=== PATIENT | male | born 1960 | race African-American/Black ===

== ENCOUNTER → 2016-11-01 | Outpatient (CLI) | payer OTHER, MEDICAID ==
[2016-07-24 17:18] VITALS: BP 149/97
[2016-11-04 15:26] LABS: ALBUMIN (SPEP) 4.05 g/dL (3.75-5.01); ALPHA-1 (SPEP) 0.35 g/dL (0.19-0.46); GAMMA (SPEP) 1.09 g/dL (0.62-1.51)
== END ==
LOC: LAB 16:09
DX: M54.5 Low back pain (principal); M79.7 Fibromyalgia; R53.83 Other fatigue; R76.8 Other specified abnormal immunological findings in serum
CPT/HCPCS: 36415; 84165; 85652; 86140; 86334

== ENCOUNTER 2016-12-02 16:34 | Emergency (ER) | payer OTHER, MEDICAID ==
[2016-12-02 17:04] VITALS: BP 136/87
--- NOTE | 2016-12-02 17:24 | DR.GENAD ---
HPI - PCP Primary Care Physician: LOBITO YANEZ - Complaint/Symptoms Chief Complaint Doctors Comments: Patient admits to swollen eyes with clear drainage this AM Chief Complaint:: PT STATES " I WOKE UP THIS AM AND I HAVE SWOLLEN AREAS MY EYES ". Self Treatment fo Chief Complaint: PT RECENTLY HAD AN HEAD HOLD PUT ON CIPRO.. - Source History Provided: Patient - Mode of Arrival Mode of Arrival: Ambulatory - Timing Onset of Chief Complaint: 12/02/16 PMH - PMH Past Medical History: Yes Past Medical History: Dyslipidemia, Hypertension Past Surgical History: Yes Surgical History: Ortho Surgery - Family History History of Family Medical Conditions: Yes Family Medical History: Diabetes Mellitus, Cancer, [place], Coronary Artery Disease, Hypertension - Social History Does patient currently use any type of tobacco product: No Have you used tobacco products in the last 12 months: No Type of Tobacco Use: None Does any household member use tobacco: No Alcohol Use: None Do you use any recreational Drugs:: No Lives With: Alone Lives Where: Home - infectious screening In the last 2 months have you had wt loss of >10#?: NO Have you had fever, night sweats or hemotysis?: No Have you traveled outside the country in the last 6 months?: No Isolation: Standard ROS - Review of Systems Constitutional: No Symptoms Reported Eyes: Discharge (watery from right this morning) ENTM: No Symptoms Reported Respiratoy: No Symptoms Reported Cardiovascular: No Symptoms Reported Gastrointestinal/Abdominal: No Symptoms Reported Genitourinary: No Symptoms Reported Neurological: No Symptoms Reported Musculoskeletal: No Symptoms Reported Integumentary: No Symptoms Reported Hematologic/Lymphatic: No Symptoms Reported Endocrine: No Symptoms Reported Psychiatric: No Symptoms Reported PE - Vital Signs Vitals: Temperature 98.7 F Pulse Rate 90 Respiratory Rate 20 Blood Pressure [Right Arm] 109/69 Blood Pressure [Left Arm] 150/72 Blood Pressure 136/87 O2 Sat by Pulse Oximetry 95 - General Limitations: No Limitations General Appearance: Alert, In No Apparent Distress, Appears Intoxicated - Head Head Exam: Normal Inspection, Atraumatic - Eyes Eye exam: EOMI (proptosis bilaterally), Conjunctival Injection - ENT ENT Exam: Normal Exam External Ear Exam: Normal External Inspection TM/Canal Exam: Bilateral Normal Nose Exam: Normal Nose Exam Mouth Exam: Normal Inspection Throat Exam: Normal Inspection - Neck Neck Exam: Normal Inspection - Chest Chest Inspection: Normal Inspection - Respiratory Respiratory Exam: Bilateral Clear to Auscultation - Cardiovascular Cardiovascular Exam: Regular Rate, Normal Rhythm - Abdominal Exam Abdominal Exam: Normal Inspection Abdominal Tenderness: negative: RUQ, RLQ, LUQ, LLQ, Epigastrium, Suprapubic, Diffuse, Mild, Moderate, Severe, Other - Extremities Extremities Exam: Normal Inspection - Back Back Exam: Normal Inspection, Full ROM - Neurologic Neurological Exam: Alert, Oriented X3, CN II-XII Intact - Psychiatric Psychiatric Exam: Normal Affect - Skin Skin Exam: Warm, Dry, Intact - Diagnosis Discharge Problem: Conjunctivitis Qualifiers: Conjunctivitis type: acute Acute conjunctivitis type: viral Laterality: right Qualified Code(s): B30.9 - Viral conjunctivitis, unspecified - Discharge Plan Condition: Stable - Follow ups/Referrals Follow ups/Referrals: RYANNE YANEZ [Primary Care Provider] - 3 days - Instructions
== END 2016-12-02 17:55 | disposition home or self-care (01) ==
LOC: ER 16:58
DX: B30.8 Other viral conjunctivitis (principal)
CPT/HCPCS: 99281; 99282

== ENCOUNTER 2016-12-16 18:26 | Emergency (ER) | payer OTHER, MEDICAID ==
[2016-12-16 18:38] VITALS: BP 141/72; BMI 26.6
[2016-12-16 19:07] LABS: BASOPHILS # (AUTO) 0.1 X10^3/uL (0.0-0.1); BASOPHILS % (AUTO) 0.9 % (0.2-1.0); EOSINOPHILS # (AUTO) 0.1 x10^3/uL (0.0-0.2); HEMATOCRIT 40.6 % (42.0-54.0); HEMOGLOBIN 13.2 g/dL (13.5-18.0); LYMPHOCYTES # (AUTO) 1.8 X10^3/uL (1.3-2.9); LYMPHOCYTES % (AUTO) 24.3 % (21.0-51.0); MEAN CORPUSCULAR HEMOGLOBIN 31.3 pg (27.0-34.0); MEAN CORPUSCULAR HGB CONC 32.6 g/dL (33.0-35.0); MONOCYTES # (AUTO) 0.9 x10^3/uL (0.3-0.8); MONOCYTES % (AUTO) 11.5 % (0.0-13.0); NEUTROPHILS # (AUTO) 4.7 x10^3/uL (2.2-4.8); NEUTROPHILS % (AUTO) 62.3 % (42.0-75.0); PLATELET COUNT 147 X10^3/uL (150.0-450.0); RED BLOOD COUNT 4.22 X10^6/uL (4.7-6.0); RED CELL DISTRIBUTION WIDTH 14.5 % (11.6-16.5); WHITE BLOOD COUNT 7.6 X10^3/uL (3.6-10.0)
--- NOTE | 2016-12-16 19:11 | DR.CP ---
HPI - Time Seen Time seen: 18:35 - PCP Primary Care Physician: estelita woodward - Complaint Chief Complaint Doctor Comments: Agree with history. Patient denies diaphoresis , states that the pain is primarily like rib pain Chief Complaint:: patient stated that he started having chest pain or more like rib pain and he was going to wait to see his doctor on monday but it became too painful - Source History Provided: Patient, EMS - Mode of Arrival Mode of Arrival: EMS - Timing Onset of Chief Complaint: 12/16/16 PMH - PMH Past Medical History: Yes Past Medical History: Dyslipidemia, Hypertension Past Surgical History: Yes Surgical History: Ortho Surgery - Family History History of Family Medical Conditions: Yes Family Medical History: Diabetes Mellitus, Cancer, [place], Coronary Artery Disease, Hypertension - Social History Does patient currently use any type of tobacco product: Yes Have you used tobacco products in the last 12 months: Yes Type of Tobacco Use: Cigarettes Does any household member use tobacco: No Alcohol Use: None Do you use any recreational Drugs:: No Lives With: Family Lives Where: Home - infectious screening In the last 2 months have you had wt loss of >10#?: NO Have you had fever, night sweats or hemotysis?: No Have you traveled outside the country in the last 6 months?: No Isolation: Standard ROS - Review of Systems Eyes: No Symptoms Reported ENTM: No Symptoms Reported Respiratoy: No Symptoms Reported Cardiovascular: No Symptoms Reported Gastrointestinal/Abdominal: No Symptoms Reported Genitourinary: No Symptoms Reported Neurological: No Symptoms Reported Musculoskeletal: Chest wall, Rib(s) Integumentary: No Symptoms Reported Hematologic/Lymphatic: No Symptoms Reported Endocrine: No Symptoms Reported Psychiatric: No Symptoms Reported All Other Systems: Reviewed and Negative PE - Vitals Vitals: Temperature 99.2 F Pulse Rate 82 Respiratory Rate 18 Blood Pressure [Right Arm] 109/69 Blood Pressure [Left Arm] 150/72 Blood Pressure 141/72 O2 Sat by Pulse Oximetry 96 - General Limitations: No Limitations General Appearance: Alert, In No Apparent Distress - Head Head Exam: Normal Inspection, Atraumatic - Eyes Eye exam: Normal Appearance, PERRL, EOMI - ENT ENT Exam: Normal Exam - Chest Chest Inspection: Normal Inspection, Symmetric Chest Wall Rise - Respiratory Respiratory Exam: Normal Lung Sounds Bilat Respiratory Exam: Bilateral Clear to Auscultation - Cardiovascular Cardiovascular Exam: Regular Rate, Normal Rhythm Pulse: Normal - Abdominal Exam Abdominal Exam: Normal Inspection Abdominal Tenderness: negative: RUQ, RLQ, LUQ, LLQ, Epigastrium, Suprapubic, Diffuse, Mild, Moderate, Severe, Other - Extremities Extremities Exam: Normal Inspection - Back Back Exam: Normal Inspection - Neurologic Neurological Exam: Alert, Oriented X3, CN II-XII Intact Course - Reevaluation 1st: Improved (1930) ROR - Labs Reviewed Laboratory Results Reviewed?: Yes (cardiacs negative) Result Diagrams: 12/16/16 18:55 12/16/16 18:55 Laboratory: WBC 7.6 X10^3/uL (3.6-10.0) 12/16/16 18:55 RBC 4.22 X10^6/uL (4.7-6.0) L 12/16/16 18:55 Hgb 13.2 g/dL (13.5-18.0) L 12/16/16 18:55 Hct 40.6 % (42.0-54.0) L 12/16/16 18:55 MCV 96.0 fL (80.0-100.0) 12/16/16 18:55 MCH 31.3 pg (27.0-34.0) 12/16/16 18:55 MCHC 32.6 g/dL (33.0-35.0) L 12/16/16 18:55 RDW 14.5 % (11.6-16.5) 12/16/16 18:55 Plt Count 147 X10^3/uL (150.0-450.0) L 12/16/16 18:55 Plt Count Comment Decreased (ADEQUATE) 12/16/16 18:55 MPV 10.0 fL (7.4-11.0) 12/16/16 18:55 Neut % 62.3 % (42.0-75.0) 12/16/16 18:55 Lymph % 24.3 % (21.0-51.0) 12/16/16 18:55 [place] % 11.5 % (0.0-13.0) 12/16/16 18:55 Eos % 1.0 % (0.9-2.9) 12/16/16 18:55 Baso % 0.9 % (0.2-1.0) 12/16/16 18:55 Neut # 4.7 x10^3/uL (2.2-4.8) 12/16/16 18:55 Lymph # 1.8 X10^3/uL (1.3-2.9) 12/16/16 18:55 [place] # 0.9 x10^3/uL (0.3-0.8) H 12/16/16 18:55 Eos # 0.1 x10^3/uL (0.0-0.2) 12/16/16 18:55 Baso # 0.1 X10^3/uL (0.0-0.1) 12/16/16 18:55 Absolute Nucleated RBC 0.1 /100WBC 12/16/16 18:55 Plt Morphology Comment Normal (NORMAL) 12/16/16 18:55 RBC Morphology Normal (NORMAL) 12/16/16 18:55 Sodium 143 mmol/L (136-145) 12/16/16 18:55 Corrected Sodium 144 mmol/L (136-145) 12/16/16 18:55 Potassium 3.8 mmol/L (3.5-5.1) 12/16/16 18:55 Chloride 105 mmol/L (98-107) 12/16/16 18:55 Carbon Dioxide 29.3 mmol/L (21-32) 12/16/16 18:55 BUN 12 mg/dL (7-18) 12/16/16 18:55 Creatinine 1.16 mg/dL (0.70-1.30) 12/16/16 18:55 Est GFR (MDRD) Af Amer > 60 (>60) 12/16/16 18:55 Est GFR (MDRD) Non-Af > 60 (>60) 12/16/16 18:55 Glucose 134 mg/dL (65-99) H 12/16/16 18:55 Calcium 8.7 mg/dL (8.5-10.1) 12/16/16 18:55 Corrected Calcium TNP 12/16/16 18:55 Total Bilirubin 0.40 mg/dL (0.2-1.0) 12/16/16 18:55 AST 13 Units/L (15-37) L 12/16/16 18:55 ALT 23 Units/L (12-78) 12/16/16 18:55 Alkaline Phosphatase 69 Units/L (46-116) 12/16/16 18:55 Creatine Kinase 104 Units/L (39-308) 12/16/16 18:55 CK-MB (CK-2) 1.0 ng/mL (0-4.0) 12/16/16 18:55 CK/CKMB % Calc 1.0 % (<4) 12/16/16 18:55 Troponin I < 0.02 ng/mL (0-1.5) 12/16/16 18:55 Total Protein 7.4 g/dL (6.4-8.2) 12/16/16 18:55 Albumin 3.4 g/dL (3.4-5.0) 12/16/16 18:55 Globulin 4.0 g/dL (2.5-4.5) 12/16/16 18:55 Albumin/Globulin Ratio 0.9 Ratio (1.1-2.1) L 12/16/16 18:55 - XRAY XRAY Interpreted by: Radiologist - EKG Compared to prior EKG Dated: 12/06/14 (essentiallially unchanged) - Diagnosis Discharge Problem: Cardiomegaly - Discharge Plan Condition: Stable - Follow ups/Referrals Follow ups/Referrals: RYANNE WOODWARD [Primary Care Provider] - 3 days - Instructions
[2016-12-16 19:19] LABS: BLOOD UREA NITROGEN 12 mg/dL (7-18); CALCIUM 8.7 mg/dL (8.5-10.1); CARBON DIOXIDE 29.3 mmol/L (21-32); CHLORIDE 105 mmol/L (98-107); COR NA(FOR HYPERGLY) 144 mmol/L (136-145); CREATININE 1.16 mg/dL (0.70-1.30); GLUCOSE 134 mg/dL (65-99); SODIUM 143 mmol/L (136-145); TROPONIN I < 0.02 ng/mL (0-1.5); eGFR BLACK RACES > 60 (>60); eGFR NON BLACK RACES > 60 (>60)
[2016-12-16 19:20] LABS: PLATELET MORPHOLOGY COMMENT NORMAL (NORMAL)
[2016-12-16 19:23] LABS: ALANINE AMINOTRANSFERASE 23 Units/L (12-78); ALBUMIN 3.4 g/dL (3.4-5.0); ALKALINE PHOSPHATASE 69 Units/L (46-116); ASPARTATE AMINO TRANSFERASE 13 Units/L (15-37); CREATINE KINASE 104 Units/L (39-308); TOTAL PROTEIN 7.4 g/dL (6.4-8.2)
--- NOTE | 2016-12-16 19:32 | RAD ---
HISTORY: 56-year-old male with chest pain. Study: Single frontal view of the chest. Comparison: Chest radiographs February 27, 2015. Findings: The trachea is midline. Interval worsening of the enlarged cardiopericardial silhouette. No focal c onsolidation, effusion or pneumothorax. Soft tissues and osseous structures are unremarkable. IMPRESSION: 1. Interval worsening of cardiomegaly without pulmonary edema. Reported By:
== END 2016-12-16 19:59 | disposition home or self-care (01) ==
LOC: ER 18:26
DX: I51.7 Cardiomegaly (principal)
CPT/HCPCS: 36415; 71010; 80053; 82550; 82553; 84484; 85025; 93005; 93010; 99283

== ENCOUNTER → 2016-12-27 | Outpatient (CLI) | payer OTHER, MEDICAID ==
[2016-12-16 18:38] VITALS: BP 141/72
[2016-12-27 16:09] LABS: BASOPHILS # (AUTO) 0.1 X10^3/uL (0.0-0.1); BASOPHILS % (AUTO) 1.1 % (0.2-1.0); EOSINOPHILS # (AUTO) 0.1 x10^3/uL (0.0-0.2); EOSINOPHILS % (AUTO) 0.8 % (0.9-2.9); HEMATOCRIT 42.3 % (42.0-54.0); HEMOGLOBIN 14.1 g/dL (13.5-18.0); LYMPHOCYTES # (AUTO) 1.9 X10^3/uL (1.3-2.9); LYMPHOCYTES % (AUTO) 21.7 % (21.0-51.0); MEAN CORPUSCULAR HEMOGLOBIN 31.4 pg (27.0-34.0); MEAN CORPUSCULAR HGB CONC 33.4 g/dL (33.0-35.0); MEAN PLATELET VOLUME 10.2 fL (7.4-11.0); MONOCYTES # (AUTO) 0.7 x10^3/uL (0.3-0.8); NEUTROPHILS # (AUTO) 6.1 x10^3/uL (2.2-4.8); NEUTROPHILS % (AUTO) 68.4 % (42.0-75.0); PLATELET COUNT 199 X10^3/uL (150.0-450.0); RED CELL DISTRIBUTION WIDTH 14.4 % (11.6-16.5); WHITE BLOOD COUNT 8.9 X10^3/uL (3.6-10.0)
[2016-12-27 16:19] LABS: ALANINE AMINOTRANSFERASE 28 Units/L (12-78); ALBUMIN 3.7 g/dL (3.4-5.0); ALKALINE PHOSPHATASE 83 Units/L (46-116); ASPARTATE AMINO TRANSFERASE 17 Units/L (15-37); BLOOD UREA NITROGEN 10 mg/dL (7-18); CALCIUM 9.2 mg/dL (8.5-10.1); CARBON DIOXIDE 29.3 mmol/L (21-32); CHLORIDE 102 mmol/L (98-107); COR NA(FOR HYPERGLY) 142 mmol/L (136-145); CREATININE 1.17 mg/dL (0.70-1.30); GLUCOSE 164 mg/dL (65-99); HEMOGLOBIN A1C 7.6 % (4.5-6.2); SODIUM 140 mmol/L (136-145); TOTAL PROTEIN 8.1 g/dL (6.4-8.2); eGFR BLACK RACES > 60 (>60); eGFR NON BLACK RACES > 60 (>60)
[2016-12-27 16:33] LABS: MICROALBUMIN,URINE 25.1 mg/L
[2016-12-27 16:41] LABS: BAND NEUTROPHILS % 3 % (0-10)
[2016-12-27 16:42] LABS: GIANT PLATELET RARE; HYPOCHROMASIA SLIGHT; PLATELET MORPHOLOGY COMMENT ABNORMAL (NORMAL); STOMATOCYTES SLIGHT
[2016-12-27 16:46] LABS: TOTAL PSA 11.13 ng/mL (0.13-4.0)
[2016-12-27 17:39] LABS: ERYTHROCYTE SEDIMENTATION RATE 35 MM/HOUR (0-15)
[2016-12-28 14:26] LABS: CREATININE,URINE 490.27 mg/dL (40-278)
== END ==
LOC: LAB 14:55
PROVIDERS: ATTEND Nurse Practitioner Family
DX: E11.9 Type 2 diabetes mellitus without complications (principal); R51 Headache; Z87.438 Personal history of other diseases of male genital organs; G44.89 Other headache syndrome; R97.20 Elevated prostate specific antigen [PSA]
CPT/HCPCS: 36415; 80053; 82043; 83036; 84153; 85025; 85652; 86140

== ENCOUNTER 2017-02-13 17:41 | Emergency (ER) | payer OTHER, MEDICAID ==
[2017-02-13 18:05] VITALS: BP 139/99; BMI 36.6
--- NOTE | 2017-02-13 18:15 | DR.CP ---
HPI - Time Seen Time seen: 18:15 - PCP Primary Care Physician: RAPHAEL NEAL - HPI Comment HPI Comment: PATIENT DEVELOP CHEST PAIN ON LEFT CHEST AND EPIGASTRIC PAIN WHILE ECHOCARDIOGRAM WAS BEING DONE. NO WEAKNESS OR DIZZINESS. SOB ON EXERSION. NO FEVER OR URI SYMTOM. - Complaint Chief Complaint Doctor Comments: CHEST PAIN LT CHEST FOR FEW HOURS. Chief Complaint:: PT. C/O CHEST WALL PAIN AND EPIGASTRIC PAIN. PT. STATES HE WAS HAVING AN ECHO DONE TODAY AT DR. ARORA'S OFFICE AND HIS CHEST BEGAN HURTING WHILE TEST WAS BEING PERFORMED & WHILE THE LADY WAS PUSHING ON HIS CHEST. PT. DENIES PAIN AT TIME OF ARRIVAL TO ER. - Reviewed Nurses Notes Review: Yes - Source History Provided: Patient, EMS - Mode of Arrival Mode of Arrival: EMS - Timing Onset of Chief Complaint: 02/13/17 Came on: Suddenly Pain: Present Now - Duration Duration: Constant Duration: Hours - Location Location of Chest Pain: Left, Chest Chest Pain Radiation Location: None - Context Onset: At rest Cardiac Risk Factors: Hyperlipidemia, HTN PE Risk Factors: None History of: None Prehospital Care: None - Quality Quality: Sharp - Severity Severity: Moderate - Modifying Factors Worsens: Nothing Impoves: Nothing - Associated Signs and Symptoms Associated Signs and Symptoms: Shortness of Breath PMH - PMH Past Medical History: Yes Past Medical History: Dyslipidemia, Hypertension Past Surgical History: Yes Surgical History: Ortho Surgery - Family History History of Family Medical Conditions: Yes Family Medical History: Diabetes Mellitus, Cancer, [place], Coronary Artery Disease, Hypertension - Social History Does patient currently use any type of tobacco product: Yes Have you used tobacco products in the last 12 months: Yes Type of Tobacco Use: Cigarettes Does any household member use tobacco: No Alcohol Use: None Do you use any recreational Drugs:: No Lives With: Family Lives Where: Home - infectious screening In the last 2 months have you had wt loss of >10#?: NO Have you had fever, night sweats or hemotysis?: No Have you traveled outside the country in the last 6 months?: No Isolation: Standard ROS - Review of Systems Constitutional: No Symptoms Reported Eyes: No Symptoms Reported ENTM: No Symptoms Reported Respiratoy: No Symptoms Reported Cardiovascular: Chest Pain (CHEST WALL PAIN) Gastrointestinal/Abdominal: No Symptoms Reported Genitourinary: No Symptoms Reported Neurological: No Symptoms Reported, Problems Walking (WALK WITH CANE) Musculoskeletal: Back Pain, Chest wall (LT CHEST.), Back Integumentary: No Symptoms Reported Hematologic/Lymphatic: No Symptoms Reported Endocrine: No Symptoms Reported All Other Systems: Reviewed and Negative PE - Vitals Vitals: Temperature 98.7 F Pulse Rate 88 Respiratory Rate 17 Blood Pressure [Right Arm] 109/69 Blood Pressure [Left Arm] 150/72 Blood Pressure 139/99 O2 Sat by Pulse Oximetry 98 - General Limitations: No Limitations General Appearance: Alert - Head Head Exam: Normal Inspection - Eyes Eye exam: Normal Appearance - ENT ENT Exam: Normal External Ear Exam - Chest Chest Inspection: Symmetric Chest Wall Rise, Tenderness - Respiratory Respiratory Exam: Normal Lung Sounds Bilat, Chest Wall Tenderness Respiratory Exam: Bilateral Clear to Auscultation - Cardiovascular Cardiovascular Exam: Regular Rate, Normal Rhythm, Normal Heart Sounds Pulse: Femoral Edema: Normal - Abdominal Exam Abdominal Exam: Normal Bowel Sounds, Soft. negative: Tenderness - Extremities Extremities Exam: Normal Inspection - Back Back Exam: Normal Inspection, Other (CHRONIC LEG PAIN) - Neurologic Neurological Exam: Alert, Oriented X3 - Psychiatric Psychiatric Exam: Normal Affect, Normal Mood - Skin Skin Exam: Normal Color MDM - Differential Diagnosis Differential Diagnosis: Angina, Chest Wall Pain, Cholelithasis, CHF, Esophageal Reflux/Spasm, Gastritis, Myocardial Infarction, Pericarditis, Pleuritis, Pancreatitis, Pneumonia, Pneumothorax Course - Treatment Treatment: SEE ORDERS. - Education/Counseling Education/Counseling: Patient, Education Educated On: Needs for Follow Up ROR - Labs Reviewed Laboratory Results Reviewed?: Yes Result Diagrams: 02/13/17 19:08 02/13/17 19:08 Laboratory: WBC 7.5 X10^3/uL (3.6-10.0) 02/13/17 19:08 RBC 4.75 X10^6/uL (4.7-6.0) 02/13/17 19:08 Hgb 15.5 g/dL (13.5-18.0) 02/13/17 19:08 Hct 44.6 % (42.0-54.0) 02/13/17 19:08 MCV 94.0 fL (80.0-100.0) 02/13/17 19:08 MCH 32.6 pg (27.0-34.0) 02/13/17 19:08 MCHC 34.7 g/dL (33.0-35.0) 02/13/17 19:08 RDW 15.4 % (11.6-16.5) 02/13/17 19:08 Plt Count 147 X10^3/uL (150.0-450.0) L 02/13/17 19:08 Plt Count Comment Adequate (ADEQUATE) 02/13/17 19:08 MPV 10.8 fL (7.4-11.0) 02/13/17 19:08 Neut % 60.0 % (42.0-75.0) 02/13/17 19:08 Lymph % 28.1 % (21.0-51.0) 02/13/17 19:08 [place] % 9.7 % (0.0-13.0) 02/13/17 19:08 Eos % 1.1 % (0.9-2.9) 02/13/17 19:08 Baso % 1.1 % (0.2-1.0) H 02/13/17 19:08 Neut # 4.5 x10^3/uL (2.2-4.8) 02/13/17 19:08 Lymph # 2.1 X10^3/uL (1.3-2.9) 02/13/17 19:08 [place] # 0.7 x10^3/uL (0.3-0.8) 02/13/17 19:08 Eos # 0.1 x10^3/uL (0.0-0.2) 02/13/17 19:08 Baso # 0.1 X10^3/uL (0.0-0.1) 02/13/17 19:08 Absolute Nucleated RBC 0.1 /100WBC 02/13/17 19:08 Plt Morphology Comment Normal (NORMAL) 02/13/17 19:08 RBC Morphology Normal (NORMAL) 02/13/17 19:08 Sodium 140 mmol/L (136-145) 02/13/17 19:08 Corrected Sodium TNP 02/13/17 19:08 Potassium 4.0 mmol/L (3.5-5.1) 02/13/17 19:08 Chloride 102 mmol/L (98-107) 02/13/17 19:08 Carbon Dioxide 27.7 mmol/L (21-32) 02/13/17 19:08 BUN 10 mg/dL (7-18) 02/13/17 19:08 Creatinine 1.10 mg/dL (0.70-1.30) 02/13/17 19:08 Est GFR (MDRD) Af Amer > 60 (>60) 02/13/17 19:08 Est GFR (MDRD) Non-Af > 60 (>60) 02/13/17 19:08 Glucose 110 mg/dL (65-99) H 02/13/17 19:08 Calcium 9.6 mg/dL (8.5-10.1) 02/13/17 19:08 Corrected Calcium TNP 02/13/17 19:08 Total Bilirubin 0.60 mg/dL (0.2-1.0) 02/13/17 19:08 AST 13 Units/L (15-37) L 02/13/17 19:08 ALT 24 Units/L (12-78) 02/13/17 19:08 Alkaline Phosphatase 78 Units/L (46-116) 02/13/17 19:08 Creatine Kinase 184 Units/L (39-308) 02/13/17 19:08 CK-MB (CK-2) 1.7 ng/mL (0-4.0) 02/13/17 19:08 CK/CKMB % Calc 0.9 % (<4) 02/13/17 19:08 Troponin I < 0.02 ng/mL (0-1.5) 02/13/17 19:08 Total Protein 8.9 g/dL (6.4-8.2) H 02/13/17 19:08 Albumin 4.6 g/dL (3.4-5.0) 02/13/17 19:08 Globulin 4.3 g/dL (2.5-4.5) 02/13/17 19:08 Albumin/Globulin Ratio 1.1 Ratio (1.1-2.1) 02/13/17 19:08 - XRAY XRAY Interpreted by: Radiologist XRAY Findings: REPORT DISCUSS WITH PATIENT. - EKG Rhythm: NSR (EKG NOTED.) - Diagnosis Discharge Problem: Chest wall pain Chest pain Qualifiers: Chest pain type: precordial pain Qualified Code(s): R07.2 - Precordial pain - Discharge Plan Disposition: 01 HOME, SELF-CARE Condition: Stable - Follow ups/Referrals Follow ups/Referrals: JOSEPHINE ALCANTAR [Primary Care Provider] - 3 days - Instructions Instructions: Chest Pain Observation, Chest Wall Pain, [id number] Additional Instructions: RETURN TO ED IF WORSE. CONTINUE WITH MEDS AT HOME FOR PAIN.
[2017-02-13 19:20] LABS: BASOPHILS # (AUTO) 0.1 X10^3/uL (0.0-0.1); BASOPHILS % (AUTO) 1.1 % (0.2-1.0); EOSINOPHILS # (AUTO) 0.1 x10^3/uL (0.0-0.2); EOSINOPHILS % (AUTO) 1.1 % (0.9-2.9); HEMATOCRIT 44.6 % (42.0-54.0); HEMOGLOBIN 15.5 g/dL (13.5-18.0); LYMPHOCYTES # (AUTO) 2.1 X10^3/uL (1.3-2.9); LYMPHOCYTES % (AUTO) 28.1 % (21.0-51.0); MEAN CORPUSCULAR HEMOGLOBIN 32.6 pg (27.0-34.0); MEAN CORPUSCULAR HGB CONC 34.7 g/dL (33.0-35.0); MEAN PLATELET VOLUME 10.8 fL (7.4-11.0); MONOCYTES # (AUTO) 0.7 x10^3/uL (0.3-0.8); MONOCYTES % (AUTO) 9.7 % (0.0-13.0); NEUTROPHILS # (AUTO) 4.5 x10^3/uL (2.2-4.8); PLATELET COUNT 147 X10^3/uL (150.0-450.0); RED BLOOD COUNT 4.75 X10^6/uL (4.7-6.0); RED CELL DISTRIBUTION WIDTH 15.4 % (11.6-16.5); WHITE BLOOD COUNT 7.5 X10^3/uL (3.6-10.0)
[2017-02-13 19:35] LABS: PLATELET MORPHOLOGY COMMENT NORMAL (NORMAL)
--- NOTE | 2017-02-13 19:39 | RAD ---
HISTORY: Chest pain Study: Single view chest Comparison: 12/16/2016 Findings: Single portable view. Lung volumes are reduced with mild bronchovascular crowding. Stable cardiomega ly. The soft tissues are unremarkable. IMPRESSION: 1. Stable cardiomegaly without acute findings. Reported By:
[2017-02-13 19:47] LABS: BLOOD UREA NITROGEN 10 mg/dL (7-18); CALCIUM 9.6 mg/dL (8.5-10.1); CARBON DIOXIDE 27.7 mmol/L (21-32); CHLORIDE 102 mmol/L (98-107); GLUCOSE 110 mg/dL (65-99); SODIUM 140 mmol/L (136-145); TROPONIN I < 0.02 ng/mL (0-1.5); eGFR BLACK RACES > 60 (>60); eGFR NON BLACK RACES > 60 (>60)
[2017-02-13 19:51] LABS: ALANINE AMINOTRANSFERASE 24 Units/L (12-78); ALBUMIN 4.6 g/dL (3.4-5.0); ALKALINE PHOSPHATASE 78 Units/L (46-116); ASPARTATE AMINO TRANSFERASE 13 Units/L (15-37); CKMB % 0.9 % (<4); CREATINE KINASE 184 Units/L (39-308); CREATINE KINASE MB 1.7 ng/mL (0-4.0); TOTAL PROTEIN 8.9 g/dL (6.4-8.2)
== END 2017-02-13 20:02 | disposition home or self-care (01) ==
LOC: ER 17:44
DX: R07.2 Precordial pain (principal); R10.84 Generalized abdominal pain; R94.31 Abnormal electrocardiogram [ECG] [EKG]
CPT/HCPCS: 36415; 71010; 80053; 82550; 82553; 84484; 85025; 93005; 93010; 99283

== ENCOUNTER → 2017-03-06 | Outpatient (CLI) | payer OTHER, MEDICAID ==
[2017-02-13 18:05] VITALS: BP 139/99
--- NOTE | 2017-03-06 14:50 | MRI ---
MRI lumbar spine with contrast Indication: Lower back pain Technique: Multi sequence, multiplanar MR images of the lumbar spine were obtained without contrast. Comparison: March 14, 2016 Findings: Bone marrow signal and lumbar vertebral body heights and alignment appear normal. No acute fracture, subluxation or suspicious osseous lesion is identified. The conus is normal in signal and caliber, terminating at L1-L2. The cauda equina is unremarkable. The imaged paraspinal soft tissues demonstrate no unexpected findings. There is no abnormal enhancem ent post contrast administration. T12-L1, L1-L2: Unremarkable L2-L3: Mild broad-based posterior disc bulge results in stable mild bilateral foraminal narrowing. L3-L4: Mild broad-based posterior disc bulge and bilateral facet arthropathy and ligamentum flavum t hickening result in stable mild bilateral foraminal narrowing. L4-L5: Moderate, broad-based posterior disc bulge, bilateral facet arthropathy and ligamentum flavum thickening results and stable moderate left and severe right foraminal narrowing. The previously se en, superimposed central disc protrusion is no longer appreciated with improvement in spinal canal n arrowing, which is now moderate, previously severe. L5-S1: Moderate broad-based posterior disc bulge, bilateral facet arthropathy and ligamentum flavum thickening results in stable moderate right and mild left neural foraminal narrowing. Impression: Multilevel degenerative changes of the lumbar spine, again most significant at L4-L5 where there is stable moderate-severe bilateral foraminal narrowing and improving moderate canal stenosis, previous ly severe. Reported By:
== END | disposition home or self-care (01) ==
LOC: RAD 10:44
PROVIDERS: ATTEND Nurse Practitioner Family
DX: M54.5 Low back pain (principal); M51.36 Other intervertebral disc degeneration, lumbar region; M48.06 Spinal stenosis, lumbar region
CPT/HCPCS: 72149

== ENCOUNTER 2017-04-11 15:28 | Observation (INO) | payer OTHER, MEDICAID ==
[2017-04-11 17:10] LABS: BASOPHILS # (AUTO) 0.1 X10^3/uL (0.0-0.1); BASOPHILS % (AUTO) 1.8 % (0.2-1.0); EOSINOPHILS # (AUTO) 0.1 x10^3/uL (0.0-0.2); EOSINOPHILS % (AUTO) 1.1 % (0.9-2.9); HEMATOCRIT 46.4 % (42.0-54.0); HEMOGLOBIN 15.8 g/dL (13.5-18.0); LYMPHOCYTES # (AUTO) 1.9 X10^3/uL (1.3-2.9); LYMPHOCYTES % (AUTO) 23.6 % (21.0-51.0); MEAN CORPUSCULAR HEMOGLOBIN 32.3 pg (27.0-34.0); MEAN CORPUSCULAR VOLUME 94.9 fL (80.0-100.0); MEAN PLATELET VOLUME 11.2 fL (7.4-11.0); MONOCYTES # (AUTO) 0.6 x10^3/uL (0.3-0.8); NEUTROPHILS # (AUTO) 5.2 x10^3/uL (2.2-4.8); NEUTROPHILS % (AUTO) 66.5 % (42.0-75.0); PLATELET COUNT 127 X10^3/uL (150.0-450.0); RED BLOOD COUNT 4.89 X10^6/uL (4.7-6.0); RED CELL DISTRIBUTION WIDTH 14.5 % (11.6-16.5); WHITE BLOOD COUNT 7.9 X10^3/uL (3.6-10.0)
[2017-04-11 17:19] LABS: ALANINE AMINOTRANSFERASE 28 Units/L (12-78); ALBUMIN 4.4 g/dL (3.4-5.0); ALKALINE PHOSPHATASE 67 Units/L (46-116); ASPARTATE AMINO TRANSFERASE 15 Units/L (15-37); BLOOD UREA NITROGEN 12 mg/dL (7-18); CALCIUM 9.5 mg/dL (8.5-10.1); CARBON DIOXIDE 26.8 mmol/L (21-32); CHLORIDE 105 mmol/L (98-107); COR NA(FOR HYPERGLY) 142 mmol/L (136-145); CREATININE 1.21 mg/dL (0.70-1.30); GLUCOSE 144 mg/dL (65-99); SODIUM 141 mmol/L (136-145); eGFR BLACK RACES > 60 (>60); eGFR NON BLACK RACES > 60 (>60)
--- NOTE | 2017-04-11 18:25 | DR.H&P ---
H&P - History & Physical for Day of: H&P Date: 04/11/17 - Chief Complaint Chief Complaint: Abdominal pain, black tarry stool - Allergies Allergies/Adverse Reactions: Allergies Allergy/AdvReac Type Severity Reaction Status Date / Time MS Chocolate [Chocolate] Allergy Mild anxiety Verified 02/13/17 17:50 MS Penicillins [Penicillins] Allergy Mild RASH Verified 02/13/17 17:50 MS Caffeine [Caffeine] Allergy anxiety Verified 02/13/17 17:50 - History of Present Illness History of Present Illness: Mister Lucero is a 56-year-old black male who was a direct admit from Dr. Rosa's office after presenting with complaints of abdominal pain and cramping with black tarry stool. Patient stated onset of illness was Monday night after eating takeout [employer] food. Patient has not taken any [id number] medication for symptoms. Patient does have a history of diabetes, hypertension, seizure disorder, depression, and chronic arthritis. We plan to admit for further evaluation of colitis possible lower GI bleed. Patient will have admission labs, CT of the abdomen and pelvis, stool studies we will start Protonix and Cipro IV - Past Medical History Past Medical History: Dyslipidemia, Hypertension - Past Surgical History Surgical History: Ortho Surgery - Family History Family Medical History: Diabetes Mellitus, Cancer, [place], Coronary Artery Disease, Hypertension - Social History Does patient currently use any type of tobacco product: No Have you used tobacco products in the last 12 months: No Type of Tobacco Use: None Does any household member use tobacco: No Alcohol Use: None Drug Use: None - Review of Systems Constitutional: Fever, Chills Eyes: No Symptoms Reported ENT: No Symptoms Reported Respiratory: No Symptoms Reported Cardiovascular: No Symptoms Reported Gastrointestinal: Nausea, Abdominal Pain, Diarrhea Genitourinary: No Symptoms Reported Musculoskeletal: Back Pain, Leg Pain Skin: No Symptoms Reported Neurological: No Symptoms Reported - Physical Exam Vital Signs: Blood Pressure [Right Arm] 109/69 Blood Pressure [Left Arm] 150/72 Blood Pressure 139/99 Oriented: Normal Eyes: Normal Ear: Normal Nose: Normal Throat: Normal Respiratory: RLL Diminished, LLL Diminished Cardiovascular: Normal : Normal Auscultation: Bowel Sounds: Increased Tenderness: LUQ, Epigastric, Periumbilical Skin: Normal Musculoskeletal: Back:Lumbar Psychiatric: Depression Speech Pattern: Clear - Assessment/Plan (1) Abdominal pain Qualifiers: Abdominal location: A Status: Acute Plan: admit for further evaluation of abdominal pain. Admission labs, stool studies, CT of the abdomen and pelvis, IV proton X, IV Cipro, repeat a.m. labs and resume home medication hold all NSAIDs (2) Black tarry stools Status: Acute (3) Arthritis Status: Acute (4) Essential hypertension Status: Active (5) Mental retardation Status: Active (6) Seizure disorder Status: Active
[2017-04-11 20:44] LABS: BILIRUBIN,URINE NEGATIVE (NEGATIVE); BLOOD/HEMOGLOBIN,URINE NEGATIVE (NEGATIVE); GLUCOSE, URINE NEGATIVE (NEGATIVE); KETONES,URINE NEGATIVE (NEGATIVE); LEUKOCYTE ESTERASE ,URINE 1+ (NEGATIVE); NITRITES,URINE NEGATIVE (NEGATIVE); PROTEIN,URINE 1+ (NEGATIVE); UROBILINOGEN,URINE NORMAL (NORMAL)
[2017-04-11 20:52] LABS: APPEARANCE,URINE CLEAR (CLEAR); BACTERIA,URINE TRACE /HPF (NEGATIVE); COLOR,URINE YELLOW (YELLOW); RBC,URINE NONE SEEN /HPF (NEGATIVE); SQUAMOUS EPITHELIAL CELL,UR RARE /HPF (NEGATIVE)
[2017-04-11 20:53] LABS: MUCUS,URINE FEW /HPF (NEGATIVE); SPERM,URINE FEW /HPF (NEGATIVE); TRICHOMONAS,URINE FEW /HPF (NEGATIVE)
[2017-04-11] MEDS ORDERED: DEPAKOTE D.R. TAB PO SCH (21:00)
[2017-04-11] MEDS ORDERED: ZOCOR TAB 10 MG PO SCH (21:00)
--- NOTE | 2017-04-11 21:25 | CT ---
HISTORY: Abdominal pain, diarrhea, fever, tarry stools Study: CT abdomen and pelvis without contrast Comparison: 01/24/2015 Technique: Multiple axial images of the abdomen and pelvis were obtained without IV contrast. Dose reduction techniques including Automated Exposure Control (AEC) and adjustment of mA and kV were utilized. Findings: Please note evaluation is limited without use of IV contrast. There is a stable large pericardial effusion measuring up to 2 cm in width. The lung bases are clear . The liver, spleen, pancreas, kidneys, and adrenal glands are unremarkable in their unenhanced CT appearance. The gallbladder is removed. There is a right renal cyst noted. No stones or obstructive uropathy. No free intraperitoneal air. No evidence of intestinal obstruction or inflammation. Oral contrast is seen throughout the large bowel. The appendix is normal. No free fluid identified. There are some chronic calcifications seen in the midline ventral abdomen that could be postsurgical or posttraumatic in nature. The osseous structures are intact. The vascular structures are unremark able. No pathologically enlarged lymph nodes are identified. Unremarkable urinary bladder. IMPRESSION: 1. Stable large pericardial effusion. 2. No acute findings identified within the abdomen and pelvis. Reported By:
[2017-04-11] MEDS ORDERED: NS 500 ML IV 500 ML IV ONE (21:33)
[2017-04-11] MEDS: CIPRO IV 400 MG PREMIX* 400 MG/200 ML IV.SOLN. IV SCH (21:38)
[2017-04-11] MEDS: PROTONIX TAB 40 MG PO SCH (21:38)
[2017-04-11] MEDS: PROTONIX INJ 40 MG VIAL IVP SCH (21:38)
[2017-04-11] MEDS: NORCO 10/325 TAB PO PRN (21:40)
[2017-04-11 22:18] VITALS: BMI 35.6
[2017-04-12 05:04] LABS: BASOPHILS % (AUTO) 0.3 % (0.2-1.0); EOSINOPHILS # (AUTO) 0.1 x10^3/uL (0.0-0.2); EOSINOPHILS % (AUTO) 1.2 % (0.9-2.9); HEMATOCRIT 42.2 % (42.0-54.0); HEMOGLOBIN 14.4 g/dL (13.5-18.0); LYMPHOCYTES # (AUTO) 2.5 X10^3/uL (1.3-2.9); LYMPHOCYTES % (AUTO) 37.3 % (21.0-51.0); MEAN CORPUSCULAR HEMOGLOBIN 32.2 pg (27.0-34.0); MEAN CORPUSCULAR HGB CONC 34.2 g/dL (33.0-35.0); MEAN CORPUSCULAR VOLUME 94.1 fL (80.0-100.0); MEAN PLATELET VOLUME 11.6 fL (7.4-11.0); MONOCYTES # (AUTO) 0.8 x10^3/uL (0.3-0.8); NEUTROPHILS # (AUTO) 3.3 x10^3/uL (2.2-4.8); NEUTROPHILS % (AUTO) 49.2 % (42.0-75.0); PLATELET COUNT 110 X10^3/uL (150.0-450.0); RED BLOOD COUNT 4.48 X10^6/uL (4.7-6.0); RED CELL DISTRIBUTION WIDTH 14.2 % (11.6-16.5); WHITE BLOOD COUNT 6.7 X10^3/uL (3.6-10.0)
[2017-04-12 05:29] LABS: ALANINE AMINOTRANSFERASE 28 Units/L (12-78); ALBUMIN 3.4 g/dL (3.4-5.0); ALKALINE PHOSPHATASE 52 Units/L (46-116); ASPARTATE AMINO TRANSFERASE 29 Units/L (15-37); BLOOD UREA NITROGEN 10 mg/dL (7-18); CALCIUM 8.5 mg/dL (8.5-10.1); CARBON DIOXIDE 27.8 mmol/L (21-32); CHLORIDE 106 mmol/L (98-107); CREATININE 1.02 mg/dL (0.70-1.30); GLUCOSE 85 mg/dL (65-99); SODIUM 141 mmol/L (136-145); TOTAL PROTEIN 6.6 g/dL (6.4-8.2); eGFR BLACK RACES > 60 (>60); eGFR NON BLACK RACES > 60 (>60)
[2017-04-12] MEDS: NORCO 10/325 TAB PO PRN (06:02)
[2017-04-12 08:13] VITALS: BP 134/81
[2017-04-12] MEDS: PROTONIX INJ 40 MG VIAL IVP SCH (08:36)
[2017-04-12] MEDS: PROTONIX TAB 40 MG PO SCH (08:36)
[2017-04-12] MEDS: ZESTRIL TAB 10 MG PO SCH ×2 (08:36→08:37)
[2017-04-12] MEDS: CIPRO IV 400 MG PREMIX* 400 MG/200 ML IV.SOLN. IV SCH ×2 (08:36→08:42)
[2017-04-12] MEDS ORDERED: PATIENT'S HOME MEDICATION (Lisinopril [Lisinopril] 1 TAB) PO SCH (09:00)
[2017-04-12] MEDS ORDERED: NORVASC TAB 10 MG PO SCH (09:00)
[2017-04-12] MEDS ORDERED: PATIENT'S HOME MEDICATION (Clonazepam [Clonazepam] 1 TAB) PO PRN (12:42)
[2017-04-12] MEDS ORDERED: PATIENT'S HOME MEDICATION (Montelukast Sodium [Montelukast Sodium] 1 TAB) PO SCH (12:45)
[2017-04-12] MEDS ORDERED: PATIENT'S HOME MEDICATION (Budesonide-Formoterol 1 PUFF) INH SCH (12:45)
[2017-04-12] MEDS ORDERED: FLONASE NASAL SPRAY ENOSTRIL SCH (13:00)
[2017-04-12] MEDS ORDERED: LATANOPROST EACHEYE SCH (21:00)
[2017-04-12] MEDS ORDERED: ZANAFLEX PO SCH (21:00)
[2017-04-12] MEDS ORDERED: NEURONTIN CAP 100 MG PO SCH (21:00)
== END 2017-04-12 12:00 | disposition home or self-care (01) ==
LOC: ICU 15:28
PROVIDERS: ADMIT Internal Medicine; ATTEND Internal Medicine
DX: R10.9 Unspecified abdominal pain (principal); K52.9 Noninfective gastroenteritis and colitis, unspecified; I31.3 Pericardial effusion (noninflammatory); E11.9 Type 2 diabetes mellitus without complications; M19.90 Unspecified osteoarthritis, unspecified site
CPT/HCPCS: 36415; 74176; 80053; 81001; 82270; 85025; 87205; 87493; A4222; C9113; G0378; J0744

== ENCOUNTER → 2017-04-27 | Outpatient (CLI) | payer OTHER, MEDICAID ==
[2017-04-12 08:13] VITALS: BP 134/81
== END ==
LOC: RAD 08:33
PROVIDERS: ATTEND Nurse Practitioner Family
DX: R10.13 Epigastric pain (principal); K21.9 Gastro-esophageal reflux disease without esophagitis; K90.49 Malabsorption due to intolerance, not elsewhere classified; R10.11 Right upper quadrant pain; R10.84 Generalized abdominal pain

== ENCOUNTER 2017-06-30 11:40 | Emergency (ER) | payer OTHER, MEDICAID ==
[2017-06-30 11:57] VITALS: BMI 29.4
--- NOTE | 2017-06-30 12:54 | DR.GENAD ---
HPI - PCP Primary Care Physician: KITTY - Complaint/Symptoms Chief Complaint Doctors Comments: Patient presents with complaint that his chest hurts. He denies fever or cough. Chief Complaint:: "MY CHEST HURTS" Self Treatment fo Chief Complaint: NONE - Source History Provided: Patient - Mode of Arrival Mode of Arrival: EMS - Timing Onset of Chief Complaint: 06/29/17 PMH - PMH Past Medical History: Yes Past Medical History: Dyslipidemia, Hypertension Past Surgical History: Yes Surgical History: Ortho Surgery - Family History History of Family Medical Conditions: Yes Family Medical History: Diabetes Mellitus, Cancer, [place], Coronary Artery Disease, Hypertension - Social History Does patient currently use any type of tobacco product: Yes Have you used tobacco products in the last 12 months: Yes Type of Tobacco Use: Cigarettes How many years tobacco product used: 40 Does any household member use tobacco: Yes Alcohol Use: None Do you use any recreational Drugs:: No Lives With: Family Lives Where: Home - infectious screening In the last 2 months have you had wt loss of >10#?: NO Have you had fever, night sweats or hemotysis?: No Have you traveled outside the country in the last 6 months?: No Isolation: Standard ROS - Review of Systems Constitutional: No Symptoms Reported Eyes: No Symptoms Reported ENTM: No Symptoms Reported Respiratoy: No Symptoms Reported Cardiovascular: No Symptoms Reported Gastrointestinal/Abdominal: No Symptoms Reported Genitourinary: No Symptoms Reported Neurological: No Symptoms Reported Musculoskeletal: No Symptoms Reported Integumentary: No Symptoms Reported Hematologic/Lymphatic: No Symptoms Reported Endocrine: No Symptoms Reported Psychiatric: No Symptoms Reported All Other Systems: Reviewed and Negative PE - Vital Signs Vitals: Temperature 98.1 F Pulse Rate 78 Respiratory Rate 20 Blood Pressure [Right Arm] 109/69 Blood Pressure [Left Arm] 134/81 Blood Pressure 159/70 O2 Sat by Pulse Oximetry 98 - General Limitations: No Limitations General Appearance: Alert, In No Apparent Distress - Head Head Exam: Normal Inspection, Atraumatic - Eyes Eye exam: Normal Appearance, PERRL, EOMI - ENT ENT Exam: Normal Exam, Normal Oropharynx External Ear Exam: Normal External Inspection TM/Canal Exam: Bilateral Normal Nose Exam: Normal Nose Exam, Nasal Deviation Throat Exam: Normal Inspection - Neck Neck Exam: Normal Inspection - Chest Chest Inspection: Normal Inspection, Tenderness (tenderness to palpation of anterior chest wall) - Respiratory Respiratory Exam: Normal Lung Sounds Bilat Respiratory Exam: Bilateral Clear to Auscultation - Cardiovascular Cardiovascular Exam: Regular Rate, Normal Rhythm - Abdominal Exam Abdominal Exam: Normal Inspection Abdominal Tenderness: negative: RUQ, RLQ, LUQ, LLQ, Epigastrium, Suprapubic, Diffuse, Mild, Moderate, Severe, Other - Extremities Extremities Exam: Normal Inspection, Full ROM - Back Back Exam: Normal Inspection, Full ROM - Neurologic Neurological Exam: Alert, Oriented X3, CN II-XII Intact - Psychiatric Psychiatric Exam: Normal Affect - Skin Skin Exam: Warm, Dry, Intact Course - Treatment Treatment: EKG had borderline ST elevation, anterolateral leads, different from previous EKG, cardiacs negative; advised to stay overnight for chest pain protocol. Patient refused. ROR - Labs Reviewed Result Diagrams: 06/30/17 13:20 06/30/17 13:20 Laboratory: WBC 5.2 X10^3/uL (3.6-10.0) 06/30/17 13:20 RBC 4.72 X10^6/uL (4.7-6.0) 06/30/17 13:20 Hgb 15.1 g/dL (13.5-18.0) 06/30/17 13:20 Hct 44.5 % (42.0-54.0) 06/30/17 13:20 MCV 94.4 fL (80.0-100.0) 06/30/17 13:20 MCH 32.0 pg (27.0-34.0) 06/30/17 13:20 MCHC 33.9 g/dL (33.0-35.0) 06/30/17 13:20 RDW 15.0 % (11.6-16.5) 06/30/17 13:20 Plt Count 124 X10^3/uL (150.0-450.0) L 06/30/17 13:20 MPV 11.0 fL (7.4-11.0) 06/30/17 13:20 Neut % 55.5 % (42.0-75.0) 06/30/17 13:20 Lymph % 28.7 % (21.0-51.0) 06/30/17 13:20 Emmet % 13.3 % (0.0-13.0) H 06/30/17 13:20 Eos % 1.4 % (0.9-2.9) 06/30/17 13:20 Baso % 1.1 % (0.2-1.0) H 06/30/17 13:20 Neut # 2.9 x10^3/uL (2.2-4.8) 06/30/17 13:20 Lymph # 1.5 X10^3/uL (1.3-2.9) 06/30/17 13:20 Emmet # 0.7 x10^3/uL (0.3-0.8) 06/30/17 13:20 Eos # 0.1 x10^3/uL (0.0-0.2) 06/30/17 13:20 Baso # 0.1 X10^3/uL (0.0-0.1) 06/30/17 13:20 Absolute Nucleated RBC 0.1 /100WBC 06/30/17 13:20 INR Target Range - 06/30/17 13:20 INR 0.92 (0.8-1.3) 06/30/17 13:20 Sodium 141 mmol/L (136-145) 06/30/17 13:20 Corrected Sodium TNP 06/30/17 13:20 Potassium 4.2 mmol/L (3.5-5.1) 06/30/17 13:20 Chloride 104 mmol/L (98-107) 06/30/17 13:20 Carbon Dioxide 29.5 mmol/L (21-32) 06/30/17 13:20 BUN 8 mg/dL (7-18) 06/30/17 13:20 Creatinine 1.01 mg/dL (0.70-1.30) 06/30/17 13:20 Est GFR (MDRD) Af Amer > 60 (>60) 06/30/17 13:20 Est GFR (MDRD) Non-Af > 60 (>60) 06/30/17 13:20 Glucose 94 mg/dL (65-99) 06/30/17 13:20 Calcium 9.6 mg/dL (8.5-10.1) 06/30/17 13:20 Corrected Calcium TNP 06/30/17 13:20 Magnesium 2.3 mg/dL (1.7-2.9) 06/30/17 13:20 Total Bilirubin 0.80 mg/dL (0.2-1.0) 06/30/17 13:20 AST 16 Units/L (15-37) 06/30/17 13:20 ALT 16 Units/L (12-78) 06/30/17 13:20 Alkaline Phosphatase 73 Units/L (46-116) 06/30/17 13:20 Creatine Kinase 124 Units/L (39-308) 06/30/17 13:20 CK-MB (CK-2) < 1.0 ng/mL (0-4.0) 06/30/17 13:20 CK/CKMB % Calc 0.8 % (<4) 06/30/17 13:20 Troponin I < 0.02 ng/mL (0-1.5) 06/30/17 13:20 Total Protein 7.9 g/dL (6.4-8.2) 06/30/17 13:20 Albumin 3.5 g/dL (3.4-5.0) 06/30/17 13:20 Globulin 4.4 g/dL (2.5-4.5) 06/30/17 13:20 Albumin/Globulin Ratio 0.8 Ratio (1.1-2.1) L 06/30/17 13:20 - Other Results Comments: Patient was given results of workup was advised to stay overnight for chest pain protocol. He refused. - Diagnosis Discharge Problem: Chest pain - Discharge Plan Condition: Stable - Follow ups/Referrals Follow ups/Referrals: DORA ENCINAS [Primary Care Provider] - 3 days - Instructions
[2017-06-30 13:42] LABS: BASOPHILS # (AUTO) 0.1 X10^3/uL (0.0-0.1); BASOPHILS % (AUTO) 1.1 % (0.2-1.0); EOSINOPHILS # (AUTO) 0.1 x10^3/uL (0.0-0.2); EOSINOPHILS % (AUTO) 1.4 % (0.9-2.9); HEMATOCRIT 44.5 % (42.0-54.0); HEMOGLOBIN 15.1 g/dL (13.5-18.0); LYMPHOCYTES # (AUTO) 1.5 X10^3/uL (1.3-2.9); LYMPHOCYTES % (AUTO) 28.7 % (21.0-51.0); MEAN CORPUSCULAR HGB CONC 33.9 g/dL (33.0-35.0); MEAN CORPUSCULAR VOLUME 94.4 fL (80.0-100.0); MONOCYTES # (AUTO) 0.7 x10^3/uL (0.3-0.8); MONOCYTES % (AUTO) 13.3 % (0.0-13.0); NEUTROPHILS # (AUTO) 2.9 x10^3/uL (2.2-4.8); NEUTROPHILS % (AUTO) 55.5 % (42.0-75.0); PLATELET COUNT 124 X10^3/uL (150.0-450.0); RED BLOOD COUNT 4.72 X10^6/uL (4.7-6.0); WHITE BLOOD COUNT 5.2 X10^3/uL (3.6-10.0)
--- NOTE | 2017-06-30 13:44 | RAD ---
Examination: AP chest History: Chest pain Comparison reference: 02/13/2017 Findings: The heart is enlarged to a moderately severe degree. The lungs are grossly clear although p ortions of the medial right lower lung are obscured by the rotated heart. There is no evidence for pl eural fluid, pulmonary edema or pneumothorax. Mention is made of a small calcification adjacent to th e left humeral head, consistent with peritendinitis. Impression: Cardiomegaly, no acute disease. Reported By:
[2017-06-30 13:51] LABS: BLOOD UREA NITROGEN 8 mg/dL (7-18); CALCIUM 9.6 mg/dL (8.5-10.1); CARBON DIOXIDE 29.5 mmol/L (21-32); CHLORIDE 104 mmol/L (98-107); CREATININE 1.01 mg/dL (0.70-1.30); SODIUM 141 mmol/L (136-145); TROPONIN I < 0.02 ng/mL (0-1.5); eGFR BLACK RACES > 60 (>60); eGFR NON BLACK RACES > 60 (>60)
[2017-06-30 13:56] LABS: ALANINE AMINOTRANSFERASE 16 Units/L (12-78); ALBUMIN 3.5 g/dL (3.4-5.0); ALKALINE PHOSPHATASE 73 Units/L (46-116); ASPARTATE AMINO TRANSFERASE 16 Units/L (15-37); CREATINE KINASE 124 Units/L (39-308); CREATINE KINASE MB < 1.0 ng/mL (0-4.0); MAGNESIUM 2.3 mg/dL (1.7-2.9); TOTAL PROTEIN 7.9 g/dL (6.4-8.2)
[2017-06-30 13:58] LABS: CKMB % 0.8 % (<4)
[2017-06-30 15:05] VITALS: BP 143/72
== END 2017-06-30 15:17 | disposition home or self-care (01) ==
LOC: ER 11:45
DX: R07.89 Other chest pain (principal)
CPT/HCPCS: 36415; 71010; 80053; 82550; 82553; 83735; 84484; 85025; 85610; 93005; 93010; 99283

== ENCOUNTER 2017-07-04 15:27 | Emergency (ER) | payer OTHER, MEDICAID ==
[2017-07-04 15:34] VITALS: BP 140/85; BMI 35.2
[2017-07-04] MEDS ORDERED: TORADOL 60 MG VIAL IM ONE (15:56)
[2017-07-04] MEDS ORDERED: TORADOL 60 MG VIAL ONE (15:59)
--- NOTE | 2017-07-04 16:01 | DR.GENAD ---
HPI - PCP Primary Care Physician: jose - Complaint/Symptoms Chief Complaint Doctors Comments: Patient presents with complaint of back hendrickson. He has a history of multilevel degenerative changes of the lumbar spine most significant at L4-L5 where there is stable moderate-severe bilateral foraminal narrowing and improving moderqate canal stenosis. He walks slowly using a cane. He states that the pain is 8/10, quality sharp, exacerbation last night, modyfying factor bending forward. Chief Complaint:: patient stated he has spurs on his back and this morning at 4 am it started hurting again. he takes hydrocodone for pain but he is out. - Source History Provided: Patient - Mode of Arrival Mode of Arrival: Ambulatory - Timing Onset of Chief Complaint: 07/04/17 PMH - PMH Past Medical History: Yes Past Medical History: Dyslipidemia, Hypertension Past Surgical History: Yes Surgical History: Ortho Surgery - Family History History of Family Medical Conditions: Yes Family Medical History: Diabetes Mellitus, Cancer, [place], Coronary Artery Disease, Hypertension - Social History Does patient currently use any type of tobacco product: Yes Have you used tobacco products in the last 12 months: Yes Type of Tobacco Use: Cigarettes How many years tobacco product used: 30 Does any household member use tobacco: No Alcohol Use: None Do you use any recreational Drugs:: No Lives With: Alone Lives Where: Home - infectious screening In the last 2 months have you had wt loss of >10#?: NO Have you had fever, night sweats or hemotysis?: No Have you traveled outside the country in the last 6 months?: No Isolation: Standard ROS - Review of Systems Eyes: No Symptoms Reported ENTM: No Symptoms Reported Respiratoy: No Symptoms Reported Cardiovascular: No Symptoms Reported Gastrointestinal/Abdominal: No Symptoms Reported Genitourinary: No Symptoms Reported Neurological: No Symptoms Reported Musculoskeletal: Back Integumentary: No Symptoms Reported Hematologic/Lymphatic: No Symptoms Reported Endocrine: No Symptoms Reported Psychiatric: No Symptoms Reported All Other Systems: Reviewed and Negative PE - Vital Signs Vitals: Temperature 98.6 F Pulse Rate 92 Respiratory Rate 18 Blood Pressure [Right Arm] 143/72 Blood Pressure [Left Arm] 134/81 Blood Pressure 140/85 O2 Sat by Pulse Oximetry 100 - General General Appearance: Alert, In No Apparent Distress - Head Head Exam: Normal Inspection, Atraumatic - Eyes Eye exam: Normal Appearance, PERRL, EOMI - ENT ENT Exam: Normal Exam External Ear Exam: Normal External Inspection TM/Canal Exam: Bilateral Normal Nose Exam: Normal Nose Exam Mouth Exam: Normal Inspection Throat Exam: Normal Inspection - Neck Neck Exam: Normal Inspection, Full ROM - Chest Chest Inspection: Normal Inspection - Respiratory Respiratory Exam: Normal Lung Sounds Bilat Respiratory Exam: Bilateral Clear to Auscultation - Cardiovascular Cardiovascular Exam: Regular Rate, Normal Rhythm - Abdominal Exam Abdominal Exam: Normal Inspection Abdominal Tenderness: negative: RUQ, RLQ, LUQ, LLQ, Epigastrium, Suprapubic, Diffuse, Mild, Moderate, Severe, Other - Extremities Extremities Exam: Normal Inspection - Back Back Exam: Tenderness. negative: Full ROM (decreased ) - Neurologic Neurological Exam: Alert, Oriented X3, CN II-XII Intact - Psychiatric Psychiatric Exam: Normal Affect - Skin Skin Exam: Warm, Dry, Intact Course - Education/Counseling Educated On: Treatment, Diagnosis, Prognosis - Diagnosis Discharge Problem: Multilevel degenerative joint disease - Discharge Plan Condition: Stable - Follow ups/Referrals Follow ups/Referrals: DORA ENCINAS [Primary Care Provider] - 3 days - Instructions
== END 2017-07-04 16:20 | disposition home or self-care (01) ==
LOC: ER 15:42
DX: M51.36 Other intervertebral disc degeneration, lumbar region (principal)
CPT/HCPCS: 96372; 99281; 99282; J1885

== ENCOUNTER 2017-07-21 21:07 | Emergency (ER) | payer OTHER, MEDICAID ==
[2017-07-21 21:19] VITALS: BMI 35.2
--- NOTE | 2017-07-21 23:15 | DR.GENAD ---
HPI - PCP Primary Care Physician: mar - Complaint/Symptoms Chief Complaint Doctors Comments: Patient complains of right side chest pain; right shoulder and neck pain for the past four hours. states he has been having occipital headaches and wants a CAT scan of his head. States he was getting his clothes ready for his brother's tomorrow and stated having chest pains. States his younger brother from at heart attack and he was 44 and his family just came from his wake and they told him not to worry about the pain. 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 Alexander since he moved to [place]. States he smokes 1 1/ 2 pack cigarettes daily. He denies cold, cough, fever, chills, nausea or vomiting. States he has fibromyalgia and his right shoulder hulrts all the time. State he cannot take Motrin. Chief Complaint:: right shoulder to breast pain pain in lower back - Nurses notes reviewed Nurses Notes Review: Yes - Source History Provided: Patient - Mode of Arrival Mode of Arrival: EMS - Timing Onset of Chief Complaint: 07/21/17 Came on: Gradually - Duration Duration: Constant How lon Duration: Hours - Location Location: right shoulde and chest pain with occipital pain - Severity Severity: Moderate - Modifying Factors Worsens:: movement Improves:: nothing PMH - PMH Past Medical History: Yes Past Medical History: Anxiety, Coronary Artery Disease, Dyslipidemia, Hypertension Past Surgical History: Yes Surgical History: Abdominal Surgery, Ortho Surgery Past Surgical History Comment: cyst removed from pancrease - Family History History of Family Medical Conditions: Yes Family Medical History: Diabetes Mellitus, Cancer, [place], Coronary Artery Disease, Hypertension - Social History Does patient currently use any type of tobacco product: Yes Have you used tobacco products in the last 12 months: Yes Type of Tobacco Use: Cigarettes Does any household member use tobacco: No Alcohol Use: None Do you use any recreational Drugs:: No Lives With: Family Lives Where: Home - infectious screening In the last 2 months have you had wt loss of >10#?: NO Have you had fever, night sweats or hemotysis?: No Have you traveled outside the country in the last 6 months?: No Isolation: Standard ROS - Review of Systems Constitutional: No Symptoms Reported. negative: See HPI, Chills, Diaphoresis, Fever, Malaise, Weakness, Irritable, Fatigue, Loss of Appetite, Other Eyes: No Symptoms Reported ENTM: No Symptoms Reported. negative: See HPI, Ear Pain, Ear Discharge, Pulling on Ears, Hearing Loss, Nose Pain, Nose Discharge, Epistaxis, Nose Congestion, Mouth Pain, Mouth Swelling, Loose Teeth, Drooling, Throat Pain, Throat Swelling, Ear Foreign Body Respiratoy: No Symptoms Reported. negative: See HPI, Productive Cough, Non- Productive Cough, Moist Cough, Dry Cough, Hacking Cough, Barking Cough, Brassy Cough, Orthopnea, Short of Breath, Stridor, Wheezing, Hemoptysis, Other Cardiovascular: Chest Pain. negative: No Symptoms Reported, See HPI, Edema, Palpitations, Syncope, Cyanosis, Skin Mottling, Other Gastrointestinal/Abdominal: No Symptoms Reported. negative: See HPI, Abdominal Pain, Constipation, Diarrhea, Nausea, Vomiting, Food Intolerance, Other Genitourinary: No Symptoms Reported Neurological: No Symptoms Reported, Headache (occipital headache). negative: See HPI, Anxiety, Depressed, Emotional Problems, Numbness, Paresthesia, Pre- existing Deficit, Seizure, Tingling, Tremors, Weakness, Dizziness, Problems Walking, Speech Problem, Other Musculoskeletal: Right, Shoulder (pain on palpation and movement) Integumentary: No Symptoms Reported. negative: See HPI, Change in Color, Change in Hair/Nails, Dryness, Lesions, Lumps, Rash, Itching, Wound, Bruises, Juandice, Other Hematologic/Lymphatic: No Symptoms Reported. negative: See HPI, Anemia, Blood Clots, Easy Bleeding, Easy Bruising, Swollen Glands, Lymphadenopathy, Other Endocrine: No Symptoms Reported Psychiatric: No Symptoms Reported PE - Vital Signs Vitals: Temperature 98.1 F Pulse Rate 96 Respiratory Rate 18 Blood Pressure [Right Arm] 143/72 Blood Pressure [Left Arm] 134/81 Blood Pressure 131/73 O2 Sat by Pulse Oximetry 93 - General Limitations: No Limitations General Appearance: Alert, In No Apparent Distress - Head Head Exam: Normal Inspection, Atraumatic, Normocephalic - Eyes Eye exam: Normal Appearance, PERRL, EOMI. negative: Scleral Icterus, Conjunctival Injection, Nystagmus, Miosis, Mydrasis, Periorbital Swelling, Periorbital Tenderness, Other - ENT ENT Exam: Normal Exam, Normal Oropharynx, Normal External Ear Exam, Mucous Membranes Moist, TM's Normal Bilaterally External Ear Exam: Normal External Inspection TM/Canal Exam: Bilateral Normal Nose Exam: Normal Nose Exam. negative: Sinus Tenderness, Nasal Deviation, Crepitus, Septal Hematoma, Laceration, Abrasion, Other Mouth Exam: Normal Inspection. negative: Drooling, Trismus, Lip Swelling, Tongue Elevation, Tongue Swelling, Laceration, Other Throat Exam: Normal Inspection. negative: Tonsillar Erythema, Tonsillomegaly, Tonsillar Exudate, R Peritonsillar Mass, L Peritonsillar Mass, Muffled Voice, Other - Neck Neck Exam: Normal Inspection, Full ROM, Trachea Midline, Tenderness (posterior neck tenderness on palpation; no swelling or erythema) - Chest Chest Inspection: Normal Inspection, Symmetric Chest Wall Rise, Tenderness ( epigastric tenderness) - Respiratory Respiratory Exam: Normal Lung Sounds Bilat Respiratory Exam: Bilateral Clear to Auscultation - Cardiovascular Cardiovascular Exam: Regular Rate, Normal Rhythm, Normal Heart Sounds. negative : Bradycardia, Tachycardia, Irregular Rhythm, Systolic Murmur, Diastolic Murmur , Rubs, Gallop, Clicks, JVD, +S1, +S2, +S3, +S4, Other - Abdominal Exam Abdominal Exam: Normal Inspection, Normal Bowel Sounds, Soft, Tenderness ( epigastric). negative: Distention, Guarding, Rebound, Rigidity, Dimnished Bowel Sounds, Hyperactive Bowel Sounds, Hypoactive Bowel Sounds, Organomegaly, Trauma, Incision, Ascites, Mass, Bruit, Pulsatile Mass, Hernia, Other Abdominal Tenderness: Epigastrium, Mild - Extremities Extremities Exam: Normal Inspection, Full ROM, Tenderness (right shoulder on palpation). negative: Normal Capillary Refill, Edema, Joint Swelling, Calf Tenderness, Other - Back Back Exam: Normal Inspection, Full ROM. negative: Tenderness, (R) CVA Tenderness, (L) CVA Tenderness, Muscle Spasm, Paraspinal Tenderness, Vertebral Tenderness, Rashes, (R) Sciatic Notch Tenderness, (L) Sciatic Notch Tendern, (R ) Straight Leg Raise, (L) Straight Leg Raise, Other - Neurologic Neurological Exam: Alert, Oriented X3, CN II-XII Intact, Normal Gait, Reflexes Normal - Psychiatric Psychiatric Exam: Normal Affect, Normal Mood. negative: Depressed, Agitated, Anxious, Flat Affect, Manic, Homicidal Ideation, Suicidal Ideation, Other - Skin Skin Exam: Warm, Dry, Intact, Normal Color. negative: Rash, Cyanosis, Diaphoresis, Erythema, Pallor, Mottled, Other ROR - Labs Reviewed Laboratory Results Reviewed?: Yes (all labs and x-ray results reviewed and discussed with patient) Result Diagrams: 07/21/17 23:55 07/21/17 23:55 Laboratory: WBC 8.9 X10^3/uL (3.6-10.0) 07/21/17 23:55 RBC 4.45 X10^6/uL (4.7-6.0) L 07/21/17 23:55 Hgb 14.4 g/dL (13.5-18.0) 07/21/17 23:55 Hct 42.4 % (42.0-54.0) 07/21/17 23:55 MCV 95.4 fL (80.0-100.0) 07/21/17 23:55 MCH 32.4 pg (27.0-34.0) 07/21/17 23:55 MCHC 34.0 g/dL (33.0-35.0) 07/21/17 23:55 RDW 14.7 % (11.6-16.5) 07/21/17 23:55 Plt Count 140 X10^3/uL (150.0-450.0) L 07/21/17 23:55 Plt Count Comment Adequate (ADEQUATE) 07/21/17 23:55 MPV 10.5 fL (7.4-11.0) 07/21/17 23:55 Neut % 69.5 % (42.0-75.0) 07/21/17 23:55 Lymph % 20.6 % (21.0-51.0) L 07/21/17 23:55 [place] % 8.5 % (0.0-13.0) 07/21/17 23:55 Eos % 0.6 % (0.9-2.9) L 07/21/17 23:55 Baso % 0.8 % (0.2-1.0) 07/21/17 23:55 Neut # 6.2 x10^3/uL (2.2-4.8) H 07/21/17 23:55 Lymph # 1.8 X10^3/uL (1.3-2.9) 07/21/17 23:55 [place] # 0.8 x10^3/uL (0.3-0.8) 07/21/17 23:55 Eos # 0.0 x10^3/uL (0.0-0.2) 07/21/17 23:55 Baso # 0.1 X10^3/uL (0.0-0.1) 07/21/17 23:55 Absolute Nucleated RBC 0.1 /100WBC 07/21/17 23:55 Plt Morphology Comment Normal (NORMAL) 07/21/17 23:55 RBC Morphology Normal (NORMAL) 07/21/17 23:55 INR Target Range - 07/21/17 23:55 INR 0.99 (0.8-1.3) 07/21/17 23:55 PTT 26.9 SECONDS (22.9-36.5) 07/21/17 23:55 PTT Comment - 07/21/17 23:55 D-Dimer 104 ng/mL (0-400) 07/21/17 23:55 Sodium 140 mmol/L (136-145) 07/21/17 23:55 Corrected Sodium 141 mmol/L (136-145) 07/21/17 23:55 Potassium 3.3 mmol/L (3.5-5.1) L 07/21/17 23:55 Chloride 99 mmol/L (98-107) 07/21/17 23:55 Carbon Dioxide 31.1 mmol/L (21-32) 07/21/17 23:55 BUN 14 mg/dL (7-18) 07/21/17 23:55 Creatinine 1.17 mg/dL (0.70-1.30) 07/21/17 23:55 Est GFR (MDRD) Af Amer > 60 (>60) 07/21/17 23:55 Est GFR (MDRD) Non-Af > 60 (>60) 07/21/17 23:55 Glucose 134 mg/dL (65-99) H 07/21/17 23:55 Calcium 9.2 mg/dL (8.5-10.1) 07/21/17 23:55 Corrected Calcium TNP 07/21/17 23:55 Magnesium 2.1 mg/dL (1.7-2.9) 07/21/17 23:55 Total Bilirubin 0.70 mg/dL (0.2-1.0) 07/21/17 23:55 AST 15 Units/L (15-37) 07/21/17 23:55 ALT 17 Units/L (12-78) 07/21/17 23:55 Alkaline Phosphatase 79 Units/L (46-116) 07/21/17 23:55 Creatine Kinase 138 Units/L (39-308) 07/21/17 23:55 CK-MB (CK-2) 1.5 ng/mL (0-4.0) 07/21/17 23:55 CK/CKMB % Calc 1.1 % (<4) 07/21/17 23:55 Troponin I < 0.02 ng/mL (0-1.5) 07/21/17 23:55 Total Protein 7.9 g/dL (6.4-8.2) 07/21/17 23:55 Albumin 4.0 g/dL (3.4-5.0) 07/21/17 23:55 Globulin 3.9 g/dL (2.5-4.5) 07/21/17 23:55 Albumin/Globulin Ratio 1.0 Ratio (1.1-2.1) L 07/21/17 23:55 - XRAY XRAY Interpreted by: Radiologist (CT head: No acute intracranial abnormality. Chronic white matter microangiopathy.) - Diagnosis Discharge Problem: Chest pain, Hypokalemia, Hyperglycemia Headache Qualifiers: Headache chronicity pattern: unspecified pattern Right shoulder pain Qualifiers: Chronicity: acute Qualified Code(s): M25.511 - Pain in right shoulder - Discharge Plan Disposition: HOME, SELF-CARE Condition: Stable - Follow ups/Referrals Follow ups/Referrals: DORA ISAAC [Primary Care Provider] - 3 days - Instructions Instructions: Headache, Pediatric, Hypokalemia, Hyperglycemia, Bursitis, Easy- to-Read
--- NOTE | 2017-07-22 00:01 | CT ---
CT head without contrast Indication: Headache Comparison: 05/13/2014 Technique: CT images of the head were obtained without contrast. Automatic exposure control was utili [place]. Findings: There is generalized age-appropriate brain atrophy with concomitant ventricular and sulcal enlargement, similar to prior. Again there are patchy and confluent areas of white matter hypoattenua tion, most suggestive for chronic microangiopathy. No acute bleed, mass effect, or abnormal extra-axi al collection is identified. No acute skeletal abnormality. The visualized paranasal sinuses and mast oid air cells are clear. Impression: No acute intracranial abnormality. Chronic white matter microangiopathy. Reported By:
[2017-07-22 00:19] LABS: BASOPHILS # (AUTO) 0.1 X10^3/uL (0.0-0.1); LYMPHOCYTES # (AUTO) 1.8 X10^3/uL (1.3-2.9); MEAN CORPUSCULAR HEMOGLOBIN 32.4 pg (27.0-34.0); MONOCYTES # (AUTO) 0.8 x10^3/uL (0.3-0.8)
[2017-07-22 00:21] LABS: BASOPHILS % (AUTO) 0.8 % (0.2-1.0); EOSINOPHILS % (AUTO) 0.6 % (0.9-2.9); HEMATOCRIT 42.4 % (42.0-54.0); HEMOGLOBIN 14.4 g/dL (13.5-18.0); LYMPHOCYTES % (AUTO) 20.6 % (21.0-51.0); MEAN CORPUSCULAR VOLUME 95.4 fL (80.0-100.0); MEAN PLATELET VOLUME 10.5 fL (7.4-11.0); MONOCYTES % (AUTO) 8.5 % (0.0-13.0); NEUTROPHILS # (AUTO) 6.2 x10^3/uL (2.2-4.8); NEUTROPHILS % (AUTO) 69.5 % (42.0-75.0); PLATELET COUNT 140 X10^3/uL (150.0-450.0); RED BLOOD COUNT 4.45 X10^6/uL (4.7-6.0); RED CELL DISTRIBUTION WIDTH 14.7 % (11.6-16.5); WHITE BLOOD COUNT 8.9 X10^3/uL (3.6-10.0)
[2017-07-22 00:57] LABS: PLATELET MORPHOLOGY COMMENT NORMAL (NORMAL)
[2017-07-22 01:06] LABS: ALANINE AMINOTRANSFERASE 17 Units/L (12-78); ALKALINE PHOSPHATASE 79 Units/L (46-116); ASPARTATE AMINO TRANSFERASE 15 Units/L (15-37); BLOOD UREA NITROGEN 14 mg/dL (7-18); CARBON DIOXIDE 31.1 mmol/L (21-32); CHLORIDE 99 mmol/L (98-107); CKMB % 1.1 % (<4); COR NA(FOR HYPERGLY) 141 mmol/L (136-145); CREATINE KINASE 138 Units/L (39-308); CREATINE KINASE MB 1.5 ng/mL (0-4.0); CREATININE 1.17 mg/dL (0.70-1.30); MAGNESIUM 2.1 mg/dL (1.7-2.9); SODIUM 140 mmol/L (136-145); TOTAL PROTEIN 7.9 g/dL (6.4-8.2); TROPONIN I < 0.02 ng/mL (0-1.5); eGFR BLACK RACES > 60 (>60); eGFR NON BLACK RACES > 60 (>60)
[2017-07-22 01:10] LABS: CALCIUM 9.2 mg/dL (8.5-10.1)
[2017-07-22] MEDS ORDERED: K-DUR TAB 20 MEQ PO STA (02:13)
[2017-07-22] MEDS ORDERED: K-DUR TAB 20 MEQ PO ONE (02:33)
[2017-07-22 02:40] VITALS: BP 122/71
--- NOTE | 2017-07-22 02:54 | RAD ---
Chest, AP portable Indication: Chest pain Comparison: 06/30/2017 Findings: Moderate cardiac silhouette enlargement is unchanged. The lungs are essentially clear with out overt edema, focal infiltrates, or large pleural effusion. Impression: Stable cardiomegaly without acute chest process. Reported By:
== END 2017-07-22 02:40 | disposition home or self-care (01) ==
LOC: ER 21:17
DX: R07.89 Other chest pain (principal); E87.6 Hypokalemia; R73.9 Hyperglycemia, unspecified; R51 Headache; M25.511 Pain in right shoulder; I51.7 Cardiomegaly
CPT/HCPCS: 36415; 70450; 71010; 80053; 82550; 82553; 83735; 84484; 85025; 85378; 85610; 85730; 93005; 93010; 99283

== ENCOUNTER → 2017-09-06 | Outpatient (CLI) | payer OTHER, MEDICAID ==
[2017-09-06 09:33] LABS: BASOPHILS # (AUTO) 0.1 X10^3/uL (0.0-0.1); BASOPHILS % (AUTO) 0.9 % (0.2-1.0); EOSINOPHILS # (AUTO) 0.1 x10^3/uL (0.0-0.2); EOSINOPHILS % (AUTO) 1.5 % (0.9-2.9); HEMATOCRIT 46.5 % (42.0-54.0); LYMPHOCYTES # (AUTO) 2.3 X10^3/uL (1.3-2.9); MEAN CORPUSCULAR HEMOGLOBIN 32.3 pg (27.0-34.0); MEAN CORPUSCULAR HGB CONC 34.4 g/dL (33.0-35.0); MEAN CORPUSCULAR VOLUME 93.9 fL (80.0-100.0); MEAN PLATELET VOLUME 11.7 fL (7.4-11.0); MONOCYTES # (AUTO) 0.8 x10^3/uL (0.3-0.8); MONOCYTES % (AUTO) 11.8 % (0.0-13.0); NEUTROPHILS # (AUTO) 3.2 x10^3/uL (2.2-4.8); NEUTROPHILS % (AUTO) 49.8 % (42.0-75.0); PLATELET COUNT 127 X10^3/uL (150.0-450.0); RED BLOOD COUNT 4.95 X10^6/uL (4.7-6.0); RED CELL DISTRIBUTION WIDTH 14.6 % (11.6-16.5); WHITE BLOOD COUNT 6.4 X10^3/uL (3.6-10.0)
[2017-09-06 09:42] LABS: ALANINE AMINOTRANSFERASE 23 Units/L (12-78); ALBUMIN 3.9 g/dL (3.4-5.0); ALKALINE PHOSPHATASE 74 Units/L (46-116); ASPARTATE AMINO TRANSFERASE 20 Units/L (15-37); BLOOD UREA NITROGEN 12 mg/dL (7-18); CALCIUM 9.4 mg/dL (8.5-10.1); CARBON DIOXIDE 30.8 mmol/L (21-32); CHLORIDE 100 mmol/L (98-107); CHOL/HDL RATIO 4.1 (0.0-5.0); CHOLESTEROL 118 mg/dL (0-200); COR NA(FOR HYPERGLY) 140 mmol/L (136-145); CREATININE 1.09 mg/dL (0.70-1.30); FREE T4 (FREE THYROXINE) 1.11 ng/dL (0.76-1.46); HDL CHOLESTEROL 29 mg/dL (40-60); SODIUM 139 mmol/L (136-145); TOTAL PROTEIN 7.9 g/dL (6.4-8.2); TRIGLYCERIDES 175 mg/dL (0-150); TSH (3RD GENERATION) 2.507 uIU/mL (0.358-3.74); eGFR BLACK RACES > 60 (>60); eGFR NON BLACK RACES > 60 (>60)
[2017-09-06 09:45] LABS: TOTAL PSA 3.68 ng/mL (0.13-4.0)
[2017-09-06 09:52] LABS: PLATELET MORPHOLOGY COMMENT NORMAL (NORMAL)
== END ==
LOC: LAB 08:29
PROVIDERS: ATTEND Nurse Practitioner Family
DX: I10 Essential (primary) hypertension (principal); Z79.899 Other long term (current) drug therapy; Z12.5 Encounter for screening for malignant neoplasm of prostate
CPT/HCPCS: 36415; 80053; 80061; 84153; 84439; 84443; 85025

== ENCOUNTER → 2017-10-02 | Outpatient (CLI) | payer OTHER, MEDICAID ==
[~2017-10-02] MED LIST: LEXISCAN IV ONE
== END ==
LOC: RAD 08:04
PROVIDERS: ATTEND Physician Assistant
DX: R07.9 Chest pain, unspecified (principal)
CPT/HCPCS: 78452; 93017; A4222; A9502; J2785

== ENCOUNTER → 2017-10-04 | Outpatient (CLI) | payer OTHER, MEDICAID | LOC: RAD 12:44 | PROVIDERS: ATTEND Internal Medicine Cardiovascular Disease | DX: R07.89 Other chest pain (principal) | CPT/HCPCS: 93306 ==

== ENCOUNTER 2017-11-16 14:30 | Emergency (ER) | payer OTHER, MEDICAID ==
--- NOTE | 2017-11-16 14:38 | DR.CP ---
HPI - Time Seen Time seen: 14:25 - Complaint Chief Complaint Doctor Comments: Patient presented to the ED via EMS with conplaint of mid sternal chest pain radiating to left arm onset yesterday. He denies diaphoresis. He is a 1.5ppd cigarette smoker. He had a complete cardiac work up between 10/04-2017,by Dr. Roberts which revealed aortic insfficiency trivial, Pericardial effusion w/o hemodymnic compromise, Stress test, echo revealed minimal mitrial regrugitation. Patient denies family history of cardiac disease. PMH - PMH Past Medical History: Anxiety, Coronary Artery Disease, Dyslipidemia, Hypertension Past Surgical History: Yes Surgical History: Abdominal Surgery, Ortho Surgery - Family History Family Medical History: Diabetes Mellitus, Cancer, [place], Coronary Artery Disease, Hypertension - Social History Do you use any recreational Drugs:: No ROS - Review of Systems Eyes: No Symptoms Reported ENTM: No Symptoms Reported Respiratoy: No Symptoms Reported Cardiovascular: No Symptoms Reported Gastrointestinal/Abdominal: No Symptoms Reported Genitourinary: No Symptoms Reported Neurological: No Symptoms Reported Musculoskeletal: No Symptoms Reported Integumentary: No Symptoms Reported Hematologic/Lymphatic: No Symptoms Reported Endocrine: No Symptoms Reported Psychiatric: No Symptoms Reported All Other Systems: Reviewed and Negative PE - Vitals Vitals: Temperature 97.4 F Pulse Rate [Left Brachial] 72 Pulse Rate 69 Respiratory Rate 20 Blood Pressure [Right Arm] 122/71 Blood Pressure [Left Arm] 175/105 Blood Pressure 123/74 O2 Sat by Pulse Oximetry 97 - General Limitations: No Limitations General Appearance: Alert, In No Apparent Distress - Head Head Exam: Normal Inspection, Atraumatic - Eyes Eye exam: Normal Appearance, PERRL, EOMI - ENT ENT Exam: Normal Exam - Chest Chest Inspection: Normal Inspection, Symmetric Chest Wall Rise - Respiratory Respiratory Exam: Normal Lung Sounds Bilat Respiratory Exam: Bilateral Clear to Auscultation - Cardiovascular Cardiovascular Exam: Regular Rate, Normal Rhythm Pulse: Normal Edema: Normal - Abdominal Exam Abdominal Exam: Normal Inspection, Normal Bowel Sounds Abdominal Tenderness: negative: RUQ, RLQ, LUQ, LLQ, Epigastrium, Suprapubic, Diffuse, Mild, Moderate, Severe, Other - Extremities Extremities Exam: Normal Inspection, Full ROM - Back Back Exam: Normal Inspection, Full ROM - Neurologic Neurological Exam: Alert, Oriented X3, CN II-XII Intact - Psychiatric Psychiatric Exam: Normal Affect, Normal Mood - Skin Skin Exam: Warm, Dry, Intact Course - Reevaluation 1st: Unchanged - Education/Counseling Educated On: Diagnosis, Prognosis, Needs for Follow Up ROR - Labs Reviewed Result Diagrams: 11/16/17 14:56 11/16/17 14:56 Laboratory: WBC 5.7 X10^3/uL (3.6-10.0) 11/16/17 14:56 RBC 4.79 X10^6/uL (4.7-6.0) 11/16/17 14:56 Hgb 15.5 g/dL (13.5-18.0) 11/16/17 14:56 Hct 44.8 % (42.0-54.0) 11/16/17 14:56 MCV 93.5 fL (80.0-100.0) 11/16/17 14:56 MCH 32.3 pg (27.0-34.0) 11/16/17 14:56 MCHC 34.5 g/dL (33.0-35.0) 11/16/17 14:56 RDW 14.5 % (11.6-16.5) 11/16/17 14:56 Plt Count 167 X10^3/uL (150.0-450.0) 11/16/17 14:56 MPV 9.8 fL (7.4-11.0) 11/16/17 14:56 Neut % (Auto) 48.8 % (42.0-75.0) 11/16/17 14:56 Lymph % (Auto) 33.5 % (21.0-51.0) 11/16/17 14:56 Cochran % (Auto) 10.6 % (0.0-13.0) 11/16/17 14:56 Eos % (Auto) 5.5 % (0.9-2.9) H 11/16/17 14:56 Baso % (Auto) 1.6 % (0.2-1.0) H 11/16/17 14:56 Neut # (Auto) 2.8 x10^3/uL (2.2-4.8) 11/16/17 14:56 Lymph # (Auto) 1.9 X10^3/uL (1.3-2.9) 11/16/17 14:56 Cochran # (Auto) 0.6 x10^3/uL (0.3-0.8) 11/16/17 14:56 Eos # (Auto) 0.3 x10^3/uL (0.0-0.2) H 11/16/17 14:56 Baso # (Auto) 0.1 X10^3/uL (0.0-0.1) 11/16/17 14:56 Absolute Nucleated RBC 0.1 /100WBC 11/16/17 14:56 INR Target Range - 11/16/17 14:56 INR 0.95 (0.8-1.3) 11/16/17 14:56 APTT 24.7 SECONDS (22.9-36.5) 11/16/17 14:56 PTT Comment - 11/16/17 14:56 Sodium 138 mmol/L (136-145) 11/16/17 14:56 Corrected Sodium 139 mmol/L (136-145) 11/16/17 14:56 Potassium 4.1 mmol/L (3.5-5.1) 11/16/17 14:56 Chloride 101 mmol/L (98-107) 11/16/17 14:56 Carbon Dioxide 28.4 mmol/L (21-32) 11/16/17 14:56 BUN 12 mg/dL (7-18) 11/16/17 14:56 Creatinine 1.18 mg/dL (0.70-1.30) 11/16/17 14:56 Est GFR (MDRD) Af Amer > 60 (>60) 11/16/17 14:56 Est GFR (MDRD) Non-Af > 60 (>60) 11/16/17 14:56 Glucose 129 mg/dL (65-99) H 11/16/17 14:56 Calcium 8.7 mg/dL (8.5-10.1) 11/16/17 14:56 Corrected Calcium TNP 11/16/17 14:56 Total Bilirubin 0.50 mg/dL (0.2-1.0) 11/16/17 14:56 AST 10 Units/L (15-37) L 11/16/17 14:56 ALT 22 Units/L (12-78) 11/16/17 14:56 Alkaline Phosphatase 81 Units/L (46-116) 11/16/17 14:56 Creatine Kinase 102 Units/L (39-308) 11/16/17 14:56 CK-MB (CK-2) 2.1 ng/mL (0-4.0) 11/16/17 14:56 CK/CKMB % Calc 2.1 % (<4) 11/16/17 14:56 Troponin I < 0.02 ng/mL (0-1.5) 11/16/17 14:56 Total Protein 7.9 g/dL (6.4-8.2) 11/16/17 14:56 Albumin 4.0 g/dL (3.4-5.0) 11/16/17 14:56 Globulin 3.9 g/dL (2.5-4.5) 11/16/17 14:56 Albumin/Globulin Ratio 1.0 Ratio (1.1-2.1) L 11/16/17 14:56 - XRAY XRAY Interpreted by: Radiologist (Chest: Again is noted marked enlargement of the cardiac silhouette with essentially clear lungs. The retrocardiac left lower lobe is partly obscured and not well evaluated. There is no evidence for pneumothorax or large pleural effusion.) - Diagnosis Discharge Problem: Chest pain Qualifiers: Chest pain type: unspecified Qualified Code(s): R07.9 - Chest pain, unspecified - Discharge Plan Condition: Stable - Follow ups/Referrals Follow ups/Referrals: NFD,None [Primary Care Provider] - 3 days - Instructions
[2017-11-16 14:48] VITALS: BMI 38.2
[2017-11-16] MEDS ORDERED: NS 1000 ML 1,000 ML IV SCH (15:00)
[2017-11-16] MEDS ORDERED: ASPIRIN PO SCH (15:00)
[2017-11-16] MEDS ORDERED: NS 1000 ML 1,000 ML ONE (15:03)
[2017-11-16] MEDS ORDERED: ASPIRIN ONE (15:04)
[2017-11-16 15:06] LABS: BASOPHILS # (AUTO) 0.1 X10^3/uL (0.0-0.1); BASOPHILS % (AUTO) 1.6 % (0.2-1.0); EOSINOPHILS # (AUTO) 0.3 x10^3/uL (0.0-0.2); EOSINOPHILS % (AUTO) 5.5 % (0.9-2.9); HEMATOCRIT 44.8 % (42.0-54.0); HEMOGLOBIN 15.5 g/dL (13.5-18.0); LYMPHOCYTES # (AUTO) 1.9 X10^3/uL (1.3-2.9); LYMPHOCYTES % (AUTO) 33.5 % (21.0-51.0); MEAN CORPUSCULAR HEMOGLOBIN 32.3 pg (27.0-34.0); MEAN CORPUSCULAR HGB CONC 34.5 g/dL (33.0-35.0); MEAN CORPUSCULAR VOLUME 93.5 fL (80.0-100.0); MEAN PLATELET VOLUME 9.8 fL (7.4-11.0); MONOCYTES # (AUTO) 0.6 x10^3/uL (0.3-0.8); MONOCYTES % (AUTO) 10.6 % (0.0-13.0); NEUTROPHILS # (AUTO) 2.8 x10^3/uL (2.2-4.8); NEUTROPHILS % (AUTO) 48.8 % (42.0-75.0); PLATELET COUNT 167 X10^3/uL (150.0-450.0); RED BLOOD COUNT 4.79 X10^6/uL (4.7-6.0); RED CELL DISTRIBUTION WIDTH 14.5 % (11.6-16.5); WHITE BLOOD COUNT 5.7 X10^3/uL (3.6-10.0)
--- NOTE | 2017-11-16 15:08 | RAD ---
Examination: Portable AP chest History: Chest pain, history of fluid around the heart Comparison 07/21/2017 Findings: Again is noted marked enlargement of the cardiac silhouette with essentially clear lungs. T he retrocardiac left lower lobe is partly obscured and not well evaluated. There is no evidence for p neumothorax or large pleural effusion. Impression: Marked enlargement of the cardiac contour which may represent dilatation of the heart alt tavares the possibility of pericardial effusion should be considered. Reported By:
[2017-11-16 15:24] LABS: BLOOD UREA NITROGEN 12 mg/dL (7-18); CALCIUM 8.7 mg/dL (8.5-10.1); CARBON DIOXIDE 28.4 mmol/L (21-32); CHLORIDE 101 mmol/L (98-107); COR NA(FOR HYPERGLY) 139 mmol/L (136-145); CREATININE 1.18 mg/dL (0.70-1.30); SODIUM 138 mmol/L (136-145); TROPONIN I < 0.02 ng/mL (0-1.5); eGFR BLACK RACES > 60 (>60); eGFR NON BLACK RACES > 60 (>60)
[2017-11-16 15:28] LABS: ALANINE AMINOTRANSFERASE 22 Units/L (12-78); ALKALINE PHOSPHATASE 81 Units/L (46-116); ASPARTATE AMINO TRANSFERASE 10 Units/L (15-37); CKMB % 2.1 % (<4); CREATINE KINASE 102 Units/L (39-308); CREATINE KINASE MB 2.1 ng/mL (0-4.0); TOTAL PROTEIN 7.9 g/dL (6.4-8.2)
[2017-11-16 15:30] VITALS: BP 175/105
== END 2017-11-16 16:05 | disposition home or self-care (01) ==
LOC: ER 14:35
DX: R07.89 Other chest pain (principal); R94.31 Abnormal electrocardiogram [ECG] [EKG]
CPT/HCPCS: 36415; 71045; 80053; 82550; 82553; 84484; 85025; 85610; 85730; 93005; 93010; 96365; 99283; A4222

== ENCOUNTER → 2017-12-02 | Outpatient (CLI) | payer OTHER, MEDICAID ==
[2017-11-16 15:30] VITALS: BP 175/105
--- NOTE | 2017-12-02 14:31 | RAD ---
Examination: Left shoulder, three views History: None provided Findings: A three views of the shoulder were obtained. The images are marked 'Right'. The requisition indicates examination is of the 'Left' shoulder. There is degenerative narrowing of the glenohumeral joint. There is 8.0 mm calcification adjacent to the surface of the greater tuberosity. No fracture or bone destruction is noted. Impression: 1. Glenohumeral osteoarthritis. 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 2. See above description of left/right anatomic discrepancy. Correlate clinically. Reported By:
== END | disposition home or self-care (01) | DRG 563 ==
LOC: RAD 13:38
PROVIDERS: ATTEND Anesthesiology Pain Medicine
DX: S46.912S Strain of unspecified muscle, fascia and tendon at shoulder and upper arm level, left arm, sequela (principal); X58.XXXS Exposure to other specified factors, sequela; M19.012 Primary osteoarthritis, left shoulder
CPT/HCPCS: 73030

== ENCOUNTER 2017-12-31 01:26 | Emergency (ER) | payer OTHER, MEDICAID ==
[2017-12-31 01:52] VITALS: BP 143/75; BMI 33.3
[2017-12-31] MEDS ORDERED: TORADOL 60 MG VIAL IM ONE (02:42)
[2017-12-31] MEDS ORDERED: TORADOL 60 MG VIAL ONE (02:44)
--- NOTE | 2017-12-31 02:45 | DR.EXTPAIN ---
HPI - Time seen Time seen: 02:42 - PCP Primary Care Physician: HUANG - Complaint/Symptoms Chief Complaint Doctor Comments: Patient is complaining of left shoulder pain for the past 3-4 weeks getting worst this evening. States he usually takes four Percocet daily but he is out of his pain medicine and he does not know what happened to the rest of his pain medicines. states he gets his medicine from the pain Clinic and cannot get anymore until the . He denies any recent trauma. States they say he has arthritis in his shoulder. He denies chest pain, SOB, nausea, vomiting,cold or cough. States he is not looking for pain pills tonight he just want a shot of something for the pain. Chief Complaint:: LEFT SHOULDER PAIN STARTED SINCE THE SUN WENT DOWN TODAY HAS APPT WITH PAIN DR THE MIDDLE OF THE WEEK. PT USUALLY TAKES PERCOCET 10 MG PO 4 X A DAY OUT SINCE YESTERDAY. Self Treatment fo Chief Complaint: TYLENOL - Nurses notes reviewed Nurses Notes Review: Yes - Source History Provided: Patient - Mode of arrival Mode of Arrival: Wheelchair - Timing Onset of Chief Complaint: 12/30/17 - Context History of: Arthritis - Associated signs and symptoms Associated Signs and Symptoms: Pain PMH - PMH Past Medical History: Yes Past Medical History: Anxiety, Hypertension, Sleep Apnea Past Surgical History: Yes Surgical History: Abdominal Surgery, Ortho Surgery Past Surgical History Comment: NECK. CARPAL TUNEL. LEFT FOOT. CYST OFF PANCREAS - Family History History of Family Medical Conditions: No Family Medical History: Diabetes Mellitus, Cancer, [place], Coronary Artery Disease, Hypertension - Social History Does patient currently use any type of tobacco product: Yes Have you used tobacco products in the last 12 months: Yes Type of Tobacco Use: Cigarettes Does any household member use tobacco: No Alcohol Use: None Do you use any recreational Drugs:: No Lives With: Alone Lives Where: Home - infectious screening In the last 2 months have you had wt loss of >10#?: NO Have you had fever, night sweats or hemotysis?: No Have you traveled outside the country in the last 6 months?: No Isolation: Standard ROS - Review of Systems Constitutional: No Symptoms Reported. negative: See HPI, Chills, Diaphoresis, Fever, Malaise, Weakness, Irritable, Fatigue, Loss of Appetite, Other Eyes: No Symptoms Reported. negative: See HPI, Eye Pain, Blurred Vision, Tearing, Discharge, Photophobia, Diplopia, Other ENTM: No Symptoms Reported Respiratoy: No Symptoms Reported. negative: See HPI, Productive Cough, Non- Productive Cough, Moist Cough, Dry Cough, Hacking Cough, Barking Cough, Brassy Cough, Orthopnea, Short of Breath, Stridor, Wheezing, Hemoptysis, Other Cardiovascular: No Symptoms Reported Gastrointestinal/Abdominal: No Symptoms Reported. negative: See HPI, Abdominal Pain, Constipation, Diarrhea, Nausea, Vomiting, Food Intolerance, Other Genitourinary: No Symptoms Reported. negative: See HPI, Discharge, Dysuria, Frequency, Hematuria, Pain, Bleeding, Other Neurological: No Symptoms Reported Musculoskeletal: No Symptoms Reported, Left, Shoulder Integumentary: No Symptoms Reported. negative: See HPI, Change in Color, Change in Hair/Nails, Dryness, Lesions, Lumps, Rash, Itching, Wound, Bruises, Juandice, Other Hematologic/Lymphatic: No Symptoms Reported Endocrine: No Symptoms Reported. negative: See HPI, Excessive Sweating, Flushing, Intolerance to Cold, Intolerance to Heat, Increased Hunger, Increased Thirst, Increased Urine, Unexplained Weight Gain, Unexplained Weight Loss, Failure to Thrive, Decreased Appetite, Other Psychiatric: No Symptoms Reported. negative: See HPI, Anxiety, Depression, Hallucinations, Excessive crying, Suicidal, Other PE - Vital Signs Vitals: Temperature 98.7 F Pulse Rate 74 Respiratory Rate 18 Blood Pressure [Right Arm] 122/71 Blood Pressure [Left Arm] 175/105 Blood Pressure 143/75 O2 Sat by Pulse Oximetry 98 - General Limitations: No Limitations General Appearance: Alert, In No Apparent Distress - Head Head Exam: Normal Inspection, Atraumatic, Normocephalic - Eyes Eye exam: Normal Appearance, PERRL, EOMI. negative: Scleral Icterus, Conjunctival Injection, Nystagmus, Miosis, Mydrasis, Periorbital Swelling, Periorbital Tenderness, Other - ENT ENT Exam: Normal Exam, Normal Oropharynx, Normal External Ear Exam, Mucous Membranes Moist, TM's Normal Bilaterally - Neck Neck Exam: Normal Inspection, Full ROM, Trachea Midline. negative: Tenderness, Meningismus, Lymphadenopathy, Thyromegaly, Other - Chest Chest Inspection: Normal Inspection, Symmetric Chest Wall Rise. negative: Tenderness, Rash, Abscess, Other - Respiratory Respiratory Exam: Normal Lung Sounds Bilat Respiratory Exam: Bilateral Clear to Auscultation - Cardiovascular Cardiovascular Exam: Regular Rate, Normal Rhythm, Normal Heart Sounds - Abdominal Exam Abdominal Exam: Normal Inspection, Normal Bowel Sounds, Soft Abdominal Tenderness: negative: RUQ, RLQ, LUQ, LLQ, Epigastrium, Suprapubic, Diffuse, Mild, Moderate, Severe, Other - Extremities Extremities Exam: Normal Inspection, Full ROM, Tenderness (left shoulder good range of motion; no swelling or erythema; tenderness on palpation stated), Normal Capillary Refill - Upper Extremities Shoulder Exam: Normal Inspection, Full ROM, Tenderness (left shoulder), Crepitus , Tenderness over AC Joint. negative: Swelling, Abrasion, Laceration, Ecchymosis, Deformity, Dislocation, Erythema, Other Arm Exam: Normal Inspection, Full ROM Elbow Exam: Normal Inspection, Full ROM Forearm Exam: Normal Inspection, Full ROM Hand Exam: Normal Inspection, Full ROM Neuromotor Exam: Normal Exam Neurosensory Exam: Normal Exam Upper Ext. Vascular Exam: Capillary Refill (normal), Radial Pulse (normal) - Lower Extremities Hip/Pelvis Exam: Normal Inspection, Full ROM Upper Leg Exam: Normal Inspection, Full ROM Knee Exam: Normal Inspection, Full ROM Lower Leg Exam: Normal Inspection, Full ROM Ankle Exam: Normal Inspection, Full ROM Foot/Toe Exam: Normal Inspection, Full ROM Neurovascular/Tendon Exam: Normal Capillary Refill Gait Exam: Not Tested/Not Observed - Back Back Exam: Normal Inspection, Full ROM, Tenderness (upper novelty twister tender on palpating back according to patient; no erythema, or swelling) - Neurological Neurological Exam: Alert, Oriented X3, CN II-XII Intact, Reflexes Normal. negative: Normal Gait (gait not tested) - Psychiatric Psychiatric Exam: Normal Affect, Normal Mood - Skin Skin Exam: Warm, Dry, Intact, Normal Color Type of Lesion: negative: Rash, Abscess, Laceration, Foreign Body, Bite/Sting, Abrasion, Other Distribution: negative: Generalized, Involves Palms/Soles, Head, Face, Neck, Thorax, Chest, Back, Abdomen, Genitals, LUE, LLE, RUE, RLE, Other Description: negative: Size, Tenderness, Erythematous, Swelling, Macular, Papular, Vesicular, Blisters, Cofluent, Bullous, Petechial, Purpuric, Urticarial , Crusting, Discharge, Fluctuant, Indurated, Other ROR - Labs Reviewed Laboratory Results Reviewed?: Yes (all x-ray results reviewed and discussed with patient.) - XRAY XRAY Interpreted by: Self (left shoulder: No acute fracture or dislocation noted ; Chronic degenerative changes with calcificatiaon noted in tendons) - Diagnosis Discharge Problem: Chronic pain disorder, Arthritis, Degenerative arthritis of left shoulder region Right shoulder pain Qualifiers: Chronicity: chronic Qualified Code(s): M25.511 - Pain in right shoulder Left shoulder pain Qualifiers: Chronicity: chronic Qualified Code(s): M25.512 - Pain in left shoulder - Discharge Plan Disposition: HOME, SELF-CARE Condition: Stable - Follow ups/Referrals Follow ups/Referrals: DORA ENCINAS [Primary Care Provider] - 3 days DOMINGO VANEGAS [STAFF PHYSICIAN] - 3 days - Instructions Instructions: Shoulder Pain, Arthritis, [id number], Shoulder Range of Motion Exercises, Chronic Pain, Adult, Joint Pain, [id number]
--- NOTE | 2017-12-31 03:49 | RAD ---
HISTORY: Left shoulder pain Study: Three views left shoulder Comparison: 12/02/2017 Findings: There are degenerative changes of the glenohumeral joint. There is sclerotic focus superior lateral t o the humeral head compatible with calcific tendinitis of the rotator cuff. No acute fracture or disl ocation. The soft tissues are unremarkable. IMPRESSION: 1. Calcific tendinitis of the rotator cuff. No acute osseous abnormality identified. Reported By:
== END 2017-12-31 04:04 | disposition home or self-care (01) ==
LOC: ER 01:26
DX: M25.511 Pain in right shoulder (principal); M25.512 Pain in left shoulder
CPT/HCPCS: 73030; 96372; 99282; J1885

== ENCOUNTER 2018-01-01 12:43 | Emergency (ER) | payer OTHER, MEDICAID ==
[2018-01-01] MEDS ORDERED: TORADOL 60 MG VIAL IM ONE (12:50)
[2018-01-01] MEDS ORDERED: NORFLEX INJ IM ONE (12:50)
--- NOTE | 2018-01-01 12:51 | DR.GENAD ---
HPI - HPI Comment HPI Comment: HISTORY BELOW. - Complaint/Symptoms Chief Complaint Doctors Comments: LEFT SHOULDER PAIN. SEEN IN ED 2 DAYS AGO AND XRAY DONE. PAIN IMPROVE BUT GETTING WORSE AGAIN. NO TRAUMA. - Nurses notes reviewed Nurses Notes Review: Yes - Source History Provided: Parent - Mode of Arrival Mode of Arrival: Stretcher - Timing Came on: Suddenly - Duration Duration: Constant Duration: Days - Severity Severity: Moderate PMH - PMH Past Medical History: Anxiety, Hypertension, Sleep Apnea Past Surgical History: Yes Surgical History: Abdominal Surgery, Ortho Surgery - Family History Family Medical History: Diabetes Mellitus, Cancer, [place], Coronary Artery Disease, Hypertension - Social History Do you use any recreational Drugs:: No ROS - Review of Systems Constitutional: No Symptoms Reported Eyes: No Symptoms Reported ENTM: No Symptoms Reported Respiratoy: No Symptoms Reported Cardiovascular: No Symptoms Reported Gastrointestinal/Abdominal: No Symptoms Reported Genitourinary: No Symptoms Reported Neurological: No Symptoms Reported Musculoskeletal: Left, Shoulder Integumentary: No Symptoms Reported Hematologic/Lymphatic: No Symptoms Reported Endocrine: No Symptoms Reported All Other Systems: Reviewed and Negative PE - Vital Signs Vitals: Temperature 98.4 F Pulse Rate 92 Respiratory Rate 20 Blood Pressure [Right Arm] 122/71 Blood Pressure [Left Arm] 175/105 Blood Pressure 106/95 O2 Sat by Pulse Oximetry 98 - General Limitations: No Limitations General Appearance: Alert - Head Head Exam: Normal Inspection - Eyes Eye exam: Normal Appearance - ENT ENT Exam: Normal External Ear Exam External Ear Exam: Normal External Inspection TM/Canal Exam: Bilateral Normal Nose Exam: Normal Nose Exam Mouth Exam: Normal Inspection Throat Exam: Normal Inspection - Neck Neck Exam: Normal Inspection - Chest Chest Inspection: Symmetric Chest Wall Rise - Respiratory Respiratory Exam: Normal Lung Sounds Bilat Respiratory Exam: Bilateral Clear to Auscultation - Cardiovascular Cardiovascular Exam: Regular Rate, Normal Rhythm, Normal Heart Sounds - Abdominal Exam Abdominal Exam: Normal Bowel Sounds, Soft. negative: Tenderness - Extremities Extremities Exam: Tenderness (LT SHOULDER TENDERNESS.) - Back Back Exam: Paraspinal Tenderness - Neurologic Neurological Exam: Alert, Oriented X3, CN II-XII Intact. negative: Motor Sensory Deficit - Psychiatric Psychiatric Exam: Normal Affect, Normal Mood - Skin Skin Exam: Normal Color MDM - Differential Diagnosis Differential Diagnosis: LT SHOULDER PAIN, ARTHRTIS Course - Treatment Treatment: SEE ORDERS. - Education/Counseling Education/Counseling: Patient, Education Educated On: Treatment, Diagnosis, Needs for Follow Up - Diagnosis Discharge Problem: Arthritis Left shoulder pain Qualifiers: Chronicity: acute Qualified Code(s): M25.512 - Pain in left shoulder - Discharge Plan Disposition: 01 HOME, SELF-CARE Condition: Stable Prescriptions: Prednisone [PREDNISONE TAB 10 MG *] 10 mg PO QAM #7 tab - Follow ups/Referrals Follow ups/Referrals: DORA ENCINAS [Primary Care Provider] - 1 day - Instructions Instructions: Arthritis, [id number], Shoulder Pain, [id number], Musculoskeletal Pain Additional Instructions: RETURN TO ED IF WORSE.
[2018-01-01 12:56] VITALS: BP 106/95; BMI 31.1
[2018-01-01] MEDS ORDERED: TORADOL 60 MG VIAL ONE (12:57)
[2018-01-01] MEDS ORDERED: NORFLEX INJ ONE (12:57)
[2018-01-01] MEDS ORDERED: DECADRON INJ IM ONE ×2 (13:36→14:30)
[2018-01-01] MEDS ORDERED: DECADRON INJ ONE (14:31)
== END 2018-01-01 16:05 | disposition home or self-care (01) ==
LOC: ER 12:47
DX: M19.012 Primary osteoarthritis, left shoulder (principal); M25.512 Pain in left shoulder
CPT/HCPCS: 96372; 96374; 99282; J1100; J1885; J2360

== ENCOUNTER 2019-06-29 08:15 | Inpatient (IN) ==
--- NOTE | 2019-06-29 08:33 | DR.SOBA ---
HPI - Time Seen Time seen: 08:28 - Complaints Chief Complaint Doctors Comments: Patient is complaining of SOB, wheezing, cold, cough for the past two days getting progressively worst. EMS states his O2 sat was 77 and they gave him a nebulizer treatment in route to the emergency room. Patient denies chest pain or swelling or hands and feets. States he is a patient of [facility] and he has been using a Symbicort inhaler twice daily. He has been having a fever but denies nausea, vomiting, diarrhea or hematuria. - Reviewed Nurses Notes Reviewed: Yes - Source History Provided: Patient, EMS - Mode of Arrival Mode of Arrival: EMS - Duration Duration: Days - Context Onset:: At Rest PE Risk Factors:: None History of:: COPD Currently on:: Inhaled Bronchodilators Prehospital Care:: O2, Inhaled B2 - Modifying Factors Worsens:: Exertion Improves:: Nothing - Associated Signs and Symptoms Associated Signs and Symptoms: Fever, Wheeze, Cough - If Cough Cough: Productive PMH - PMH Past Medical History: Hypertension, Anxiety, Sleep Apnea Past Surgical History: Yes Surgical History: Abdominal Surgery, Ortho Surgery - Family History Family Medical History: Diabetes Mellitus, Cancer, [place], Coronary Artery Disease, Hypertension - Social History Do you use any recreational Drugs:: No - infectious screening Isolation: Standard ROS - Review of Systems Constitutional: No Symptoms Reported, Fever Eyes: No Symptoms Reported ENTM: No Symptoms Reported Respiratoy: No Symptoms Reported, Productive Cough, Short of Breath, Wheezing Cardiovascular: No Symptoms Reported. negative: See HPI, Chest Pain, Edema, Palpitations, Syncope, Cyanosis, Skin Mottling, Other Gastrointestinal/Abdominal: No Symptoms Reported. negative: See HPI, Abdominal Pain, Constipation, Diarrhea, Nausea, Vomiting, Food Intolerance, Other Genitourinary: No Symptoms Reported Neurological: No Symptoms Reported Musculoskeletal: No Symptoms Reported Integumentary: No Symptoms Reported. negative: See HPI, Change in Color, Change in Hair/Nails, Dryness, Lesions, Lumps, Rash, Itching, Wound, Bruises, Juandice, Other Hematologic/Lymphatic: No Symptoms Reported. negative: See HPI, Anemia, Blood Clots, Easy Bleeding, Easy Bruising, Swollen Glands, Lymphadenopathy, Other Endocrine: No Symptoms Reported Psychiatric: No Symptoms Reported. negative: See HPI, Anxiety, Depression, Hallucinations, Excessive crying, Suicidal, Other PE - General Limitations: No Limitations General Appearance: Alert, In Distress (moderate), Obese - Head Head Exam: Normal Inspection, Atraumatic, Normocephalic - Eyes Eye exam: Normal Appearance, PERRL, EOMI. negative: Scleral Icterus, Conjunctival Injection, Nystagmus, Miosis, Mydrasis, Periorbital Swelling, Periorbital Tenderness, Other - ENT ENT Exam: Normal Exam, Normal Oropharynx, Normal External Ear Exam, Mucous Membranes Moist, TM's Normal Bilaterally - Neck Neck Exam: Normal Inspection, Full ROM, Trachea Midline. negative: Tenderness, Meningismus, Lymphadenopathy, Thyromegaly, Other - Chest Chest Inspection: Normal Inspection, Symmetric Chest Wall Rise. negative: Tenderness, Rash, Abscess, Other - Respiratory Respiratory Exam: Normal Lung Sounds Bilat, Prolonged Expiratory Phase. negative: Accessory Muscle Use, Chest Wall Tenderness, Respiratory Distress, Stridor, Other Respiratory Exam: Bilateral Wheezing, Bilateral Decreased Breath Sounds, Left Rales - Cardiovascular Cardiovascular Exam: Regular Rate, Normal Rhythm, Normal Heart Sounds - Abdominal Exam Abdominal Exam: Normal Inspection, Normal Bowel Sounds, Soft. negative: Distention, Tenderness, Guarding, Rebound, Rigidity, Dimnished Bowel Sounds, Hyperactive Bowel Sounds, Hypoactive Bowel Sounds, Organomegaly, Trauma, Incis ion, Ascites, Mass, Bruit, Pulsatile Mass, Hernia, Other Abdominal Tenderness: negative: RUQ, RLQ, LUQ, LLQ, Epigastrium, Suprapubic, Diffuse, Mild, Moderate, Severe, Other - Extremities Extremities Exam: Normal Inspection, Full ROM, Tenderness, Normal Capillary Refill - Back Back Exam: Normal Inspection, Full ROM. negative: Tenderness, (R) CVA Tenderness, (L) CVA Tenderness, Muscle Spasm, Paraspinal Tenderness, Vertebral Tenderness, Rashes, (R) Sciatic Notch Tenderness, (L) Sciatic Notch Tendern, (R) Straight Leg Raise, (L) Straight Leg Raise, Other - Neurologic Neurological Exam: Alert, Oriented X3, CN II-XII Intact, Reflexes Normal. negative: Normal Gait (gait not tested) - Psychiatric Psychiatric Exam: Normal Affect, Normal Mood. negative: Depressed, Agitated, Anxious, Flat Affect, Manic, Homicidal Ideation, Suicidal Ideation, Other - Skin Skin Exam: Warm, Dry, Intact, Normal Color. negative: Rash, Cyanosis, Diaphoresis, Erythema, Pallor, Mottled, Other - Vital Signs Vitals: Temperature 100.5 F Pulse Rate [Left Brachial] 107 Pulse Rate 106 Respiratory Rate 32 Blood Pressure [Right Arm] 138/62 Blood Pressure 138/62 O2 Sat by Pulse Oximetry 98 ROR - Labs Reviewed Laboratory Results Reviewed?: Yes (All labs and x-ray results reviewed and discussed with patient) Result Diagrams: 06/29/19 08:48 06/29/19 08:48 - EKG Rate: 112 [place]: Normal Rhythm: NSR Block: RBBB ST: Nonsp - Labs Reviewed Laboratory: 06/29/19 08:39 Sputum - Expectorated Sputum - Final WBC 7.3 X10^3/uL (3.6-10.0) 06/29/19 08:48 RBC 3.92 X10^6/uL (4.7-6.0) L 06/29/19 08:48 Hgb 12.8 g/dL (13.5-18.0) L 06/29/19 08:48 Hct 37.6 % (42.0-54.0) L 06/29/19 08:48 MCV 96.0 fL (80.0-100.0) 06/29/19 08:48 MCH 32.7 pg (27.0-34.0) 06/29/19 08:48 MCHC 34.1 g/dL (33.0-35.0) 06/29/19 08:48 RDW 14.7 % (11.6-16.5) 06/29/19 08:48 Plt Count 239 X10^3/uL (150.0-450.0) 06/29/19 08:48 MPV 9.2 fL (7.4-11.0) 06/29/19 08:48 Neut % (Auto) 67.7 % (42.0-75.0) 06/29/19 08:48 Lymph % (Auto) 18.7 % (21.0-51.0) L 06/29/19 08:48 [place] % (Auto) 12.1 % (0.0-13.0) 06/29/19 08:48 Eos % (Auto) 0.9 % (0.9-2.9) 06/29/19 08:48 Baso % (Auto) 0.6 % (0.2-1.0) 06/29/19 08:48 Neut # (Auto) 5.0 x10^3/uL (2.2-4.8) H 06/29/19 08:48 Lymph # (Auto) 1.4 X10^3/uL (1.3-2.9) 06/29/19 08:48 [place] # (Auto) 0.9 x10^3/uL (0.3-0.8) H 06/29/19 08:48 Eos # (Auto) 0.1 x10^3/uL (0.0-0.2) 06/29/19 08:48 Baso # (Auto) 0.0 X10^3/uL (0.0-0.1) 06/29/19 08:48 Absolute Nucleated RBC 0.0 /100WBC 06/29/19 08:48 PT 13.4 SECONDS (11.8-14.3) 06/29/19 08:48 INR Target Range - 06/29/19 08:48 INR 1.06 (0.8-1.3) 06/29/19 08:48 APTT 29.9 SECONDS (22.9-36.5) 06/29/19 08:48 PTT Comment - 06/29/19 08:48 D-Dimer 604 ng/mL (0-400) H* 06/29/19 08:48 Sodium 141 mmol/L (136-145) 06/29/19 08:48 Corrected Sodium 141 mmol/L (136-145) 06/29/19 08:48 Potassium 3.5 mmol/L (3.5-5.1) 06/29/19 08:48 Chloride 101 mmol/L (98-107) 06/29/19 08:48 Carbon Dioxide 30.9 mmol/L (21-32) 06/29/19 08:48 BUN 15 mg/dL (7-18) 06/29/19 08:48 Creatinine 1.70 mg/dL (0.70-1.30) H 06/29/19 08:48 Est GFR (MDRD) Af Amer 53 (>60) L 06/29/19 08:48 Est GFR (MDRD) Non-Af 44 (>60) L 06/29/19 08:48 Glucose 112 mg/dL (65-99) H 06/29/19 08:48 Calcium 8.7 mg/dL (8.5-10.1) 06/29/19 08:48 Corrected Calcium TNP 06/29/19 08:48 Magnesium 1.7 mg/dL (1.7-2.9) 06/29/19 08:48 Total Bilirubin 0.50 mg/dL (0.2-1.0) 06/29/19 08:48 AST 15 Units/L (15-37) 06/29/19 08:48 ALT 11 Units/L (12-78) L 06/29/19 08:48 Alkaline Phosphatase 59 Units/L (46-116) 06/29/19 08:48 Creatine Kinase 284 Units/L (39-308) 06/29/19 08:48 CK-MB (CK-2) 2.1 ng/mL (0-4.0) 06/29/19 08:48 CK/CKMB % Calc 0.7 % (<4) 06/29/19 08:48 Troponin I < 0.02 ng/mL (0-1.5) 06/29/19 08:48 Total Protein 7.6 g/dL (6.4-8.2) 06/29/19 08:48 Albumin 3.5 g/dL (3.4-5.0) 06/29/19 08:48 Globulin 4.1 g/dL (2.5-4.5) 06/29/19 08:48 Albumin/Globulin Ratio 0.9 Ratio (1.1-2.1) L 06/29/19 08:48 Opioid - Opioid Risk Tool Age (Vimal box if 16-45): No History of Preadolescent Sexual Abuse: No Total: 0 Total Score Risk Category: Low Risk - Diagnosis Discharge Problem: COPD with acute exacerbation, Hypoxemia, Acute respiratory distress, Hyperglycemia Acute bronchitis Qualifiers: Bronchitis organism: unspecified organism Qualified Code(s): J20.9 - Acute bronchitis, unspecified Chronic kidney disease (CKD) Qualifiers: Chronic kidney disease stage: stage 3 (moderate) Qualified Code(s): N18.3 - Chronic kidney disease, stage 3 (moderate) - Discharge Plan Disposition: ADMITTED INPATIENT Condition: Stable - Follow ups/Referrals Follow ups/Referrals: NFD,None [Primary Care Provider] - 3 days - Instructions
[2019-06-29] MEDS ORDERED: SOLU-Medrol 125 MG VIAL IVP ONE (08:34)
[2019-06-29] MEDS ORDERED: DUONEB 0.5 MG/3 MG NEB ONE (08:34)
[2019-06-29] MEDS ORDERED: DUONEB 0.5 MG/3 MG ONE (08:34)
[2019-06-29] MEDS ORDERED: SOLU-Medrol 125 MG VIAL ONE (08:37)
[2019-06-29] MEDS: NS 1000 ML 1,000 ML IV SCH (08:42)
[2019-06-29] MEDS ORDERED: MAGNESIUM SULFATE 1 GRAM/100 mL PREMIX 1 G/100 ML BAG IV ONE (08:49)
[2019-06-29] MEDS ORDERED: TYLENOL 500 MG TAB EXTRA STRENGTH PO STA (08:55)
[2019-06-29] MEDS ORDERED: MAGNESIUM SULFATE 50% INJ VIAL ONE (08:57)
[2019-06-29] MEDS ORDERED: NS 100 ML IV 100 ML IV ONE (08:58)
[2019-06-29] MEDS ORDERED: LEVAQUIN PREMIX IV 750 MG 750 MG/150 ML BAG IV SCH (09:00)
[2019-06-29 09:08] LABS: BASOPHILS % (AUTO) 0.6 % (0.2-1.0); EOSINOPHILS # (AUTO) 0.1 x10^3/uL (0.0-0.2); EOSINOPHILS % (AUTO) 0.9 % (0.9-2.9); HEMATOCRIT 37.6 % (42.0-54.0); HEMOGLOBIN 12.8 g/dL (13.5-18.0); LYMPHOCYTES # (AUTO) 1.4 X10^3/uL (1.3-2.9); LYMPHOCYTES % (AUTO) 18.7 % (21.0-51.0); MEAN CORPUSCULAR HEMOGLOBIN 32.7 pg (27.0-34.0); MEAN CORPUSCULAR HGB CONC 34.1 g/dL (33.0-35.0); MEAN PLATELET VOLUME 9.2 fL (7.4-11.0); MONOCYTES # (AUTO) 0.9 x10^3/uL (0.3-0.8); MONOCYTES % (AUTO) 12.1 % (0.0-13.0); NEUTROPHILS % (AUTO) 67.7 % (42.0-75.0); PLATELET COUNT 239 X10^3/uL (150.0-450.0); RED BLOOD COUNT 3.92 X10^6/uL (4.7-6.0); RED CELL DISTRIBUTION WIDTH 14.7 % (11.6-16.5); WHITE BLOOD COUNT 7.3 X10^3/uL (3.6-10.0)
[2019-06-29] MEDS ORDERED: TYLENOL 500 MG TAB EXTRA STRENGTH PO ONE (09:12)
[2019-06-29 09:26] LABS: BLOOD UREA NITROGEN 15 mg/dL (7-18); CALCIUM 8.7 mg/dL (8.5-10.1); CARBON DIOXIDE 30.9 mmol/L (21-32); CHLORIDE 101 mmol/L (98-107); COR NA(FOR HYPERGLY) 141 mmol/L (136-145); SODIUM 141 mmol/L (136-145); TROPONIN I < 0.02 ng/mL (0-1.5); eGFR NON BLACK RACES 44 (>60)
[2019-06-29 09:30] LABS: ALANINE AMINOTRANSFERASE 11 Units/L (12-78); ALBUMIN 3.5 g/dL (3.4-5.0); ALKALINE PHOSPHATASE 59 Units/L (46-116); ASPARTATE AMINO TRANSFERASE 15 Units/L (15-37); CKMB % 0.7 % (<4); CREATINE KINASE 284 Units/L (39-308); CREATINE KINASE MB 2.1 ng/mL (0-4.0); MAGNESIUM 1.7 mg/dL (1.7-2.9); TOTAL PROTEIN 7.6 g/dL (6.4-8.2)
[2019-06-29] MEDS ORDERED: LOVENOX INJ 100 MG SYR SC STA (10:09)
[2019-06-29] MEDS ORDERED: ZITHROMAX TAB 250 MG PO ONE (10:15)
[2019-06-29 10:31] LABS: ABG ALLEN TEST POS; ABG BASE EXCESS 3.8 mmol/L (-2.0-2.0); ABG HCO3 29.2 mmol/L (22-26)
[2019-06-29] MEDS ORDERED: PROTONIX INJ 40 MG VIAL IVP SCH (11:00)
[2019-06-29] MEDS: NS 1/2 + KCL 20 MEQ/L 1,000 ML IV SCH (11:06)
[2019-06-29] MEDS: SINGULAIR TAB 10 MG PO SCH (11:29)
[2019-06-29] MEDS ORDERED: LEVAQUIN PREMIX IV 750 MG 750 MG/150 ML BAG IV NR (12:00)
[2019-06-29] MEDS: DUONEB 0.5 MG/3 MG NEB SCH ×3 (12:01→21:30)
--- NOTE | 2019-06-29 12:13 | DR.H&P ---
H&P History & Physical for Day of: H&P Date: 06/29/19 Chief Complaint Chief Complaint: Shortness of breath, wheezing Allergies Allergies Allergy/AdvReac Type Severity Reaction Status Date / Time caffeine Allergy Verified 01/18/19 11:26 chocolate flavor Allergy Verified 01/18/19 11:26 ibuprofen [From Motrin] Allergy Verified 01/18/19 11:26 Penicillins Allergy Verified 01/18/19 11:26 History of Present Illness History of Present Illness: Patient is a 58 yo m presenting w/ productive cough, shortness of breath, and wheezing that has been progressively getting worse for the past 2-3 days. Per ED note, EMS stated his O2sat was 77% when they initially treated him. He has a smoking hx, uses inhalers at home. Reports fever, chills. Denies chest pain, nausea, vomiting, abdominal pain, diarrhea, edema. Pt was hypoxic on ABG in ED and required supplemental O2. Past Medical History Past Medical History: Anxiety, Hypertension and Sleep Apnea Past Surgical History Surgical History: Abdominal Surgery and Ortho Surgery Family History Family Medical History: Diabetes Mellitus, Cancer, [place], Coronary Artery Disease and Hypertension Social History Does patient currently use any type of tobacco product: Yes Have you used tobacco products in the last 12 months: Yes Type of Tobacco Use: Cigarettes Does any household member use tobacco: No Alcohol Use: None Drug Use: None Medications Home Medications: caffeine Allergy (Verified 01/18/19 11:26) chocolate flavor Allergy (Verified 01/18/19 11:26) ibuprofen [From Motrin] Allergy (Verified 01/18/19 11:26) Penicillins Allergy (Verified 01/18/19 11:26) CONTINUE taking the following medications oxycodone-acetaminophen 1 tab PO Q8-10H PRN 06/29/19 [History] sildenafil 100 mg PO DIRECTED PRN 06/29/19 [History] varenicline [Chantix Starting Month Box] 1 ea PO DIRECTED 06/29/19 [History] Labs Result Diagrams: 06/29/19 08:48 06/29/19 08:48 Labs: 06/29/19 08:39 Sputum - Expectorated Sputum - Final Laboratory WBC 7.3 X10^3/uL (3.6-10.0) 06/29/19 08:48 RBC 3.92 X10^6/uL (4.7-6.0) L 06/29/19 08:48 Hgb 12.8 g/dL (13.5-18.0) L 06/29/19 08:48 Hct 37.6 % (42.0-54.0) L 06/29/19 08:48 MCV 96.0 fL (80.0-100.0) 06/29/19 08:48 MCH 32.7 pg (27.0-34.0) 06/29/19 08:48 MCHC 34.1 g/dL (33.0-35.0) 06/29/19 08:48 RDW 14.7 % (11.6-16.5) 06/29/19 08:48 Plt Count 239 X10^3/uL (150.0-450.0) 06/29/19 08:48 MPV 9.2 fL (7.4-11.0) 06/29/19 08:48 Neut % (Auto) 67.7 % (42.0-75.0) 06/29/19 08:48 Lymph % (Auto) 18.7 % (21.0-51.0) L 06/29/19 08:48 [place] % (Auto) 12.1 % (0.0-13.0) 06/29/19 08:48 Eos % (Auto) 0.9 % (0.9-2.9) 06/29/19 08:48 Baso % (Auto) 0.6 % (0.2-1.0) 06/29/19 08:48 Neut # (Auto) 5.0 x10^3/uL (2.2-4.8) H 06/29/19 08:48 Lymph # (Auto) 1.4 X10^3/uL (1.3-2.9) 06/29/19 08:48 [place] # (Auto) 0.9 x10^3/uL (0.3-0.8) H 06/29/19 08:48 Eos # (Auto) 0.1 x10^3/uL (0.0-0.2) 06/29/19 08:48 Baso # (Auto) 0.0 X10^3/uL (0.0-0.1) 06/29/19 08:48 Absolute Nucleated RBC 0.0 /100WBC 06/29/19 08:48 PT 13.4 SECONDS (11.8-14.3) 06/29/19 08:48 INR Target Range - 06/29/19 08:48 INR 1.06 (0.8-1.3) 06/29/19 08:48 APTT 29.9 SECONDS (22.9-36.5) 06/29/19 08:48 PTT Comment - 06/29/19 08:48 D-Dimer 604 ng/mL (0-400) H* 06/29/19 08:48 Sample Site Cancelled 06/29/19 10:23 Sample Site Lrad 06/29/19 10:23 ABG pH 7.410 (7.35-7.45) 06/29/19 10:23 ABG pH Cancelled 06/29/19 10:23 ABG pCO2 46.0 mmHg (35.0-45.0) H 06/29/19 10:23 ABG pCO2 Cancelled 06/29/19 10:23 ABG pO2 57.0 mmHg (80.0-100.0) L 06/29/19 10:23 ABG pO2 Cancelled 06/29/19 10:23 ABG HCO3 29.2 mmol/L (22-26) H 06/29/19 10:23 ABG HCO3 Cancelled 06/29/19 10:23 ABG O2 Saturation 90.0 % (90-100) 06/29/19 10:23 ABG O2 Saturation Cancelled 06/29/19 10:23 ABG Base Excess 3.8 mmol/L (-2.0-2.0) H 06/29/19 10:23 ABG Base Excess Cancelled 06/29/19 10:23 [place]olo Test Cancelled 06/29/19 10:23 Paolo Test Pos 06/29/19 10:23 A-a Gradient 142.0 mmHg 06/29/19 10:23 A-a Gradient Cancelled 06/29/19 10:23 FiO2 36.0 06/29/19 10:23 FiO2 Cancelled 06/29/19 10:23 Blood Gas Comments Cancelled 06/29/19 10:23 Blood Gas Comments Pt francisco well elj 06/29/19 10:23 Sodium 141 mmol/L (136-145) 06/29/19 08:48 Corrected Sodium 141 mmol/L (136-145) 06/29/19 08:48 Potassium 3.5 mmol/L (3.5-5.1) 06/29/19 08:48 Chloride 101 mmol/L (98-107) 06/29/19 08:48 Carbon Dioxide 30.9 mmol/L (21-32) 06/29/19 08:48 BUN 15 mg/dL (7-18) 06/29/19 08:48 Creatinine 1.70 mg/dL (0.70-1.30) H 06/29/19 08:48 Est GFR (MDRD) Af Amer 53 (>60) L 06/29/19 08:48 Est GFR (MDRD) Non-Af 44 (>60) L 06/29/19 08:48 Glucose 112 mg/dL (65-99) H 06/29/19 08:48 POC Glucose (mg/dL) 141 mg/dL (65-99) H 06/29/19 11:23 Calcium 8.7 mg/dL (8.5-10.1) 06/29/19 08:48 Corrected Calcium TNP 06/29/19 08:48 Magnesium 1.7 mg/dL (1.7-2.9) 06/29/19 08:48 Total Bilirubin 0.50 mg/dL (0.2-1.0) 06/29/19 08:48 AST 15 Units/L (15-37) 06/29/19 08:48 ALT 11 Units/L (12-78) L 06/29/19 08:48 Alkaline Phosphatase 59 Units/L (46-116) 06/29/19 08:48 Creatine Kinase 284 Units/L (39-308) 06/29/19 08:48 CK-MB (CK-2) 2.1 ng/mL (0-4.0) 06/29/19 08:48 CK/CKMB % Calc 0.7 % (<4) 06/29/19 08:48 Troponin I < 0.02 ng/mL (0-1.5) 06/29/19 08:48 Total Protein 7.6 g/dL (6.4-8.2) 06/29/19 08:48 Albumin 3.5 g/dL (3.4-5.0) 06/29/19 08:48 Globulin 4.1 g/dL (2.5-4.5) 06/29/19 08:48 Albumin/Globulin Ratio 0.9 Ratio (1.1-2.1) L 06/29/19 08:48 Review of Systems Constitutional: No Symptoms Reported Eyes: No Symptoms Reported ENT: No Symptoms Reported Respiratory: Cough, Shortness of Breath, Sputum and Wheezing Cardiovascular: No Symptoms Reported Gastrointestinal: No Symptoms Reported Genitourinary: No Symptoms Reported Musculoskeletal: Back Pain (chronic ) Skin: No Symptoms Reported Neurological: No Symptoms Reported Physical Exam Vital Signs: Temperature 98.9 F Pulse Rate [Left Brachial] 101 Pulse Rate 103 Respiratory Rate 20 Blood Pressure [Right Arm] 115/55 Blood Pressure 115/55 O2 Sat by Pulse Oximetry 92 Oriented: Normal Eyes: Normal Nose: Normal Throat: Normal Respiratory: Diminished Throughout and Wheezes Throughout Cardiovascular: Tachycardia : Normal Auscultation: Bowel Sounds: Normal Palpation: Normal Tenderness: Normal Skin: Normal Musculoskeletal: Normal Psychiatric: Normal Mood Description: Calm Speech Pattern: Clear Assessment/Plan (1) COPD with acute exacerbation: Status: Acute Plan: Supplemental O2, RT consult, [place], IV Solumedrol 80mg q8h, IV Levaquin, Continue to monitor. (2) Elevated d-dimer: Status: Acute Plan: Unable to do CTA chest at this time d/t renal function. Received Lovenox ppx. Will order CTA tmm if renal function improves. Continue to monitor. (3) Acute renal failure: Status: Acute Plan: IVF hydration Cr(BL~1.18):1.7 (4) Chronic lower back pain: Status: Acute
[2019-06-29] MEDS ORDERED: PATIENT'S HOME MEDICATION (Oxycodone-Acetaminophen 1 TAB) PO PRN (12:23)
[2019-06-29] MEDS ORDERED: KLONOPIN TAB 1 MG PO PRN (12:23)
[2019-06-29] MEDS ORDERED: PERCOCET TAB 5/325 MG ONE (12:58)
[2019-06-29] MEDS: PERCOCET TAB 5/325 MG PO PRN (13:04)
[2019-06-29 15:26] VITALS: BMI 36.4
[2019-06-29] MEDS: HumuLIN R SC PRN ×2 (17:02→21:15)
[2019-06-29] MEDS: NEURONTIN CAP 100 MG PO SCH (21:10)
[2019-06-29] MEDS: DEPAKOTE D.R. TAB PO SCH (21:10)
[2019-06-29] MEDS: FLOMAX PO SCH (21:10)
[2019-06-29] MEDS: ZOCOR TAB 10 MG PO SCH (21:11)
[2019-06-29] MEDS: ZANAFLEX PO SCH (21:11)
[2019-06-29] MEDS: PROTONIX TAB 40 MG PO SCH (21:11)
[2019-06-29] MEDS: KLONOPIN TAB 1 MG PO PRN (21:14)
[2019-06-30] MEDS: NS 1/2 + KCL 20 MEQ/L 1,000 ML IV SCH ×3 (00:25→14:26)
[2019-06-30] MEDS: NS 1000 ML 1,000 ML IV SCH ×2 (00:25→14:48)
[2019-06-30] MEDS: DUONEB 0.5 MG/3 MG NEB SCH ×6 (01:00→20:34)
[2019-06-30] MEDS ORDERED: ROBITUSSIN DM ONE (04:48)
[2019-06-30] MEDS: ROBITUSSIN DM PO PRN ×2 (04:52→09:17)
[2019-06-30] MEDS: HumuLIN R SC PRN ×4 (06:30→20:49)
[2019-06-30 06:38] LABS: BASOPHILS % (AUTO) 0.2 % (0.2-1.0); HEMATOCRIT 36.1 % (42.0-54.0); HEMOGLOBIN 12.1 g/dL (13.5-18.0); LYMPHOCYTES # (AUTO) 1.1 X10^3/uL (1.3-2.9); LYMPHOCYTES % (AUTO) 11.2 % (21.0-51.0); MEAN CORPUSCULAR HEMOGLOBIN 32.2 pg (27.0-34.0); MEAN CORPUSCULAR HGB CONC 33.5 g/dL (33.0-35.0); MEAN CORPUSCULAR VOLUME 96.1 fL (80.0-100.0); MEAN PLATELET VOLUME 9.9 fL (7.4-11.0); MONOCYTES # (AUTO) 0.7 x10^3/uL (0.3-0.8); MONOCYTES % (AUTO) 6.6 % (0.0-13.0); NEUTROPHILS # (AUTO) 8.3 x10^3/uL (2.2-4.8); PLATELET COUNT 209 X10^3/uL (150.0-450.0); RED BLOOD COUNT 3.76 X10^6/uL (4.7-6.0); RED CELL DISTRIBUTION WIDTH 14.3 % (11.6-16.5); WHITE BLOOD COUNT 10.1 X10^3/uL (3.6-10.0)
[2019-06-30 06:52] LABS: BLOOD UREA NITROGEN 18 mg/dL (7-18); CALCIUM 8.5 mg/dL (8.5-10.1); CARBON DIOXIDE 27.7 mmol/L (21-32); CHLORIDE 101 mmol/L (98-107); COR NA(FOR HYPERGLY) 140 mmol/L (136-145); CREATININE 1.33 mg/dL (0.70-1.30); SODIUM 138 mmol/L (136-145); eGFR NON BLACK RACES 58 (>60)
[2019-06-30] MEDS ORDERED: ZESTRIL TAB 20 MG PO SCH (09:00)
[2019-06-30] MEDS: NORVASC TAB 10 MG PO SCH (09:17)
[2019-06-30] MEDS: PROTONIX TAB 40 MG PO SCH ×2 (09:17→20:30)
[2019-06-30] MEDS: LEVAQUIN PREMIX IV 500 MG 500 MG/100 ML BAG IV SCH (09:17)
[2019-06-30] MEDS: NEURONTIN CAP 100 MG PO SCH ×2 (09:17→20:30)
[2019-06-30] MEDS: SINGULAIR TAB 10 MG PO SCH (09:17)
--- NOTE | 2019-06-30 10:47 | PCM.PROG ---
Progress Note Progress Note for Day of Date of Exam: 06/30/19 Subjective Subjective: Pt is a 58 yo m presenting w/ productive cough, shortness of breath, and wheezing that has been progressively getting worse for the past 2-3 days. Per ED note, EMS stated his O2sat was 77% when they initially treated him. He has a smoking hx, uses inhalers at home. Reports fever, chills. Denies chest pain, nausea, vomiting, abdominal pain, diarrhea, edema. Pt was hypoxic on ABG in ED and required supplemental O2. -This morning patient is still on heated HF supplemental O2. He reports minimal improvement. Still having wheezing and coughing up white sputum. No acute concerns overnight. Past Medical Family Social History Past Med/Fam/Surg Hx: No changes since H&P Allergies: Allergies caffeine Allergy (Verified 01/18/19 11:26) chocolate flavor Allergy (Verified 01/18/19 11:26) ibuprofen [From Motrin] Allergy (Verified 01/18/19 11:26) Penicillins Allergy (Verified 01/18/19 11:26) Review of Systems ROS: No change since H&P Vital Signs and I&O's Vital Signs: Temperature 97.3 F Pulse Rate [Left Brachial] 101 Pulse Rate 75 Respiratory Rate 22 Blood Pressure [Right Arm] 115/55 Blood Pressure 135/76 O2 Sat by Pulse Oximetry 97 Intake and Output: Intake & Output 06/27/19 06/28/19 06/29/19 06/30/19 23:59 23:59 23:59 23:59 Intake Total 1353 / 1353 634 / 634 Output Total 825 / 825 350 / 350 Balance 528 / 528 284 / 284 Physical Exam Oriented: Normal Eyes: Normal Ear: Normal Nose: Normal Respiratory: Wheezes Cardiovascular: Normal : Normal Auscultation: Bowel Sounds: Normal Tenderness: Normal Skin: Normal Musculoskeletal: Normal Psychiatric: Normal Mood Description: Calm Speech Pattern: Clear and Appropriate Laboratory and Diagnostics Result Diagrams: 06/30/19 05:12 06/30/19 05:12 Labs: 06/29/19 08:39 Sputum - Expectorated Sputum Sputum Culture - Preliminary 06/29/19 08:39 Sputum - Expectorated Sputum - Final Laboratory WBC 10.1 X10^3/uL (3.6-10.0) H 06/30/19 05:12 RBC 3.76 X10^6/uL (4.7-6.0) L 06/30/19 05:12 Hgb 12.1 g/dL (13.5-18.0) L 06/30/19 05:12 Hct 36.1 % (42.0-54.0) L 06/30/19 05:12 MCV 96.1 fL (80.0-100.0) 06/30/19 05:12 MCH 32.2 pg (27.0-34.0) 06/30/19 05:12 MCHC 33.5 g/dL (33.0-35.0) 06/30/19 05:12 RDW 14.3 % (11.6-16.5) 06/30/19 05:12 Plt Count 209 X10^3/uL (150.0-450.0) 06/30/19 05:12 MPV 9.9 fL (7.4-11.0) 06/30/19 05:12 Neut % (Auto) 82.0 % (42.0-75.0) H 06/30/19 05:12 Lymph % (Auto) 11.2 % (21.0-51.0) L 06/30/19 05:12 [place] % (Auto) 6.6 % (0.0-13.0) 06/30/19 05:12 Eos % (Auto) 0.0 % (0.9-2.9) L 06/30/19 05:12 Baso % (Auto) 0.2 % (0.2-1.0) 06/30/19 05:12 Neut # (Auto) 8.3 x10^3/uL (2.2-4.8) H 06/30/19 05:12 Lymph # (Auto) 1.1 X10^3/uL (1.3-2.9) L 06/30/19 05:12 [place] # (Auto) 0.7 x10^3/uL (0.3-0.8) 06/30/19 05:12 Eos # (Auto) 0.0 x10^3/uL (0.0-0.2) 06/30/19 05:12 Baso # (Auto) 0.0 X10^3/uL (0.0-0.1) 06/30/19 05:12 Absolute Nucleated RBC 0.0 /100WBC 06/30/19 05:12 PT 13.4 SECONDS (11.8-14.3) 06/29/19 08:48 INR Target Range - 06/29/19 08:48 INR 1.06 (0.8-1.3) 06/29/19 08:48 APTT 29.9 SECONDS (22.9-36.5) 06/29/19 08:48 PTT Comment - 06/29/19 08:48 D-Dimer 604 ng/mL (0-400) H* 06/29/19 08:48 Sample Site Cancelled 06/29/19 10:23 Sample Site Lrad 06/29/19 10:23 ABG pH 7.410 (7.35-7.45) 06/29/19 10:23 ABG pH Cancelled 06/29/19 10:23 ABG pCO2 46.0 mmHg (35.0-45.0) H 06/29/19 10:23 ABG pCO2 Cancelled 06/29/19 10:23 ABG pO2 57.0 mmHg (80.0-100.0) L 06/29/19 10:23 ABG pO2 Cancelled 06/29/19 10:23 ABG HCO3 29.2 mmol/L (22-26) H 06/29/19 10:23 ABG HCO3 Cancelled 06/29/19 10:23 ABG O2 Saturation 90.0 % (90-100) 06/29/19 10:23 ABG O2 Saturation Cancelled 06/29/19 10:23 ABG Base Excess 3.8 mmol/L (-2.0-2.0) H 06/29/19 10:23 ABG Base Excess Cancelled 06/29/19 10:23 Paolo Test Cancelled 06/29/19 10:23 Paolo Test Pos 06/29/19 10:23 A-a Gradient 142.0 mmHg 06/29/19 10:23 A-a Gradient Cancelled 06/29/19 10:23 FiO2 36.0 06/29/19 10:23 FiO2 Cancelled 06/29/19 10:23 Blood Gas Comments Cancelled 06/29/19 10:23 Blood Gas Comments Pt francisco well elj 06/29/19 10:23 Sodium 138 mmol/L (136-145) 06/30/19 05:12 Corrected Sodium 140 mmol/L (136-145) 06/30/19 05:12 Potassium 4.1 mmol/L (3.5-5.1) 06/30/19 05:12 Chloride 101 mmol/L (98-107) 06/30/19 05:12 Carbon Dioxide 27.7 mmol/L (21-32) 06/30/19 05:12 BUN 18 mg/dL (7-18) 06/30/19 05:12 Creatinine 1.33 mg/dL (0.70-1.30) H 06/30/19 05:12 Est GFR (MDRD) Af Amer > 60 (>60) 06/30/19 05:12 Est GFR (MDRD) Non-Af 58 (>60) L 06/30/19 05:12 Glucose 193 mg/dL (65-99) H 06/30/19 05:12 POC Glucose (mg/dL) 209 mg/dL (65-99) H 06/30/19 06:06 Calcium 8.5 mg/dL (8.5-10.1) 06/30/19 05:12 Corrected Calcium TNP 06/29/19 08:48 Magnesium 1.7 mg/dL (1.7-2.9) 06/29/19 08:48 Total Bilirubin 0.50 mg/dL (0.2-1.0) 06/29/19 08:48 AST 15 Units/L (15-37) 06/29/19 08:48 ALT 11 Units/L (12-78) L 06/29/19 08:48 Alkaline Phosphatase 59 Units/L (46-116) 06/29/19 08:48 Creatine Kinase 284 Units/L (39-308) 06/29/19 08:48 CK-MB (CK-2) 2.1 ng/mL (0-4.0) 06/29/19 08:48 CK/CKMB % Calc 0.7 % (<4) 06/29/19 08:48 Troponin I < 0.02 ng/mL (0-1.5) 06/29/19 08:48 Total Protein 7.6 g/dL (6.4-8.2) 06/29/19 08:48 Albumin 3.5 g/dL (3.4-5.0) 06/29/19 08:48 Globulin 4.1 g/dL (2.5-4.5) 06/29/19 08:48 Albumin/Globulin Ratio 0.9 Ratio (1.1-2.1) L 06/29/19 08:48 Influenza Type A (PCR) Negative (NEGATIVE) 06/29/19 11:34 Influenza Type B (PCR) Negative (NEGATIVE) 06/29/19 11:34 Radiology Reviewed: Yes Plan (1) COPD with acute exacerbation: Status: Acute Plan: Pt still requiring supplemental O2, RT consult, Duonebs, IV Solumedrol 80mg q8h, IV Levaquin, Continue to monitor. (2) Elevated d-dimer: Status: Acute Plan: Ordered CTA chest since improvement of renal function. F/u results. (3) Acute renal failure: Status: Acute Qualifiers: Acute renal failure type: unspecified Qualified Code(s): N17.9 - Acute kidney failure, unspecified Plan: IVF hydration, improved Cr(BL~1.18):1.7>1.33 (4) Chronic lower back pain: Status: Acute
[2019-06-30] MEDS: SOLU-Medrol 40 MG VIAL IVP SCH ×2 (11:51→18:20)
[2019-06-30] MEDS: PERCOCET TAB 5/325 MG PO PRN ×2 (12:11→20:38)
--- NOTE | 2019-06-30 13:46 | CT ---
CT CHEST WITH IV CONTRAST - PE PROTOCOL HISTORY: Elevated D-dimer Comparison: None Technique: Non gated axial images of the chest were obtained with intravenous contrast according to pulmonary embolism protocol. MIPS were reconstructed. Dose reduction techniques including Automated Exposure Control (AEC) and adjustment of mA and kV were utlized. Findings: No evidence of a pulmonary embolism to the level of the segmental pulmonary arteries. The heart is normal in size. Moderate to large pericardial effusion. Severe coronary calcification Extensive shotty mediastinal adenopathy. No focal consolidations, pleural effusions or pneumothorax. Bilateral patchy regions of atelectasis including a focus of ground-glass in the left upper lobe. No suspicious pulmonary nodules or masses. Limited images of the upper abdomen are unremarkable. No aggressive osseous lesions. IMPRESSION: 1. No evidence of pulmonary embolism. 2. Moderate to large pericardial effusion and extensive shotty mediastinal adenopathy. Correlate clinically. 2. Questionable patchy ground-glass in the left upper lobe which may represent early infection. Reported By:
[2019-06-30] MEDS: DEPAKOTE D.R. TAB PO SCH (20:29)
[2019-06-30] MEDS: FLOMAX PO SCH (20:29)
[2019-06-30] MEDS: ZOCOR TAB 10 MG PO SCH (20:30)
[2019-06-30] MEDS: ZANAFLEX PO SCH (20:30)
[2019-06-30] MEDS: KLONOPIN TAB 1 MG PO PRN (20:48)
[2019-07-01] MEDS: DUONEB 0.5 MG/3 MG NEB SCH ×6 (00:35→20:55)
[2019-07-01] MEDS: SOLU-Medrol 40 MG VIAL IVP SCH ×2 (02:15→10:57)
[2019-07-01] MEDS: NS 1/2 + KCL 20 MEQ/L 1,000 ML IV SCH ×2 (03:45→14:15)
[2019-07-01] MEDS: NS 1000 ML 1,000 ML IV SCH (06:09)
[2019-07-01] MEDS: HumuLIN R SC PRN ×2 (06:25→21:47)
[2019-07-01] MEDS: NORVASC TAB 10 MG PO SCH (09:03)
[2019-07-01] MEDS: SINGULAIR TAB 10 MG PO SCH (09:03)
[2019-07-01] MEDS: NEURONTIN CAP 100 MG PO SCH ×2 (09:03→21:38)
[2019-07-01] MEDS: PROTONIX TAB 40 MG PO SCH ×2 (09:03→21:39)
[2019-07-01] MEDS: LEVAQUIN PREMIX IV 500 MG 500 MG/100 ML BAG IV SCH (09:04)
[2019-07-01] MEDS: KLONOPIN TAB 1 MG PO PRN ×2 (09:09→22:53)
[2019-07-01] MEDS: PERCOCET TAB 5/325 MG PO PRN ×2 (09:10→21:39)
[2019-07-01] MEDS: ROBITUSSIN DM PO PRN ×2 (09:11→19:02)
[2019-07-01] MEDS: LOVENOX INJ 40 MG SYR SC SCH (11:03)
[2019-07-01] MEDS: FLOMAX PO SCH (21:38)
[2019-07-01] MEDS: DEPAKOTE D.R. TAB PO SCH (21:39)
[2019-07-01] MEDS: ZOCOR TAB 10 MG PO SCH (21:39)
[2019-07-01] MEDS: ZANAFLEX PO SCH (21:39)
[2019-07-02] MEDS: DUONEB 0.5 MG/3 MG NEB SCH ×6 (01:10→17:03)
[2019-07-02] MEDS: NS 1/2 + KCL 20 MEQ/L 1,000 ML IV SCH ×2 (04:08→19:20)
[2019-07-02 05:53] LABS: BASOPHILS % (AUTO) 0.1 % (0.2-1.0); HEMATOCRIT 36.7 % (42.0-54.0); LYMPHOCYTES # (AUTO) 0.8 X10^3/uL (1.3-2.9); LYMPHOCYTES % (AUTO) 5.6 % (21.0-51.0); MEAN CORPUSCULAR HEMOGLOBIN 31.7 pg (27.0-34.0); MEAN CORPUSCULAR HGB CONC 32.6 g/dL (33.0-35.0); MEAN CORPUSCULAR VOLUME 97.2 fL (80.0-100.0); MEAN PLATELET VOLUME 9.7 fL (7.4-11.0); MONOCYTES % (AUTO) 6.7 % (0.0-13.0); NEUTROPHILS # (AUTO) 12.7 x10^3/uL (2.2-4.8); NEUTROPHILS % (AUTO) 87.6 % (42.0-75.0); PLATELET COUNT 221 X10^3/uL (150.0-450.0); RED BLOOD COUNT 3.77 X10^6/uL (4.7-6.0); RED CELL DISTRIBUTION WIDTH 14.8 % (11.6-16.5); WHITE BLOOD COUNT 14.5 X10^3/uL (3.6-10.0)
[2019-07-02 06:03] LABS: ALANINE AMINOTRANSFERASE 20 Units/L (12-78); ALBUMIN 2.9 g/dL (3.4-5.0); ALKALINE PHOSPHATASE 54 Units/L (46-116); ASPARTATE AMINO TRANSFERASE 20 Units/L (15-37); BLOOD UREA NITROGEN 19 mg/dL (7-18); CALCIUM 8.6 mg/dL (8.5-10.1); CARBON DIOXIDE 29.5 mmol/L (21-32); CHLORIDE 102 mmol/L (98-107); COR CA(FOR HYPOALB) 9.5 mg/dL (8.5-10.1); COR NA(FOR HYPERGLY) 142 mmol/L (136-145); CREATININE 1.26 mg/dL (0.70-1.30); SODIUM 137 mmol/L (136-145); TOTAL PROTEIN 6.7 g/dL (6.4-8.2); eGFR NON BLACK RACES > 60 (>60)
[2019-07-02] MEDS: HumuLIN R SC PRN ×2 (06:35→20:51)
[2019-07-02] MEDS: LEVAQUIN PREMIX IV 500 MG 500 MG/100 ML BAG IV SCH (08:18)
[2019-07-02] MEDS: LOVENOX INJ 40 MG SYR SC SCH (08:18)
[2019-07-02] MEDS: SINGULAIR TAB 10 MG PO SCH (08:19)
[2019-07-02] MEDS: NORVASC TAB 10 MG PO SCH (08:19)
[2019-07-02] MEDS: PROTONIX TAB 40 MG PO SCH ×2 (08:19→20:39)
[2019-07-02] MEDS: NEURONTIN CAP 100 MG PO SCH ×2 (08:27→20:38)
[2019-07-02] MEDS: PERCOCET TAB 5/325 MG PO PRN ×2 (08:27→20:41)
[2019-07-02] MEDS: PULMICORT NEB TX 0.5 MG NEB SCH ×2 (08:45→14:40)
--- NOTE | 2019-07-02 10:01 | RAD ---
HISTORY: Shortness of breath Study: Single-view chest, done portably Comparison: 06/29/2019. Findings: Trachea is midline. There is cardiomegaly with atherosclerotic calcification of the aortic arch. Very pulmonary vascular congestion is seen. No CHF is identified. There is very mild hyperinflation of the lungs. No consolidation is seen. No pleural fluid or pneumothorax is seen. Osseous structures are intact. IMPRESSION: Cardiomegaly with very mild pulmonary vascular congestion. No CHF or infiltrate or pleural fluid is seen. Reported By:
[2019-07-02] MEDS: ROCEPHIN VIAL 1 GRAM 1 G in NS 100 ML IV + SPIKE MINIBAG* 100 ML IV SCH (11:20)
[2019-07-02] MEDS: LASIX IVP SCH ×2 (15:02→20:40)
[2019-07-02] MEDS ORDERED: LEVAQUIN PREMIX IV 500 MG 500 MG/100 ML BAG IV ONE (17:35)
[2019-07-02] MEDS: ZANAFLEX PO SCH (20:38)
[2019-07-02] MEDS: ZOCOR TAB 10 MG PO SCH (20:38)
[2019-07-02] MEDS: KLONOPIN TAB 1 MG PO PRN (20:39)
[2019-07-02] MEDS: FLOMAX PO SCH (20:39)
[2019-07-02] MEDS: DEPAKOTE D.R. TAB PO SCH (20:39)
[2019-07-03] MEDS: DUONEB 0.5 MG/3 MG NEB SCH ×4 (01:28→12:29)
[2019-07-03 06:18] LABS: BASOPHILS # (AUTO) 0.1 X10^3/uL (0.0-0.1); BASOPHILS % (AUTO) 0.8 % (0.2-1.0); HEMATOCRIT 37.6 % (42.0-54.0); HEMOGLOBIN 12.7 g/dL (13.5-18.0); LYMPHOCYTES # (AUTO) 2.2 X10^3/uL (1.3-2.9); LYMPHOCYTES % (AUTO) 24.8 % (21.0-51.0); MEAN CORPUSCULAR HEMOGLOBIN 32.4 pg (27.0-34.0); MEAN CORPUSCULAR HGB CONC 33.7 g/dL (33.0-35.0); MEAN CORPUSCULAR VOLUME 96.2 fL (80.0-100.0); MEAN PLATELET VOLUME 9.9 fL (7.4-11.0); MONOCYTES # (AUTO) 1.2 x10^3/uL (0.3-0.8); NEUTROPHILS # (AUTO) 5.3 x10^3/uL (2.2-4.8); NEUTROPHILS % (AUTO) 60.4 % (42.0-75.0); PLATELET COUNT 187 X10^3/uL (150.0-450.0); RED BLOOD COUNT 3.91 X10^6/uL (4.7-6.0); RED CELL DISTRIBUTION WIDTH 14.8 % (11.6-16.5); WHITE BLOOD COUNT 8.9 X10^3/uL (3.6-10.0)
[2019-07-03] MEDS: HumuLIN R SC PRN (06:26)
[2019-07-03 06:30] LABS: ALANINE AMINOTRANSFERASE 30 Units/L (12-78); ALBUMIN 2.8 g/dL (3.4-5.0); ALKALINE PHOSPHATASE 53 Units/L (46-116); ASPARTATE AMINO TRANSFERASE 25 Units/L (15-37); BLOOD UREA NITROGEN 18 mg/dL (7-18); CALCIUM 8.4 mg/dL (8.5-10.1); CARBON DIOXIDE 32.6 mmol/L (21-32); CHLORIDE 98 mmol/L (98-107); COR CA(FOR HYPOALB) 9.4 mg/dL (8.5-10.1); COR NA(FOR HYPERGLY) 139 mmol/L (136-145); CREATININE 1.19 mg/dL (0.70-1.30); SODIUM 136 mmol/L (136-145); TOTAL PROTEIN 6.3 g/dL (6.4-8.2); eGFR NON BLACK RACES > 60 (>60)
[2019-07-03 07:06] LABS: PLATELET MORPHOLOGY COMMENT NORMAL (NORMAL)
[2019-07-03] MEDS: SINGULAIR TAB 10 MG PO SCH (08:21)
[2019-07-03] MEDS: ROCEPHIN VIAL 1 GRAM 1 G in NS 100 ML IV + SPIKE MINIBAG* 100 ML IV SCH (08:21)
[2019-07-03] MEDS: PROTONIX TAB 40 MG PO SCH (08:21)
[2019-07-03] MEDS: NORVASC TAB 10 MG PO SCH (08:21)
[2019-07-03] MEDS: LOVENOX INJ 40 MG SYR SC SCH (08:21)
[2019-07-03] MEDS: NEURONTIN CAP 100 MG PO SCH (08:31)
[2019-07-03] MEDS ORDERED: LEVAQUIN PREMIX IV 500 MG 500 MG/100 ML BAG IV SCH (09:00)
[2019-07-03] MEDS: PULMICORT NEB TX 0.5 MG NEB SCH (09:43)
[2019-07-03] MEDS: PERCOCET TAB 5/325 MG PO PRN (10:15)
[2019-07-03] MEDS: KLONOPIN TAB 1 MG PO PRN (10:15)
[2019-07-03 15:09] VITALS: BP 141/79
== END 2019-07-03 14:00 | disposition home or self-care (01) | DRG 191 ==
LOC: ER 08:15 → ICU 10:12
PROVIDERS: ADMIT Family Medicine; ATTEND Internal Medicine
DX: R06.02 Shortness of breath; G89.29 Other chronic pain; B96.29 Other Escherichia coli [E. coli] as the cause of diseases classified elsewhere; R79.89 Other specified abnormal findings of blood chemistry; J44.1 Chronic obstructive pulmonary disease with (acute) exacerbation; N18.3 Chronic kidney disease, stage 3 (moderate); R94.31 Abnormal electrocardiogram [ECG] [EKG]; M54.5 Low back pain; N17.8 Other acute kidney failure; R79.1 Abnormal coagulation profile; B96.1 Klebsiella pneumoniae [K. pneumoniae] as the cause of diseases classified elsewhere; I12.9 Hypertensive chronic kidney disease with stage 1 through stage 4 chronic kidney disease, or unspecified chronic kidney disease
CPT/HCPCS: 36415; 36600; 71010; 71020; 71045; 71046; 71275; 80048; 80053; 82550; 82553; 82803; 83735; 84484; 85025; 85378; 85610; 85730; 87040; 87070; 87077; 87186; 87205; 87502; 93005; 93306; 94640; 94669; 96365; 96367; 96374; 96375; 99284; A4216; A4222; C9113; J7030; Q0144; J0696; J1650; J1815; J1940; J1956; J2920; J2930; J3475; J7050; J7620; J7626

== ENCOUNTER 2020-11-09 12:15 | Observation (INO) ==
--- NOTE | 2020-11-09 12:35 | DR.DIZZY ---
HPI Time seen Time Seen by Provider: 11/09/20 12:32 HPI Comment HPI Comment: PATIENT WITH A HISTORY OF PROSTATE CARCINOMA, DIAGNOSED 1 WEEK AGO WITH A PROSTATE BIOPSY AT [facility], COMPLAINS OF WEAKNESS AND DIZZINESS. ADMITS TO TAKING OPIATES MEDICATION THIS MORNING, OXYCODONE 10MG, DE NIES HEADACHE OR BLURRED VISION, FOCAL NUMBNESS, TINGLING OR WEAKNESS IN EXTREMITIES. PATIENT EVALUATED IN EMERGENCY ROOM ON 10/26/20 FOR RECTAL BLEEDING AFTER PROSTATE BIOPSIES, THEN TRANSFERRED TO [facility] FOR TREATMENT. Complaint Chief Complaint Doctor Comments: DIZZINESS AND WEAKNESS COVID-19 Coronavirus risk:travel/contact w/high risk person: No Has patient experienced Coronavirus symptoms: No Nurses Notes Reviewed Nurses Notes Review: Yes Source History Provided: Patient and EMS Mode of Arrival Mode of Arrival: EMS Timing Onset of Chief Complaint: 11/09/20 Onset of Symptoms Start Date: 11/09/20 Onset of Symptoms Start Time: 12:00 Duration Duration: Since Onset Location of Weakness Weakness Location: Generalized Context History of: DM Stroke Symptoms: None Associated signs and symptoms Associated Signs and Symptoms: Weak and Other (DIZZINESS) Other history Other history: PATIENT DENIES SYMPTOMS OF DIZZINESS AND WEAKNESS UPON AWAKENING IN EMERGEN PMH PMH Past Medical History: Anxiety, Diabetes, GERD, Hypertension and Sleep Apnea Past Surgical History: Yes Surgical History: Abdominal Surgery, Ortho Surgery and Other Family History Family Medical History: Diabetes Mellitus, Cancer, [place], Coronary Artery Disease and Hypertension Social History Do you use any recreational Drugs:: No ROS Review of Systems Constitutional: See HPI Eyes: No Symptoms Reported ENTM: No Symptoms Reported Respiratoy: No Symptoms Reported Cardiovascular: No Symptoms Reported Gastrointestinal/Abdominal: No Symptoms Reported Genitourinary: No Symptoms Reported Neurological: See HPI, Weakness and Dizziness Musculoskeletal: No Symptoms Reported Integumentary: No Symptoms Reported Hematologic/Lymphatic: No Symptoms Reported Endocrine: No Symptoms Reported Psychiatric: No Symptoms Reported All Other Systems: Reviewed and Negative PE Vital Signs Vitals: Temperature 98.2 F Pulse Rate 56 Respiratory Rate 20 Blood Pressure [Right Arm] 125/60 Blood Pressure [Left Arm] 109/81 Blood Pressure 115/68 O2 Sat by Pulse Oximetry 96 General Limitations: No Limitations General Appearance: In No Apparent Distress, Lethargic (AWAKENS BY TOUCHING COLD HAND TO HIS NECK, BECOMES ALERT AND APPROPRIATE) and In Distress Head Head Exam: Normal Inspection Eyes Eye exam: Normal Appearance, PERRL and EOMI Pupils: Regular, Round: Bilateral Anterior Chamber: Normal Inspection: Bilateral ENT ENT Exam: Normal Exam, Normal Oropharynx and Normal External Ear Exam Neck Neck Exam: Normal Inspection and Full ROM Chest Chest Inspection: Normal Inspection and Symmetric Chest Wall Rise Respiratory Respiratory Exam: Normal Lung Sounds Bilat Respiratory Exam: Bilateral: Clear to Auscultation Cardiovascular Cardiovascular Exam: Regular Rate and Normal Rhythm Abdominal Exam Abdominal Exam: Normal Inspection, Normal Bowel Sounds and Soft Rectal Rectal Exam: Deferred Extremeties Extremities Exam: Normal Inspection and Full ROM Back Back Exam: Normal Inspection and Full ROM Neurologic Neurological Exam: Alert and Oriented X3 Cerebellar Function: Other (NOT TESTED) Psychiatric Psychiatric Exam: Normal Affect and Normal Mood Skin Skin Exam: Warm, Dry, Intact and Normal Color MDM Differential Diagnosis Differential Diagnosis: TIA Differential Diagnosis Comment: SYMPTOMATIC ANEMIA, OPIATED OVERDOSE, MEDICATION REACTION COURSE Treatment Treatment: IV NORMAL SALINE 100ML/HR, PATIENT TYPE AND CROSS FOR 2 UNITS OF PACK RED BLOOD CELLS Consultation Call Returned: 15:40 Consultation Comments: DISCUSSED WITH DR HOLLAND FOR ADMIT TO OBSERVATION ROR Labs Reviewed Laboratory Results Reviewed?: Yes Result Diagrams: 11/09/20 13:57 11/09/20 13:57 Laboratory: WBC 6.1 X10^3/uL (3.6-10.0) 11/09/20 13:57 RBC 2.52 X10^6/uL (4.7-6.0) L 11/09/20 13:57 Hgb 7.6 g/dL (13.5-18.0) L 11/09/20 13:57 Hct 23.1 % (42.0-54.0) L 11/09/20 13:57 MCV 91.5 fL (80.0-100.0) 11/09/20 13:57 MCH 30.2 pg (27.0-34.0) 11/09/20 13:57 MCHC 33.0 g/dL (33.0-35.0) 11/09/20 13:57 RDW 19.2 % (11.6-16.5) H 11/09/20 13:57 Plt Count 237 X10^3/uL (150.0-450.0) 11/09/20 13:57 MPV 8.8 fL (7.4-11.0) 11/09/20 13:57 Neut % (Auto) 69.8 % (42.0-75.0) 11/09/20 13:57 Lymph % (Auto) 19.3 % (21.0-51.0) L 11/09/20 13:57 [place] % (Auto) 9.2 % (0.0-13.0) 11/09/20 13:57 Eos % (Auto) 1.0 % (0.9-2.9) 11/09/20 13:57 Baso % (Auto) 0.7 % (0.2-1.0) 11/09/20 13:57 Neut # (Auto) 4.3 x10^3/uL (2.2-4.8) 11/09/20 13:57 Lymph # (Auto) 1.2 X10^3/uL (1.3-2.9) L 11/09/20 13:57 [place] # (Auto) 0.6 x10^3/uL (0.3-0.8) 11/09/20 13:57 Eos # (Auto) 0.1 x10^3/uL (0.0-0.2) 11/09/20 13:57 Baso # (Auto) 0.0 X10^3/uL (0.0-0.1) 11/09/20 13:57 Absolute Nucleated RBC 0.0 /100WBC 11/09/20 13:57 Sample Site Rra 11/09/20 13:58 ABG pH 7.410 (7.35-7.45) 11/09/20 13:58 ABG pCO2 36.0 mmHg (35.0-45.0) 11/09/20 13:58 ABG pO2 72.0 mmHg (80.0-100.0) L 11/09/20 13:58 ABG HCO3 22.8 mmol/L (22-26) 11/09/20 13:58 ABG O2 Saturation 94.0 % (90-100) 11/09/20 13:58 ABG Base Excess -1.4 mmol/L (-2.0-2.0) 11/09/20 13:58 Paolo Test Pos 11/09/20 13:58 A-a Gradient 33.0 mmHg 11/09/20 13:58 FiO2 21.0 11/09/20 13:58 Blood Gas Comments Pt toll well eb 11/09/20 13:58 Sodium 143 mmol/L (136-145) 11/09/20 13:57 Corrected Sodium 143 mmol/L (136-145) 11/09/20 13:57 Potassium 4.2 mmol/L (3.5-5.1) 11/09/20 13:57 Chloride 109 mmol/L (98-107) H 11/09/20 13:57 Carbon Dioxide 24.0 mmol/L (21-32) 11/09/20 13:57 BUN 9 mg/dL (7-18) 11/09/20 13:57 Creatinine 1.30 mg/dL (0.70-1.30) 11/09/20 13:57 Est GFR (MDRD) Af Amer > 60 (>60) 11/09/20 13:57 Est GFR (MDRD) Non-Af 60 (>60) 11/09/20 13:57 Glucose 120 mg/dL (65-99) H 11/09/20 13:57 Calcium 8.5 mg/dL (8.5-10.1) 11/09/20 13:57 Corrected Calcium 9.3 mg/dL (8.5-10.1) 11/09/20 13:57 Total Bilirubin 0.40 mg/dL (0.2-1.0) 11/09/20 13:57 AST 8 Units/L (15-37) L 11/09/20 13:57 ALT 13 Units/L (12-78) 11/09/20 13:57 Alkaline Phosphatase 47 Units/L (46-116) 11/09/20 13:57 Troponin I < 0.02 ng/mL (0-1.5) 11/09/20 13:57 Total Protein 5.8 g/dL (6.4-8.2) L 11/09/20 13:57 Albumin 3.0 g/dL (3.4-5.0) L 11/09/20 13:57 Globulin 2.8 g/dL (2.5-4.5) 11/09/20 13:57 Albumin/Globulin Ratio 1.1 Ratio (1.1-2.1) 11/09/20 13:57 Valproic Acid 17.1 ug/mL (50-100) L 11/09/20 13:57 XRAY XRAY Interpreted by: Radiologist (HEAD CT SCAN NONCONTRAST- NO ACUTE MASS EFFECT, OR INTRACRANIAL HKEMORRHAGE, OLD LACUNAR INFARCTS IN BASAL GANGLIA) X-ray Results: PORTABLE CHEST XRAY- NO ACUTE ABNORMALITIES EKG Rate: 52 Rhythm: NSR and SB ST: Nonsp Opioid Opioid Risk Tool Age (Vimal box if 16-45): No History of Preadolescent Sexual Abuse: No Total: 0 Total Score Risk Category: Low Risk Copyright: Kristofer RUIZ predicting aberrant behaviors Diagnosis Discharge Problem: Symptomatic anemia Instructions Forms: Precautions for COVID19 Patient Portal Social Distancing
[2020-11-09] MEDS ORDERED: NS 500 ML IV 500 ML IV STA (12:44)
[2020-11-09 13:03] VITALS: BMI 33.3
[2020-11-09] MEDS ORDERED: NS 500 ML IV 500 ML IV ONE (13:10)
--- NOTE | 2020-11-09 13:16 | CT ---
CT head without contrastIndication: Dizziness.[email or web address] CTTECHNIQUEAxial images from the skullbase to the vertex without contrast. Coronal and sagittal reformats provided.FINDINGSThere is moderate atrophy with ex vacuo ventricular and sulcal enlargement. Periventricular white matter changes of microangiopathy and scattered basal ganglia hypodensities again noted. No extra-axial fluid collections identified.There is no acute intracranial hemorrhage, mass or mass effect. No large area of hypoattenuation to suggest acute infarction seen.Paranasal sinuses and mastoid air cells are clear where visualized. There is no osseous lesion.IMPRESSION1. No acute intracranial hemorrhage2. Atrophy, microangiopathy and old lacunar infarcts in the basal ganglia again noted, similar to the prior.Electronically signed by: MARIANO DONALDSON (Nov 09, 2020 13:14:02)
--- NOTE | 2020-11-09 13:42 | RAD ---
HISTORYDIZZINESSSTUDYCHEST, 1 VIEWCOMPARISONChest x-ray dated February 17, 2020.FINDINGSThe trachea is midline. The cardiac silhouette is enlarged without overt signs of failure. The lungs are clear without focal infiltrate, pneumothorax, or effusion. The bony thorax is unremarkable.IMPRESSIONNo acute cardiopulmonary disease.Electronically signed by: VITA KAISER (Nov 09, 2020 13:40:18)
[2020-11-09 14:00] LABS: ABG BASE EXCESS -1.4 mmol/L (-2.0-2.0); ABG HCO3 22.8 mmol/L (22-26)
[2020-11-09 14:01] LABS: ABG ALLEN TEST POS
[2020-11-09 14:11] LABS: BASOPHILS % (AUTO) 0.7 % (0.2-1.0); EOSINOPHILS # (AUTO) 0.1 x10^3/uL (0.0-0.2); HEMATOCRIT 23.1 % (42.0-54.0); HEMOGLOBIN 7.6 g/dL (13.5-18.0); LYMPHOCYTES # (AUTO) 1.2 X10^3/uL (1.3-2.9); LYMPHOCYTES % (AUTO) 19.3 % (21.0-51.0); MEAN CORPUSCULAR HEMOGLOBIN 30.2 pg (27.0-34.0); MEAN CORPUSCULAR VOLUME 91.5 fL (80.0-100.0); MEAN PLATELET VOLUME 8.8 fL (7.4-11.0); MONOCYTES # (AUTO) 0.6 x10^3/uL (0.3-0.8); MONOCYTES % (AUTO) 9.2 % (0.0-13.0); NEUTROPHILS # (AUTO) 4.3 x10^3/uL (2.2-4.8); NEUTROPHILS % (AUTO) 69.8 % (42.0-75.0); PLATELET COUNT 237 X10^3/uL (150.0-450.0); RED BLOOD COUNT 2.52 X10^6/uL (4.7-6.0); RED CELL DISTRIBUTION WIDTH 19.2 % (11.6-16.5); WHITE BLOOD COUNT 6.1 X10^3/uL (3.6-10.0)
[2020-11-09 14:23] LABS: ALANINE AMINOTRANSFERASE 13 Units/L (12-78); ALKALINE PHOSPHATASE 47 Units/L (46-116); ASPARTATE AMINO TRANSFERASE 8 Units/L (15-37); BLOOD UREA NITROGEN 9 mg/dL (7-18); CALCIUM 8.5 mg/dL (8.5-10.1); CHLORIDE 109 mmol/L (98-107); COR CA(FOR HYPOALB) 9.3 mg/dL (8.5-10.1); COR NA(FOR HYPERGLY) 143 mmol/L (136-145); SODIUM 143 mmol/L (136-145); TOTAL PROTEIN 5.8 g/dL (6.4-8.2); TROPONIN I < 0.02 ng/mL (0-1.5); eGFR NON BLACK RACES 60 (>60)
[2020-11-09 16:15] LABS: BILIRUBIN,URINE NEGATIVE (NEGATIVE); BLOOD/HEMOGLOBIN,URINE NEGATIVE (NEGATIVE); GLUCOSE, URINE NEGATIVE (NEGATIVE); KETONES,URINE NEGATIVE (NEGATIVE); LEUKOCYTE ESTERASE ,URINE NEGATIVE (NEGATIVE); NITRITES,URINE NEGATIVE (NEGATIVE); PROTEIN,URINE NEGATIVE (NEGATIVE); UROBILINOGEN,URINE NORMAL (NORMAL)
[2020-11-09 16:19] LABS: APPEARANCE,URINE CLEAR (CLEAR); COLOR,URINE YELLOW (YELLOW)
[2020-11-09 16:55] LABS: BASOPHILS # (AUTO) 0.1 X10^3/uL (0.0-0.1); BASOPHILS % (AUTO) 0.9 % (0.2-1.0); EOSINOPHILS # (AUTO) 0.1 x10^3/uL (0.0-0.2); EOSINOPHILS % (AUTO) 1.3 % (0.9-2.9); HEMATOCRIT 25.1 % (42.0-54.0); HEMOGLOBIN 8.1 g/dL (13.5-18.0); LYMPHOCYTES # (AUTO) 1.7 X10^3/uL (1.3-2.9); LYMPHOCYTES % (AUTO) 25.6 % (21.0-51.0); MEAN CORPUSCULAR HEMOGLOBIN 30.1 pg (27.0-34.0); MEAN CORPUSCULAR HGB CONC 32.4 g/dL (33.0-35.0); MEAN CORPUSCULAR VOLUME 92.7 fL (80.0-100.0); MEAN PLATELET VOLUME 8.8 fL (7.4-11.0); MONOCYTES # (AUTO) 0.7 x10^3/uL (0.3-0.8); MONOCYTES % (AUTO) 10.6 % (0.0-13.0); NEUTROPHILS # (AUTO) 4.1 x10^3/uL (2.2-4.8); NEUTROPHILS % (AUTO) 61.6 % (42.0-75.0); PLATELET COUNT 243 X10^3/uL (150.0-450.0); RED BLOOD COUNT 2.71 X10^6/uL (4.7-6.0); RED CELL DISTRIBUTION WIDTH 19.8 % (11.6-16.5); WHITE BLOOD COUNT 6.6 X10^3/uL (3.6-10.0)
[2020-11-09] MEDS: NS 1000 ML 1,000 ML IV SCH (17:40)
[2020-11-09] MEDS ORDERED: CATAPRES TAB 0.1 MG PO ONE (18:14)
[2020-11-09] MEDS ORDERED: APRESOLINE INJ 20 MG VIAL IVP PRN (18:15)
[2020-11-09] MEDS ORDERED: GLUCOPHAGE ONE (20:20)
[2020-11-09] MEDS: GLUCOPHAGE PO SCH (20:35)
[2020-11-09] MEDS: PROTONIX TAB 40 MG PO SCH (20:35)
[2020-11-09] MEDS: SINGULAIR TAB 10 MG PO SCH (20:35)
[2020-11-09] MEDS: COREG TAB 25 MG PO SCH (20:35)
[2020-11-09] MEDS: APRESOLINE TAB 25 MG PO SCH (20:35)
[2020-11-09] MEDS: FLOMAX PO SCH (20:35)
[2020-11-09] MEDS: PEPCID TAB 40 MG PO SCH (20:35)
[2020-11-09] MEDS ORDERED: [UNRECOGNIZED DRUG - OTHER] IN SCH (21:00)
[2020-11-09] MEDS ORDERED: SYMBICORT INH 160/4.5 mcg IN SCH (21:00)
[2020-11-09] MEDS ORDERED: BUDESONIDE FORMOTEROL IN SCH (21:00)
[2020-11-09] MEDS ORDERED: TAMSULOSIN HCL 0.4 MG PO SCH (21:00)
[2020-11-10] MEDS ORDERED: NS 250 ML IV 250 ML IV ONE ×3 (02:12→14:11)
[2020-11-10] MEDS: NS 1000 ML 1,000 ML IV SCH ×2 (05:07→20:35)
[2020-11-10] MEDS: APRESOLINE TAB 25 MG PO SCH ×4 (07:30→21:00)
[2020-11-10] MEDS: NORVASC TAB 10 MG PO SCH ×2 (07:30→08:26)
[2020-11-10] MEDS ORDERED: NORVASC TAB 10 MG ONE (07:32)
--- NOTE | 2020-11-10 08:06 | DR.H&P ---
H&P History & Physical for Day of: H&P Date: 11/09/20 Chief Complaint Chief Complaint: Dizziness Allergies Allergies Allergy/AdvReac Type Severity Reaction Status Date / Time caffeine Allergy Verified 01/18/19 11:26 chocolate flavor Allergy Verified 01/18/19 11:26 ibuprofen [From Motrin] Allergy Verified 01/18/19 11:26 Penicillins Allergy Verified 01/18/19 11:26 History of Present Illness History of Present Illness: Pt is a 59 year old male past medical history of Hypertension, DMT2, COPD, Seizure d/o, and BPH, presenting after having dizziness and altered mental status. Pt reports it has been occurring for the past 2-3 days. He reports feeling lightheaded. He was found to be anemic in the ED. He was recently discharged from [facility] after having anemia post prostate biopsy. He states he had anemia workup with GI including procedures there. Denies any active bleeding. Labs/imaging: Wbc 6.1, Hgb 7.6, Plt 237, Na 143, K 4.2, Cr 1.30, Glucose 120, UA negative, ABG: pH 7.4/ pCO2 36/ pO2 72/ HCO3 22, O2sat 94% on RA. Brain CT:1. No acute intracranial hemorrhage 2. Atrophy, microangiopathy and old lacunar infarcts in the basal ganglia again noted, similar to the prior. CXR: No acute cardiopulmonary disease. Will start patient on IVF, transfuse 2 units of packed red blood cells for symptomatic anemia. Pt is not actively bleeding. Request records from [facility]. Restart home medications. Continue to monitor and follow up labs/imaging in the morning. Past Medical History Past Medical History: Anxiety, Diabetes, GERD, Hypertension and Sleep Apnea Past Surgical History Surgical History: Abdominal Surgery, Ortho Surgery and Other Family History Family Medical History: Diabetes Mellitus, Cancer, [place], Coronary Artery Disease and Hypertension Social History Does patient currently use any type of tobacco product: Yes Have you used tobacco products in the last 12 months: Yes Type of Tobacco Use: Cigarettes Alcohol Use: None Drug Use: None Medications Home Medications: caffeine Allergy (Verified 01/18/19 11:26) chocolate flavor Allergy (Verified 01/18/19 11:26) ibuprofen [From Motrin] Allergy (Verified 01/18/19 11:26) Penicillins Allergy (Verified 01/18/19 11:26) CONTINUE taking the following medications amlodipine 10 mg PO DAILY 11/09/20 [History] aspirin 81 mg PO DAILY 11/09/20 [History] budesonide-formoterol [Symbicort] 2 puff INHALATION BID 11/09/20 [History] carvedilol 25 mg PO BID 11/09/20 [History] clopidogrel 75 mg PO DAILY 11/09/20 [History] famotidine 40 mg PO BID 11/09/20 [History] gabapentin 400 mg PO TID 11/09/20 [History] hydralazine 50 mg PO BID 11/09/20 [History] isosorbide dinitrate 30 mg PO DAILY 11/09/20 [History] lisinopril 10 mg PO DAILY 11/09/20 [History] metformin 500 mg PO BID 11/09/20 [History] sertraline 25 mg PO DAILY 11/09/20 [History] simvastatin 20 mg PO HS 11/09/20 [History] topiramate 25 mg PO DAILY 11/09/20 [History] Labs Result Diagrams: 11/10/20 10:20 11/10/20 10:20 Labs: Laboratory WBC 6.6 X10^3/uL (3.6-10.0) 11/09/20 16:44 RBC 2.71 X10^6/uL (4.7-6.0) L 11/09/20 16:44 Hgb 8.1 g/dL (13.5-18.0) L 11/09/20 16:44 Hct 25.1 % (42.0-54.0) L 11/09/20 16:44 MCV 92.7 fL (80.0-100.0) 11/09/20 16:44 MCH 30.1 pg (27.0-34.0) 11/09/20 16:44 MCHC 32.4 g/dL (33.0-35.0) L 11/09/20 16:44 RDW 19.8 % (11.6-16.5) H 11/09/20 16:44 Plt Count 243 X10^3/uL (150.0-450.0) 11/09/20 16:44 MPV 8.8 fL (7.4-11.0) 11/09/20 16:44 Neut % (Auto) 61.6 % (42.0-75.0) 11/09/20 16:44 Lymph % (Auto) 25.6 % (21.0-51.0) 11/09/20 16:44 [place] % (Auto) 10.6 % (0.0-13.0) 11/09/20 16:44 Eos % (Auto) 1.3 % (0.9-2.9) 11/09/20 16:44 Baso % (Auto) 0.9 % (0.2-1.0) 11/09/20 16:44 Neut # (Auto) 4.1 x10^3/uL (2.2-4.8) 11/09/20 16:44 Lymph # (Auto) 1.7 X10^3/uL (1.3-2.9) 11/09/20 16:44 [place] # (Auto) 0.7 x10^3/uL (0.3-0.8) 11/09/20 16:44 Eos # (Auto) 0.1 x10^3/uL (0.0-0.2) 11/09/20 16:44 Baso # (Auto) 0.1 X10^3/uL (0.0-0.1) 11/09/20 16:44 Absolute Nucleated RBC 0.1 /100WBC 11/09/20 16:44 Sample Site Rra 11/09/20 13:58 ABG pH 7.410 (7.35-7.45) 11/09/20 13:58 ABG pCO2 36.0 mmHg (35.0-45.0) 11/09/20 13:58 ABG pO2 72.0 mmHg (80.0-100.0) L 11/09/20 13:58 ABG HCO3 22.8 mmol/L (22-26) 11/09/20 13:58 ABG O2 Saturation 94.0 % (90-100) 11/09/20 13:58 ABG Base Excess -1.4 mmol/L (-2.0-2.0) 11/09/20 13:58 Paolo Test Pos 11/09/20 13:58 A-a Gradient 33.0 mmHg 11/09/20 13:58 FiO2 21.0 11/09/20 13:58 Blood Gas Comments Pt toll well eb 11/09/20 13:58 Sodium 143 mmol/L (136-145) 11/09/20 13:57 Corrected Sodium 143 mmol/L (136-145) 11/09/20 13:57 Potassium 4.2 mmol/L (3.5-5.1) 11/09/20 13:57 Chloride 109 mmol/L (98-107) H 11/09/20 13:57 Carbon Dioxide 24.0 mmol/L (21-32) 11/09/20 13:57 BUN 9 mg/dL (7-18) 11/09/20 13:57 Creatinine 1.30 mg/dL (0.70-1.30) 11/09/20 13:57 Est GFR (MDRD) Af Amer > 60 (>60) 11/09/20 13:57 Est GFR (MDRD) Non-Af 60 (>60) 11/09/20 13:57 Glucose 120 mg/dL (65-99) H 11/09/20 13:57 Calcium 8.5 mg/dL (8.5-10.1) 11/09/20 13:57 Corrected Calcium 9.3 mg/dL (8.5-10.1) 11/09/20 13:57 Total Bilirubin 0.40 mg/dL (0.2-1.0) 11/09/20 13:57 AST 8 Units/L (15-37) L 11/09/20 13:57 ALT 13 Units/L (12-78) 11/09/20 13:57 Alkaline Phosphatase 47 Units/L (46-116) 11/09/20 13:57 Troponin I < 0.02 ng/mL (0-1.5) 11/09/20 13:57 Total Protein 5.8 g/dL (6.4-8.2) L 11/09/20 13:57 Albumin 3.0 g/dL (3.4-5.0) L 11/09/20 13:57 Globulin 2.8 g/dL (2.5-4.5) 11/09/20 13:57 Albumin/Globulin Ratio 1.1 Ratio (1.1-2.1) 11/09/20 13:57 Specimen Type Clean catch urine 11/09/20 15:46 Urine Color Yellow (YELLOW) 11/09/20 15:46 Urine Appearance Clear (CLEAR) 11/09/20 15:46 Urine pH 7.0 (5.0 - 8.0) 11/09/20 15:46 Ur Specific [place] 1.010 (1.000-1.030) 11/09/20 15:46 Urine Protein Negative (NEGATIVE) 11/09/20 15:46 Urine Glucose (UA) Negative (NEGATIVE) 11/09/20 15:46 Urine Ketones Negative (NEGATIVE) 11/09/20 15:46 Urine Occult Blood Negative (NEGATIVE) 11/09/20 15:46 Urine Nitrite Negative (NEGATIVE) 11/09/20 15:46 Urine Bilirubin Negative (NEGATIVE) 11/09/20 15:46 Urine Urobilinogen Normal (NORMAL) 11/09/20 15:46 Ur Leukocyte Esterase Negative (NEGATIVE) 11/09/20 15:46 Urine Opiates Screen Negative (NEG=<300) 11/09/20 15:46 Urine Methadone Screen Negative (NEG=<300) 11/09/20 15:46 Ur Barbiturates Screen Negative (NEG=<200) 11/09/20 15:46 Valproic Acid 17.1 ug/mL (50-100) L 11/09/20 13:57 Ur Phencyclidine Scrn Negative (NEG=<25) 11/09/20 15:46 Ur Amphetamines Screen Negative (NEG=<1000) 11/09/20 15:46 U Benzodiazepines Scrn Negative (NEG=<200) 11/09/20 15:46 Urine Cocaine Screen Negative (NEG=<300) 11/09/20 15:46 U Marijuana (THC) Screen Negative (NEG=<50) 11/09/20 15:46 SARS-CoV-2 (PCR) Negative (NEGATIVE) 11/09/20 15:31 Influenza Type A (PCR) Negative (NEGATIVE) 11/09/20 15:31 Influenza Type B (PCR) Negative (NEGATIVE) 11/09/20 15:31 RSV (PCR) Negative (NEGATIVE) 11/09/20 15:31 Blood Type AB POSITIVE 11/09/20 15:15 Antibody Screen Negative 11/09/20 15:15 Crossmatch See Detail 11/09/20 15:15 Review of Systems Constitutional: Weakness; denies Fever and Chills Eyes: No Symptoms Reported ENT: No Symptoms Reported Respiratory: No Symptoms Reported Cardiovascular: No Symptoms Reported Gastrointestinal: No Symptoms Reported Genitourinary: No Symptoms Reported Musculoskeletal: No Symptoms Reported Skin: No Symptoms Reported Neurological: Weakness Physical Exam Vital Signs: Temperature 98.0 F Pulse Rate [Right] 84 Pulse Rate 56 Respiratory Rate 18 Blood Pressure [Right Arm] 131/68 Blood Pressure [Left Arm] 109/81 Blood Pressure 115/68 O2 Sat by Pulse Oximetry 99 Oriented: Normal Eyes: Normal Ear: Normal Nose: Normal Throat: Normal Respiratory: Clear Throughout Cardiovascular: Normal : Normal Auscultation: Bowel Sounds: Normal Palpation: Normal Tenderness: Normal Skin: Normal Musculoskeletal: Normal Psychiatric: Normal Mood Description: Calm and Appropriate Affect: Normal Speech Pattern: Clear and Appropriate Assessment/Plan (1) Symptomatic anemia: Status: Acute Plan: Transfuse 2 units packed red blood cells Trend H/H Review H&P Reviewed: Yes Patient was examined?: Yes
[2020-11-10] MEDS ORDERED: ZESTRIL TAB 10 MG PO SCH (09:00)
[2020-11-10] MEDS ORDERED: ISOSORBIDE DINITRATE 30 MG PO SCH (09:00)
[2020-11-10] MEDS ORDERED: MONTELUKAST SODIUM 10 MG PO SCH (09:00)
[2020-11-10] MEDS ORDERED: GLUCOPHAGE ONE ×2 (09:05→20:23)
[2020-11-10] MEDS: ZOLOFT PO SCH (09:27)
[2020-11-10] MEDS: GLUCOPHAGE PO SCH ×2 (09:28→20:39)
[2020-11-10] MEDS: PROTONIX TAB 40 MG PO SCH ×2 (09:29→20:39)
[2020-11-10] MEDS: COREG TAB 25 MG PO SCH ×2 (09:30→20:39)
[2020-11-10] MEDS: IMDUR PO SCH (09:30)
[2020-11-10] MEDS: PEPCID TAB 40 MG PO SCH ×2 (09:31→20:39)
[2020-11-10] MEDS: PLAVIX PO SCH (09:32)
[2020-11-10 10:38] LABS: BASOPHILS # (AUTO) 0.1 X10^3/uL (0.0-0.1); EOSINOPHILS # (AUTO) 0.1 x10^3/uL (0.0-0.2); EOSINOPHILS % (AUTO) 1.2 % (0.9-2.9); HEMATOCRIT 31.7 % (42.0-54.0); HEMOGLOBIN 10.4 g/dL (13.5-18.0); LYMPHOCYTES % (AUTO) 14.6 % (21.0-51.0); MEAN CORPUSCULAR HEMOGLOBIN 30.3 pg (27.0-34.0); MEAN CORPUSCULAR HGB CONC 32.9 g/dL (33.0-35.0); MEAN CORPUSCULAR VOLUME 92.1 fL (80.0-100.0); MEAN PLATELET VOLUME 9.2 fL (7.4-11.0); MONOCYTES # (AUTO) 0.6 x10^3/uL (0.3-0.8); MONOCYTES % (AUTO) 8.1 % (0.0-13.0); NEUTROPHILS # (AUTO) 5.3 x10^3/uL (2.2-4.8); NEUTROPHILS % (AUTO) 75.1 % (42.0-75.0); PLATELET COUNT 253 X10^3/uL (150.0-450.0); RED BLOOD COUNT 3.45 X10^6/uL (4.7-6.0); RED CELL DISTRIBUTION WIDTH 18.4 % (11.6-16.5)
[2020-11-10 11:47] LABS: ALANINE AMINOTRANSFERASE 14 Units/L (12-78); ALBUMIN 3.3 g/dL (3.4-5.0); ALKALINE PHOSPHATASE 53 Units/L (46-116); ASPARTATE AMINO TRANSFERASE < 6 Units/L (15-37); BLOOD UREA NITROGEN 8 mg/dL (7-18); CALCIUM 8.8 mg/dL (8.5-10.1); CARBON DIOXIDE 19.5 mmol/L (21-32); CHLORIDE 110 mmol/L (98-107); COR CA(FOR HYPOALB) 9.4 mg/dL (8.5-10.1); COR NA(FOR HYPERGLY) 144 mmol/L (136-145); CREATININE 1.17 mg/dL (0.70-1.30); SODIUM 144 mmol/L (136-145); TOTAL PROTEIN 6.6 g/dL (6.4-8.2); eGFR NON BLACK RACES > 60 (>60)
[2020-11-10] MEDS ORDERED: PERCOCET TAB 5/325 MG PO PRN (12:16)
[2020-11-10] MEDS ORDERED: KLONOPIN TAB 1 MG PO PRN (12:16)
[2020-11-10] MEDS ORDERED: DEPAKOTE D.R. TAB PO SCH (13:00)
[2020-11-10] MEDS ORDERED: DEPAKOTE D.R. TAB PO ONE (14:57)
[2020-11-10] MEDS: TOPAMAX PO SCH (15:03)
[2020-11-10] MEDS: CATAPRES TAB 0.1 MG PO SCH ×2 (15:16→20:39)
--- NOTE | 2020-11-10 16:45 | PCM.PROG ---
Progress Note Progress Note for Day of Date of Exam: 11/10/20 Subjective Subjective: Pt is a 59 year old male past medical history of Hypertension, DMT2, COPD, Seizure d/o, BPH, admitted for symptomatic anemia. This morning patient is resting in bed comfortably. Reports dizziness has improved, no active bleeding. He is currently receiving transfusion of his first unit of blood. Labs/imaging: Wbc 7.0, Hgb 10.4, Plt 253, Na 144, K 4.2, Cr 1.17, Glucose 119. Continue IVF, transfusion of total of 2 units of packed red blood cells for symptomatic anemia. Significant hypertension, restart home medications and add clonidine. Request records from [facility]. Continue to monitor and follow up labs/imaging in the morning. Past Medical Family Social History Past Med/Fam/Surg Hx: No changes since H&P Allergies: Allergies caffeine Allergy (Verified 01/18/19 11:26) chocolate flavor Allergy (Verified 01/18/19 11:26) ibuprofen [From Motrin] Allergy (Verified 01/18/19 11:26) Penicillins Allergy (Verified 01/18/19 11:26) Review of Systems ROS: No change since H&P Vital Signs and I&O's Vital Signs: Temperature 97.9 F Pulse Rate [Right] 84 Pulse Rate 56 Respiratory Rate 20 Blood Pressure [Right Arm] 193/95 Blood Pressure [Left Arm] 109/81 Blood Pressure 115/68 O2 Sat by Pulse Oximetry 97 Intake and Output: Intake & Output 11/07/20 11/08/20 11/09/20 11/10/20 23:59 23:59 23:59 23:59 Intake Total 474 / 474 897 / 897 Output Total 1475 / 1475 Balance 474 / 474 -578 / -578 Physical Exam Oriented: Normal Eyes: Normal Ear: Normal Nose: Normal Throat: Normal Respiratory: Normal Cardiovascular: Normal : Normal Auscultation: Bowel Sounds: Normal Tenderness: Normal Skin: Normal Musculoskeletal: Normal Psychiatric: Normal Mood Description: Calm and Appropriate Affect: Normal Speech Pattern: Clear and Appropriate Laboratory and Diagnostics Result Diagrams: 11/10/20 10:20 11/10/20 10:20 Labs: Laboratory WBC 7.0 X10^3/uL (3.6-10.0) 11/10/20 10:20 RBC 3.45 X10^6/uL (4.7-6.0) L 11/10/20 10:20 Hgb 10.4 g/dL (13.5-18.0) L D 11/10/20 10:20 Hct 31.7 % (42.0-54.0) L 11/10/20 10:20 MCV 92.1 fL (80.0-100.0) 11/10/20 10:20 MCH 30.3 pg (27.0-34.0) 11/10/20 10:20 MCHC 32.9 g/dL (33.0-35.0) L 11/10/20 10:20 RDW 18.4 % (11.6-16.5) H 11/10/20 10:20 Plt Count 253 X10^3/uL (150.0-450.0) 11/10/20 10:20 MPV 9.2 fL (7.4-11.0) 11/10/20 10:20 Neut % (Auto) 75.1 % (42.0-75.0) H 11/10/20 10:20 Lymph % (Auto) 14.6 % (21.0-51.0) L 11/10/20 10:20 [place] % (Auto) 8.1 % (0.0-13.0) 11/10/20 10:20 Eos % (Auto) 1.2 % (0.9-2.9) 11/10/20 10:20 Baso % (Auto) 1.0 % (0.2-1.0) 11/10/20 10:20 Neut # (Auto) 5.3 x10^3/uL (2.2-4.8) H 11/10/20 10:20 Lymph # (Auto) 1.0 X10^3/uL (1.3-2.9) L 11/10/20 10:20 [place] # (Auto) 0.6 x10^3/uL (0.3-0.8) 11/10/20 10:20 Eos # (Auto) 0.1 x10^3/uL (0.0-0.2) 11/10/20 10:20 Baso # (Auto) 0.1 X10^3/uL (0.0-0.1) 11/10/20 10:20 Absolute Nucleated RBC 0.1 /100WBC 11/10/20 10:20 Sample Site Rra 11/09/20 13:58 ABG pH 7.410 (7.35-7.45) 11/09/20 13:58 ABG pCO2 36.0 mmHg (35.0-45.0) 11/09/20 13:58 ABG pO2 72.0 mmHg (80.0-100.0) L 11/09/20 13:58 ABG HCO3 22.8 mmol/L (22-26) 11/09/20 13:58 ABG O2 Saturation 94.0 % (90-100) 11/09/20 13:58 ABG Base Excess -1.4 mmol/L (-2.0-2.0) 11/09/20 13:58 Paolo Test Pos 11/09/20 13:58 A-a Gradient 33.0 mmHg 11/09/20 13:58 FiO2 21.0 11/09/20 13:58 Blood Gas Comments Pt toll well eb 11/09/20 13:58 Sodium 144 mmol/L (136-145) 11/10/20 10:20 Corrected Sodium 144 mmol/L (136-145) 11/10/20 10:20 Potassium 4.2 mmol/L (3.5-5.1) 11/10/20 10:20 Chloride 110 mmol/L (98-107) H 11/10/20 10:20 Carbon Dioxide 19.5 mmol/L (21-32) L 11/10/20 10:20 BUN 8 mg/dL (7-18) 11/10/20 10:20 Creatinine 1.17 mg/dL (0.70-1.30) 11/10/20 10:20 Est GFR (MDRD) Af Amer > 60 (>60) 11/10/20 10:20 Est GFR (MDRD) Non-Af > 60 (>60) 11/10/20 10:20 Glucose 119 mg/dL (65-99) H 11/10/20 10:20 Calcium 8.8 mg/dL (8.5-10.1) 11/10/20 10:20 Corrected Calcium 9.4 mg/dL (8.5-10.1) 11/10/20 10:20 Total Bilirubin 0.90 mg/dL (0.2-1.0) 11/10/20 10:20 AST < 6 Units/L (15-37) L 11/10/20 10:20 ALT 14 Units/L (12-78) 11/10/20 10:20 Alkaline Phosphatase 53 Units/L (46-116) 11/10/20 10:20 Troponin I < 0.02 ng/mL (0-1.5) 11/09/20 13:57 Total Protein 6.6 g/dL (6.4-8.2) 11/10/20 10:20 Albumin 3.3 g/dL (3.4-5.0) L 11/10/20 10:20 Globulin 3.3 g/dL (2.5-4.5) 11/10/20 10:20 Albumin/Globulin Ratio 1.0 Ratio (1.1-2.1) L 11/10/20 10:20 Specimen Type Clean catch urine 11/09/20 15:46 Urine Color Yellow (YELLOW) 11/09/20 15:46 Urine Appearance Clear (CLEAR) 11/09/20 15:46 Urine pH 7.0 (5.0 - 8.0) 11/09/20 15:46 Ur Specific [place] 1.010 (1.000-1.030) 11/09/20 15:46 Urine Protein Negative (NEGATIVE) 11/09/20 15:46 Urine Glucose (UA) Negative (NEGATIVE) 11/09/20 15:46 Urine Ketones Negative (NEGATIVE) 11/09/20 15:46 Urine Occult Blood Negative (NEGATIVE) 11/09/20 15:46 Urine Nitrite Negative (NEGATIVE) 11/09/20 15:46 Urine Bilirubin Negative (NEGATIVE) 11/09/20 15:46 Urine Urobilinogen Normal (NORMAL) 11/09/20 15:46 Ur Leukocyte Esterase Negative (NEGATIVE) 11/09/20 15:46 Urine Opiates Screen Negative (NEG=<300) 11/09/20 15:46 Urine Methadone Screen Negative (NEG=<300) 11/09/20 15:46 Ur Barbiturates Screen Negative (NEG=<200) 11/09/20 15:46 Valproic Acid 17.1 ug/mL (50-100) L 11/09/20 13:57 Ur Phencyclidine Scrn Negative (NEG=<25) 11/09/20 15:46 Ur Amphetamines Screen Negative (NEG=<1000) 11/09/20 15:46 U Benzodiazepines Scrn Negative (NEG=<200) 11/09/20 15:46 Urine Cocaine Screen Negative (NEG=<300) 11/09/20 15:46 U Marijuana (THC) Screen Negative (NEG=<50) 11/09/20 15:46 SARS-CoV-2 (PCR) Negative (NEGATIVE) 11/09/20 15:31 Influenza Type A (PCR) Negative (NEGATIVE) 11/09/20 15:31 Influenza Type B (PCR) Negative (NEGATIVE) 11/09/20 15:31 RSV (PCR) Negative (NEGATIVE) 11/09/20 15:31 Blood Type AB POSITIVE 11/09/20 15:15 Antibody Screen Negative 11/09/20 15:15 Crossmatch See Detail 11/09/20 15:15 Plan (1) Symptomatic anemia: Status: Acute Plan: Transfuse 2 units packed red blood cells Trend H/H
[2020-11-10 20:16] LABS: HEMATOCRIT 35.2 % (42.0-54.0); HEMOGLOBIN 11.4 g/dL (13.5-18.0)
[2020-11-10] MEDS: SINGULAIR TAB 10 MG PO SCH (20:39)
[2020-11-10] MEDS: FLOMAX PO SCH (20:39)
[2020-11-10] MEDS ORDERED: ZOCOR TAB 20 MG PO SCH (21:00)
[2020-11-11] MEDS: APRESOLINE TAB 25 MG PO SCH (05:18)
[2020-11-11 08:19] VITALS: BP 140/58
--- NOTE | 2020-11-11 08:28 | W.DIS.FURT ---
Summary of Discharge Discharge Summary of Date Date of Exam: 11/11/20 Admission Date Date of Admission: 11/09/20 Admission Diagnosis Patient Problems (Updated 11/09/20 @ 16:07 by Simone Aleman) Symptomatic anemia (Acute) D64.9 Hospital Course: Pt is a 59 year old male past medical history of Hypertension, DMT2, COPD, Seizure d/o, BPH, admitted for symptomatic anemia after reporting some dizziness and was found to have a Hgb of 7.6. His hospital course included receiving 2 units of packed red blood cells. His hemoglobin responded well, up to Hgb 11.4 on discharge. Pt has had anemia workup at [facility]. During hospital course was noted to have significant hypertension. Clonidine was added to his home blood pressure medications. Pt was discharged in stable condition and instructed to follow up with pcp in 3-5 days. Vital Signs: Vital Signs (72 hours) 11/09/20 12:51 11/09/20 17:30 11/09/20 17:50 Temperature 98.2 F 98.3 F Pulse Rate 56 L Pulse Rate [Right] 99 H Respiratory Rate 20 20 20 Blood Pressure 115/68 Blood Pressure [Right Arm] 208/99 O2 Sat by Pulse Oximetry 96 98 11/09/20 20:00 11/10/20 00:00 11/10/20 04:00 Temperature 97.7 F 98.7 F 98.0 F Pulse Rate Pulse Rate [Right] 72 72 84 Respiratory Rate 18 18 18 Blood Pressure Blood Pressure [Right Arm] 197/88 141/75 131/68 O2 Sat by Pulse Oximetry 95 100 99 11/10/20 08:00 11/10/20 12:00 11/10/20 16:00 Temperature 97.9 F 97.4 F L 99 F Pulse Rate Pulse Rate [Right] 84 73 78 Respiratory Rate 20 20 18 Blood Pressure Blood Pressure [Right Arm] 193/95 156/78 142/68 O2 Sat by Pulse Oximetry 97 97 97 11/10/20 20:00 11/11/20 00:00 11/11/20 04:00 Temperature 98.7 F 99.0 F 98.3 F Pulse Rate Pulse Rate [Right] 87 76 72 Respiratory Rate 22 20 24 Blood Pressure Blood Pressure [Right Arm] 177/83 146/69 168/82 O2 Sat by Pulse Oximetry 97 95 96 11/11/20 08:00 Temperature 98.4 F Pulse Rate Pulse Rate [Right] 78 Respiratory Rate 20 Blood Pressure Blood Pressure [Right Arm] 140/58 O2 Sat by Pulse Oximetry 96 Labs: Laboratory Last Values WBC 7.0 X10^3/uL (3.6-10.0) 11/10/20 10:20 RBC 3.45 X10^6/uL (4.7-6.0) L 11/10/20 10:20 Hgb 11.4 g/dL (13.5-18.0) L 11/10/20 20:04 Hct 35.2 % (42.0-54.0) L 11/10/20 20:04 MCV 92.1 fL (80.0-100.0) 11/10/20 10:20 MCH 30.3 pg (27.0-34.0) 11/10/20 10:20 MCHC 32.9 g/dL (33.0-35.0) L 11/10/20 10:20 RDW 18.4 % (11.6-16.5) H 11/10/20 10:20 Plt Count 253 X10^3/uL (150.0-450.0) 11/10/20 10:20 MPV 9.2 fL (7.4-11.0) 11/10/20 10:20 Neut % (Auto) 75.1 % (42.0-75.0) H 11/10/20 10:20 Lymph % (Auto) 14.6 % (21.0-51.0) L 11/10/20 10:20 [place] % (Auto) 8.1 % (0.0-13.0) 11/10/20 10:20 Eos % (Auto) 1.2 % (0.9-2.9) 11/10/20 10:20 Baso % (Auto) 1.0 % (0.2-1.0) 11/10/20 10:20 Neut # (Auto) 5.3 x10^3/uL (2.2-4.8) H 11/10/20 10:20 Lymph # (Auto) 1.0 X10^3/uL (1.3-2.9) L 11/10/20 10:20 [place] # (Auto) 0.6 x10^3/uL (0.3-0.8) 11/10/20 10:20 Eos # (Auto) 0.1 x10^3/uL (0.0-0.2) 11/10/20 10:20 Baso # (Auto) 0.1 X10^3/uL (0.0-0.1) 11/10/20 10:20 Absolute Nucleated RBC 0.1 /100WBC 11/10/20 10:20 Sample Site Rra 11/09/20 13:58 ABG pH 7.410 (7.35-7.45) 11/09/20 13:58 ABG pCO2 36.0 mmHg (35.0-45.0) 11/09/20 13:58 ABG pO2 72.0 mmHg (80.0-100.0) L 11/09/20 13:58 ABG HCO3 22.8 mmol/L (22-26) 11/09/20 13:58 ABG O2 Saturation 94.0 % (90-100) 11/09/20 13:58 ABG Base Excess -1.4 mmol/L (-2.0-2.0) 11/09/20 13:58 Paolo Test Pos 11/09/20 13:58 A-a Gradient 33.0 mmHg 11/09/20 13:58 FiO2 21.0 11/09/20 13:58 Blood Gas Comments Pt toll well eb 11/09/20 13:58 Sodium 144 mmol/L (136-145) 11/10/20 10:20 Corrected Sodium 144 mmol/L (136-145) 11/10/20 10:20 Potassium 4.2 mmol/L (3.5-5.1) 11/10/20 10:20 Chloride 110 mmol/L (98-107) H 11/10/20 10:20 Carbon Dioxide 19.5 mmol/L (21-32) L 11/10/20 10:20 BUN 8 mg/dL (7-18) 11/10/20 10:20 Creatinine 1.17 mg/dL (0.70-1.30) 11/10/20 10:20 Est GFR (MDRD) Af Amer > 60 (>60) 11/10/20 10:20 Est GFR (MDRD) Non-Af > 60 (>60) 11/10/20 10:20 Glucose 119 mg/dL (65-99) H 11/10/20 10:20 Calcium 8.8 mg/dL (8.5-10.1) 11/10/20 10:20 Corrected Calcium 9.4 mg/dL (8.5-10.1) 11/10/20 10:20 Total Bilirubin 0.90 mg/dL (0.2-1.0) 11/10/20 10:20 AST < 6 Units/L (15-37) L 11/10/20 10:20 ALT 14 Units/L (12-78) 11/10/20 10:20 Alkaline Phosphatase 53 Units/L (46-116) 11/10/20 10:20 Troponin I < 0.02 ng/mL (0-1.5) 11/09/20 13:57 Total Protein 6.6 g/dL (6.4-8.2) 11/10/20 10:20 Albumin 3.3 g/dL (3.4-5.0) L 11/10/20 10:20 Globulin 3.3 g/dL (2.5-4.5) 11/10/20 10:20 Albumin/Globulin Ratio 1.0 Ratio (1.1-2.1) L 11/10/20 10:20 Specimen Type Clean catch urine 11/09/20 15:46 Urine Color Yellow (YELLOW) 11/09/20 15:46 Urine Appearance Clear (CLEAR) 11/09/20 15:46 Urine pH 7.0 (5.0 - 8.0) 11/09/20 15:46 Ur Specific [place] 1.010 (1.000-1.030) 11/09/20 15:46 Urine Protein Negative (NEGATIVE) 11/09/20 15:46 Urine Glucose (UA) Negative (NEGATIVE) 11/09/20 15:46 Urine Ketones Negative (NEGATIVE) 11/09/20 15:46 Urine Occult Blood Negative (NEGATIVE) 11/09/20 15:46 Urine Nitrite Negative (NEGATIVE) 11/09/20 15:46 Urine Bilirubin Negative (NEGATIVE) 11/09/20 15:46 Urine Urobilinogen Normal (NORMAL) 11/09/20 15:46 Ur Leukocyte Esterase Negative (NEGATIVE) 11/09/20 15:46 Urine Opiates Screen Negative (NEG=<300) 11/09/20 15:46 Urine Methadone Screen Negative (NEG=<300) 11/09/20 15:46 Ur Barbiturates Screen Negative (NEG=<200) 11/09/20 15:46 Valproic Acid 17.1 ug/mL (50-100) L 11/09/20 13:57 Ur Phencyclidine Scrn Negative (NEG=<25) 11/09/20 15:46 Ur Amphetamines Screen Negative (NEG=<1000) 11/09/20 15:46 U Benzodiazepines Scrn Negative (NEG=<200) 11/09/20 15:46 Urine Cocaine Screen Negative (NEG=<300) 11/09/20 15:46 U Marijuana (THC) Screen Negative (NEG=<50) 11/09/20 15:46 SARS-CoV-2 (PCR) Negative (NEGATIVE) 11/09/20 15:31 Influenza Type A (PCR) Negative (NEGATIVE) 11/09/20 15:31 Influenza Type B (PCR) Negative (NEGATIVE) 11/09/20 15:31 RSV (PCR) Negative (NEGATIVE) 11/09/20 15:31 Blood Type AB POSITIVE 11/09/20 15:15 Antibody Screen Negative 11/09/20 15:15 Crossmatch See Detail 11/09/20 15:15 Reason For Visit: SYMPTOMATIC ANEMIA Discharge Date Discharge Date: 11/11/20 Discharge Diagnosis All Active Problems (Updated 11/09/20 @ 16:07 by Simone Aleman) Seizure (Acute) Hypotension (Acute) Acute GI bleeding (Acute) History of prostate biopsy (Acute) Symptomatic anemia (Acute) Hyperglycemia (Acute) COPD with acute exacerbation (Acute) Acute bronchitis (Acute) Hypoxemia (Acute) Acute respiratory distress (Acute) Elevated d-dimer (Acute) Acute renal failure (Acute) Chronic lower back pain (Chronic) Cardiomegaly (Chronic) Arthritis (Chronic) Chronic pain disorder (Chronic) Degenerative arthritis of left shoulder region (Chronic) Chronic lumbar pain (Chronic) Chronic kidney disease (CKD) (Chronic) Plan of Treatment: Continue with present treatment and follow up plan. Pt is to keep follow up appointment as instructed and take medications as ordered. Discharge Medications Discharge Medications: caffeine Allergy (Verified 01/18/19 11:26) chocolate flavor Allergy (Verified 01/18/19 11:26) ibuprofen [From Motrin] Allergy (Verified 01/18/19 11:26) Penicillins Allergy (Verified 01/18/19 11:26) CONTINUE taking the following medications amlodipine 10 mg PO DAILY 11/09/20 [History] aspirin 81 mg PO DAILY 11/09/20 [History] budesonide-formoterol [Symbicort] 2 puff INHALATION BID 11/09/20 [History] carvedilol 25 mg PO BID 11/09/20 [History] clopidogrel 75 mg PO DAILY 11/09/20 [History] famotidine 40 mg PO BID 11/09/20 [History] gabapentin 400 mg PO TID 11/09/20 [History] isosorbide dinitrate 30 mg PO DAILY 11/09/20 [History] metformin 500 mg PO BID 11/09/20 [History] sertraline 25 mg PO DAILY 11/09/20 [History] simvastatin 20 mg PO HS 11/09/20 [History] topiramate 25 mg PO DAILY 11/09/20 [History] New Prescriptions clonidine HCl 0.1 mg PO BID 30 Days #60 tab 11/11/20 [Rx] hydralazine 50 mg PO TID 30 Days #180 tab 11/11/20 [Rx] Follow up and Referral Follow Up: 1 Week Discharge Disposition Discharge Disposition: Home Discharge Condition: Stable Discharge Plan Discharge Plan Hospital Course: Pt is a 59 year old male past medical history of Hypertension, DMT2, COPD, Seizure d/o, BPH, admitted for symptomatic anemia after reporting some dizziness and was found to have a Hgb of 7.6. His hospital course included receiving 2 units of packed red blood cells. His hemoglobin responded well, up to Hgb 11.4 on discharge. Pt has had anemia workup at [facility]. During hospital course was noted to have significant hypertension. Clonidine was added to his home blood pressure medications. Pt was discharged in stable condition and instructed to follow up with pcp in 3-5 days. Patient Disposition: 01 HOME, SELF-CARE Condition: Stable Health Concerns: Post Hospitalization: new medications and changes needed to prevent readmission or further decline. Pt educated and given instructions on all concerns. Plan of Treatment: Continue with present treatment and follow up plan. Pt is to keep follow up appointment as instructed and take medications as ordered. Prescriptions: New clonidine HCl 0.1 mg Tablet 0.1 mg PO BID 30 Days Qty: 60 RF: 0 hydralazine 25 mg Tablet 50 mg PO TID 30 Days Qty: 180 RF: 0 Continued tizanidine 4 MG tablet 1 tab PO TID PRNRF: 0 pantoprazole 40 MG tablet,delayed release (DR/EC) 1 tab PO BID RF: 0 Clonazepam 1 MG Tab 1 tab PO DAILY PRNRF: 0 Montelukast Sodium 10 MG Tab 1 tab PO DAILY RF: 0 Tamsulosin HCl 0.4 MG Cap 0.4 mg PO HS RF: 0 divalproex 250 MG tablet,delayed release (DR/EC) 125 mg PO DAILY RF: 0 fluticasone propionate 120 SPR/BOTTLE spray,suspension 1 spry ENOSTRIL DAILY RF: 0 famotidine 40 mg tablet 40 mg PO BID RF: 0 gabapentin 400 mg capsule 400 mg PO TID RF: 0 topiramate 25 mg tablet 25 mg PO DAILY RF: 0 isosorbide dinitrate 30 mg tablet 30 mg PO DAILY RF: 0 amlodipine 10 mg tablet 10 mg PO DAILY RF: 0 sertraline 25 mg tablet 25 mg PO DAILY RF: 0 carvedilol 25 mg tablet 25 mg PO BID RF: 0 simvastatin 20 mg tablet 20 mg PO HS RF: 0 clopidogrel 75 mg tablet 75 mg PO DAILY RF: 0 aspirin 81 mg Tablet 81 mg PO DAILY RF: 0 metformin 500 mg tablet 500 mg PO BID RF: 0 budesonide-formoterol [Symbicort] 80-4.5 mcg/actuation HFA aerosol inhaler 2 puff INHALATION BID RF: 0 oxycodone-acetaminophen 10-325 mg tablet 1 tab PO TID PRNRF: 0 Discontinued naproxen 500 MG tablet 1 tab PO BID RF: 0 lisinopril 10 mg tablet 10 mg PO DAILY RF: 0 hydralazine 50 mg tablet 50 mg PO BID RF: 0 Orders to Discharge Patient Discharge Orders: Discharge (Routine); Ordered 11/11/20 Ordered By: Scott Nagel Follow ups/Referrals Follow ups/Referrals: Scott Nagel [Primary Care Provider] - 11/17/20 2:00 pm Instructions Instructions: Anemia, Hyperglycemia, [id number], Hypertension, [id number], Form - Blood Pressure Record Sheet, Form - COPD Action Plan, Gastrointestinal Bleeding, [id number] Stand Alone Forms: Excuse From Work or School, Precautions for COVID19, Patient Portal, Social Distancing
[2020-11-11] MEDS ORDERED: GLUCOPHAGE ONE (09:18)
[2020-11-11] MEDS: CATAPRES TAB 0.1 MG PO SCH (09:32)
[2020-11-11] MEDS: GLUCOPHAGE PO SCH (09:33)
[2020-11-11] MEDS: COREG TAB 25 MG PO SCH (09:33)
[2020-11-11] MEDS: NORVASC TAB 10 MG PO SCH (09:34)
[2020-11-11] MEDS: IMDUR PO SCH (09:34)
[2020-11-11] MEDS: PLAVIX PO SCH (09:35)
[2020-11-11] MEDS: TOPAMAX PO SCH (09:35)
[2020-11-11] MEDS: ZOLOFT PO SCH (09:35)
[2020-11-11] MEDS: PEPCID TAB 40 MG PO SCH (09:35)
[2020-11-11] MEDS: PROTONIX TAB 40 MG PO SCH (09:35)
[2020-11-12] MEDS ORDERED: DEPAKOTE SPRINKLE PO SCH (09:00)
== END 2020-11-11 10:00 | disposition home or self-care (01) ==
LOC: MED/SURG 12:15 → ER 12:15 → MED/SURG 17:30
PROVIDERS: ADMIT Family Medicine; ATTEND Family Medicine
DX: R42 Dizziness and giddiness; Z98.890 Other specified postprocedural states; D64.89 Other specified anemias; N40.0 Benign prostatic hyperplasia without lower urinary tract symptoms; Z20.822 Contact with and (suspected) exposure to COVID-19; I10 Essential (primary) hypertension; E11.65 Type 2 diabetes mellitus with hyperglycemia; J44.9 Chronic obstructive pulmonary disease, unspecified

== ENCOUNTER 2022-12-26 22:00 | Observation (INO) ==
--- NOTE | 2022-12-26 22:12 | DR.DIZZY ---
HPI Time seen Time Seen by Provider: 12/26/22 22:11 HPI Comment HPI Comment: PATIENT IS 62YR OLD MALE IN ER VIA EMS FOR SYNCOPAL EPISODE AND HYPOTENSION. HE HAS HISTORY OF HYPERTENSION AND TOOK HIS MEDICATION TODAY. HE IS BEING HAVING N/V/D FOR SEVERAL WEEKS THAT IS GETTING WORSE. PATIENT IS WEAK COVID-19 Coronavirus risk:travel/contact w/high risk person: No Has patient experienced Coronavirus symptoms: No Nurses Notes Reviewed Nurses Notes Review: Yes PMH PMH Past Medical History: Diabetes and Hypertension Past Surgical History: Yes Surgical History: Abdominal Surgery, Ortho Surgery and Other Family History Family Medical History: Diabetes Mellitus, Cancer, Coronary Artery Disease and Hypertension Social History Do you use any recreational Drugs:: No PE Vital Signs Vitals: Temperature 98.0 F Pulse Rate 62 Respiratory Rate 16 Blood Pressure [Right Arm] 147/60 Blood Pressure 104/58 O2 Sat by Pulse Oximetry 97 ROR Labs Reviewed Result Diagrams: 12/29/22 05:17 12/29/22 14:25 Laboratory: 12/26/22 23:12 Urine,Clean Catch Urine Culture - Final WBC 9.7 X10^3/uL (3.6-10.0) 12/26/22 22:13 RBC 3.63 X10^6/uL (4.7-6.0) L 12/26/22 22:13 Hgb 11.4 g/dL (13.5-18.0) L 12/26/22 22:13 Hct 33.5 % (42.0-54.0) L 12/26/22 22:13 MCV 92.3 fL (80.0-100.0) 12/26/22 22:13 MCH 31.3 pg (27.0-34.0) 12/26/22 22:13 MCHC 33.9 g/dL (33.0-35.0) 12/26/22 22:13 RDW 16.4 % (11.6-16.5) 12/26/22 22:13 Plt Count 163 X10^3/uL (150.0-450.0) 12/26/22 22:13 MPV 9.9 fL (7.4-11.0) 12/26/22 22:13 Neut % (Auto) 85.4 % (42.0-75.0) H 12/26/22 22:13 Lymph % (Auto) 9.9 % (21.0-51.0) L 12/26/22 22:13 [place] % (Auto) 4.2 % (0.0-13.0) 12/26/22 22:13 Eos % (Auto) 0.0 % (0.9-2.9) L 12/26/22 22:13 Baso % (Auto) 0.5 % (0.2-1.0) 12/26/22 22:13 Neut # (Auto) 8.3 x10^3/uL (2.2-4.8) H 12/26/22 22:13 Lymph # (Auto) 1.0 X10^3/uL (1.3-2.9) L 12/26/22 22:13 [place] # (Auto) 0.4 x10^3/uL (0.3-0.8) 12/26/22 22:13 Eos # (Auto) 0.0 x10^3/uL (0.0-0.2) 12/26/22 22:13 Baso # (Auto) 0.0 X10^3/uL (0.0-0.1) 12/26/22 22:13 Absolute Nucleated RBC 0.0 /100WBC 12/26/22 22:13 Sodium 140 mmol/L (136-145) 12/26/22 22:13 Corrected Sodium 142 mmol/L (136-145) 12/26/22 22:13 Potassium 3.1 mmol/L (3.5-5.1) L 12/26/22 22:13 Chloride 99 mmol/L (98-107) 12/26/22 22:13 Carbon Dioxide 29.9 mmol/L (21-32) 12/26/22 22:13 BUN 36 mg/dL (7-18) H 12/26/22 22:13 Creatinine 2.24 mg/dL (0.70-1.30) H 12/26/22 22:13 Est GFR (MDRD) Af Amer 38 (>60) L 12/26/22 22:13 Est GFR (MDRD) Non-Af 32 (>60) L 12/26/22 22:13 Glucose 194 mg/dL (65-99) H 12/26/22 22:13 Calcium 8.7 mg/dL (8.5-10.1) 12/26/22 22:13 Corrected Calcium TNP 12/26/22 22:13 Total Bilirubin 0.50 mg/dL (0.2-1.0) 12/26/22 22:13 AST 29 Units/L (15-37) 12/26/22 22:13 ALT 31 Units/L (12-78) 12/26/22 22:13 Alkaline Phosphatase 76 Units/L (46-116) 12/26/22 22:13 Creatine Kinase 211 Units/L (39-308) 12/26/22 22:13 Troponin I High Sens 12.8 ng/L (4.0-60.0) 12/26/22 22:13 Total Protein 7.2 g/dL (6.4-8.2) 12/26/22 22:13 Albumin 3.5 g/dL (3.4-5.0) 12/26/22 22:13 Globulin 3.7 g/dL (2.5-4.5) 12/26/22 22:13 Albumin/Globulin Ratio 0.9 Ratio (1.1-2.1) L 12/26/22 22:13 Specimen Type Clean catch urine 12/26/22 23:12 Urine Color Dark yellow (YELLOW) 12/26/22 23:12 Urine Appearance Turbid (CLEAR) 12/26/22 23:12 Urine pH 6.0 (5.0 - 8.0) 12/26/22 23:12 Ur Specific [place] 1.015 (1.000-1.030) 12/26/22 23:12 Urine Protein 3+ (NEGATIVE) 12/26/22 23:12 Urine Glucose (UA) Negative (NEGATIVE) 12/26/22 23:12 Urine Ketones Negative (NEGATIVE) 12/26/22 23:12 Urine Blood 4+ (NEGATIVE) 12/26/22 23:12 Urine Nitrite Negative (NEGATIVE) 12/26/22 23:12 Urine Bilirubin 1+ (NEGATIVE) 12/26/22 23:12 Urine Urobilinogen 1+ (NORMAL) 12/26/22 23:12 Ur Leukocyte Esterase 3+ (NEGATIVE) 12/26/22 23:12 Urine RBC Tntc /HPF (0-3) A 12/26/22 23:12 Urine WBC Tntc /HPF (0-5) A 12/26/22 23:12 Ur Squamous Epith Cells Moderate /HPF (NEGATIVE) 12/26/22 23:12 Amorphous Sediment 2+ /HPF (NEGATIVE) 12/26/22 23:12 Urine Bacteria 1+ /HPF (NEGATIVE) 12/26/22 23:12 Ur Culture Indicated? Yes/culture set up 12/26/22 23:12 SARS-CoV-2 (PCR) Negative (NEGATIVE) 12/26/22 22:41 Influenza Type A (PCR) Negative (NEGATIVE) 12/26/22 22:41 Influenza Type B (PCR) Negative (NEGATIVE) 12/26/22 22:41 RSV (PCR) Negative (NEGATIVE) 12/26/22 22:41 Opioid Opioid Risk Tool Age (Vimal box if 16-45): No History of Preadolescent Sexual Abuse: No Total: 0 Total Score Risk Category: Low Risk Copyright: Kristofer RUIZ predicting aberrant behaviors Discharge Plan Discharge Plan Patient Disposition: ADMITTED INPATIENT Condition: Stable Orders to Discharge Patient Discharge Orders: Discharge (Routine); Ordered 12/29/22 Ordered By: Scott Nagel
[2022-12-26 22:24] LABS: BASOPHILS % (AUTO) 0.5 % (0.2-1.0); HEMATOCRIT 33.5 % (42.0-54.0); HEMOGLOBIN 11.4 g/dL (13.5-18.0); LYMPHOCYTES % (AUTO) 9.9 % (21.0-51.0); MEAN CORPUSCULAR HEMOGLOBIN 31.3 pg (27.0-34.0); MEAN CORPUSCULAR HGB CONC 33.9 g/dL (33.0-35.0); MEAN CORPUSCULAR VOLUME 92.3 fL (80.0-100.0); MEAN PLATELET VOLUME 9.9 fL (7.4-11.0); MONOCYTES # (AUTO) 0.4 x10^3/uL (0.3-0.8); MONOCYTES % (AUTO) 4.2 % (0.0-13.0); NEUTROPHILS # (AUTO) 8.3 x10^3/uL (2.2-4.8); NEUTROPHILS % (AUTO) 85.4 % (42.0-75.0); PLATELET COUNT 163 X10^3/uL (150.0-450.0); RED BLOOD COUNT 3.63 X10^6/uL (4.7-6.0); RED CELL DISTRIBUTION WIDTH 16.4 % (11.6-16.5); WHITE BLOOD COUNT 9.7 X10^3/uL (3.6-10.0)
[2022-12-26 22:37] LABS: ALANINE AMINOTRANSFERASE 31 Units/L (12-78); ALBUMIN 3.5 g/dL (3.4-5.0); ALKALINE PHOSPHATASE 76 Units/L (46-116); ASPARTATE AMINO TRANSFERASE 29 Units/L (15-37); BLOOD UREA NITROGEN 36 mg/dL (7-18); CALCIUM 8.7 mg/dL (8.5-10.1); CARBON DIOXIDE 29.9 mmol/L (21-32); CHLORIDE 99 mmol/L (98-107); COR NA(FOR HYPERGLY) 142 mmol/L (136-145); CREATINE KINASE 211 Units/L (39-308); CREATININE 2.24 mg/dL (0.70-1.30); GLUCOSE 194 mg/dL (65-99); POTASSIUM 3.1 mmol/L (3.5-5.1); SODIUM 140 mmol/L (136-145); TOTAL PROTEIN 7.2 g/dL (6.4-8.2); eGFR NON BLACK RACES 32 (>60)
--- NOTE | 2022-12-26 22:44 | EKG ---
Test Reason : SOB Blood Pressure : */* mmHG Vent. Rate : 66 BPM Atrial Rate : 66 BPM P-R Int : 150 ms QRS Dur : 100 ms QT Int : 422 ms P-R-T Axes : 55 -45 97 degrees QTc Int : 442 ms Normal sinus rhythm Left anterior fascicular block Moderate voltage criteria for LVH, may be normal variant ( R in aVL , Fidel product ) Abnormal QRS-T angle, consider primary T wave abnormality Abnormal ECG When compared with ECG of 14-SEP-2022 11:20, T wave inversion no longer evident in Inferior leads T wave inversion now evident in Lateral leads Confirmed by Shivam Purvis ([id number]) on 12/28/2022 12:36:29 PM Referred By: Confirmed By: Shivam Purvis
[2022-12-26 22:48] VITALS: BMI 31.4
[2022-12-26 23:19] LABS: BILIRUBIN,URINE 1+ (NEGATIVE); BLOOD/HEMOGLOBIN,URINE 4+ (NEGATIVE); GLUCOSE, URINE NEGATIVE (NEGATIVE); KETONES,URINE NEGATIVE (NEGATIVE); LEUKOCYTE ESTERASE ,URINE 3+ (NEGATIVE); NITRITES,URINE NEGATIVE (NEGATIVE); PROTEIN,URINE 3+ (NEGATIVE); UROBILINOGEN,URINE 1+ (NORMAL)
[2022-12-26] MEDS ORDERED: NS 1,000 ML IV 1,000 ML ONE (23:27)
[2022-12-26] MEDS: NS 1,000 ML IV 1,000 ML IV SCH (23:31)
[2022-12-26 23:33] LABS: APPEARANCE,URINE TURBID (CLEAR); COLOR,URINE DARK YELLOW (YELLOW)
[2022-12-26 23:35] LABS: BACTERIA,URINE 1+ /HPF (NEGATIVE); RBC,URINE TNTC /HPF (0-3); SQUAMOUS EPITHELIAL CELL,UR MODERATE /HPF (NEGATIVE)
[2022-12-27] MEDS ORDERED: Atrovent NEB TX 0.02% IN PRN (01:52)
[2022-12-27] MEDS ORDERED: PATIENT'S HOME MEDICATION (Oxycodone-Acetaminophen 10-325 mg tablet) PO PRN (01:52)
[2022-12-27] MEDS ORDERED: VENTOLIN or PROAIR HFA IN PRN (01:52)
[2022-12-27] MEDS ORDERED: NITROSTAT SL PRN (01:52)
[2022-12-27] MEDS ORDERED: VENTOLIN or PROAIR HFA ONE (02:01)
[2022-12-27] MEDS ORDERED: DUONEB 0.5 MG/3 MG (3 mL) NEB PRN (02:06)
[2022-12-27] MEDS ORDERED: ROXICODONE TAB 5 MG PO PRN (03:58)
[2022-12-27] MEDS ORDERED: TYLENOL 325 MG TAB PO PRN ×2 (03:58→04:00)
[2022-12-27] MEDS ORDERED: CIPRO IV 200 MG PREMIX* 200 MG/100 ML BAG IV ONE (04:05)
[2022-12-27] MEDS ORDERED: NEURONTIN CAP 100 MG ONE (04:59)
[2022-12-27] MEDS ORDERED: CONSULT PHARMACY - ANTIBIOTIC XX SCH (05:00)
[2022-12-27] MEDS: NEURONTIN CAP 400 MG PO SCH ×3 (05:11→21:27)
--- NOTE | 2022-12-27 05:16 | RAD ---
HISTORYSYNCOPAL EPISODE WITH HYPOTENSION. PATIENT STATED HE TOOK HIS BLOOD PRESSURE MEDS TONIGHT WITHOUT TAKING HIS BLOOD PRESSURE. PATIENT ALSO STATES HE HAS BEEN HAVING N/V/D Relevant Clinical InformationSTUDYACUTE ABDOMEN SERIESCOMPARISONNoneFINDINGSThe trachea is midline. The cardiac silhouette is [unremarkable]. [The lungs are clear without focal mass or consolidation. There is no effusion or pneumothorax.] [The bony thorax is unremarkable].Flat plate and upright evaluation of the abdomen demonstrates a [a few mildly dilated loops of small bowel in the mid abdomen. There are surgical clips in the right upper quadrant. There is no pneumoperitoneum. No pathological soft tissue mass or calcification can be observed. The bony structures are grossly intact.IMPRESSION1. [No acute cardiopulmonary disease.]2. [A few mildly dilated loops of small bowel in the mid abdomen. Findings may represent localized ileus versus early or partial obstruction. IsElectronically signed by: Nirav North (December 27, 2022 05:14:40)
[2022-12-27 05:31] LABS: CRYPTOSPORIDIUM PARVUM ANTIGEN NEGATIVE (NEGATIVE); GIARDIA LAMBLIA ANTIGEN NEGATIVE (NEGATIVE)
[2022-12-27 06:20] LABS: BASOPHILS # (AUTO) 0.1 X10^3/uL (0.0-0.1); BASOPHILS % (AUTO) 0.7 % (0.2-1.0); EOSINOPHILS % (AUTO) 0.4 % (0.9-2.9); HEMATOCRIT 34.6 % (42.0-54.0); HEMOGLOBIN 11.7 g/dL (13.5-18.0); LYMPHOCYTES # (AUTO) 1.3 X10^3/uL (1.3-2.9); LYMPHOCYTES % (AUTO) 14.9 % (21.0-51.0); MEAN CORPUSCULAR HEMOGLOBIN 31.1 pg (27.0-34.0); MEAN CORPUSCULAR HGB CONC 33.7 g/dL (33.0-35.0); MEAN CORPUSCULAR VOLUME 92.1 fL (80.0-100.0); MEAN PLATELET VOLUME 9.7 fL (7.4-11.0); MONOCYTES # (AUTO) 0.7 x10^3/uL (0.3-0.8); MONOCYTES % (AUTO) 7.6 % (0.0-13.0); NEUTROPHILS # (AUTO) 6.9 x10^3/uL (2.2-4.8); NEUTROPHILS % (AUTO) 76.4 % (42.0-75.0); PLATELET COUNT 160 X10^3/uL (150.0-450.0); RED BLOOD COUNT 3.76 X10^6/uL (4.7-6.0); RED CELL DISTRIBUTION WIDTH 15.9 % (11.6-16.5)
[2022-12-27 06:28] LABS: ALANINE AMINOTRANSFERASE 36 Units/L (12-78); ALBUMIN 3.5 g/dL (3.4-5.0); ALKALINE PHOSPHATASE 79 Units/L (46-116); ASPARTATE AMINO TRANSFERASE 33 Units/L (15-37); BLOOD UREA NITROGEN 33 mg/dL (7-18); CALCIUM 8.7 mg/dL (8.5-10.1); CARBON DIOXIDE 30.7 mmol/L (21-32); CHLORIDE 100 mmol/L (98-107); COR NA(FOR HYPERGLY) 140 mmol/L (136-145); CREATININE 1.75 mg/dL (0.70-1.30); GLUCOSE 116 mg/dL (65-99); MAGNESIUM 1.9 mg/dL (2.0-2.9); SODIUM 140 mmol/L (136-145); TOTAL PROTEIN 7.2 g/dL (6.4-8.2); eGFR NON BLACK RACES 42 (>60)
[2022-12-27 06:42] LABS: POTASSIUM 2.7 mmol/L (3.5-5.1)
[2022-12-27] MEDS ORDERED: POTASSIUM CHL 60 MEQ/NS 0.45% 500 ML IV PRN (06:57)
[2022-12-27] MEDS ORDERED: KLOR-CON PO PRN (06:57)
[2022-12-27] MEDS ORDERED: K-RIDER 10 MEQ/NS 100 ML 10 MEQ/100 ML BAG IV PRN (06:57)
[2022-12-27] MEDS ORDERED: MICRO K EXTEN CAP 10 MEQ PO PRN (06:57)
[2022-12-27] MEDS ORDERED: POTASSIUM CHL 40 MEQ/NS 0.45% 500 ML IV PRN (06:57)
[2022-12-27] MEDS ORDERED: POTASSIUM CHLORIDE LIQ 20 MEQ UDC PO PRN (06:57)
[2022-12-27] MEDS ORDERED: MAGNESIUM SULFATE 1 GRAM/100 mL PREMIX 1 G/100 ML BAG IV ONE ×2 (07:30→07:48)
[2022-12-27] MEDS: MAGNESIUM SULFATE 1 GRAM/100 mL PREMIX 1 G/100 ML BAG IV PRN ×2 (07:34→09:00)
[2022-12-27] MEDS ORDERED: BUSPAR ONE (07:46)
[2022-12-27] MEDS ORDERED: COREG TAB 6.25 MG ONE (07:46)
[2022-12-27] MEDS ORDERED: IMDUR PO ONE (07:46)
[2022-12-27] MEDS ORDERED: ASPIRIN EC 81 MG PO ONE (07:46)
[2022-12-27] MEDS ORDERED: TOPAMAX PO ONE (07:46)
[2022-12-27] MEDS ORDERED: NORVASC TAB 5 MG ONE (07:47)
[2022-12-27] MEDS ORDERED: JANUVIA ONE (07:47)
[2022-12-27] MEDS ORDERED: PROSCAR ONE (07:47)
[2022-12-27] MEDS ORDERED: FLOMAX ONE (07:47)
[2022-12-27] MEDS ORDERED: PEPCID TAB 20 MG ONE (07:47)
[2022-12-27] MEDS ORDERED: COLCRYS TAB 0.6 MG ONE (07:47)
[2022-12-27] MEDS ORDERED: GLUCOPHAGE ONE ×2 (07:47→20:12)
[2022-12-27] MEDS ORDERED: SINGULAIR TAB 10 MG ONE (07:47)
[2022-12-27] MEDS ORDERED: COZAAR ONE (07:48)
[2022-12-27] MEDS ORDERED: ZOLOFT PO ONE (07:48)
[2022-12-27] MEDS ORDERED: ZANAFLEX ONE (07:48)
[2022-12-27] MEDS ORDERED: FLONASE NASAL SPRAY ENOSTRIL ONE (07:48)
[2022-12-27] MEDS ORDERED: NS 1,000 ML IV 1,000 ML ONE (08:16)
[2022-12-27] MEDS ORDERED: ROXICODONE TAB 5 MG PO ONE (08:36)
[2022-12-27] MEDS: ROXICODONE TAB 5 MG PO PRN (08:45)
[2022-12-27] MEDS: ASPIRIN EC 81 MG PO SCH (08:46)
[2022-12-27] MEDS: ZOLOFT PO SCH (08:46)
[2022-12-27] MEDS: ZANAFLEX PO SCH ×2 (08:46→20:56)
[2022-12-27] MEDS: TOPAMAX PO SCH (08:47)
[2022-12-27] MEDS: XALATAN OP SCH (08:47)
[2022-12-27] MEDS: VOLTAREN 1 % GEL MULTI DOSE TUBE TOP SCH ×4 (08:47→21:00)
[2022-12-27] MEDS: PROSCAR PO SCH (08:48)
[2022-12-27] MEDS: SINGULAIR TAB 10 MG PO SCH (08:48)
[2022-12-27] MEDS: PEPCID TAB 20 MG PO SCH ×2 (08:48→20:55)
[2022-12-27] MEDS: JANUVIA PO SCH (08:50)
[2022-12-27] MEDS: NYSTATIN CREAM TOP SCH ×2 (08:50→21:00)
[2022-12-27] MEDS: NORVASC TAB 5 MG PO SCH (08:50)
[2022-12-27] MEDS: FLONASE NASAL SPRAY ENOSTRIL SCH (08:51)
[2022-12-27] MEDS: GLUCOPHAGE PO SCH ×2 (08:51→20:59)
[2022-12-27] MEDS: IMDUR PO SCH (08:51)
[2022-12-27] MEDS: FLOMAX PO SCH (08:52)
[2022-12-27] MEDS: COZAAR PO SCH (08:53)
[2022-12-27] MEDS: DIVALPROEX 250 MG PO SCH (08:53)
[2022-12-27] MEDS: COLCRYS TAB 0.6 MG PO SCH ×2 (08:54→20:55)
[2022-12-27] MEDS: COREG TAB 6.25 MG PO SCH ×2 (08:54→20:56)
[2022-12-27] MEDS: BUSPAR PO SCH ×2 (08:54→20:56)
[2022-12-27] MEDS: NS 1,000 ML IV 1,000 ML IV SCH ×2 (08:59→19:28)
[2022-12-27] MEDS ORDERED: PEPCID TAB 40 MG PO SCH (09:00)
[2022-12-27] MEDS ORDERED: BUSPAR PO SCH (09:00)
[2022-12-27] MEDS ORDERED: PATIENT'S HOME MEDICATION (Aspirin 81 mg Tablet) PO SCH (09:00)
--- NOTE | 2022-12-27 13:51 | RAD ---
HISTORYABD PAINSTUDYKUBCOMPARISONNone availableTECHNIQUEAP supine and upright projections, 2 viewsFINDINGSGas and stool in non-distended colon.No gross free.No abnormal calcifications.No acute osseous abnormality.Imaged portion of the lungs are clear.Surgical clips in the right abdomen.IMPRESSIONNo acute intra-abdominal abnormality detected.Electronically signed by: Wesly Rush (December 27, 2022 13:50:08)
[2022-12-27] MEDS: K-DUR TAB 20 MEQ PO PRN (16:45)
[2022-12-27] MEDS: CIPRO IV 200 MG PREMIX* 200 MG/100 ML BAG IV SCH (20:55)
[2022-12-27] MEDS: RESTORIL CAP 15 MG PO PRN (20:55)
[2022-12-27] MEDS: NICOTINE PATCH TD SCH (21:26)
[2022-12-27] MEDS: SNACK - Diabetic Appropriate PO SCH (21:27)
[2022-12-28] MEDS: NS 1,000 ML IV 1,000 ML IV SCH ×3 (04:24→16:36)
[2022-12-28] MEDS: NEURONTIN CAP 400 MG PO SCH ×3 (05:35→21:21)
[2022-12-28 06:31] LABS: BASOPHILS % (AUTO) 0.5 % (0.2-1.0); EOSINOPHILS # (AUTO) 0.1 x10^3/uL (0.0-0.2); EOSINOPHILS % (AUTO) 1.2 % (0.9-2.9); HEMATOCRIT 31.1 % (42.0-54.0); HEMOGLOBIN 10.7 g/dL (13.5-18.0); LYMPHOCYTES # (AUTO) 1.4 X10^3/uL (1.3-2.9); LYMPHOCYTES % (AUTO) 17.1 % (21.0-51.0); MEAN CORPUSCULAR HEMOGLOBIN 31.8 pg (27.0-34.0); MEAN CORPUSCULAR HGB CONC 34.2 g/dL (33.0-35.0); MEAN PLATELET VOLUME 10.1 fL (7.4-11.0); MONOCYTES # (AUTO) 0.8 x10^3/uL (0.3-0.8); MONOCYTES % (AUTO) 9.6 % (0.0-13.0); NEUTROPHILS # (AUTO) 5.7 x10^3/uL (2.2-4.8); NEUTROPHILS % (AUTO) 71.6 % (42.0-75.0); PLATELET COUNT 133 X10^3/uL (150.0-450.0); RED BLOOD COUNT 3.35 X10^6/uL (4.7-6.0); RED CELL DISTRIBUTION WIDTH 16.5 % (11.6-16.5); WHITE BLOOD COUNT 7.9 X10^3/uL (3.6-10.0)
[2022-12-28 06:41] LABS: ALANINE AMINOTRANSFERASE 38 Units/L (12-78); ALBUMIN 2.8 g/dL (3.4-5.0); ALKALINE PHOSPHATASE 101 Units/L (46-116); ASPARTATE AMINO TRANSFERASE 30 Units/L (15-37); BLOOD UREA NITROGEN 23 mg/dL (7-18); CALCIUM 8.2 mg/dL (8.5-10.1); CARBON DIOXIDE 27.4 mmol/L (21-32); CHLORIDE 106 mmol/L (98-107); COR CA(FOR HYPOALB) 9.2 mg/dL (8.5-10.1); COR NA(FOR HYPERGLY) 143 mmol/L (136-145); GLUCOSE 125 mg/dL (65-99); MAGNESIUM 1.9 mg/dL (2.0-2.9); POTASSIUM 3.3 mmol/L (3.5-5.1); SODIUM 142 mmol/L (136-145); TOTAL PROTEIN 5.8 g/dL (6.4-8.2); eGFR NON BLACK RACES > 60 (>60)
--- NOTE | 2022-12-28 07:23 | DR.H&P ---
H&P History & Physical for Day of: H&P Date: 12/27/22 Chief Complaint Chief Complaint: Dysuria Generalized weakness Allergies Allergies Allergy/AdvReac Type Severity Reaction Status Date / Time caffeine Allergy Unknown Verified 12/03/22 20:21 lisinopril Allergy Unknown Verified 12/03/22 20:21 Penicillins Allergy Unknown Verified 12/03/22 20:21 chocolate flavor Allergy Verified 12/03/22 20:21 ibuprofen [From Motrin] Allergy Verified 12/03/22 20:21 Chocolate Allergy Unknown Uncoded 12/03/22 20:21 History of Present Illness History of Present Illness: Pt is a 62 year old male past medical history of diabetes mellitus and hypertension presenting with dysuria for the past 2-3 days. He also reports he was having some diarrhea and decreased po intake. Denies fevers, chills. Labs/imaging: Wbc 9, Hgb 11.7, Plt 160, Na 140, K 2.7, Creatinine 1.75, Glucose 116, Influenza negative, UA c/w infection, Urine/stool culture pending. Abdominal XR: no acute intraabdominal abnormalities. Pt was admitted for acute cystitis, acute kidney injury, and hypokalemia. He was started on IVF NS@125ml/h, and antibiotics: IV Ciprofloxacin. Replete potassium per protocol. Will restart home medications. Continue to closely monitor and follow up labs in the morning. Past Medical History Past Medical History: Diabetes and Hypertension Past Surgical History Surgical History: Abdominal Surgery, Ortho Surgery and Other Family History Family Medical History: Diabetes Mellitus, Cancer, [place], Coronary Artery Disease and Hypertension Social History Does patient currently use any type of tobacco product: Yes Have you used tobacco products in the last 12 months: Yes Type of Tobacco Use: Cigarettes Does any household member use tobacco: Yes Alcohol Use: None Drug Use: None Medications Home Medications: caffeine Allergy (Unknown, Verified 12/03/22 20:21) lisinopril Allergy (Unknown, Verified 12/03/22 20:21) Penicillins Allergy (Unknown, Verified 12/03/22 20:21) chocolate flavor Allergy (Verified 12/03/22 20:21) ibuprofen [From Motrin] Allergy (Verified 12/03/22 20:21) Chocolate Allergy (Unknown, Uncoded 12/03/22 20:21) CONTINUE taking the following medications albuterol sulfate 90 mcg/actuation aerosol inhaler 2 puff inhalation QID PRN 12/26/22 [History] amlodipine 5 mg tablet 5 mg PO QDAY 12/26/22 [History] carvedilol 6.25 mg tablet 6.25 mg PO BID 12/26/22 [History] colchicine 0.6 mg tablet 0.6 mg PO BID 12/26/22 [History] diclofenac sodium 1 % topical gel 4 g topical QID 12/26/22 [History] divalproex 250 mg tablet,extended release 24 hr 250 mg PO QDAY 12/26/22 [History] ipratropium bromide 0.02 % solution for inhalation 2.5 ml inhalation Q6H PRN 12/26/22 [History] isosorbide mononitrate 30 mg tablet,extended release 24 hr 30 mg PO QDAY 12/26/22 [History] losartan 50 mg tablet 50 mg PO QDAY 12/26/22 [History] nitroglycerin 0.4 mg sublingual tablet 0.4 mg sublingual Q5M PRN 12/26/22 [History] nystatin 100,000 unit/gram topical cream 1 applic topical BID 12/26/22 [History] sertraline 50 mg tablet 50 mg PO QDAY 12/26/22 [History] sildenafil 100 mg tablet 100 mg PO QDAY PRN 12/26/22 [History] sitagliptin phosphate 100 mg tablet (Januvia) 100 mg PO QDAY 12/26/22 [History] temazepam 15 mg capsule 15 mg PO QHS PRN 12/26/22 [History] Labs Result Diagrams: 12/28/22 04:46 12/27/22 14:54 Labs: 12/27/22 03:42 Stool - Final Laboratory WBC 7.9 X10^3/uL (3.6-10.0) 12/28/22 04:46 RBC 3.35 X10^6/uL (4.7-6.0) L 12/28/22 04:46 Hgb 10.7 g/dL (13.5-18.0) L 12/28/22 04:46 Hct 31.1 % (42.0-54.0) L 12/28/22 04:46 MCV 93.0 fL (80.0-100.0) 12/28/22 04:46 MCH 31.8 pg (27.0-34.0) 12/28/22 04:46 MCHC 34.2 g/dL (33.0-35.0) 12/28/22 04:46 RDW 16.5 % (11.6-16.5) 12/28/22 04:46 Plt Count 133 X10^3/uL (150.0-450.0) L 12/28/22 04:46 MPV 10.1 fL (7.4-11.0) 12/28/22 04:46 Neut % (Auto) 71.6 % (42.0-75.0) 12/28/22 04:46 Lymph % (Auto) 17.1 % (21.0-51.0) L 12/28/22 04:46 [place] % (Auto) 9.6 % (0.0-13.0) 12/28/22 04:46 Eos % (Auto) 1.2 % (0.9-2.9) 12/28/22 04:46 Baso % (Auto) 0.5 % (0.2-1.0) 12/28/22 04:46 Neut # (Auto) 5.7 x10^3/uL (2.2-4.8) H 12/28/22 04:46 Lymph # (Auto) 1.4 X10^3/uL (1.3-2.9) 12/28/22 04:46 [place] # (Auto) 0.8 x10^3/uL (0.3-0.8) 12/28/22 04:46 Eos # (Auto) 0.1 x10^3/uL (0.0-0.2) 12/28/22 04:46 Baso # (Auto) 0.0 X10^3/uL (0.0-0.1) 12/28/22 04:46 Absolute Nucleated RBC 0.0 /100WBC 12/28/22 04:46 Sodium 140 mmol/L (136-145) 12/27/22 05:49 Corrected Sodium 140 mmol/L (136-145) 12/27/22 05:49 Potassium 2.9 mmol/L (3.5-5.1) L* 12/27/22 14:54 Chloride 100 mmol/L (98-107) 12/27/22 05:49 Carbon Dioxide 30.7 mmol/L (21-32) 12/27/22 05:49 BUN 33 mg/dL (7-18) H 12/27/22 05:49 Creatinine 1.75 mg/dL (0.70-1.30) H 12/27/22 05:49 Est GFR (MDRD) Af Amer 51 (>60) L 12/27/22 05:49 Est GFR (MDRD) Non-Af 42 (>60) L 12/27/22 05:49 Glucose 116 mg/dL (65-99) H 12/27/22 05:49 POC Glucose (mg/dL) 134 mg/dL (65-99) H 12/28/22 05:07 Calcium 8.7 mg/dL (8.5-10.1) 12/27/22 05:49 Corrected Calcium TNP 12/27/22 05:49 Magnesium 1.9 mg/dL (2.0-2.9) L 12/27/22 05:49 Total Bilirubin 0.40 mg/dL (0.2-1.0) 12/27/22 05:49 AST 33 Units/L (15-37) 12/27/22 05:49 ALT 36 Units/L (12-78) 12/27/22 05:49 Alkaline Phosphatase 79 Units/L (46-116) 12/27/22 05:49 Creatine Kinase 211 Units/L (39-308) 12/26/22 22:13 Troponin I High Sens 12.8 ng/L (4.0-60.0) 12/26/22 22:13 Total Protein 7.2 g/dL (6.4-8.2) 12/27/22 05:49 Albumin 3.5 g/dL (3.4-5.0) 12/27/22 05:49 Globulin 3.7 g/dL (2.5-4.5) 12/27/22 05:49 Albumin/Globulin Ratio 0.9 Ratio (1.1-2.1) L 12/27/22 05:49 Specimen Type Clean catch urine 12/26/22 23:12 Urine Color Dark yellow (YELLOW) 12/26/22 23:12 Urine Appearance Turbid (CLEAR) 12/26/22 23:12 Urine pH 6.0 (5.0 - 8.0) 12/26/22 23:12 Ur Specific [place] 1.015 (1.000-1.030) 12/26/22 23:12 Urine Protein 3+ (NEGATIVE) 12/26/22 23:12 Urine Glucose (UA) Negative (NEGATIVE) 12/26/22 23:12 Urine Ketones Negative (NEGATIVE) 12/26/22 23:12 Urine Blood 4+ (NEGATIVE) 12/26/22 23:12 Urine Nitrite Negative (NEGATIVE) 12/26/22 23:12 Urine Bilirubin 1+ (NEGATIVE) 12/26/22 23:12 Urine Urobilinogen 1+ (NORMAL) 12/26/22 23:12 Ur Leukocyte Esterase 3+ (NEGATIVE) 12/26/22 23:12 Urine RBC Tntc /HPF (0-3) A 12/26/22 23:12 Urine WBC Tntc /HPF (0-5) A 12/26/22 23:12 Ur Squamous Epith Cells Moderate /HPF (NEGATIVE) 12/26/22 23:12 Amorphous Sediment 2+ /HPF (NEGATIVE) 12/26/22 23:12 Urine Bacteria 1+ /HPF (NEGATIVE) 12/26/22 23:12 Ur Culture Indicated? Yes/culture set up 12/26/22 23:12 Stl Occult Blood (IFOB) Negative (NEGATIVE) 12/27/22 03:42 Stl C. diff Tox B Gene Negative (NEGATIVE) 12/27/22 03:42 Stl C. diff [id number] Presumptive negative (NEGATIVE) 12/27/22 03:42 SARS-CoV-2 (PCR) Negative (NEGATIVE) 12/26/22 22:41 Cryptosporid parvum Ag Negative (NEGATIVE) 12/27/22 03:42 Giardia lamblia Ag Negative (NEGATIVE) 12/27/22 03:42 Influenza Type A (PCR) Negative (NEGATIVE) 12/26/22 22:41 Influenza Type B (PCR) Negative (NEGATIVE) 12/26/22 22:41 RSV (PCR) Negative (NEGATIVE) 12/26/22 22:41 Review of Systems Constitutional: No Symptoms Reported Eyes: No Symptoms Reported ENT: No Symptoms Reported Respiratory: No Symptoms Reported Cardiovascular: No Symptoms Reported Gastrointestinal: No Symptoms Reported Genitourinary: Dysuria Musculoskeletal: No Symptoms Reported Skin: No Symptoms Reported Neurological: No Symptoms Reported Physical Exam Vital Signs: Temperature 98.3 F Pulse Rate [Left Brachial] 70 Pulse Rate 62 Respiratory Rate 20 Blood Pressure [Right Arm] 136/63 Blood Pressure 104/58 O2 Sat by Pulse Oximetry 98 Oriented: Normal Eyes: Normal Ear: Normal Nose: Normal Throat: Normal Respiratory: Clear Throughout Cardiovascular: Normal : Dysuria Auscultation: Bowel Sounds: Normal Palpation: Normal Tenderness: Normal Skin: Normal Musculoskeletal: Normal Psychiatric: Normal Mood Description: Calm and Appropriate Affect: Normal Speech Pattern: Clear and Appropriate Assessment/Plan (1) Acute cystitis: Status: Acute Plan: antibiotics IV Ciprofloxacin Urine culture pending (2) Hypokalemia: Status: Acute Plan: Replete per protocol (3) Acute kidney injury: Status: Acute Plan: IVF, monitor renal function Review H&P Reviewed: Yes Patient was examined?: Yes
[2022-12-28] MEDS ORDERED: GLUCOPHAGE ONE (08:06)
[2022-12-28] MEDS: ASPIRIN EC 81 MG PO SCH (09:04)
[2022-12-28] MEDS: MAGNESIUM SULFATE 1 GRAM/100 mL PREMIX 1 G/100 ML BAG IV PRN ×2 (09:04→09:58)
[2022-12-28] MEDS: NICOTINE PATCH TD SCH (09:09)
[2022-12-28] MEDS: ROXICODONE TAB 5 MG PO PRN ×2 (09:10→21:21)
[2022-12-28] MEDS: IMODIUM CAP 2 MG PO SCH ×3 (09:10→21:20)
[2022-12-28] MEDS: ZOLOFT PO SCH (09:10)
[2022-12-28] MEDS: ZANAFLEX PO SCH ×2 (09:11→20:22)
[2022-12-28] MEDS: BUSPAR PO SCH ×2 (09:11→20:22)
[2022-12-28] MEDS: JANUVIA PO SCH (09:15)
[2022-12-28] MEDS: NORVASC TAB 5 MG PO SCH (09:15)
[2022-12-28] MEDS: GLUCOPHAGE PO SCH ×2 (09:15→20:46)
[2022-12-28] MEDS: COLCRYS TAB 0.6 MG PO SCH ×2 (09:15→20:22)
[2022-12-28] MEDS: FLOMAX PO SCH (09:16)
[2022-12-28] MEDS: SINGULAIR TAB 10 MG PO SCH (09:16)
[2022-12-28] MEDS: IMDUR PO SCH (09:16)
[2022-12-28] MEDS: COREG TAB 6.25 MG PO SCH ×2 (09:16→20:22)
[2022-12-28] MEDS: COZAAR PO SCH (09:16)
[2022-12-28] MEDS: PROSCAR PO SCH (09:16)
[2022-12-28] MEDS: PEPCID TAB 20 MG PO SCH ×2 (09:16→20:22)
[2022-12-28] MEDS: DIVALPROEX 250 MG PO SCH (09:17)
[2022-12-28] MEDS: CIPRO IV 200 MG PREMIX* 200 MG/100 ML BAG IV SCH ×2 (09:17→20:23)
[2022-12-28] MEDS: TOPAMAX PO SCH (09:18)
[2022-12-28] MEDS: NYSTATIN CREAM TOP SCH ×2 (09:18→20:46)
[2022-12-28] MEDS: FLONASE NASAL SPRAY ENOSTRIL SCH (09:18)
[2022-12-28] MEDS: VOLTAREN 1 % GEL MULTI DOSE TUBE TOP SCH ×4 (09:19→20:47)
[2022-12-28] MEDS: XALATAN OP SCH (09:19)
--- NOTE | 2022-12-28 09:43 | PCM.PROG ---
Progress Note Progress Note for Day of Date of Exam: 12/28/22 Subjective Subjective: Pt is a 62 year old male past medical history of diabetes mellitus and hypertension admitted for acute cystitis, acute kidney injury, and hypokalemia. This morning patient sitting up in bed eating breakfast. He reports having diarrhea. No acute events overnight. Labs/imaging: Wbc 7.9, Hgb 10.7, Plt 133, Na 142, K 3.3, Creatinine 1.20, Glucose 125, Influenza negative, UA c/w infection, Urine/stool culture pending. Pt is currently receiving IVF NS@125ml/h, and antibiotics: IV Ciprofloxacin. Replete potassium per protocol. Home medications have been resumed. Order immodium for diarrhea. Continue to closely monitor and follow up labs in the morning. Past Medical Family Social History Allergies: Allergies caffeine Allergy (Unknown, Verified 12/03/22 20:21) Reason: Drug allergy lisinopril Allergy (Unknown, Verified 12/03/22 20:21) Reason: Drug allergy Penicillins Allergy (Unknown, Verified 12/03/22 20:21) chocolate flavor Allergy (Verified 12/03/22 20:21) ibuprofen [From Motrin] Allergy (Verified 12/03/22 20:21) Chocolate Allergy (Unknown, Uncoded 12/03/22 20:21) Review of Systems ROS changes noted: see HPI Vital Signs and I&O's Vital Signs: Temperature 98.3 F Pulse Rate [Left Brachial] 70 Pulse Rate 62 Respiratory Rate 20 Blood Pressure [Right Arm] 136/63 Blood Pressure 104/58 O2 Sat by Pulse Oximetry 98 Intake and Output: Intake & Output 12/25/22 12/26/22 12/27/22 12/28/22 23:59 23:59 23:59 23:59 Intake Total 2089 708 / 708 Balance 2089 708 / 708 Physical Exam Oriented: Normal Eyes: Normal Ear: Normal Nose: Normal Throat: Normal Respiratory: Normal Cardiovascular: Normal : Dysuria Auscultation: Bowel Sounds: Normal Palpation: Normal Tenderness: Normal Skin: Normal Musculoskeletal: Normal Psychiatric: Normal Mood Description: Calm and Appropriate Affect: Normal Speech Pattern: Clear and Appropriate Laboratory and Diagnostics Result Diagrams: 12/28/22 04:46 12/28/22 04:46 Labs: 12/27/22 03:42 Stool - Final Laboratory WBC 7.9 X10^3/uL (3.6-10.0) 12/28/22 04:46 RBC 3.35 X10^6/uL (4.7-6.0) L 12/28/22 04:46 Hgb 10.7 g/dL (13.5-18.0) L 12/28/22 04:46 Hct 31.1 % (42.0-54.0) L 12/28/22 04:46 MCV 93.0 fL (80.0-100.0) 12/28/22 04:46 MCH 31.8 pg (27.0-34.0) 12/28/22 04:46 MCHC 34.2 g/dL (33.0-35.0) 12/28/22 04:46 RDW 16.5 % (11.6-16.5) 12/28/22 04:46 Plt Count 133 X10^3/uL (150.0-450.0) L 12/28/22 04:46 MPV 10.1 fL (7.4-11.0) 12/28/22 04:46 Neut % (Auto) 71.6 % (42.0-75.0) 12/28/22 04:46 Lymph % (Auto) 17.1 % (21.0-51.0) L 12/28/22 04:46 [place] % (Auto) 9.6 % (0.0-13.0) 12/28/22 04:46 Eos % (Auto) 1.2 % (0.9-2.9) 12/28/22 04:46 Baso % (Auto) 0.5 % (0.2-1.0) 12/28/22 04:46 Neut # (Auto) 5.7 x10^3/uL (2.2-4.8) H 12/28/22 04:46 Lymph # (Auto) 1.4 X10^3/uL (1.3-2.9) 12/28/22 04:46 [place] # (Auto) 0.8 x10^3/uL (0.3-0.8) 12/28/22 04:46 Eos # (Auto) 0.1 x10^3/uL (0.0-0.2) 12/28/22 04:46 Baso # (Auto) 0.0 X10^3/uL (0.0-0.1) 12/28/22 04:46 Absolute Nucleated RBC 0.0 /100WBC 12/28/22 04:46 Sodium 142 mmol/L (136-145) 12/28/22 04:46 Corrected Sodium 143 mmol/L (136-145) 12/28/22 04:46 Potassium 3.3 mmol/L (3.5-5.1) L 12/28/22 04:46 Chloride 106 mmol/L (98-107) 12/28/22 04:46 Carbon Dioxide 27.4 mmol/L (21-32) 12/28/22 04:46 BUN 23 mg/dL (7-18) H 12/28/22 04:46 Creatinine 1.20 mg/dL (0.70-1.30) 12/28/22 04:46 Est GFR (MDRD) Af Amer > 60 (>60) 12/28/22 04:46 Est GFR (MDRD) Non-Af > 60 (>60) 12/28/22 04:46 Glucose 125 mg/dL (65-99) H 12/28/22 04:46 POC Glucose (mg/dL) 134 mg/dL (65-99) H 12/28/22 05:07 Calcium 8.2 mg/dL (8.5-10.1) L 12/28/22 04:46 Corrected Calcium 9.2 mg/dL (8.5-10.1) 12/28/22 04:46 Magnesium 1.9 mg/dL (2.0-2.9) L 12/28/22 04:46 Total Bilirubin 0.30 mg/dL (0.2-1.0) 12/28/22 04:46 AST 30 Units/L (15-37) 12/28/22 04:46 ALT 38 Units/L (12-78) 12/28/22 04:46 Alkaline Phosphatase 101 Units/L (46-116) 12/28/22 04:46 Creatine Kinase 211 Units/L (39-308) 12/26/22 22:13 Troponin I High Sens 12.8 ng/L (4.0-60.0) 12/26/22 22:13 Total Protein 5.8 g/dL (6.4-8.2) L 12/28/22 04:46 Albumin 2.8 g/dL (3.4-5.0) L 12/28/22 04:46 Globulin 3.0 g/dL (2.5-4.5) 12/28/22 04:46 Albumin/Globulin Ratio 0.9 Ratio (1.1-2.1) L 12/28/22 04:46 Specimen Type Clean catch urine 12/26/22 23:12 Urine Color Dark yellow (YELLOW) 12/26/22 23:12 Urine Appearance Turbid (CLEAR) 12/26/22 23:12 Urine pH 6.0 (5.0 - 8.0) 12/26/22 23:12 Ur Specific [place] 1.015 (1.000-1.030) 12/26/22 23:12 Urine Protein 3+ (NEGATIVE) 12/26/22 23:12 Urine Glucose (UA) Negative (NEGATIVE) 12/26/22 23:12 Urine Ketones Negative (NEGATIVE) 12/26/22 23:12 Urine Blood 4+ (NEGATIVE) 12/26/22 23:12 Urine Nitrite Negative (NEGATIVE) 12/26/22 23:12 Urine Bilirubin 1+ (NEGATIVE) 12/26/22 23:12 Urine Urobilinogen 1+ (NORMAL) 12/26/22 23:12 Ur Leukocyte Esterase 3+ (NEGATIVE) 12/26/22 23:12 Urine RBC Tntc /HPF (0-3) A 12/26/22 23:12 Urine WBC Tntc /HPF (0-5) A 12/26/22 23:12 Ur Squamous Epith Cells Moderate /HPF (NEGATIVE) 12/26/22 23:12 Amorphous Sediment 2+ /HPF (NEGATIVE) 12/26/22 23:12 Urine Bacteria 1+ /HPF (NEGATIVE) 12/26/22 23:12 Ur Culture Indicated? Yes/culture set up 12/26/22 23:12 Stl Occult Blood (IFOB) Negative (NEGATIVE) 12/27/22 03:42 Stl C. diff Tox B Gene Negative (NEGATIVE) 12/27/22 03:42 Stl C. diff [id number] Presumptive negative (NEGATIVE) 12/27/22 03:42 SARS-CoV-2 (PCR) Negative (NEGATIVE) 12/26/22 22:41 Cryptosporid parvum Ag Negative (NEGATIVE) 12/27/22 03:42 Giardia lamblia Ag Negative (NEGATIVE) 12/27/22 03:42 Influenza Type A (PCR) Negative (NEGATIVE) 12/26/22 22:41 Influenza Type B (PCR) Negative (NEGATIVE) 12/26/22 22:41 RSV (PCR) Negative (NEGATIVE) 12/26/22 22:41 Plan (1) Acute cystitis: Status: Acute Plan: antibiotics IV Ciprofloxacin Urine culture pending (2) Hypokalemia: Status: Acute Plan: Replete per protocol (3) Acute kidney injury: Status: Acute Plan: IVF, monitor renal function
[2022-12-28] MEDS: K-DUR TAB 20 MEQ PO PRN (09:47)
[2022-12-28] MEDS: SNACK - Diabetic Appropriate PO SCH (20:21)
[2022-12-28] MEDS: RESTORIL CAP 15 MG PO PRN (20:22)
[2022-12-29] MEDS: NS 1,000 ML IV 1,000 ML IV SCH ×2 (00:50→09:02)
[2022-12-29] MEDS: NEURONTIN CAP 400 MG PO SCH ×2 (05:34→14:34)
[2022-12-29] MEDS: IMODIUM CAP 2 MG PO SCH ×2 (05:34→14:34)
[2022-12-29 06:15] LABS: BASOPHILS % (AUTO) 0.5 % (0.2-1.0); EOSINOPHILS # (AUTO) 0.1 x10^3/uL (0.0-0.2); EOSINOPHILS % (AUTO) 2.1 % (0.9-2.9); HEMOGLOBIN 10.3 g/dL (13.5-18.0); LYMPHOCYTES # (AUTO) 1.2 X10^3/uL (1.3-2.9); LYMPHOCYTES % (AUTO) 18.7 % (21.0-51.0); MEAN CORPUSCULAR HEMOGLOBIN 31.5 pg (27.0-34.0); MEAN CORPUSCULAR HGB CONC 34.4 g/dL (33.0-35.0); MEAN CORPUSCULAR VOLUME 91.8 fL (80.0-100.0); MEAN PLATELET VOLUME 10.3 fL (7.4-11.0); MONOCYTES # (AUTO) 0.7 x10^3/uL (0.3-0.8); MONOCYTES % (AUTO) 10.7 % (0.0-13.0); NEUTROPHILS # (AUTO) 4.5 x10^3/uL (2.2-4.8); PLATELET COUNT 124 X10^3/uL (150.0-450.0); RED BLOOD COUNT 3.27 X10^6/uL (4.7-6.0); RED CELL DISTRIBUTION WIDTH 16.2 % (11.6-16.5); WHITE BLOOD COUNT 6.6 X10^3/uL (3.6-10.0)
[2022-12-29 06:27] LABS: ALANINE AMINOTRANSFERASE 35 Units/L (12-78); ALBUMIN 2.8 g/dL (3.4-5.0); ALKALINE PHOSPHATASE 87 Units/L (46-116); ASPARTATE AMINO TRANSFERASE 19 Units/L (15-37); BLOOD UREA NITROGEN 12 mg/dL (7-18); CALCIUM 8.1 mg/dL (8.5-10.1); CARBON DIOXIDE 29.5 mmol/L (21-32); CHLORIDE 106 mmol/L (98-107); COR CA(FOR HYPOALB) 9.1 mg/dL (8.5-10.1); CREATININE 1.12 mg/dL (0.70-1.30); GLUCOSE 96 mg/dL (65-99); MAGNESIUM 1.6 mg/dL (2.0-2.9); SODIUM 142 mmol/L (136-145); TOTAL PROTEIN 5.9 g/dL (6.4-8.2); eGFR NON BLACK RACES > 60 (>60)
[2022-12-29] MEDS ORDERED: GLUCOPHAGE ONE (08:12)
[2022-12-29] MEDS: VOLTAREN 1 % GEL MULTI DOSE TUBE TOP SCH ×2 (08:57→12:00)
[2022-12-29] MEDS: JANUVIA PO SCH (08:58)
[2022-12-29] MEDS: PEPCID TAB 20 MG PO SCH (08:58)
[2022-12-29] MEDS: ASPIRIN EC 81 MG PO SCH (08:58)
[2022-12-29] MEDS: PROSCAR PO SCH (08:58)
[2022-12-29] MEDS: BUSPAR PO SCH (08:58)
[2022-12-29] MEDS: TOPAMAX PO SCH (08:59)
[2022-12-29] MEDS: ZOLOFT PO SCH (09:00)
[2022-12-29] MEDS: NICOTINE PATCH TD SCH (09:00)
[2022-12-29] MEDS: COZAAR PO SCH (09:00)
[2022-12-29] MEDS: SINGULAIR TAB 10 MG PO SCH (09:01)
[2022-12-29] MEDS: ROXICODONE TAB 5 MG PO PRN (09:01)
[2022-12-29] MEDS: IMDUR PO SCH (09:01)
[2022-12-29] MEDS: NORVASC TAB 5 MG PO SCH (09:01)
[2022-12-29] MEDS: ZANAFLEX PO SCH (09:02)
[2022-12-29] MEDS: COREG TAB 6.25 MG PO SCH (09:02)
[2022-12-29] MEDS: CIPRO IV 200 MG PREMIX* 200 MG/100 ML BAG IV SCH (09:02)
[2022-12-29] MEDS: FLOMAX PO SCH (09:02)
[2022-12-29] MEDS: COLCRYS TAB 0.6 MG PO SCH (09:02)
[2022-12-29] MEDS: GLUCOPHAGE PO SCH (09:04)
[2022-12-29] MEDS: FLONASE NASAL SPRAY ENOSTRIL SCH (09:07)
[2022-12-29] MEDS ORDERED: DEPAKOTE D.R. TAB PO ONE (09:10)
[2022-12-29] MEDS: DIVALPROEX 250 MG PO SCH (09:13)
[2022-12-29] MEDS: NYSTATIN CREAM TOP SCH (09:14)
[2022-12-29] MEDS: XALATAN OP SCH (09:14)
[2022-12-29] MEDS: MAGNESIUM SULFATE 1 GRAM/100 mL PREMIX 1 G/100 ML BAG IV PRN ×2 (10:04→12:24)
--- NOTE | 2022-12-29 10:19 | W.DIS.FURT ---
Summary of Discharge Discharge Summary of Date Date of Exam: 12/29/22 Admission Date Date of Admission: 12/26/22 Admission Diagnosis Hospital Course: Pt is a 62 year old male past medical history of diabetes mellitus and hypertension admitted for acute cystitis, acute kidney injury, and hypokalemia. His hospital/treatment course included: IVF NS@125ml/h, and antibiotics: IV Ciprofloxacin. Potassium was repleted per protocol. He was given immodium for diarrhea. Labs/imaging: Wbc 6.6, Hgb 10.3, Plt 124, Na 142, K 3(received potassium before discharge), Creatinine 1.12, Glucose 96, Influenza negative, Urine and stool culture negative. Pt responded well to treatments. Symptoms resolved, likely viral given negative culture results. Pt discharged in stable condition, instructed to follow up with pcp in 1 week. Vital Signs: Vital Signs (72 hours) 12/26/22 22:11 12/26/22 22:15 12/26/22 22:30 Temperature Pulse Rate 74 75 Pulse Rate [Left Brachial] Respiratory Rate Blood Pressure 104/55 Blood Pressure [Right Arm] O2 Sat by Pulse Oximetry 100 Oxygen Delivery Method FIO2% 12/26/22 22:30 12/26/22 22:05 12/26/22 22:45 Temperature 98.0 F Pulse Rate 69 78 67 Pulse Rate [Left Brachial] Respiratory Rate 28 H 18 22 Blood Pressure 94/60 Blood Pressure [Right Arm] O2 Sat by Pulse Oximetry 99 100 99 Oxygen Delivery Method Room Air FIO2% 12/26/22 23:00 12/26/22 23:00 12/26/22 23:15 Temperature Pulse Rate 72 64 Pulse Rate [Left Brachial] Respiratory Rate 28 H 20 Blood Pressure 98/54 Blood Pressure [Right Arm] O2 Sat by Pulse Oximetry 99 99 Oxygen Delivery Method FIO2% 12/26/22 23:30 12/26/22 23:30 12/27/22 01:02 Temperature Pulse Rate 62 Pulse Rate [Left Brachial] Respiratory Rate 16 Blood Pressure 104/58 Blood Pressure [Right Arm] O2 Sat by Pulse Oximetry 97 Oxygen Delivery Method Room Air FIO2% 12/27/22 02:09 12/27/22 04:00 12/27/22 08:45 Temperature 98.2 F Pulse Rate Pulse Rate [Left Brachial] 54 L Respiratory Rate 19 20 Blood Pressure Blood Pressure [Right Arm] 145/65 O2 Sat by Pulse Oximetry 97 Oxygen Delivery Method Room Air Room Air FIO2% 12/27/22 07:00 12/27/22 08:00 12/27/22 11:35 Temperature 97.4 F L 98.7 F Pulse Rate Pulse Rate [Left Brachial] 67 54 L Respiratory Rate 18 18 Blood Pressure Blood Pressure [Right Arm] 127/65 89/55 O2 Sat by Pulse Oximetry 100 100 Oxygen Delivery Method Room Air Room Air Room Air FIO2% 12/27/22 09:45 12/27/22 12:35 12/27/22 15:54 Temperature 97.8 F 97.7 F Pulse Rate Pulse Rate [Left Brachial] 62 75 Respiratory Rate 20 18 18 Blood Pressure Blood Pressure [Right Arm] 118/57 140/69 O2 Sat by Pulse Oximetry 95 92 L Oxygen Delivery Method Room Air Room Air FIO2% 12/27/22 20:00 12/27/22 19:00 12/28/22 00:00 Temperature 97.8 F 98.8 F Pulse Rate Pulse Rate [Left Brachial] 68 69 Respiratory Rate 18 20 Blood Pressure Blood Pressure [Right Arm] 159/76 155/72 O2 Sat by Pulse Oximetry 98 95 Oxygen Delivery Method Room Air Room Air Room Air FIO2% 12/27/22 20:35 12/28/22 04:00 12/28/22 09:10 Temperature 98.3 F Pulse Rate Pulse Rate [Left Brachial] 70 Respiratory Rate 20 20 Blood Pressure Blood Pressure [Right Arm] 136/63 O2 Sat by Pulse Oximetry 98 Oxygen Delivery Method Room Air Room Air FIO2% 21 12/28/22 07:00 12/28/22 08:00 12/28/22 12:00 Temperature 97.9 F 97.2 F L Pulse Rate Pulse Rate [Left Brachial] 69 Respiratory Rate 20 20 Blood Pressure Blood Pressure [Right Arm] 155/73 122/74 O2 Sat by Pulse Oximetry 98 98 Oxygen Delivery Method Room Air Room Air Room Air FIO2% 12/28/22 10:10 12/28/22 16:00 12/28/22 20:00 Temperature 98.6 F 99.2 F Pulse Rate Pulse Rate [Left Brachial] 86 81 Respiratory Rate 20 18 18 Blood Pressure Blood Pressure [Right Arm] 127/67 167/77 O2 Sat by Pulse Oximetry 98 96 Oxygen Delivery Method Room Air Room Air FIO2% 12/28/22 21:21 12/28/22 19:00 12/29/22 00:00 Temperature 98.6 F Pulse Rate Pulse Rate [Left Brachial] 75 Respiratory Rate 20 18 Blood Pressure Blood Pressure [Right Arm] 110/60 O2 Sat by Pulse Oximetry 93 L Oxygen Delivery Method Room Air Room Air FIO2% 12/28/22 22:21 12/28/22 21:00 12/29/22 03:50 Temperature 98.5 F Pulse Rate Pulse Rate [Left Brachial] 71 Respiratory Rate 20 20 Blood Pressure Blood Pressure [Right Arm] 151/67 O2 Sat by Pulse Oximetry 97 Oxygen Delivery Method Room Air Room Air FIO2% 21 12/29/22 09:01 12/29/22 08:29 Temperature Pulse Rate Pulse Rate [Left Brachial] Respiratory Rate 20 Blood Pressure Blood Pressure [Right Arm] O2 Sat by Pulse Oximetry Oxygen Delivery Method Room Air FIO2% Labs: Laboratory Last Values WBC 6.6 X10^3/uL (3.6-10.0) 12/29/22 05:17 RBC 3.27 X10^6/uL (4.7-6.0) L 12/29/22 05:17 Hgb 10.3 g/dL (13.5-18.0) L 12/29/22 05:17 Hct 30.0 % (42.0-54.0) L 12/29/22 05:17 MCV 91.8 fL (80.0-100.0) 12/29/22 05:17 MCH 31.5 pg (27.0-34.0) 12/29/22 05:17 MCHC 34.4 g/dL (33.0-35.0) 12/29/22 05:17 RDW 16.2 % (11.6-16.5) 12/29/22 05:17 Plt Count 124 X10^3/uL (150.0-450.0) L 12/29/22 05:17 MPV 10.3 fL (7.4-11.0) 12/29/22 05:17 Neut % (Auto) 68.0 % (42.0-75.0) 12/29/22 05:17 Lymph % (Auto) 18.7 % (21.0-51.0) L 12/29/22 05:17 [place] % (Auto) 10.7 % (0.0-13.0) 12/29/22 05:17 Eos % (Auto) 2.1 % (0.9-2.9) 12/29/22 05:17 Baso % (Auto) 0.5 % (0.2-1.0) 12/29/22 05:17 Neut # (Auto) 4.5 x10^3/uL (2.2-4.8) 12/29/22 05:17 Lymph # (Auto) 1.2 X10^3/uL (1.3-2.9) L 12/29/22 05:17 [place] # (Auto) 0.7 x10^3/uL (0.3-0.8) 12/29/22 05:17 Eos # (Auto) 0.1 x10^3/uL (0.0-0.2) 12/29/22 05:17 Baso # (Auto) 0.0 X10^3/uL (0.0-0.1) 12/29/22 05:17 Absolute Nucleated RBC 0.0 /100WBC 12/29/22 05:17 Sodium 142 mmol/L (136-145) 12/29/22 05:17 Corrected Sodium TNP 12/29/22 05:17 Potassium 3.0 mmol/L (3.5-5.1) L 12/29/22 05:17 Chloride 106 mmol/L (98-107) 12/29/22 05:17 Carbon Dioxide 29.5 mmol/L (21-32) 12/29/22 05:17 BUN 12 mg/dL (7-18) 12/29/22 05:17 Creatinine 1.12 mg/dL (0.70-1.30) 12/29/22 05:17 Est GFR (MDRD) Af Amer > 60 (>60) 12/29/22 05:17 Est GFR (MDRD) Non-Af > 60 (>60) 12/29/22 05:17 Glucose 96 mg/dL (65-99) 12/29/22 05:17 POC Glucose (mg/dL) 103 mg/dL (65-99) H 12/29/22 05:25 Calcium 8.1 mg/dL (8.5-10.1) L 12/29/22 05:17 Corrected Calcium 9.1 mg/dL (8.5-10.1) 12/29/22 05:17 Magnesium 1.6 mg/dL (2.0-2.9) L 12/29/22 05:17 Total Bilirubin 0.30 mg/dL (0.2-1.0) 12/29/22 05:17 AST 19 Units/L (15-37) 12/29/22 05:17 ALT 35 Units/L (12-78) 12/29/22 05:17 Alkaline Phosphatase 87 Units/L (46-116) 12/29/22 05:17 Creatine Kinase 211 Units/L (39-308) 12/26/22 22:13 Troponin I High Sens 12.8 ng/L (4.0-60.0) 12/26/22 22:13 Total Protein 5.9 g/dL (6.4-8.2) L 12/29/22 05:17 Albumin 2.8 g/dL (3.4-5.0) L 12/29/22 05:17 Globulin 3.1 g/dL (2.5-4.5) 12/29/22 05:17 Albumin/Globulin Ratio 0.9 Ratio (1.1-2.1) L 12/29/22 05:17 Specimen Type Clean catch urine 12/26/22 23:12 Urine Color Dark yellow (YELLOW) 12/26/22 23:12 Urine Appearance Turbid (CLEAR) 12/26/22 23:12 Urine pH 6.0 (5.0 - 8.0) 12/26/22 23:12 Ur Specific [place] 1.015 (1.000-1.030) 12/26/22 23:12 Urine Protein 3+ (NEGATIVE) 12/26/22 23:12 Urine Glucose (UA) Negative (NEGATIVE) 12/26/22 23:12 Urine Ketones Negative (NEGATIVE) 12/26/22 23:12 Urine Blood 4+ (NEGATIVE) 12/26/22 23:12 Urine Nitrite Negative (NEGATIVE) 12/26/22 23:12 Urine Bilirubin 1+ (NEGATIVE) 12/26/22 23:12 Urine Urobilinogen 1+ (NORMAL) 12/26/22 23:12 Ur Leukocyte Esterase 3+ (NEGATIVE) 12/26/22 23:12 Urine RBC Tntc /HPF (0-3) A 12/26/22 23:12 Urine WBC Tntc /HPF (0-5) A 12/26/22 23:12 Ur Squamous Epith Cells Moderate /HPF (NEGATIVE) 12/26/22 23:12 Amorphous Sediment 2+ /HPF (NEGATIVE) 12/26/22 23:12 Urine Bacteria 1+ /HPF (NEGATIVE) 12/26/22 23:12 Ur Culture Indicated? Yes/culture set up 12/26/22 23:12 Stl Occult Blood (IFOB) Negative (NEGATIVE) 12/27/22 03:42 Stl C. diff Tox B Gene Negative (NEGATIVE) 12/27/22 03:42 Stl C. diff [id number] Presumptive negative (NEGATIVE) 12/27/22 03:42 SARS-CoV-2 (PCR) Negative (NEGATIVE) 12/26/22 22:41 Cryptosporid parvum Ag Negative (NEGATIVE) 12/27/22 03:42 Giardia lamblia Ag Negative (NEGATIVE) 12/27/22 03:42 Influenza Type A (PCR) Negative (NEGATIVE) 12/26/22 22:41 Influenza Type B (PCR) Negative (NEGATIVE) 12/26/22 22:41 RSV (PCR) Negative (NEGATIVE) 12/26/22 22:41 Reason For Visit: SYNCOPAL EPISODE, ACUTE ON CHRONIC RENAL FAILURE, Discharge Date Discharge Date: 12/29/22 Discharge Diagnosis All Active Problems (Updated 12/28/22 @ 07:21 by Scott Nagel) Acute kidney injury (Acute) Hypokalemia (Acute) Acute cystitis (Acute) Contusion of forearm, left (Acute) Contusion of hand, left (Acute) Sprain of hand, left (Acute) Asymptomatic hypertensive urgency (Acute) Chest pain (Acute) Abdominal pain, acute, epigastric (Acute) Pericardial effusion (Acute) Pleural effusion (Acute) Sinusitis (Acute) Generalized weakness (Acute) CHF (congestive heart failure) (Acute) Muscle strain (Acute) Partial thickness burn of finger of right hand (Acute) Hypertension (Acute) Other headache syndrome (Acute) Hypertension (Acute) Headache (Acute) Back pain (Acute) Chest pain (Acute) Hypertension, uncontrolled (Acute) Generalized OA (Acute) Arthritis pain, shoulder (Acute) Hypertension (Acute) Chronic lower back pain (Acute) Headache (Acute) Near syncope (Acute) Nonspecific chest pain (Acute) Urinary tract infection (Acute) Headache (Acute) DJD (degenerative joint disease), lumbar (Acute) Arthritis of lumbar spine (Acute) Heart palpitations (Acute) Hypokalemia (Acute) Isidro catheter problem (Acute) Seizure (Acute) Hypotension (Acute) Acute GI bleeding (Acute) History of prostate biopsy (Acute) Symptomatic anemia (Acute) Hyperglycemia (Acute) COPD with acute exacerbation (Acute) Acute bronchitis (Acute) Hypoxemia (Acute) Acute respiratory distress (Acute) Elevated d-dimer (Acute) Acute renal failure (Acute) Chronic lower back pain (Chronic) Cardiomegaly (Chronic) Arthritis (Chronic) Chronic pain disorder (Chronic) Degenerative arthritis of left shoulder region (Chronic) Chronic lumbar pain (Chronic) Chronic kidney disease (CKD) (Chronic) Plan of Treatment: Continue with present treatment and follow up plan. Pt is to keep follow up appointment as instructed and take medications as ordered. Discharge Medications Discharge Medications: caffeine Allergy (Unknown, Verified 12/03/22 20:21) lisinopril Allergy (Unknown, Verified 12/03/22 20:21) Penicillins Allergy (Unknown, Verified 12/03/22 20:21) chocolate flavor Allergy (Verified 12/03/22 20:21) ibuprofen [From Motrin] Allergy (Verified 12/03/22 20:21) Chocolate Allergy (Unknown, Uncoded 12/03/22 20:21) CONTINUE taking the following medications albuterol sulfate 90 mcg/actuation aerosol inhaler 2 puff inhalation QID PRN 12/26/22 [History] amlodipine 5 mg tablet 5 mg PO QDAY 12/26/22 [History] carvedilol 6.25 mg tablet 6.25 mg PO BID 12/26/22 [History] colchicine 0.6 mg tablet 0.6 mg PO BID 12/26/22 [History] diclofenac sodium 1 % topical gel 4 g topical QID 12/26/22 [History] divalproex 250 mg tablet,extended release 24 hr 250 mg PO QDAY 12/26/22 [History] ipratropium bromide 0.02 % solution for inhalation 2.5 ml inhalation Q6H PRN 12/26/22 [History] isosorbide mononitrate 30 mg tablet,extended release 24 hr 30 mg PO QDAY 12/26/22 [History] losartan 50 mg tablet 50 mg PO QDAY 12/26/22 [History] nitroglycerin 0.4 mg sublingual tablet 0.4 mg sublingual Q5M PRN 12/26/22 [History] nystatin 100,000 unit/gram topical cream 1 applic topical BID 12/26/22 [History] sertraline 50 mg tablet 50 mg PO QDAY 12/26/22 [History] sildenafil 100 mg tablet 100 mg PO QDAY PRN 12/26/22 [History] sitagliptin phosphate 100 mg tablet (Januvia) 100 mg PO QDAY 12/26/22 [History] temazepam 15 mg capsule 15 mg PO QHS PRN 12/26/22 [History] Discharge Disposition Discharge Disposition: Home Discharge Condition: Stable Discharge Plan Discharge Plan Hospital Course: Pt is a 62 year old male past medical history of diabetes mellitus and hypertension admitted for acute cystitis, acute kidney injury, and hypokalemia. His hospital/treatment course included: IVF NS@125ml/h, and antibiotics: IV Ciprofloxacin. Potassium was repleted per protocol. He was given immodium for diarrhea. Labs/imaging: Wbc 6.6, Hgb 10.3, Plt 124, Na 142, K 3(received potassium before discharge), Creatinine 1.12, Glucose 96, Influenza negative, Urine and stool culture negative. Pt responded well to treatments. Symptoms resolved, likely viral given negative culture results. Pt discharged in stable condition, instructed to follow up with pcp in 1 week. Patient Disposition: 01 HOME, SELF-CARE Condition: Stable Health Concerns: Post Hospitalization: new medications and changes needed to prevent readmission or further decline. Pt educated and given instructions on all concerns. Care Plan Goals: Problem: Pain/Alteration in Comfort Goal: Improve/ Resolve Pain; Achieve Pain Tolerance Instructions: Take pain medications as prescribed. Contact your primary care provider if your pain is unrelieved or worsens. Follow up with primary care provider as directed. Plan of Treatment: Continue with present treatment and follow up plan. Pt is to keep follow up carlos eduardo ointment as instructed and take medications as ordered. Prescriptions: No Action aspirin 81 mg Tablet 81 mg PO DAILY temazepam 15 mg Capsule 15 mg PO QHS PRN Januvia 100 mg Tablet 100 mg PO QDAY losartan 50 mg Tablet 50 mg PO QDAY carvedilol 6.25 mg Tablet 6.25 mg PO BID Rx Instructions: must administer with a meal/food isosorbide mononitrate 30 mg Tablet Extended Release 24 Hr 30 mg PO QDAY amlodipine 5 mg Tablet 5 mg PO QDAY sildenafil 100 mg Tablet 100 mg PO QDAY PRN Rx Instructions: administer 30 minutes to 4 hours before activity nystatin 100,000 unit/gram Cream 1 applic TOPICAL BID nitroglycerin 0.4 mg Tablet, Sublingual 0.4 mg SUBLINGUAL Q5M PRN Rx Instructions: do not exceed 3 doses per episode albuterol sulfate 90 mcg/actuation Hfa Aerosol Inhaler 2 puff INHALATION QID PRN colchicine 0.6 mg Tablet 0.6 mg PO BID sertraline 50 mg Tablet 50 mg PO QDAY ipratropium bromide 0.02 % Solution 2.5 ml INHALATION Q6H PRN divalproex 250 mg Tablet Extended Release 24 Hr 250 mg PO QDAY diclofenac sodium 1 % Gel 4 g TOPICAL QID Rx Instructions: apply to single knee, ankle, foot; for foot includes sole/toes/top of foot latanoprost 0.005 % drops 1 drp OPHTHALMIC (EYE) DAILY Label Comments: [NO ORIGINAL SIG] buspirone 5 mg tablet 2 tab PO BID metformin 500 mg tablet 1 tab PO BID tizanidine 4 mg tablet 1 tab PO BID famotidine 40 mg tablet 1 tab PO BID topiramate 25 mg tablet 1 tab PO QDAY oxycodone-acetaminophen 10-325 mg tablet 1 tab PO TID PRN tamsulosin 0.4 mg capsule 1 cap PO QDAY gabapentin 800 mg tablet 1 tab PO TID simvastatin 20 mg tablet 1 tab PO QPM montelukast 10 mg tablet 1 tab PO QDAY fluticasone propionate 50 mcg/actuation spray,suspension 1 spray INTRANASAL QDAY finasteride 5 mg tablet 1 tab PO QDAY Orders to Discharge Patient Discharge Orders: Discharge (Routine); Ordered 12/29/22 Ordered By: Scott Nagel Follow ups/Referrals Follow ups/Referrals: KRUNAL PERDOMO [Primary Care Provider] - 01/02/23 11:00 am Instructions Instructions: Steps to Quit Smoking, [id number], Diarrhea, Adult, Health Risks of Smoking, Hypokalemia, Food Choices to Help Relieve Diarrhea, Adult, Near-Syncope, [id number], Diarrhea, Adult, [id number]
[2022-12-29 10:42] VITALS: BP 141/64
== END 2022-12-29 15:35 | disposition home or self-care (01) ==
LOC: U 22:00 → ER 22:00 → U 12-27 01:01 → MED/SURG 12-27 11:21
PROVIDERS: ADMIT Family Medicine; ATTEND Family Medicine

== ENCOUNTER 2023-10-16 10:12 | Observation (INO) ==
--- NOTE | 2023-10-16 10:31 | DR.AMS ---
HPI Time Seen Time Seen by Provider: 10/16/23 10:20 PMH PMH Past Medical History: Arthritis, Coronary Artery Disease, Depression, Diabetes, Dyslipidemia, GERD and Hypertension Past Surgical History: Yes Surgical History: Abdominal Surgery, Ortho Surgery and Other Family History Family Medical History: Diabetes Mellitus, Cancer, [place], Coronary Artery Disease and Hypertension Social History Do you use any recreational Drugs:: No PE Vitals Vital Signs: Temp Pulse Resp BP Pulse Ox 10/16/23 17:00 119/62 10/16/23 17:00 67 36 H 95 10/16/23 16:45 72 41 H 96 10/16/23 16:45 121/65 10/16/23 16:30 125/66 10/16/23 16:30 68 33 H 93 L 10/16/23 16:15 67 37 H 91 L 10/16/23 16:15 129/64 10/16/23 16:01 134/61 10/16/23 16:01 68 31 H 93 L 10/16/23 16:00 68 23 94 L 10/16/23 15:45 74 26 H 94 L 10/16/23 15:45 113/52 10/16/23 15:30 122/62 10/16/23 15:30 66 32 H 92 L 10/16/23 16:12 18 10/16/23 15:16 135/62 10/16/23 15:16 65 26 H 92 L 10/16/23 15:15 67 33 H 93 L 10/16/23 15:00 110/59 10/16/23 15:00 68 37 H 92 L 10/16/23 14:45 116/59 10/16/23 14:45 63 41 H 92 L 10/16/23 14:30 117/65 10/16/23 14:30 65 40 H 93 L 10/16/23 14:16 64 33 H 92 L 10/16/23 14:16 109/59 10/16/23 14:15 66 41 H 88 L 10/16/23 14:00 138/63 10/16/23 14:00 64 30 H 92 L 10/16/23 13:45 63 41 H 91 L 10/16/23 13:45 127/63 10/16/23 13:34 124/68 10/16/23 13:34 64 26 H 94 L 10/16/23 13:30 64 26 H 93 L 10/16/23 13:15 58 L 24 93 L 10/16/23 13:06 58 L 36 H 93 L 10/16/23 12:45 138/70 10/16/23 12:45 59 L 21 93 L 10/16/23 12:30 57 L 22 93 L 10/16/23 12:30 131/68 10/16/23 12:15 123/67 10/16/23 12:15 60 22 93 L 10/16/23 12:00 59 L 21 93 L 10/16/23 12:00 120/66 10/16/23 12:00 120/66 10/16/23 11:46 118/68 10/16/23 11:46 60 23 92 L 10/16/23 11:45 59 L 23 94 L 10/16/23 11:30 112/59 10/16/23 11:30 59 L 22 93 L 10/16/23 11:26 60 23 92 L 10/16/23 11:26 109/59 10/16/23 11:15 76/50 10/16/23 11:15 65 27 H 88 L 10/16/23 11:06 91/49 10/16/23 11:06 63 24 93 L 10/16/23 11:00 63 23 67 L 10/16/23 10:45 66 31 H 10/16/23 10:31 105/55 10/16/23 10:31 70 30 H 96 10/16/23 10:30 72 34 H 95 10/16/23 10:28 62 27 H 90 L 10/16/23 10:20 98.0 F 67 16 94/50 93 L ROR Labs Reviewed 10/16/23 10:35 10/16/23 10:48 Laboratory: 10/16/23 10:54 Stool - Final WBC 4.9 X10^3/uL (3.6-10.0) 10/16/23 10:35 RBC 3.62 X10^6/uL (4.7-6.0) L 10/16/23 10:35 Hgb 11.7 g/dL (13.5-18.0) L 10/16/23 10:35 Hct 35.9 % (42.0-54.0) L 10/16/23 10:35 MCV 99.1 fL (80.0-100.0) 10/16/23 10:35 MCH 32.4 pg (27.0-34.0) 10/16/23 10:35 MCHC 32.7 g/dL (33.0-35.0) L 10/16/23 10:35 RDW 18.1 % (11.6-16.5) H 10/16/23 10:35 Plt Count 148 X10^3/uL (150.0-450.0) L 10/16/23 10:35 MPV 9.6 fL (7.4-11.0) 10/16/23 10:35 Neut % (Auto) 56.7 % (42.0-75.0) 10/16/23 10:35 Lymph % (Auto) 26.1 % (21.0-51.0) 10/16/23 10:35 [place] % (Auto) 16.2 % (0.0-13.0) H 10/16/23 10:35 Eos % (Auto) 0.4 % (0.9-2.9) L 10/16/23 10:35 Baso % (Auto) 0.6 % (0.2-1.0) 10/16/23 10:35 Neut # (Auto) 2.8 x10^3/uL (2.2-4.8) 10/16/23 10:35 Lymph # (Auto) 1.3 X10^3/uL (1.3-2.9) 10/16/23 10:35 [place] # (Auto) 0.8 x10^3/uL (0.3-0.8) 10/16/23 10:35 Eos # (Auto) 0.0 x10^3/uL (0.0-0.2) 10/16/23 10:35 Baso # (Auto) 0.0 X10^3/uL (0.0-0.1) 10/16/23 10:35 Absolute Nucleated RBC 0.2 /100WBC 10/16/23 10:35 Sodium 140 mmol/L (136-145) 10/16/23 10:48 Corrected Sodium 141 mmol/L (136-145) 10/16/23 10:48 Potassium 3.8 mmol/L (3.5-5.1) 10/16/23 10:48 Chloride 105 mmol/L (98-107) 10/16/23 10:48 Carbon Dioxide 20.6 mmol/L (21-32) L 10/16/23 10:48 BUN 36 mg/dL (7-18) H 10/16/23 10:48 Creatinine 2.52 mg/dL (0.70-1.30) H 10/16/23 10:48 Est GFR (MDRD) Af Amer 33 (>60) L 10/16/23 10:48 Est GFR (MDRD) Non-Af 28 (>60) L 10/16/23 10:48 Glucose 127 mg/dL (65-99) H 10/16/23 10:48 Lactic Acid 1.5 mmol/L (0.4-2.0) 10/16/23 10:48 Calcium 8.3 mg/dL (8.5-10.1) L 10/16/23 10:48 Corrected Calcium 9.0 mg/dL (8.5-10.1) 10/16/23 10:48 Total Bilirubin 0.30 mg/dL (0.2-1.0) 10/16/23 10:48 AST 79 Units/L (15-37) H 10/16/23 10:48 ALT 27 Units/L (12-78) 10/16/23 10:48 Alkaline Phosphatase 79 Units/L (46-116) 10/16/23 10:48 Ammonia < 10 umol/L (11-32) L 10/16/23 10:48 Creatine Kinase 1900 Units/L (39-308) H 10/16/23 10:48 Troponin I High Sens 197.7 ng/L (4.0-60.0) H* 10/16/23 13:33 Total Protein 7.5 g/dL (6.4-8.2) 10/16/23 10:48 Albumin 3.1 g/dL (3.4-5.0) L 10/16/23 10:48 Globulin 4.4 g/dL (2.5-4.5) 10/16/23 10:48 Albumin/Globulin Ratio 0.7 Ratio (1.1-2.1) L 10/16/23 10:48 Specimen Type Clean catch urine 10/16/23 13:35 Urine Color Yellow (YELLOW) 10/16/23 13:35 Urine Appearance Clear (CLEAR) 10/16/23 13:35 Urine pH 5.0 (5.0 - 8.0) 10/16/23 13:35 Ur Specific [place] 1.025 (1.000-1.030) 10/16/23 13:35 Urine Protein 1+ (NEGATIVE) 10/16/23 13:35 Urine Glucose (UA) Negative (NEGATIVE) 10/16/23 13:35 Urine Ketones Negative (NEGATIVE) 10/16/23 13:35 Urine Blood 2+ (NEGATIVE) 10/16/23 13:35 Urine Nitrite Negative (NEGATIVE) 10/16/23 13:35 Urine Bilirubin Negative (NEGATIVE) 10/16/23 13:35 Urine Urobilinogen Normal (NORMAL) 10/16/23 13:35 Ur Leukocyte Esterase Negative (NEGATIVE) 10/16/23 13:35 Urine RBC 0-2 /HPF (0-3) 10/16/23 13:35 Urine WBC None seen /HPF (0-5) 10/16/23 13:35 Ur Squamous Epith Cells Rare /HPF (NEGATIVE) 10/16/23 13:35 Urine Bacteria Trace /HPF (NEGATIVE) 10/16/23 13:35 Hyaline Casts Many /LPF (NEGATIVE) 10/16/23 13:35 Urine Mucus Rare /HPF (NEGATIVE) 10/16/23 13:35 Ur Culture Indicated? No/not indicated 10/16/23 13:35 Stl Occult Blood (IFOB) Negative (NEGATIVE) 10/16/23 10:54 Stool for White Cells Positive (NEGATIVE) A 10/16/23 10:54 Stl C. diff Tox B Gene Negative (NEGATIVE) 10/16/23 10:54 Stl C. diff [id number] Presumptive negative (NEGATIVE) 10/16/23 10:54 SARS-CoV-2 (PCR) Negative (NEGATIVE) 10/16/23 11:04 Cryptosporid parvum Ag Negative (NEGATIVE) 10/16/23 10:54 Giardia lamblia Ag Negative (NEGATIVE) 10/16/23 10:54 Influenza Type A (PCR) Positive (NEGATIVE) A 10/16/23 11:04 Influenza Type B (PCR) Negative (NEGATIVE) 10/16/23 11:04 RSV (PCR) Negative (NEGATIVE) 10/16/23 11:04 Opioid Opioid Risk Tool Age (Vimal box if 16-45): No History of Preadolescent Sexual Abuse: No Total: 0 Total Score Risk Category: Low Risk Copyright: Kristofer RUIZ predicting aberrant behaviors Discharge Plan Diagnosis Discharge Problem: Hypotensive episode, Elevated troponin, Acute dehydration, Influenza A Diarrhea Qualifiers: Diarrhea type: unspecified type Qualified Code(s): R19.7 - Diarrhea, unspecified Discharge Plan Patient Disposition: 01 HOME, SELF-CARE Condition: Stable Orders to Discharge Patient Discharge Orders: Transfer (Routine); Ordered 10/16/23 Ordered By: CATERINA SOMMERS
--- NOTE | 2023-10-16 10:46 | EKG ---
Test Reason : hypotension Blood Pressure : */* mmHG Vent. Rate : 67 BPM Atrial Rate : 67 BPM P-R Int : 162 ms QRS Dur : 104 ms QT Int : 386 ms P-R-T Axes : 65 -57 45 degrees QTc Int : 407 ms Normal sinus rhythm Left anterior fascicular block Minimal voltage criteria for LVH, may be normal variant ( Margaret product ) Nonspecific T wave abnormality Abnormal ECG When compared with ECG of 21-AUG-2023 21:22, No significant change was found Confirmed by Shivam Purvis ([id number]) on 10/17/2023 7:48:15 AM Referred By: Confirmed By: Shivam Purvis
[2023-10-16 11:17] LABS: BASOPHILS % (AUTO) 0.6 % (0.2-1.0); EOSINOPHILS % (AUTO) 0.4 % (0.9-2.9); HEMATOCRIT 35.9 % (42.0-54.0); HEMOGLOBIN 11.7 g/dL (13.5-18.0); LYMPHOCYTES # (AUTO) 1.3 X10^3/uL (1.3-2.9); LYMPHOCYTES % (AUTO) 26.1 % (21.0-51.0); MEAN CORPUSCULAR HEMOGLOBIN 32.4 pg (27.0-34.0); MEAN CORPUSCULAR HGB CONC 32.7 g/dL (33.0-35.0); MEAN CORPUSCULAR VOLUME 99.1 fL (80.0-100.0); MEAN PLATELET VOLUME 9.6 fL (7.4-11.0); MONOCYTES # (AUTO) 0.8 x10^3/uL (0.3-0.8); MONOCYTES % (AUTO) 16.2 % (0.0-13.0); NEUTROPHILS # (AUTO) 2.8 x10^3/uL (2.2-4.8); NEUTROPHILS % (AUTO) 56.7 % (42.0-75.0); PLATELET COUNT 148 X10^3/uL (150.0-450.0); RED BLOOD COUNT 3.62 X10^6/uL (4.7-6.0); RED CELL DISTRIBUTION WIDTH 18.1 % (11.6-16.5); WHITE BLOOD COUNT 4.9 X10^3/uL (3.6-10.0)
[2023-10-16] MEDS ORDERED: NS 1,000 ML IV 1,000 ML ONE (11:17)
[2023-10-16 11:18] LABS: AMMONIA < 10 umol/L (11-32)
[2023-10-16] MEDS: NS 1,000 ML IV 1,000 ML IV ONE (11:20)
[2023-10-16 12:03] LABS: ALANINE AMINOTRANSFERASE 27 Units/L (12-78); ALBUMIN 3.1 g/dL (3.4-5.0); ALKALINE PHOSPHATASE 79 Units/L (46-116); ASPARTATE AMINO TRANSFERASE 79 Units/L (15-37); BLOOD UREA NITROGEN 36 mg/dL (7-18); CALCIUM 8.3 mg/dL (8.5-10.1); CARBON DIOXIDE 20.6 mmol/L (21-32); CHLORIDE 105 mmol/L (98-107); COR NA(FOR HYPERGLY) 141 mmol/L (136-145); CREATININE 2.52 mg/dL (0.70-1.30); GLUCOSE 127 mg/dL (65-99); POTASSIUM 3.8 mmol/L (3.5-5.1); SODIUM 140 mmol/L (136-145); TOTAL PROTEIN 7.5 g/dL (6.4-8.2); eGFR NON BLACK RACES 28 (>60)
[2023-10-16 12:12] LABS: CREATINE KINASE 1900 Units/L (39-308)
[2023-10-16 12:13] LABS: CRYPTOSPORIDIUM PARVUM ANTIGEN NEGATIVE (NEGATIVE); GIARDIA LAMBLIA ANTIGEN NEGATIVE (NEGATIVE)
--- NOTE | 2023-10-16 13:18 | RAD ---
EXAM:CHEST, 1 VIEWHISTORY:ALTERED MENTAL STATUS; LOW BPCOMPARISON:Prior study or studies were utilized for comparison during interpretation with the most relevant dated 06/13/2023TECHNIQUE:CHEST, 1 VIEWFINDINGS:Chest:Lines and tubes: Cardiac leads overlie the chest.Mediastinum: Cardiomegaly.Pulmonary vessels: No pulmonary vascular congestion.Lung lea: No suspicious airspace opacity.Pleura: No effusion. No pneumothorax.Bones and soft tissues: No acute osseous or soft tissue abnormality.IMPRESSION:1. No acute cardiopulmonary abnormalityTHIS IS AN ELECTRONICALLY VERIFIED FINAL REPORT10/16/2023 1:14 PM - Electronically signed by Willie Glaser MD
[2023-10-16 13:42] LABS: BILIRUBIN,URINE NEGATIVE (NEGATIVE); BLOOD/HEMOGLOBIN,URINE 2+ (NEGATIVE); GLUCOSE, URINE NEGATIVE (NEGATIVE); KETONES,URINE NEGATIVE (NEGATIVE); LEUKOCYTE ESTERASE ,URINE NEGATIVE (NEGATIVE); NITRITES,URINE NEGATIVE (NEGATIVE); PROTEIN,URINE 1+ (NEGATIVE); UROBILINOGEN,URINE NORMAL (NORMAL)
[2023-10-16 13:58] LABS: APPEARANCE,URINE CLEAR (CLEAR); BACTERIA,URINE TRACE /HPF (NEGATIVE); COLOR,URINE YELLOW (YELLOW); RBC,URINE 0-2 /HPF (0-3); SQUAMOUS EPITHELIAL CELL,UR RARE /HPF (NEGATIVE)
[2023-10-16 13:59] LABS: HYALINE CASTS, URINE MANY /LPF (NEGATIVE)
--- NOTE | 2023-10-16 14:23 | CT ---
EXAM:ABDOMEN/PELVIS W/O CONHISTORY:DIARRHEA;COMPARISON:August 21, 2023TECHNIQUE:Multiple axial images of the abdomen and pelvis were obtained from the lung bases to the pubic symphysis without the administration of IV contrast. Dose reduction techniques including Automated Exposure Control (AEC) and adjustment of mA and kV were utilized.FINDINGS:The visualized portions of the lung bases demonstrates some mild atelectasis in the left lung base. The solid organs are otherwise unchanged in their noncontrasted appearance. A right renal cyst is again noted. Vascular calcifications are noted along with atherosclerosis of the aorta with no evidence for any aneurysmal dilatation.. The gallbladder is surgically absent.. No significant mesenteric lymphadenopathy or stranding can be observed. No free fluid or free air is seen within the abdomen. No bowel wall thickening or bowel dilatation is present. The colon is unremarkable. Specifically, there is no diverticulosis noted within the sigmoid colon. The appendix appears normal in its size the urinary bladder is grossly unremarkable. The bony structures are grossly intact.IMPRESSION:No acute intra-abdominal or intrapelvic findings are identified.Mild left basilar atelectasis.THIS IS AN ELECTRONICALLY VERIFIED FINAL REPORT10/16/2023 2:09 PM - Electronically signed by Toño Roldan MD
[2023-10-16] MEDS ORDERED: TYLENOL 325 MG TAB PO ONE (16:08)
[2023-10-16] MEDS: TYLENOL 325 MG TAB PO ONE (16:12)
[2023-10-16 18:10] VITALS: BMI 30.7
[2023-10-16] MEDS: NS 1,000 ML IV 1,000 ML IV SCH (18:31)
[2023-10-16] MEDS ORDERED: TAMIFLU PO SCH (21:00)
[2023-10-16] MEDS: TAMIFLU PO SCH (21:33)
[2023-10-16] MEDS: ROCEPHIN VIAL 1 GRAM 1 G in NS 100 ML IV 100 ML IV SCH (21:45)
[2023-10-17] MEDS ORDERED: TYLENOL 325 MG TAB PO ONE (04:41)
[2023-10-17] MEDS: TYLENOL 325 MG TAB PO PRN (05:16)
[2023-10-17 05:31] LABS: BASOPHILS % (AUTO) 0.2 % (0.2-1.0); EOSINOPHILS % (AUTO) 0.9 % (0.9-2.9); HEMATOCRIT 34.8 % (42.0-54.0); HEMOGLOBIN 11.6 g/dL (13.5-18.0); LYMPHOCYTES # (AUTO) 0.9 X10^3/uL (1.3-2.9); MEAN CORPUSCULAR HEMOGLOBIN 32.8 pg (27.0-34.0); MEAN CORPUSCULAR HGB CONC 33.4 g/dL (33.0-35.0); MEAN CORPUSCULAR VOLUME 98.4 fL (80.0-100.0); MEAN PLATELET VOLUME 8.9 fL (7.4-11.0); MONOCYTES # (AUTO) 0.6 x10^3/uL (0.3-0.8); MONOCYTES % (AUTO) 18.9 % (0.0-13.0); NEUTROPHILS # (AUTO) 1.5 x10^3/uL (2.2-4.8); PLATELET COUNT 135 X10^3/uL (150.0-450.0); RED BLOOD COUNT 3.53 X10^6/uL (4.7-6.0)
[2023-10-17 05:44] LABS: ALANINE AMINOTRANSFERASE 25 Units/L (12-78); ALBUMIN 2.6 g/dL (3.4-5.0); ALKALINE PHOSPHATASE 71 Units/L (46-116); ASPARTATE AMINO TRANSFERASE 49 Units/L (15-37); BLOOD UREA NITROGEN 28 mg/dL (7-18); CALCIUM 7.7 mg/dL (8.5-10.1); CARBON DIOXIDE 22.5 mmol/L (21-32); CHLORIDE 110 mmol/L (98-107); COR CA(FOR HYPOALB) 8.8 mg/dL (8.5-10.1); CREATININE 1.58 mg/dL (0.70-1.30); GLUCOSE 92 mg/dL (65-99); MAGNESIUM 2.2 mg/dL (2.0-2.9); POTASSIUM 3.6 mmol/L (3.5-5.1); SODIUM 143 mmol/L (136-145); TOTAL PROTEIN 6.3 g/dL (6.4-8.2); eGFR NON BLACK RACES 47 (>60)
[2023-10-17 05:58] LABS: INR 1.02 (0.8-1.3)
[2023-10-17] MEDS ORDERED: CONSULT PHARMACY - POTASSIUM & MAGNESIUM XX SCH ×2 (07:00)
[2023-10-17] MEDS: MICRO K EXTEN CAP 10 MEQ PO SCH (09:40)
[2023-10-17] MEDS: LOVENOX INJ 40 MG SYR SC SCH (09:41)
[2023-10-17] MEDS: TAMIFLU PO SCH (10:00)
--- NOTE | 2023-10-17 11:04 | RAD ---
EXAM:CHEST, 1 VIEWHISTORY:FLU, SOB;COMPARISON:October 16, 2023FINDINGS:Mild cardiomegaly.No acute airspace disease.No pneumothorax or effusion.The bony thorax appears age appropriate.IMPRESSION:Mild cardiomegaly.THIS IS AN ELECTRONICALLY VERIFIED FINAL REPORT10/17/2023 11:01 AM - Electronically signed by Christiano Desouza DO
--- NOTE | 2023-10-17 15:46 | DR.H&P ---
H&P History & Physical for Day of: H&P Date: 10/16/23 Chief Complaint Chief Complaint: LETHARGIC, SOB, FEVER Allergies Allergies Allergy/AdvReac Type Severity Reaction Status Date / Time caffeine Allergy Unknown Verified 10/16/23 10:57 lisinopril Allergy Unknown Verified 10/16/23 10:57 Penicillins Allergy Unknown Verified 10/16/23 10:57 chocolate flavor Allergy Verified 10/16/23 10:57 ibuprofen [From Motrin] Allergy Verified 10/16/23 10:57 History of Present Illness History of Present Illness: PT IS 62 BM, ER ADMISSION AFTER ARRIVING WITH CO AMS, LETHARGIC, SICK WITH FLU FOR OVER A WEEK, DEHYDRATED AND HYPOTENSIVE. PT WAS HYPOTENSIVE IN THE ER ON ARRIVAL, LABS REVEALED DEHDYRATION WITH ACUTE RENAL IMPAIRMENT AND ABNORMAL CE. PT HAS PMH OF DM, HTN, COPD, OA, ESTUARDO, MDD AND GERD. PT WAS ADMITTED TO ICU FOR EVALUATION AND TREATMENT OF ACUTE ILLNESS. Past Medical History Past Medical History: Arthritis, Coronary Artery Disease, Depression, Diabetes, Dyslipidemia, GERD and Hypertension Past Surgical History Surgical History: Abdominal Surgery, Ortho Surgery and Other Family History Family Medical History: Diabetes Mellitus, Cancer, [place], Coronary Artery Disease and Hypertension Social History Does patient currently use any type of tobacco product: No Have you used tobacco products in the last 12 months: No Type of Tobacco Use: Cigarettes Does any household member use tobacco: No Alcohol Use: None Drug Use: None Medications Home Medications: Home Medications Medication Instructions Recorded Confirmed Type finasteride 5 mg tablet 5 mg PO QDAY 04/06/22 10/16/23 History gabapentin 800 mg tablet 800 mg PO TID 04/06/22 10/16/23 History latanoprost 0.005 % eye drops 1 drp ophthalmic (eye) DAILY 04/06/22 10/16/23 History montelukast 10 mg tablet 10 mg PO QDAY 04/06/22 10/16/23 History oxycodone-acetaminophen 10 mg-325 1 tab PO TID PRN 04/06/22 10/16/23 History mg tablet simvastatin 20 mg tablet 20 mg PO QPM 04/06/22 10/16/23 History tamsulosin 0.4 mg capsule 0.4 mg PO QDAY 04/06/22 10/16/23 History tizanidine 4 mg tablet 4 mg PO BID PRN 04/06/22 10/16/23 History topiramate 25 mg tablet 25 mg PO QDAY 04/06/22 10/16/23 History albuterol sulfate 90 mcg/actuation 2 puff inhalation QID PRN 12/26/22 10/16/23 History aerosol inhaler amlodipine 5 mg tablet 5 mg PO QDAY 12/26/22 10/16/23 History carvedilol 6.25 mg tablet 6.25 mg PO BID 12/26/22 10/16/23 History divalproex 250 mg tablet,extended 250 mg PO QDAY 12/26/22 10/16/23 History release 24 hr isosorbide mononitrate 30 mg 30 mg PO QDAY 12/26/22 10/16/23 History tablet,extended release 24 hr losartan 50 mg tablet 50 mg PO QDAY 12/26/22 10/16/23 History nitroglycerin 0.4 mg sublingual 0.4 mg sublingual Q5M PRN 12/26/22 10/16/23 History tablet sildenafil 100 mg tablet 100 mg PO QDAY PRN 12/26/22 10/16/23 History furosemide 20 mg tablet 20 mg PO DAILY 08/21/23 10/16/23 History sitagliptin phosphate 100 mg 100 mg PO DAILY 08/21/23 10/16/23 History tablet (Januvia) trazodone 50 mg tablet 50 mg PO HS 08/21/23 10/16/23 History bupropion HCl 300 mg 24 hr tablet, 300 mg PO DAILY 10/16/23 10/16/23 History extended release buspirone 10 mg tablet 10 mg PO BID PRN 10/16/23 10/16/23 History Labs 10/17/23 04:30 10/17/23 04:30 Labs: 10/16/23 10:54 Stool Stool Culture - Preliminary 10/16/23 10:54 Stool - Final Laboratory WBC 3.0 X10^3/uL (3.6-10.0) L 10/17/23 04:30 RBC 3.53 X10^6/uL (4.7-6.0) L 10/17/23 04:30 Hgb 11.6 g/dL (13.5-18.0) L 10/17/23 04:30 Hct 34.8 % (42.0-54.0) L 10/17/23 04:30 MCV 98.4 fL (80.0-100.0) 10/17/23 04:30 MCH 32.8 pg (27.0-34.0) 10/17/23 04:30 MCHC 33.4 g/dL (33.0-35.0) 10/17/23 04:30 RDW 18.0 % (11.6-16.5) H 10/17/23 04:30 Plt Count 135 X10^3/uL (150.0-450.0) L 10/17/23 04:30 MPV 8.9 fL (7.4-11.0) 10/17/23 04:30 Neut % (Auto) 49.0 % (42.0-75.0) 10/17/23 04:30 Lymph % (Auto) 31.0 % (21.0-51.0) 10/17/23 04:30 [place] % (Auto) 18.9 % (0.0-13.0) H 10/17/23 04:30 Eos % (Auto) 0.9 % (0.9-2.9) 10/17/23 04:30 Baso % (Auto) 0.2 % (0.2-1.0) 10/17/23 04:30 Neut # (Auto) 1.5 x10^3/uL (2.2-4.8) L 10/17/23 04:30 Lymph # (Auto) 0.9 X10^3/uL (1.3-2.9) L 10/17/23 04:30 [place] # (Auto) 0.6 x10^3/uL (0.3-0.8) 10/17/23 04:30 Eos # (Auto) 0.0 x10^3/uL (0.0-0.2) 10/17/23 04:30 Baso # (Auto) 0.0 X10^3/uL (0.0-0.1) 10/17/23 04:30 Absolute Nucleated RBC 0.1 /100WBC 10/17/23 04:30 PT 13.2 SECONDS (11.8-14.3) 10/17/23 04:30 INR Target Range - 10/17/23 04:30 INR 1.02 (0.8-1.3) 10/17/23 04:30 APTT 29.5 SECONDS (22.9-36.5) 10/17/23 04:30 PTT Comment - 10/17/23 04:30 Sodium 143 mmol/L (136-145) 10/17/23 04:30 Corrected Sodium TNP 10/17/23 04:30 Potassium 3.6 mmol/L (3.5-5.1) 10/17/23 04:30 Chloride 110 mmol/L (98-107) H 10/17/23 04:30 Carbon Dioxide 22.5 mmol/L (21-32) 10/17/23 04:30 BUN 28 mg/dL (7-18) H 10/17/23 04:30 Creatinine 1.58 mg/dL (0.70-1.30) H 10/17/23 04:30 Est GFR (MDRD) Af Amer 57 (>60) L 10/17/23 04:30 Est GFR (MDRD) Non-Af 47 (>60) L 10/17/23 04:30 Glucose 92 mg/dL (65-99) 10/17/23 04:30 Lactic Acid 1.5 mmol/L (0.4-2.0) 10/16/23 10:48 Calcium 7.7 mg/dL (8.5-10.1) L 10/17/23 04:30 Corrected Calcium 8.8 mg/dL (8.5-10.1) 10/17/23 04:30 Magnesium 2.2 mg/dL (2.0-2.9) 10/17/23 04:30 Total Bilirubin 0.20 mg/dL (0.2-1.0) 10/17/23 04:30 AST 49 Units/L (15-37) H 10/17/23 04:30 ALT 25 Units/L (12-78) 10/17/23 04:30 Alkaline Phosphatase 71 Units/L (46-116) 10/17/23 04:30 Ammonia < 10 umol/L (11-32) L 10/16/23 10:48 Creatine Kinase 866 Units/L (39-308) H 10/17/23 07:22 Troponin I High Sens 132.1 ng/L (4.0-60.0) H* 10/17/23 07:22 Total Protein 6.3 g/dL (6.4-8.2) L 10/17/23 04:30 Albumin 2.6 g/dL (3.4-5.0) L 10/17/23 04:30 Globulin 3.7 g/dL (2.5-4.5) 10/17/23 04:30 Albumin/Globulin Ratio 0.7 Ratio (1.1-2.1) L 10/17/23 04:30 Specimen Type Clean catch urine 10/16/23 13:35 Urine Color Yellow (YELLOW) 10/16/23 13:35 Urine Appearance Clear (CLEAR) 10/16/23 13:35 Urine pH 5.0 (5.0 - 8.0) 10/16/23 13:35 Ur Specific [place] 1.025 (1.000-1.030) 10/16/23 13:35 Urine Protein 1+ (NEGATIVE) 10/16/23 13:35 Urine Glucose (UA) Negative (NEGATIVE) 10/16/23 13:35 Urine Ketones Negative (NEGATIVE) 10/16/23 13:35 Urine Blood 2+ (NEGATIVE) 10/16/23 13:35 Urine Nitrite Negative (NEGATIVE) 10/16/23 13:35 Urine Bilirubin Negative (NEGATIVE) 10/16/23 13:35 Urine Urobilinogen Normal (NORMAL) 10/16/23 13:35 Ur Leukocyte Esterase Negative (NEGATIVE) 10/16/23 13:35 Urine RBC 0-2 /HPF (0-3) 10/16/23 13:35 Urine WBC None seen /HPF (0-5) 10/16/23 13:35 Ur Squamous Epith Cells Rare /HPF (NEGATIVE) 10/16/23 13:35 Urine Bacteria Trace /HPF (NEGATIVE) 10/16/23 13:35 Hyaline Casts Many /LPF (NEGATIVE) 10/16/23 13:35 Urine Mucus Rare /HPF (NEGATIVE) 10/16/23 13:35 Ur Culture Indicated? No/not indicated 10/16/23 13:35 Stl Occult Blood (IFOB) Negative (NEGATIVE) 10/16/23 10:54 Stool for White Cells Positive (NEGATIVE) A 10/16/23 10:54 Stl C. diff Tox B Gene Negative (NEGATIVE) 10/16/23 10:54 Stl C. diff [id number] Presumptive negative (NEGATIVE) 10/16/23 10:54 SARS-CoV-2 (PCR) Negative (NEGATIVE) 10/16/23 11:04 Cryptosporid parvum Ag Negative (NEGATIVE) 10/16/23 10:54 Giardia lamblia Ag Negative (NEGATIVE) 10/16/23 10:54 Influenza Type A (PCR) Positive (NEGATIVE) A 10/16/23 11:04 Influenza Type B (PCR) Negative (NEGATIVE) 10/16/23 11:04 RSV (PCR) Negative (NEGATIVE) 10/16/23 11:04 Review of Systems Constitutional: Fever, Chills, Weakness and Malaise Eyes: No Symptoms Reported ENT: Nose Discharge, Nose Congestion and Mouth Pain Respiratory: Cough, SOB with Excertion and Wheezing Cardiovascular: Edema Gastrointestinal: Nausea Genitourinary: Frequency Musculoskeletal: Back Pain Skin: No Symptoms Reported Neurological: Weakness Physical Exam Vital Signs: Vital Signs Temperature 97.3 F Temperature 97.3 F Pulse Rate 75 Pulse Rate 95 Pulse Rate 72 Pulse Rate 66 Pulse Rate 69 Pulse Rate 93 Respiratory Rate 30 Respiratory Rate 23 Respiratory Rate 23 Respiratory Rate 29 Respiratory Rate 27 Respiratory Rate 21 Blood Pressure 155/68 Blood Pressure 155/72 Blood Pressure 137/74 Blood Pressure 132/67 Blood Pressure 154/72 Blood Pressure 123/59 O2 Sat by Pulse Oximetry 96 O2 Sat by Pulse Oximetry 95 O2 Sat by Pulse Oximetry 96 O2 Sat by Pulse Oximetry 95 O2 Sat by Pulse Oximetry 98 O2 Sat by Pulse Oximetry 93 Oriented: Person and Place Eyes: negative Blurred Vision Ear: Normal Nose: Discharge Throat: Exudate and Dry Respiratory: Diminished Throughout and Wheezes Throughout Cardiovascular: Tachycardia : Normal Auscultation: Bowel Sounds: Normal Palpation: negative Spleen Enlarged Tenderness: Diffuse Skin: Decreased Turgur Musculoskeletal: Back:Lumbar and Motor Deficit Psychiatric: Normal Mood Description: Calm Affect: Normal Speech Pattern: Clear Assessment/Plan (1) Hypotension: Qualifiers: Hypotension type: unspecified hypotension type Qualified Code(s): I95.9 - Hypotension, unspecified Narrative Support Text: ADMIT, IV HYDRATION, BP CONTROL SUPPLEMENTAL O2, STRICT I&OS RESP THERAPY, BLOOD, URINE SPUTUM CULTURE ON ADMISSION IV ATBX, VERIFY HOME MEDICATION TAMIFLU PO, SERIAL CE AND EKG Status: Acute (2) Generalized weakness: Status: Acute (3) Influenza A: Status: Acute (4) Rhabdomyolysis: Status: Acute (5) COPD (chronic obstructive pulmonary disease) with acute bronchitis: Status: Acute (6) Elevated troponin: Status: Acute
[2023-10-17] MEDS: COZAAR PO SCH (18:10)
[2023-10-18 04:47] LABS: BASOPHILS % (AUTO) 0.2 % (0.2-1.0); EOSINOPHILS % (AUTO) 1.1 % (0.9-2.9); HEMOGLOBIN 12.6 g/dL (13.5-18.0); LYMPHOCYTES % (AUTO) 29.7 % (21.0-51.0); MEAN CORPUSCULAR HEMOGLOBIN 32.2 pg (27.0-34.0); MEAN CORPUSCULAR HGB CONC 33.1 g/dL (33.0-35.0); MEAN CORPUSCULAR VOLUME 97.4 fL (80.0-100.0); MEAN PLATELET VOLUME 8.7 fL (7.4-11.0); MONOCYTES # (AUTO) 0.6 x10^3/uL (0.3-0.8); MONOCYTES % (AUTO) 18.4 % (0.0-13.0); NEUTROPHILS # (AUTO) 1.7 x10^3/uL (2.2-4.8); NEUTROPHILS % (AUTO) 50.6 % (42.0-75.0); PLATELET COUNT 131 X10^3/uL (150.0-450.0); RED BLOOD COUNT 3.91 X10^6/uL (4.7-6.0); RED CELL DISTRIBUTION WIDTH 17.6 % (11.6-16.5); WHITE BLOOD COUNT 3.3 X10^3/uL (3.6-10.0)
[2023-10-18 05:04] LABS: ALANINE AMINOTRANSFERASE 28 Units/L (12-78); ALKALINE PHOSPHATASE 79 Units/L (46-116); ASPARTATE AMINO TRANSFERASE 49 Units/L (15-37); BLOOD UREA NITROGEN 11 mg/dL (7-18); CALCIUM 8.2 mg/dL (8.5-10.1); CHLORIDE 103 mmol/L (98-107); CREATININE 0.97 mg/dL (0.70-1.30); GLUCOSE 89 mg/dL (65-99); POTASSIUM 3.5 mmol/L (3.5-5.1); SODIUM 135 mmol/L (136-145); TOTAL PROTEIN 7.1 g/dL (6.4-8.2); eGFR NON BLACK RACES > 60 (>60)
[2023-10-18] MEDS ORDERED: NovoLIN R (or HumuLIN R) SC PRN (09:29)
[2023-10-18] MEDS: NICOTINE PATCH TD ONE (09:50)
[2023-10-18] MEDS: COREG TAB 6.25 MG PO SCH (09:50)
[2023-10-18] MEDS: LASIX PO SCH (09:50)
[2023-10-18] MEDS: JANUVIA PO SCH (09:51)
[2023-10-18] MEDS: FLOMAX PO SCH (09:52)
[2023-10-18] MEDS: WELLBUTRIN XL 300 MG (DAILY) PO SCH (09:52)
[2023-10-18] MEDS: NICOTINE PATCH TD SCH (10:00)
--- NOTE | 2023-10-18 11:02 | RAD ---
EXAM: CHEST, 1 VIEW HISTORY: COPD, CHF, FLU; PROSTATE CANCER, CARPAL TUNNEL SX, NECK SX, PANCREASE SX, PROSTATE SX, HIGH BLOOD OR ESSURE, DIABETES, KIDNEY PROBLEMS COMPARISON: No relevant prior studies were available for comparison at the time of interpretation. TECHNIQUE: CHEST, 1 VIEW FINDINGS: Chest: Lines and tubes: Cardiac leads overlie the chest. Mediastinum: Cardiomegaly. Pulmonary vessels: No pulmonary vascular congestion. Lung lea: No suspicious airspace opacity. Pleura: No effusion. No pneumothorax. Bones and soft tissues: No acute osseous or soft tissue abnormality. IMPRESSION: 1. No acute cardiopulmonary abnormality THIS IS AN ELECTRONICALLY VERIFIED FINAL REPORT 10/18/2023 10:59 AM - Electronically signed by Willie Glaser MD
[2023-10-18] MEDS: NS + KCL 20 MEQ/L 1,000 ML IV SCH (11:49)
[2023-10-18] MEDS ORDERED: CONSULT PHARMACY - POTASSIUM & MAGNESIUM XX SCH (12:00)
[2023-10-18] MEDS: ZOFRAN INJ 4 MG VIAL IVP PRN (12:50)
--- NOTE | 2023-10-18 17:16 | PCM.PROG ---
Progress Note Progress Note for Day of Date of Exam: 10/17/23 Subjective Subjective: PT IS 62 BM, ER ADMISSION AFTER ARRIVING WITH CO JEB, RAAD, SICK WITH FLU FOR OVER A WEEK. ER WORK UP REVEALED DEHYDRATION WITH ACUTE RENAL IMPAIREMENT, HYPOTENSION, AND ABNORMAL CE. UPON ADMISSION, HE HAS BEEN TREATED WITH IV HYDRATION, IV ATBX, AND TAMIFLU. MORNING LABS- WBC 3.0, HGB 11.4, BUN 28/CREATININE 1.58. CREATININE KINASE DOWN TO 866 FROM 1361 YESTERDAY AND TROPONIN 132.1 FROM 175.2 YESTERDAY. BLOOD PRESSURE HAS IMPROVED- 132/67 THIS MORNING. HE WAS FEBRILE DURING THE NIGHT, AFEBRILE THIS MORNING. HIS 02 SAT MAINTAINING 95-99% ON ROOM AIR. MORNING CHEST XRAY SHOWED MILD CARDIOMEGALY. PT DENIES CHEST PAIN, SOB, DIZZINESS. STATES HE FEELS SOME IMPROVED. Past Medical Family Social History Allergies: Allergies caffeine Allergy (Unknown, Verified 10/16/23 10:57) Reason: Drug allergy lisinopril Allergy (Unknown, Verified 10/16/23 10:57) Reason: Drug allergy Penicillins Allergy (Unknown, Verified 10/16/23 10:57) chocolate flavor Allergy (Verified 10/16/23 10:57) ibuprofen [From Motrin] Allergy (Verified 10/16/23 10:57) Vital Signs and I&O's Vital Signs: Vital Signs Pulse Rate 75 Pulse Rate 95 Pulse Rate 72 Respiratory Rate 18 Respiratory Rate 30 Respiratory Rate 23 Respiratory Rate 23 Blood Pressure 155/68 Blood Pressure 155/72 Blood Pressure 137/74 O2 Sat by Pulse Oximetry 96 O2 Sat by Pulse Oximetry 95 O2 Sat by Pulse Oximetry 96 Intake and Output: Intake & Output 10/15/23 10/16/23 10/17/23 10/18/23 11:59 11:59 11:59 11:59 Intake Total 1910 / 1910 Output Total 900 / 900 700 / 700 Balance 1010 / 1010 -700 / -700 Physical Exam Oriented: Person and Place Eyes: negative Blurred Vision Ear: Normal Nose: Discharge Throat: Exudate and Dry Respiratory: Diminished Cardiovascular: Tachycardia : Normal Auscultation: Bowel Sounds: Normal Tenderness: Diffuse Skin: Decreased Turgur Musculoskeletal: Back:Lumbar and Motor Deficit Psychiatric: Normal Mood Description: Calm Affect: Normal Speech Pattern: Clear Laboratory and Diagnostics 10/18/23 04:20 10/18/23 04:20 Labs: 10/16/23 10:54 Stool Stool Culture - Preliminary 10/16/23 10:54 Stool - Final Laboratory WBC 3.0 X10^3/uL (3.6-10.0) L 10/17/23 04:30 RBC 3.53 X10^6/uL (4.7-6.0) L 10/17/23 04:30 Hgb 11.6 g/dL (13.5-18.0) L 10/17/23 04:30 Hct 34.8 % (42.0-54.0) L 10/17/23 04:30 MCV 98.4 fL (80.0-100.0) 10/17/23 04:30 MCH 32.8 pg (27.0-34.0) 10/17/23 04:30 MCHC 33.4 g/dL (33.0-35.0) 10/17/23 04:30 RDW 18.0 % (11.6-16.5) H 10/17/23 04:30 Plt Count 135 X10^3/uL (150.0-450.0) L 10/17/23 04:30 MPV 8.9 fL (7.4-11.0) 10/17/23 04:30 Neut % (Auto) 49.0 % (42.0-75.0) 10/17/23 04:30 Lymph % (Auto) 31.0 % (21.0-51.0) 10/17/23 04:30 [place] % (Auto) 18.9 % (0.0-13.0) H 10/17/23 04:30 Eos % (Auto) 0.9 % (0.9-2.9) 10/17/23 04:30 Baso % (Auto) 0.2 % (0.2-1.0) 10/17/23 04:30 Neut # (Auto) 1.5 x10^3/uL (2.2-4.8) L 10/17/23 04:30 Lymph # (Auto) 0.9 X10^3/uL (1.3-2.9) L 10/17/23 04:30 [place] # (Auto) 0.6 x10^3/uL (0.3-0.8) 10/17/23 04:30 Eos # (Auto) 0.0 x10^3/uL (0.0-0.2) 10/17/23 04:30 Baso # (Auto) 0.0 X10^3/uL (0.0-0.1) 10/17/23 04:30 Absolute Nucleated RBC 0.1 /100WBC 10/17/23 04:30 PT 13.2 SECONDS (11.8-14.3) 10/17/23 04:30 INR Target Range - 10/17/23 04:30 INR 1.02 (0.8-1.3) 10/17/23 04:30 APTT 29.5 SECONDS (22.9-36.5) 10/17/23 04:30 PTT Comment - 10/17/23 04:30 Sodium 143 mmol/L (136-145) 10/17/23 04:30 Corrected Sodium TNP 10/17/23 04:30 Potassium 3.6 mmol/L (3.5-5.1) 10/17/23 04:30 Chloride 110 mmol/L (98-107) H 10/17/23 04:30 Carbon Dioxide 22.5 mmol/L (21-32) 10/17/23 04:30 BUN 28 mg/dL (7-18) H 10/17/23 04:30 Creatinine 1.58 mg/dL (0.70-1.30) H 10/17/23 04:30 Est GFR (MDRD) Af Amer 57 (>60) L 10/17/23 04:30 Est GFR (MDRD) Non-Af 47 (>60) L 10/17/23 04:30 Glucose 92 mg/dL (65-99) 10/17/23 04:30 Lactic Acid 1.5 mmol/L (0.4-2.0) 10/16/23 10:48 Calcium 7.7 mg/dL (8.5-10.1) L 10/17/23 04:30 Corrected Calcium 8.8 mg/dL (8.5-10.1) 10/17/23 04:30 Magnesium 2.2 mg/dL (2.0-2.9) 10/17/23 04:30 Total Bilirubin 0.20 mg/dL (0.2-1.0) 10/17/23 04:30 AST 49 Units/L (15-37) H 10/17/23 04:30 ALT 25 Units/L (12-78) 10/17/23 04:30 Alkaline Phosphatase 71 Units/L (46-116) 10/17/23 04:30 Ammonia < 10 umol/L (11-32) L 10/16/23 10:48 Creatine Kinase 866 Units/L (39-308) H 10/17/23 07:22 Troponin I High Sens 132.1 ng/L (4.0-60.0) H* 10/17/23 07:22 Total Protein 6.3 g/dL (6.4-8.2) L 10/17/23 04:30 Albumin 2.6 g/dL (3.4-5.0) L 10/17/23 04:30 Globulin 3.7 g/dL (2.5-4.5) 10/17/23 04:30 Albumin/Globulin Ratio 0.7 Ratio (1.1-2.1) L 10/17/23 04:30 Specimen Type Clean catch urine 10/16/23 13:35 Urine Color Yellow (YELLOW) 10/16/23 13:35 Urine Appearance Clear (CLEAR) 10/16/23 13:35 Urine pH 5.0 (5.0 - 8.0) 10/16/23 13:35 Ur Specific [place] 1.025 (1.000-1.030) 10/16/23 13:35 Urine Protein 1+ (NEGATIVE) 10/16/23 13:35 Urine Glucose (UA) Negative (NEGATIVE) 10/16/23 13:35 Urine Ketones Negative (NEGATIVE) 10/16/23 13:35 Urine Blood 2+ (NEGATIVE) 10/16/23 13:35 Urine Nitrite Negative (NEGATIVE) 10/16/23 13:35 Urine Bilirubin Negative (NEGATIVE) 10/16/23 13:35 Urine Urobilinogen Normal (NORMAL) 10/16/23 13:35 Ur Leukocyte Esterase Negative (NEGATIVE) 10/16/23 13:35 Urine RBC 0-2 /HPF (0-3) 10/16/23 13:35 Urine WBC None seen /HPF (0-5) 10/16/23 13:35 Ur Squamous Epith Cells Rare /HPF (NEGATIVE) 10/16/23 13:35 Urine Bacteria Trace /HPF (NEGATIVE) 10/16/23 13:35 Hyaline Casts Many /LPF (NEGATIVE) 10/16/23 13:35 Urine Mucus Rare /HPF (NEGATIVE) 10/16/23 13:35 Ur Culture Indicated? No/not indicated 10/16/23 13:35 Stl Occult Blood (IFOB) Negative (NEGATIVE) 10/16/23 10:54 Stool for White Cells Positive (NEGATIVE) A 10/16/23 10:54 Stl C. diff Tox B Gene Negative (NEGATIVE) 10/16/23 10:54 Stl C. diff [id number] Presumptive negative (NEGATIVE) 10/16/23 10:54 SARS-CoV-2 (PCR) Negative (NEGATIVE) 10/16/23 11:04 Cryptosporid parvum Ag Negative (NEGATIVE) 10/16/23 10:54 Giardia lamblia Ag Negative (NEGATIVE) 10/16/23 10:54 Influenza Type A (PCR) Positive (NEGATIVE) A 10/16/23 11:04 Influenza Type B (PCR) Negative (NEGATIVE) 10/16/23 11:04 RSV (PCR) Negative (NEGATIVE) 10/16/23 11:04 Plan (1) Hypotension: Status: Acute Qualifiers: Hypotension type: unspecified hypotension type Qualified Code(s): I95.9 - Hypotension, unspecified Narrative Support Text: IV HYDRATION, IV ATBX, BP CONTROL SUPPLEMENTAL O2, STRICT I&OS RESP THERAPY, TAMIFLU PO (2) Generalized weakness: Status: Acute (3) Influenza A: Status: Acute (4) Rhabdomyolysis: Status: Acute (5) COPD (chronic obstructive pulmonary disease) with acute bronchitis: Status: Acute (6) Elevated troponin: Status: Acute
--- NOTE | 2023-10-18 17:22 | PCM.PROG ---
Progress Note Progress Note for Day of Date of Exam: 10/18/23 Subjective Subjective: PT IS 62 BM, ER ADMISSION AFTER ARRIVING WITH CO AMS, LETHARY, SICK WITH FLU FOR OVER A WEEK. ER WORK UP REVEALED DEHYDRATION WITH ACUTE RENAL IMPAIREMENT, HYPOTENSION. BUN 11/CREATININE 0.97. CREATININE KINASE IMPROVING WITH GENTLE HYDRATION. BLOOD PRESSURE HAS IMPROVED- 132/67 THIS MORNING. HE WAS FEBRILE DURING THE NIGHT, AFEBRILE THIS MORNING. HIS 02 SAT MAINTAINING 95-99% ON ROOM AIR. MORNING CHEST XRAY NOT AVAILABE FOR REVIEW ON MORNING ROUNDS. PT DENIES CHEST PAIN, SOB, DIZZINESS. STATES HE FEELS SOME IMPROVED. Past Medical Family Social History Allergies: Allergies caffeine Allergy (Unknown, Verified 10/16/23 10:57) Reason: Drug allergy lisinopril Allergy (Unknown, Verified 10/16/23 10:57) Reason: Drug allergy Penicillins Allergy (Unknown, Verified 10/16/23 10:57) chocolate flavor Allergy (Verified 10/16/23 10:57) ibuprofen [From Motrin] Allergy (Verified 10/16/23 10:57) Vital Signs and I&O's Vital Signs: Vital Signs Temperature 98.3 F Pulse Rate 65 Pulse Rate 68 Respiratory Rate 18 Respiratory Rate 29 Blood Pressure 147/71 Blood Pressure 181/83 O2 Sat by Pulse Oximetry 95 O2 Sat by Pulse Oximetry 96 Intake and Output: Intake & Output 10/16/23 10/17/23 10/18/23 10/19/23 11:59 11:59 11:59 11:59 Intake Total 1910 / 1910 2857 / 2857 559 / 559 Output Total 900 / 900 3425 / 3425 850 / 850 Balance 1010 / 1010 -568 / -568 -291 / -291 Physical Exam Oriented: Person and Place Eyes: negative Blurred Vision Ear: Normal Nose: Discharge Throat: Exudate and Dry Respiratory: Diminished Cardiovascular: Tachycardia : Normal Auscultation: Bowel Sounds: Normal Tenderness: Diffuse Skin: Decreased Turgur Musculoskeletal: Back:Lumbar and Motor Deficit Psychiatric: Normal Mood Description: Calm Affect: Normal Speech Pattern: Clear and Appropriate Laboratory and Diagnostics 10/18/23 04:20 10/18/23 04:20 Labs: 10/16/23 10:48 Blood Blood Culture - Preliminary 10/16/23 10:35 Blood Blood Culture - Preliminary 10/16/23 10:54 Stool Stool Culture - Final 10/16/23 10:54 Stool - Final Laboratory WBC 3.3 X10^3/uL (3.6-10.0) L 10/18/23 04:20 RBC 3.91 X10^6/uL (4.7-6.0) L 10/18/23 04:20 Hgb 12.6 g/dL (13.5-18.0) L 10/18/23 04:20 Hct 38.0 % (42.0-54.0) L 10/18/23 04:20 MCV 97.4 fL (80.0-100.0) 10/18/23 04:20 MCH 32.2 pg (27.0-34.0) 10/18/23 04:20 MCHC 33.1 g/dL (33.0-35.0) 10/18/23 04:20 RDW 17.6 % (11.6-16.5) H 10/18/23 04:20 Plt Count 131 X10^3/uL (150.0-450.0) L 10/18/23 04:20 MPV 8.7 fL (7.4-11.0) 10/18/23 04:20 Neut % (Auto) 50.6 % (42.0-75.0) 10/18/23 04:20 Lymph % (Auto) 29.7 % (21.0-51.0) 10/18/23 04:20 [place] % (Auto) 18.4 % (0.0-13.0) H 10/18/23 04:20 Eos % (Auto) 1.1 % (0.9-2.9) 10/18/23 04:20 Baso % (Auto) 0.2 % (0.2-1.0) 10/18/23 04:20 Neut # (Auto) 1.7 x10^3/uL (2.2-4.8) L 10/18/23 04:20 Lymph # (Auto) 1.0 X10^3/uL (1.3-2.9) L 10/18/23 04:20 [place] # (Auto) 0.6 x10^3/uL (0.3-0.8) 10/18/23 04:20 Eos # (Auto) 0.0 x10^3/uL (0.0-0.2) 10/18/23 04:20 Baso # (Auto) 0.0 X10^3/uL (0.0-0.1) 10/18/23 04:20 Absolute Nucleated RBC 0.1 /100WBC 10/18/23 04:20 PT 13.2 SECONDS (11.8-14.3) 10/17/23 04:30 INR Target Range - 10/17/23 04:30 INR 1.02 (0.8-1.3) 10/17/23 04:30 APTT 29.5 SECONDS (22.9-36.5) 10/17/23 04:30 PTT Comment - 10/17/23 04:30 Sodium 135 mmol/L (136-145) L 10/18/23 04:20 Corrected Sodium TNP 10/18/23 04:20 Potassium 3.5 mmol/L (3.5-5.1) 10/18/23 04:20 Chloride 103 mmol/L (98-107) 10/18/23 04:20 Carbon Dioxide 23.0 mmol/L (21-32) 10/18/23 04:20 BUN 11 mg/dL (7-18) 10/18/23 04:20 Creatinine 0.97 mg/dL (0.70-1.30) 10/18/23 04:20 Est GFR (MDRD) Af Amer > 60 (>60) 10/18/23 04:20 Est GFR (MDRD) Non-Af > 60 (>60) 10/18/23 04:20 Glucose 89 mg/dL (65-99) 10/18/23 04:20 POC Glucose (mg/dL) 107 mg/dL (65-99) H 10/18/23 12:11 Lactic Acid 1.5 mmol/L (0.4-2.0) 10/16/23 10:48 Calcium 8.2 mg/dL (8.5-10.1) L 10/18/23 04:20 Corrected Calcium 9.0 mg/dL (8.5-10.1) 10/18/23 04:20 Magnesium 1.9 mg/dL (2.0-2.9) L 10/18/23 04:20 Total Bilirubin 0.50 mg/dL (0.2-1.0) 10/18/23 04:20 AST 49 Units/L (15-37) H 10/18/23 04:20 ALT 28 Units/L (12-78) 10/18/23 04:20 Alkaline Phosphatase 79 Units/L (46-116) 10/18/23 04:20 Ammonia < 10 umol/L (11-32) L 10/16/23 10:48 Creatine Kinase 576 Units/L (39-308) H 10/18/23 04:20 Troponin I High Sens 132.1 ng/L (4.0-60.0) H* 10/17/23 07:22 Total Protein 7.1 g/dL (6.4-8.2) 10/18/23 04:20 Albumin 3.0 g/dL (3.4-5.0) L 10/18/23 04:20 Globulin 4.1 g/dL (2.5-4.5) 10/18/23 04:20 Albumin/Globulin Ratio 0.7 Ratio (1.1-2.1) L 10/18/23 04:20 Specimen Type Clean catch urine 10/16/23 13:35 Urine Color Yellow (YELLOW) 10/16/23 13:35 Urine Appearance Clear (CLEAR) 10/16/23 13:35 Urine pH 5.0 (5.0 - 8.0) 10/16/23 13:35 Ur Specific [place] 1.025 (1.000-1.030) 10/16/23 13:35 Urine Protein 1+ (NEGATIVE) 10/16/23 13:35 Urine Glucose (UA) Negative (NEGATIVE) 10/16/23 13:35 Urine Ketones Negative (NEGATIVE) 10/16/23 13:35 Urine Blood 2+ (NEGATIVE) 10/16/23 13:35 Urine Nitrite Negative (NEGATIVE) 10/16/23 13:35 Urine Bilirubin Negative (NEGATIVE) 10/16/23 13:35 Urine Urobilinogen Normal (NORMAL) 10/16/23 13:35 Ur Leukocyte Esterase Negative (NEGATIVE) 10/16/23 13:35 Urine RBC 0-2 /HPF (0-3) 10/16/23 13:35 Urine WBC None seen /HPF (0-5) 10/16/23 13:35 Ur Squamous Epith Cells Rare /HPF (NEGATIVE) 10/16/23 13:35 Urine Bacteria Trace /HPF (NEGATIVE) 10/16/23 13:35 Hyaline Casts Many /LPF (NEGATIVE) 10/16/23 13:35 Urine Mucus Rare /HPF (NEGATIVE) 10/16/23 13:35 Ur Culture Indicated? No/not indicated 10/16/23 13:35 Stl Occult Blood (IFOB) Negative (NEGATIVE) 10/16/23 10:54 Stool for White Cells Positive (NEGATIVE) A 10/16/23 10:54 Stl C. diff Tox B Gene Negative (NEGATIVE) 10/16/23 10:54 Stl C. diff [id number] Presumptive negative (NEGATIVE) 10/16/23 10:54 SARS-CoV-2 (PCR) Negative (NEGATIVE) 10/16/23 11:04 Cryptosporid parvum Ag Negative (NEGATIVE) 10/16/23 10:54 Giardia lamblia Ag Negative (NEGATIVE) 10/16/23 10:54 Influenza Type A (PCR) Positive (NEGATIVE) A 10/16/23 11:04 Influenza Type B (PCR) Negative (NEGATIVE) 10/16/23 11:04 RSV (PCR) Negative (NEGATIVE) 10/16/23 11:04 Plan (1) COPD (chronic obstructive pulmonary disease) with acute bronchitis: Status: Acute Narrative Support Text: CONTINUE IV ATBX, GENTLE IV HYDRATION PRN SUPPLEMENTAL O2 RESP THERAPY, CARDIAC MONITORING BP CONTROL, HOME MEDICATIONS REVIEWED RESUMED MOST ANTIHYPERTENSIVE MEDICATION (2) Generalized weakness: Status: Acute (3) Rhabdomyolysis: Status: Acute (4) Influenza A: Status: Acute (5) Elevated troponin: Status: Acute
[2023-10-18] MEDS: SNACK - Diabetic Appropriate PO SCH (20:30)
[2023-10-18] MEDS: ZOCOR TAB 20 MG PO SCH (21:20)
[2023-10-18] MEDS: NORCO 5/325 MG TAB PO PRN (21:22)
[2023-10-18] MEDS: TAMIFLU PO SCH (21:24)
[2023-10-19 05:21] LABS: BASOPHILS % (AUTO) 0.6 % (0.2-1.0); EOSINOPHILS # (AUTO) 0.1 x10^3/uL (0.0-0.2); HEMATOCRIT 37.7 % (42.0-54.0); HEMOGLOBIN 12.6 g/dL (13.5-18.0); LYMPHOCYTES # (AUTO) 1.3 X10^3/uL (1.3-2.9); MEAN CORPUSCULAR HEMOGLOBIN 32.3 pg (27.0-34.0); MEAN CORPUSCULAR HGB CONC 33.4 g/dL (33.0-35.0); MEAN CORPUSCULAR VOLUME 96.7 fL (80.0-100.0); MEAN PLATELET VOLUME 8.9 fL (7.4-11.0); MONOCYTES # (AUTO) 0.7 x10^3/uL (0.3-0.8); MONOCYTES % (AUTO) 22.2 % (0.0-13.0); NEUTROPHILS # (AUTO) 1.1 x10^3/uL (2.2-4.8); NEUTROPHILS % (AUTO) 34.2 % (42.0-75.0); PLATELET COUNT 125 X10^3/uL (150.0-450.0); RED CELL DISTRIBUTION WIDTH 17.4 % (11.6-16.5); WHITE BLOOD COUNT 3.1 X10^3/uL (3.6-10.0)
[2023-10-19 05:40] LABS: ALANINE AMINOTRANSFERASE 24 Units/L (12-78); ALBUMIN 2.9 g/dL (3.4-5.0); ALKALINE PHOSPHATASE 76 Units/L (46-116); ASPARTATE AMINO TRANSFERASE 32 Units/L (15-37); BLOOD UREA NITROGEN 11 mg/dL (7-18); CALCIUM 8.4 mg/dL (8.5-10.1); CARBON DIOXIDE 23.1 mmol/L (21-32); CHLORIDE 105 mmol/L (98-107); COR CA(FOR HYPOALB) 9.3 mg/dL (8.5-10.1); CREATININE 0.99 mg/dL (0.70-1.30); GLUCOSE 93 mg/dL (65-99); MAGNESIUM 1.9 mg/dL (2.0-2.9); POTASSIUM 3.7 mmol/L (3.5-5.1); SODIUM 140 mmol/L (136-145); eGFR NON BLACK RACES > 60 (>60)
[2023-10-19 05:51] LABS: BAND NEUTROPHILS % 1 % (0-10); PLATELET MORPHOLOGY COMMENT NORMAL (NORMAL)
[2023-10-19] MEDS ORDERED: CONSULT PHARMACY - POTASSIUM & MAGNESIUM XX SCH (06:00)
[2023-10-19] MEDS: COZAAR PO SCH (09:51)
[2023-10-19] MEDS: K-DUR TAB 20 MEQ PO SCH (09:53)
[2023-10-19] MEDS: MAG-OX TAB PO SCH (09:55)
[2023-10-19] MEDS: IMODIUM CAP 2 MG PO PRN (15:39)
[2023-10-19 19:53] VITALS: RESP 20
[2023-10-20 06:28] LABS: ALANINE AMINOTRANSFERASE 22 Units/L (12-78); ALKALINE PHOSPHATASE 78 Units/L (46-116); ASPARTATE AMINO TRANSFERASE 23 Units/L (15-37); BLOOD UREA NITROGEN 10 mg/dL (7-18); CALCIUM 8.5 mg/dL (8.5-10.1); CARBON DIOXIDE 23.3 mmol/L (21-32); CHLORIDE 106 mmol/L (98-107); COR CA(FOR HYPOALB) 9.3 mg/dL (8.5-10.1); COR NA(FOR HYPERGLY) 139 mmol/L (136-145); CREATININE 0.99 mg/dL (0.70-1.30); GLUCOSE 114 mg/dL (65-99); POTASSIUM 3.8 mmol/L (3.5-5.1); SODIUM 139 mmol/L (136-145); eGFR NON BLACK RACES > 60 (>60)
[2023-10-20 06:37] LABS: BASOPHILS % (AUTO) 0.4 % (0.2-1.0); EOSINOPHILS # (AUTO) 0.1 x10^3/uL (0.0-0.2); EOSINOPHILS % (AUTO) 1.8 % (0.9-2.9); HEMATOCRIT 37.2 % (42.0-54.0); HEMOGLOBIN 12.3 g/dL (13.5-18.0); LYMPHOCYTES # (AUTO) 1.6 X10^3/uL (1.3-2.9); LYMPHOCYTES % (AUTO) 33.8 % (21.0-51.0); MEAN CORPUSCULAR HEMOGLOBIN 32.1 pg (27.0-34.0); MEAN CORPUSCULAR HGB CONC 33.1 g/dL (33.0-35.0); MEAN CORPUSCULAR VOLUME 96.9 fL (80.0-100.0); MEAN PLATELET VOLUME 9.5 fL (7.4-11.0); MONOCYTES # (AUTO) 0.9 x10^3/uL (0.3-0.8); MONOCYTES % (AUTO) 18.4 % (0.0-13.0); NEUTROPHILS # (AUTO) 2.1 x10^3/uL (2.2-4.8); NEUTROPHILS % (AUTO) 45.6 % (42.0-75.0); PLATELET COUNT 121 X10^3/uL (150.0-450.0); RED BLOOD COUNT 3.84 X10^6/uL (4.7-6.0); RED CELL DISTRIBUTION WIDTH 17.3 % (11.6-16.5); WHITE BLOOD COUNT 4.7 X10^3/uL (3.6-10.0)
[2023-10-20] MEDS ORDERED: CONSULT PHARMACY - POTASSIUM & MAGNESIUM XX SCH (07:00)
[2023-10-20 08:32] VITALS: BP 150/78; PULSE 58; TEMP 97.8; O2SAT 99
[2023-10-20] MEDS: K-DUR TAB 20 MEQ PO SCH (08:42)
[2023-10-20] MEDS ORDERED: MAG-OX TAB PO SCH (09:00)
[2023-10-20 09:39] LABS: CHOL/HDL RATIO 4.5 (0.0-5.0); TSH (3RD GENERATION) 1.293 uIU/mL (0.358-3.74)
== END 2023-10-20 12:45 | disposition home health service (06) ==
LOC: SUPCPDRO → ICU 10:12 → ER 10:12 → ICU 17:30 → MED/SURG 10-18 11:19
PROVIDERS: ADMIT Internal Medicine; ATTEND Internal Medicine
DX: R77.8 Other specified abnormalities of plasma proteins; E86.0 Dehydration; R53.1 Weakness; I95.89 Other hypotension; J44.9 Chronic obstructive pulmonary disease, unspecified; Z85.46 Personal history of malignant neoplasm of prostate; R94.31 Abnormal electrocardiogram [ECG] [EKG]; R06.02 Shortness of breath; E11.65 Type 2 diabetes mellitus with hyperglycemia; J44.0 Chronic obstructive pulmonary disease with (acute) lower respiratory infection; J10.1 Influenza due to other identified influenza virus with other respiratory manifestations; K21.9 Gastro-esophageal reflux disease without esophagitis; M62.82 Rhabdomyolysis; E78.5 Hyperlipidemia, unspecified; Z20.822 Contact with and (suspected) exposure to COVID-19; J20.8 Acute bronchitis due to other specified organisms; R19.7 Diarrhea, unspecified; I10 Essential (primary) hypertension; R40.4 Transient alteration of awareness; I25.10 Atherosclerotic heart disease of native coronary artery without angina pectoris; R26.89 Other abnormalities of gait and mobility

== ENCOUNTER 2024-02-26 11:01 | Observation (INO) ==
--- NOTE | 2024-02-26 11:40 | DR.DIZZY ---
HPI Time seen Time Seen by Provider: 02/26/24 11:40 PCP Primary Care Physician: Raj Tavarez Chief Complaint:: Generalized weakness, confusion since discharge from [facility] on 02/23/24 COVID-19 Coronavirus risk:travel/contact w/high risk person: No Has patient experienced Coronavirus symptoms: No Source History Provided: Patient and EMS Mode of Arrival Mode of Arrival: EMS Timing Onset of Chief Complaint: 02/26/24 PMH PMH Past Medical History: Yes Past Medical History: Arthritis, Coronary Artery Disease, Depression, Diabetes, Dyslipidemia, GERD and Hypertension Past Surgical History: Yes Surgical History: Abdominal Surgery, Angioplasty/Stents, Ortho Surgery and Other Family History History of Family Medical Conditions: Yes Family Medical History: Diabetes Mellitus, Cancer, [place], Coronary Artery Disease and Hypertension Social History Does patient currently use any type of tobacco product: Yes Have you used tobacco products in the last 12 months: Yes Type of Tobacco Use: Cigarettes Does any household member use tobacco: Yes Alcohol Use: None Do you use any recreational Drugs:: No Lives With: Family Lives Where: Home Travel Risk Coronavirus risk:travel/contact w/high risk person: No Has patient experienced Coronavirus symptoms: No Infectious screening In the last 2 months have you had wt loss of >10#?: NO Have you had fever, night sweats or hemotysis?: No Have you traveled outside the country in the last 6 months?: No Isolation: Standard PE Vital Signs Vitals: Vital Signs Temperature 98.2 F Pulse Rate 71 Pulse Rate 76 Pulse Rate 71 Pulse Rate 71 Pulse Rate 71 Pulse Rate 68 Pulse Rate 76 Pulse Rate 68 Pulse Rate 68 Pulse Rate 68 Pulse Rate 71 Pulse Rate 69 Pulse Rate 69 Pulse Rate 70 Pulse Rate 74 Pulse Rate 68 Pulse Rate 66 Pulse Rate 69 Pulse Rate 67 Pulse Rate 70 Respiratory Rate 20 Blood Pressure 136/77 Blood Pressure 163/80 Blood Pressure 134/64 O2 Sat by Pulse Oximetry 78 O2 Sat by Pulse Oximetry 95 O2 Sat by Pulse Oximetry 100 O2 Sat by Pulse Oximetry 100 O2 Sat by Pulse Oximetry 100 O2 Sat by Pulse Oximetry 100 O2 Sat by Pulse Oximetry 100 O2 Sat by Pulse Oximetry 100 O2 Sat by Pulse Oximetry 99 O2 Sat by Pulse Oximetry 100 O2 Sat by Pulse Oximetry 100 O2 Sat by Pulse Oximetry 100 O2 Sat by Pulse Oximetry 99 O2 Sat by Pulse Oximetry 95 O2 Sat by Pulse Oximetry 100 O2 Sat by Pulse Oximetry 99 O2 Sat by Pulse Oximetry 99 O2 Sat by Pulse Oximetry 99 O2 Sat by Pulse Oximetry 100 O2 Sat by Pulse Oximetry 98 ROR Labs Reviewed 02/26/24 11:30 02/26/24 11:30 Laboratory: WBC 9.8 X10^3/uL (3.6-10.0) 02/26/24 11:30 RBC 3.25 X10^6/uL (4.7-6.0) L 02/26/24 11:30 Hgb 9.6 g/dL (13.5-18.0) L 02/26/24 11:30 Hct 29.4 % (42.0-54.0) L 02/26/24 11:30 MCV 90.6 fL (80.0-100.0) 02/26/24 11:30 MCH 29.6 pg (27.0-34.0) 02/26/24 11:30 MCHC 32.6 g/dL (33.0-35.0) L 02/26/24 11:30 RDW 19.5 % (11.6-16.5) H 02/26/24 11:30 Plt Count 318 X10^3/uL (150.0-450.0) 02/26/24 11:30 MPV 8.9 fL (7.4-11.0) 02/26/24 11:30 Neut % (Auto) 77.2 % (42.0-75.0) H 02/26/24 11:30 Lymph % (Auto) 11.2 % (21.0-51.0) L 02/26/24 11:30 [place] % (Auto) 10.1 % (0.0-13.0) 02/26/24 11:30 Eos % (Auto) 0.9 % (0.9-2.9) 02/26/24 11:30 Baso % (Auto) 0.6 % (0.2-1.0) 02/26/24 11:30 Neut # (Auto) 7.5 x10^3/uL (2.2-4.8) H 02/26/24 11:30 Lymph # (Auto) 1.1 X10^3/uL (1.3-2.9) L 02/26/24 11:30 [place] # (Auto) 1.0 x10^3/uL (0.3-0.8) H 02/26/24 11:30 Eos # (Auto) 0.1 x10^3/uL (0.0-0.2) 02/26/24 11:30 Baso # (Auto) 0.1 X10^3/uL (0.0-0.1) 02/26/24 11:30 Absolute Nucleated RBC 0.1 /100WBC 02/26/24 11:30 Sodium 139 mmol/L (136-145) 02/26/24 11:30 Corrected Sodium 139 mmol/L (136-145) 02/26/24 11:30 Potassium 3.5 mmol/L (3.5-5.1) 02/26/24 11:30 Chloride 101 mmol/L (98-107) 02/26/24 11:30 Carbon Dioxide 27.3 mmol/L (21-32) 02/26/24 11:30 BUN 29 mg/dL (7-18) H 02/26/24 11:30 Creatinine 1.82 mg/dL (0.70-1.30) H 02/26/24 11:30 Est GFR (MDRD) Af Amer 48 (>60) L 02/26/24 11:30 Est GFR (MDRD) Non-Af 40 (>60) L 02/26/24 11:30 Glucose 120 mg/dL (65-99) H 02/26/24 11:30 Calcium 9.6 mg/dL (8.5-10.1) 02/26/24 11:30 Corrected Calcium 10.8 mg/dL (8.5-10.1) H 02/26/24 11:30 Total Bilirubin 0.60 mg/dL (0.2-1.0) 02/26/24 11:30 AST 26 Units/L (15-37) 02/26/24 11:30 ALT 11 Units/L (12-78) L 02/26/24 11:30 Alkaline Phosphatase 87 Units/L (46-116) 02/26/24 11:30 Total Protein 8.4 g/dL (6.4-8.2) H 02/26/24 11:30 Albumin 2.5 g/dL (3.4-5.0) L 02/26/24 11:30 Globulin 5.9 g/dL (2.5-4.5) H 02/26/24 11:30 Albumin/Globulin Ratio 0.4 Ratio (1.1-2.1) L 02/26/24 11:30 Specimen Type Clean catch urine 02/26/24 11:44 Urine Color Dark yellow (YELLOW) 02/26/24 11:44 Urine Appearance Slightly hazy (CLEAR) 02/26/24 11:44 Urine pH 6.0 (5.0 - 8.0) 02/26/24 11:44 Ur Specific [place] 1.030 (1.000-1.030) 02/26/24 11:44 Urine Protein 2+ (NEGATIVE) 02/26/24 11:44 Urine Glucose (UA) Negative (NEGATIVE) 02/26/24 11:44 Urine Ketones Negative (NEGATIVE) 02/26/24 11:44 Urine Blood 1+ (NEGATIVE) 02/26/24 11:44 Urine Nitrite Negative (NEGATIVE) 02/26/24 11:44 Urine Bilirubin Negative (NEGATIVE) 02/26/24 11:44 Urine Urobilinogen Normal (NORMAL) 02/26/24 11:44 Ur Leukocyte Esterase 2+ (NEGATIVE) 02/26/24 11:44 Urine RBC 3-5 /HPF (0-3) A 02/26/24 11:44 Urine WBC 5-10 /HPF (0-5) A 02/26/24 11:44 Ur Squamous Epith Cells Few /HPF (NEGATIVE) 02/26/24 11:44 Amorphous Sediment 3+ /HPF (NEGATIVE) 02/26/24 11:44 Urine Bacteria 1+ /HPF (NEGATIVE) 02/26/24 11:44 Granular Casts Few /LPF (NEGATIVE) 02/26/24 11:44 Urine Mucus Few /HPF (NEGATIVE) 02/26/24 11:44 Ur Culture Indicated? No/not indicated 02/26/24 11:44 Urine Opiates Screen Negative (NEG=<300) 02/26/24 11:44 Urine Methadone Screen Negative (NEG=<300) 02/26/24 11:44 Ur Barbiturates Screen Negative (NEG=<200) 02/26/24 11:44 Ur Phencyclidine Scrn Negative (NEG=<25) 02/26/24 11:44 Ur Amphetamines Screen Positive (NEG=<1000) 02/26/24 11:44 U Benzodiazepines Scrn Negative (NEG=<200) 02/26/24 11:44 Urine Cocaine Screen Negative (NEG=<300) 02/26/24 11:44 U Marijuana (THC) Screen Negative (NEG=<50) 02/26/24 11:44 Opioid Opioid Risk Tool Age (Vimal box if 16-45): No History of Preadolescent Sexual Abuse: No Total: 0 Total Score Risk Category: Low Risk Copyright: Kristofer RUIZ predicting aberrant behaviors Discharge Plan Diagnosis Discharge Problem: Altered mental state, General weakness, UTI (urinary tract infection) Discharge Plan Patient Disposition: 09 ADMITTED INPATIENT Condition: Stable Orders to Discharge Patient Discharge Orders: Transfer (Routine); Ordered 02/26/24 Ordered By: CATERINA SOMMERS
[2024-02-26 11:56] LABS: BASOPHILS # (AUTO) 0.1 X10^3/uL (0.0-0.1); BASOPHILS % (AUTO) 0.6 % (0.2-1.0); EOSINOPHILS # (AUTO) 0.1 x10^3/uL (0.0-0.2); EOSINOPHILS % (AUTO) 0.9 % (0.9-2.9); HEMATOCRIT 29.4 % (42.0-54.0); HEMOGLOBIN 9.6 g/dL (13.5-18.0); LYMPHOCYTES # (AUTO) 1.1 X10^3/uL (1.3-2.9); LYMPHOCYTES % (AUTO) 11.2 % (21.0-51.0); MEAN CORPUSCULAR HEMOGLOBIN 29.6 pg (27.0-34.0); MEAN CORPUSCULAR HGB CONC 32.6 g/dL (33.0-35.0); MEAN CORPUSCULAR VOLUME 90.6 fL (80.0-100.0); MEAN PLATELET VOLUME 8.9 fL (7.4-11.0); MONOCYTES % (AUTO) 10.1 % (0.0-13.0); NEUTROPHILS # (AUTO) 7.5 x10^3/uL (2.2-4.8); NEUTROPHILS % (AUTO) 77.2 % (42.0-75.0); PLATELET COUNT 318 X10^3/uL (150.0-450.0); RED BLOOD COUNT 3.25 X10^6/uL (4.7-6.0); RED CELL DISTRIBUTION WIDTH 19.5 % (11.6-16.5); WHITE BLOOD COUNT 9.8 X10^3/uL (3.6-10.0)
[2024-02-26 11:56] LABS: BILIRUBIN,URINE NEGATIVE (NEGATIVE); BLOOD/HEMOGLOBIN,URINE 1+ (NEGATIVE); GLUCOSE, URINE NEGATIVE (NEGATIVE); KETONES,URINE NEGATIVE (NEGATIVE); LEUKOCYTE ESTERASE ,URINE 2+ (NEGATIVE); NITRITES,URINE NEGATIVE (NEGATIVE); PROTEIN,URINE 2+ (NEGATIVE); UROBILINOGEN,URINE NORMAL (NORMAL)
[2024-02-26 12:01] LABS: APPEARANCE,URINE SLIGHTLY HAZY (CLEAR); COLOR,URINE DARK YELLOW (YELLOW)
[2024-02-26 12:09] LABS: SQUAMOUS EPITHELIAL CELL,UR FEW /HPF (NEGATIVE)
[2024-02-26 12:10] LABS: BACTERIA,URINE 1+ /HPF (NEGATIVE); GRANULAR CASTS,URINE FEW /LPF (NEGATIVE)
--- NOTE | 2024-02-26 12:23 | CT ---
EXAM:HEAD (TRAUMA)HISTORY:Generalized weakness, confusion since discharge from [facility] on 02/23/24;COMPARISON:Prior study or studies were utilized for comparison during interpretation with the most relevant dated 02/21/2024TECHNIQUE:CT images were obtained. Multiplanar reconstructions were created on a separate workstation and used during interpretation. All CT scans at this facility is dose modulation, iterative reconstruction, and/or weight-based dosing as appropriate to reduce radiation to levels as low as reasonably achievable (ALARA). Postprocessing details, radiation dose, and contrast dose (if applicable) are recorded in the patient's medical record.FINDINGS:Head:Acute findings: There is no intracranial hemorrhage. No mass effect. No intra-axial or extra-axial fluid collection. There is no mass. No tentorial, uncal, or tonsillar herniation.Brain volume and white matter: There is diffuse cortical atrophy. There is hypoattenuation in the supratentorial white matter consistent with chronic microvascular ischemic disease.Ventricles: No hydrocephalusMidline structures: Pituitary gland and corpus callosum are normal.Posterior fossa and skull base: Cerebellum and posterior fossa are within normal limits. Basal cisterns are not effaced.Sinuses and mastoids: Scattered mucosal thickening is seen throughout the sinuses. There are bilateral maxillary antrostomies. Right frontal sinus is totally opacifiedGlobes and Orbits: Globes are intact. Bony orbits are intact. Orbital contents are unremarkable.Skull and soft tissues: No depressed skull fracture. Calvarium appears intact. No scalp injury is identified.IMPRESSION:1. No acute intracranial abnormalityTHIS IS AN ELECTRONICALLY VERIFIED FINAL REPORT02/26/2024 12:20 PM - Electronically signed by Willie Glaser MD
--- NOTE | 2024-02-26 12:25 | RAD ---
EXAM:CHEST, 1 VIEWHISTORY:Generalized weakness, confusion since discharge from [facility] on 02/23/24;COMPARISON:Prior study or studies were utilized for comparison during interpretation with the most relevant dated 01/22/2024TECHNIQUE:CHEST, 1 VIEWFINDINGS:Chest:Lines and tubes: NoneMediastinum: Borderline cardiomegaly.Pulmonary vessels: No pulmonary vascular congestion.Lung lea: No suspicious airspace opacity.Pleura: No effusion. No pneumothorax.Bones and soft tissues: No acute osseous or soft tissue abnormality.IMPRESSION:1. No acute cardiopulmonary abnormalityTHIS IS AN ELECTRONICALLY VERIFIED FINAL REPORT02/26/2024 12:22 PM - Electronically signed by Willie Glaser MD
[2024-02-26 12:47] LABS: ALBUMIN 2.5 g/dL (3.4-5.0); CALCIUM 9.6 mg/dL (8.5-10.1); CARBON DIOXIDE 27.3 mmol/L (21-32); COR CA(FOR HYPOALB) 10.8 mg/dL (8.5-10.1); CREATININE 1.82 mg/dL (0.70-1.30); POTASSIUM 3.5 mmol/L (3.5-5.1); TOTAL PROTEIN 8.4 g/dL (6.4-8.2)
[2024-02-26] MEDS: LEVAQUIN PREMIX IV 500 MG 500 MG/100 ML BAG IV ONE (14:09)
[2024-02-26] MEDS: NS 1,000 ML IV 1,000 ML IV ONE ×2 (14:09→21:51)
[2024-02-26] MEDS ORDERED: NITROSTAT SL PRN (17:14)
[2024-02-26] MEDS: NS 1,000 ML IV 1,000 ML ONE (17:35)
[2024-02-26] MEDS: CONSULT PHARMACY - ANTIBIOTIC XX SCH (17:35)
[2024-02-26] MEDS ORDERED: ZOCOR TAB 20 MG PO SCH (21:00)
[2024-02-26] MEDS: COREG TAB 6.25 MG PO SCH (21:48)
[2024-02-26] MEDS: NEURONTIN CAP 300 MG PO SCH (21:48)
[2024-02-27 01:18] VITALS: BMI 29.2
[2024-02-27] MEDS ORDERED: NovoLIN R (or HumuLIN R) SUBCUT PRN (02:48)
[2024-02-27 05:07] LABS: BASOPHILS # (AUTO) 0.1 X10^3/uL (0.0-0.1); BASOPHILS % (AUTO) 0.7 % (0.2-1.0); EOSINOPHILS # (AUTO) 0.1 x10^3/uL (0.0-0.2); HEMATOCRIT 28.2 % (42.0-54.0); HEMOGLOBIN 9.1 g/dL (13.5-18.0); LYMPHOCYTES # (AUTO) 1.2 X10^3/uL (1.3-2.9); MEAN CORPUSCULAR HEMOGLOBIN 29.2 pg (27.0-34.0); MEAN CORPUSCULAR HGB CONC 32.3 g/dL (33.0-35.0); MEAN CORPUSCULAR VOLUME 90.4 fL (80.0-100.0); MEAN PLATELET VOLUME 8.7 fL (7.4-11.0); MONOCYTES # (AUTO) 1.1 x10^3/uL (0.3-0.8); MONOCYTES % (AUTO) 9.8 % (0.0-13.0); NEUTROPHILS # (AUTO) 8.6 x10^3/uL (2.2-4.8); NEUTROPHILS % (AUTO) 77.5 % (42.0-75.0); PLATELET COUNT 305 X10^3/uL (150.0-450.0); RED BLOOD COUNT 3.12 X10^6/uL (4.7-6.0); RED CELL DISTRIBUTION WIDTH 19.5 % (11.6-16.5); WHITE BLOOD COUNT 11.1 X10^3/uL (3.6-10.0)
[2024-02-27 05:46] LABS: ALANINE AMINOTRANSFERASE 12 Units/L (12-78); ALBUMIN 2.3 g/dL (3.4-5.0); ALKALINE PHOSPHATASE 82 Units/L (46-116); ASPARTATE AMINO TRANSFERASE 18 Units/L (15-37); BLOOD UREA NITROGEN 19 mg/dL (7-18); CALCIUM 9.1 mg/dL (8.5-10.1); CARBON DIOXIDE 27.3 mmol/L (21-32); CHLORIDE 103 mmol/L (98-107); COR CA(FOR HYPOALB) 10.5 mg/dL (8.5-10.1); CREATININE 1.31 mg/dL (0.70-1.30); GLUCOSE 91 mg/dL (65-99); SODIUM 141 mmol/L (136-145); eGFR NON BLACK RACES 58 (>60)
[2024-02-27] MEDS: NS 1,000 ML IV 1,000 ML IV SCH (06:53)
[2024-02-27] MEDS ORDERED: CONSULT PHARMACY - POTASSIUM & MAGNESIUM XX SCH (08:00)
[2024-02-27] MEDS: COZAAR PO SCH (08:44)
[2024-02-27] MEDS: FLOMAX PO SCH (08:44)
[2024-02-27] MEDS: TOPAMAX PO SCH (08:45)
[2024-02-27] MEDS: LIPITOR TAB 40 MG PO SCH (08:45)
[2024-02-27] MEDS: DEPAKOTE D.R. TAB PO SCH (08:45)
[2024-02-27] MEDS: NORVASC TAB 5 MG PO SCH (08:45)
[2024-02-27] MEDS: PROSCAR PO SCH (08:45)
[2024-02-27] MEDS: IMDUR PO SCH (08:46)
[2024-02-27] MEDS: LASIX PO SCH (08:46)
[2024-02-27] MEDS: K-DUR TAB 20 MEQ PO SCH (08:48)
[2024-02-27] MEDS: LEVAQUIN PREMIX IV 750 MG 750 MG/150 ML BAG IV SCH (08:48)
[2024-02-27] MEDS ORDERED: LEVAQUIN PREMIX IV 500 MG 500 MG/100 ML BAG IV SCH (09:00)
[2024-02-27] MEDS: LOVENOX INJ 40 MG SYR SC SCH (10:42)
--- NOTE | 2024-02-27 10:47 | DR.H&P ---
H&P History & Physical for Day of: H&P Date: 02/27/24 Chief Complaint Chief Complaint: weakness, decreased PO intake History of Present Illness History of Present Illness: Mr Lucero is a 63y/o male with a PMH of CAD s/p PCI, CHF, DM, HTN, HLD presented with worsening weakness. Patient was seen here in the [facility] ER on 02/21/24 and transferred to [facility] due to EKG changes. He was discharged from there after 2 days. Family member states patient continues to be weak and unable to ambulate. He has been like this for 3 weeks. He had cardiac stenting in [place] about a month ago. He was suppose to f/u with cardiology today. She states he lives alone and has not been able to get up and move around like he used to. He has not been eating much for the past few days. Er work up showed potassium 3.0, Cr:1.82. CT-head and CXR was negative. UA was concerning for infection. UDS was positive for Amphetamines. Patient states he smokes ci [employer]', denies illicit drug use. He was started on hydration and antibiotics. Labs/imaging reviewed: -WBC 11.1 Hgb 9.1 K:3.0 BUN/Cr: 19/1.31 Ma.0 Plan: Repeat UA and urine Cx. Continue hydration. Continue Levaquin. Resume home medications. Continue telemetry. Lovenox ppx for DVT. PT/OT as tolerated. Will obtain records from [facility] from recent admission as well as [place]. Replace el ectrolytes as per protocol. Monitor AM labs/imaging. Past Medical History Past Medical History: Arthritis, Coronary Artery Disease, Depression, Diabetes, Dyslipidemia, GERD and Hypertension Past Surgical History Surgical History: Abdominal Surgery, Angioplasty/Stents and Ortho Surgery Family History Family Medical History: Diabetes Mellitus, [place], Coronary Artery Disease and Hypertension Social History Does patient currently use any type of tobacco product: No Have you used tobacco products in the last 12 months: Yes Type of Tobacco Use: Cigarettes Does any household member use tobacco: Yes Alcohol Use: None Drug Use: Methamphetamine Medications Home Medications: Home Medications Medication Instructions Recorded Confirmed Type finasteride 5 mg tablet 5 mg PO QDAY 04/06/22 02/26/24 History gabapentin 800 mg tablet 800 mg PO TID 04/06/22 02/26/24 History simvastatin 20 mg tablet 20 mg PO QPM 04/06/22 02/26/24 History tamsulosin 0.4 mg capsule 0.4 mg PO QDAY 04/06/22 02/26/24 History tizanidine 4 mg tablet 4 mg PO BID PRN 04/06/22 02/26/24 History topiramate 25 mg tablet 25 mg PO QDAY 04/06/22 02/26/24 History amlodipine 5 mg tablet 10 mg PO QDAY 12/26/22 02/26/24 History carvedilol 6.25 mg tablet 12.5 mg PO BID 12/26/22 02/26/24 History divalproex 250 mg tablet,extended 250 mg PO QDAY 12/26/22 02/26/24 History release 24 hr isosorbide mononitrate 30 mg 30 mg PO QDAY 12/26/22 02/26/24 History tablet,extended release 24 hr losartan 50 mg tablet 50 mg PO QDAY 12/26/22 02/26/24 History nitroglycerin 0.4 mg sublingual 0.4 mg sublingual Q5M PRN 12/26/22 02/26/24 History tablet furosemide 20 mg tablet 20 mg PO DAILY 08/21/23 02/26/24 History atorvastatin 40 mg tablet 40 mg PO QDAY 02/26/24 02/26/24 History Allergies Allergies Allergy/AdvReac Type Severity Reaction Status Date / Time caffeine Allergy Unknown Verified 02/21/24 20:44 lisinopril Allergy Unknown Verified 02/21/24 20:44 Penicillins Allergy Unknown Verified 02/21/24 20:44 chocolate flavor Allergy Verified 02/21/24 20:44 ibuprofen [From Motrin] Allergy Verified 02/21/24 20:44 Iodinated Contrast Media Allergy Verified 02/21/24 22:26 [IVP DYE] shrimp Allergy Verified 02/21/24 22:26 Labs 02/27/24 04:46 02/27/24 04:46 Labs: Laboratory WBC 11.1 X10^3/uL (3.6-10.0) H 02/27/24 04:46 RBC 3.12 X10^6/uL (4.7-6.0) L 02/27/24 04:46 Hgb 9.1 g/dL (13.5-18.0) L 02/27/24 04:46 Hct 28.2 % (42.0-54.0) L 02/27/24 04:46 MCV 90.4 fL (80.0-100.0) 02/27/24 04:46 MCH 29.2 pg (27.0-34.0) 02/27/24 04:46 MCHC 32.3 g/dL (33.0-35.0) L 02/27/24 04:46 RDW 19.5 % (11.6-16.5) H 02/27/24 04:46 Plt Count 305 X10^3/uL (150.0-450.0) 02/27/24 04:46 MPV 8.7 fL (7.4-11.0) 02/27/24 04:46 Neut % (Auto) 77.5 % (42.0-75.0) H 02/27/24 04:46 Lymph % (Auto) 11.0 % (21.0-51.0) L 02/27/24 04:46 [place] % (Auto) 9.8 % (0.0-13.0) 02/27/24 04:46 Eos % (Auto) 1.0 % (0.9-2.9) 02/27/24 04:46 Baso % (Auto) 0.7 % (0.2-1.0) 02/27/24 04:46 Neut # (Auto) 8.6 x10^3/uL (2.2-4.8) H 02/27/24 04:46 Lymph # (Auto) 1.2 X10^3/uL (1.3-2.9) L 02/27/24 04:46 [place] # (Auto) 1.1 x10^3/uL (0.3-0.8) H 02/27/24 04:46 Eos # (Auto) 0.1 x10^3/uL (0.0-0.2) 02/27/24 04:46 Baso # (Auto) 0.1 X10^3/uL (0.0-0.1) 02/27/24 04:46 Absolute Nucleated RBC 0.1 /100WBC 02/27/24 04:46 Sodium 141 mmol/L (136-145) 02/27/24 04:46 Corrected Sodium TNP 02/27/24 04:46 Potassium 3.0 mmol/L (3.5-5.1) L 02/27/24 04:46 Chloride 103 mmol/L (98-107) 02/27/24 04:46 Carbon Dioxide 27.3 mmol/L (21-32) 02/27/24 04:46 BUN 19 mg/dL (7-18) H 02/27/24 04:46 Creatinine 1.31 mg/dL (0.70-1.30) H 02/27/24 04:46 Est GFR (MDRD) Af Amer > 60 (>60) 02/27/24 04:46 Est GFR (MDRD) Non-Af 58 (>60) L 02/27/24 04:46 Glucose 91 mg/dL (65-99) 02/27/24 04:46 POC Glucose (mg/dL) 90 mg/dL (65-99) 02/27/24 06:11 Calcium 9.1 mg/dL (8.5-10.1) 02/27/24 04:46 Corrected Calcium 10.5 mg/dL (8.5-10.1) H 02/27/24 04:46 Magnesium 2.0 mg/dL (2.0-2.9) 02/27/24 04:46 Total Bilirubin 0.80 mg/dL (0.2-1.0) 02/27/24 04:46 AST 18 Units/L (15-37) 02/27/24 04:46 ALT 12 Units/L (12-78) 02/27/24 04:46 Alkaline Phosphatase 82 Units/L (46-116) 02/27/24 04:46 Total Protein 8.0 g/dL (6.4-8.2) 02/27/24 04:46 Albumin 2.3 g/dL (3.4-5.0) L 02/27/24 04:46 Globulin 5.7 g/dL (2.5-4.5) H 02/27/24 04:46 Albumin/Globulin Ratio 0.4 Ratio (1.1-2.1) L 02/27/24 04:46 Specimen Type Clean catch urine 02/26/24 11:44 Urine Color Dark yellow (YELLOW) 02/26/24 11:44 Urine Appearance Slightly hazy (CLEAR) 02/26/24 11:44 Urine pH 6.0 (5.0 - 8.0) 02/26/24 11:44 Ur Specific [place] 1.030 (1.000-1.030) 02/26/24 11:44 Urine Protein 2+ (NEGATIVE) 02/26/24 11:44 Urine Glucose (UA) Negative (NEGATIVE) 02/26/24 11:44 Urine Ketones Negative (NEGATIVE) 02/26/24 11:44 Urine Blood 1+ (NEGATIVE) 02/26/24 11:44 Urine Nitrite Negative (NEGATIVE) 02/26/24 11:44 Urine Bilirubin Negative (NEGATIVE) 02/26/24 11:44 Urine Urobilinogen Normal (NORMAL) 02/26/24 11:44 Ur Leukocyte Esterase 2+ (NEGATIVE) 02/26/24 11:44 Urine RBC 3-5 /HPF (0-3) A 02/26/24 11:44 Urine WBC 5-10 /HPF (0-5) A 02/26/24 11:44 Ur Squamous Epith Cells Few /HPF (NEGATIVE) 02/26/24 11:44 Amorphous Sediment 3+ /HPF (NEGATIVE) 02/26/24 11:44 Urine Bacteria 1+ /HPF (NEGATIVE) 02/26/24 11:44 Granular Casts Few /LPF (NEGATIVE) 02/26/24 11:44 Urine Mucus Few /HPF (NEGATIVE) 02/26/24 11:44 Ur Culture Indicated? No/not indicated 02/26/24 11:44 Urine Opiates Screen Negative (NEG=<300) 02/26/24 11:44 Urine Methadone Screen Negative (NEG=<300) 02/26/24 11:44 Ur Barbiturates Screen Negative (NEG=<200) 02/26/24 11:44 Ur Phencyclidine Scrn Negative (NEG=<25) 02/26/24 11:44 Ur Amphetamines Screen Positive (NEG=<1000) 02/26/24 11:44 U Benzodiazepines Scrn Negative (NEG=<200) 02/26/24 11:44 Urine Cocaine Screen Negative (NEG=<300) 02/26/24 11:44 U Marijuana (THC) Screen Negative (NEG=<50) 02/26/24 11:44 Review of Systems Constitutional: Weakness Eyes: No Symptoms Reported Respiratory: No Symptoms Reported Cardiovascular: No Symptoms Reported Gastrointestinal: No Symptoms Reported Genitourinary: No Symptoms Reported Musculoskeletal: Leg Pain Skin: No Symptoms Reported Neurological: Confusion Physical Exam Vital Signs: Vital Signs Temperature 98.2 F Pulse Rate [Right Radial] 65 Respiratory Rate 18 Blood Pressure [Left Arm] 161/70 O2 Sat by Pulse Oximetry 98 Oriented: Normal Eyes: Normal Throat: Normal Respiratory: Diminished Throughout Cardiovascular: Normal Auscultation: Bowel Sounds: Normal Palpation: Normal Tenderness: Normal Skin: Normal Musculoskeletal: Normal Psychiatric: Normal Mood Description: Calm Affect: Normal Speech Pattern: Clear and Appropriate Assessment/Plan (1) Hypokalemia: Status: Acute (2) General weakness: Status: Acute (3) Acute on chronic renal failure: Qualifiers: Acute renal failure type: unspecified Chronic kidney disease stage: unspecified stage Qualified Code(s): N17.9 - Acute kidney failure, unspecified; N18.9 - Chronic kidney disease, unspecified Status: Acute (4) UTI (urinary tract infection): Qualifiers: Urinary tract infection type: acute cystitis Hematuria presence: without hematuria Qualified Code(s): N30.00 - Acute cystitis without hematuria Status: Acute (5) COPD (chronic obstructive pulmonary disease): Qualifiers: COPD type: unspecified COPD Qualified Code(s): J44.9 - Chronic obstructive pulmonary disease, unspecified Status: Acute (6) CHF (congestive heart failure): Qualifiers: Heart failure type: unspecified Heart failure chronicity: unspecified Qualified Code(s): I50.9 - Heart failure, unspecified Status: Acute (7) Hypertension: Qualifiers: Hypertension type: primary hypertension Qualified Code(s): I10 - Essential (primary) hypertension Status: Acute (8) Coronary artery disease: Qualifiers: Coronary Disease-Associated Artery/Lesion type: unspecified vessel or lesion type [place] vs. transplanted heart: [place] heart Associated angina: without angina Qualified Code(s): I25.10 - Atherosclerotic heart disease of [place] coronary artery without angina pectoris Status: None
[2024-02-27] MEDS: ASPIRIN EC 81 MG PO SCH (12:33)
[2024-02-27] MEDS: PLAVIX PO SCH (12:33)
[2024-02-27] MEDS ORDERED: LEVAQUIN PREMIX IV 250 MG 250 MG/50 ML BAG IV SCH (14:00)
[2024-02-27 16:17] LABS: BILIRUBIN,URINE NEGATIVE (NEGATIVE); BLOOD/HEMOGLOBIN,URINE 1+ (NEGATIVE); GLUCOSE, URINE NEGATIVE (NEGATIVE); KETONES,URINE NEGATIVE (NEGATIVE); LEUKOCYTE ESTERASE ,URINE 1+ (NEGATIVE); NITRITES,URINE NEGATIVE (NEGATIVE); PH,URINE 6.5 (5.0 - 8.0); PROTEIN,URINE 1+ (NEGATIVE); UROBILINOGEN,URINE 1+ (NORMAL)
[2024-02-27 16:25] LABS: APPEARANCE,URINE SLIGHTLY HAZY (CLEAR); COLOR,URINE YELLOW (YELLOW)
[2024-02-27 16:29] LABS: BACTERIA,URINE 1+ /HPF (NEGATIVE); RBC,URINE 0-2 /HPF (0-3); SQUAMOUS EPITHELIAL CELL,UR MANY /HPF (NEGATIVE)
[2024-02-27] MEDS: SNACK - Diabetic Appropriate PO SCH (21:41)
[2024-02-28] MEDS: ZANAFLEX PO PRN (02:15)
[2024-02-28 06:49] LABS: ALANINE AMINOTRANSFERASE 10 Units/L (12-78); ALKALINE PHOSPHATASE 72 Units/L (46-116); ASPARTATE AMINO TRANSFERASE 22 Units/L (15-37); BLOOD UREA NITROGEN 13 mg/dL (7-18); CALCIUM 9.1 mg/dL (8.5-10.1); CARBON DIOXIDE 26.3 mmol/L (21-32); CHLORIDE 105 mmol/L (98-107); COR CA(FOR HYPOALB) 10.7 mg/dL (8.5-10.1); CREATININE 1.16 mg/dL (0.70-1.30); GLUCOSE 103 mg/dL (65-99); POTASSIUM 3.9 mmol/L (3.5-5.1); SODIUM 139 mmol/L (136-145); eGFR NON BLACK RACES > 60 (>60)
[2024-02-28 06:51] LABS: BASOPHILS # (AUTO) 0.1 X10^3/uL (0.0-0.1); BASOPHILS % (AUTO) 0.7 % (0.2-1.0); EOSINOPHILS # (AUTO) 0.1 x10^3/uL (0.0-0.2); EOSINOPHILS % (AUTO) 1.7 % (0.9-2.9); HEMATOCRIT 25.9 % (42.0-54.0); HEMOGLOBIN 8.4 g/dL (13.5-18.0); LYMPHOCYTES # (AUTO) 1.1 X10^3/uL (1.3-2.9); LYMPHOCYTES % (AUTO) 14.9 % (21.0-51.0); MEAN CORPUSCULAR HEMOGLOBIN 29.4 pg (27.0-34.0); MEAN CORPUSCULAR HGB CONC 32.4 g/dL (33.0-35.0); MEAN CORPUSCULAR VOLUME 90.7 fL (80.0-100.0); MEAN PLATELET VOLUME 8.6 fL (7.4-11.0); MONOCYTES # (AUTO) 0.7 x10^3/uL (0.3-0.8); MONOCYTES % (AUTO) 9.9 % (0.0-13.0); NEUTROPHILS # (AUTO) 5.1 x10^3/uL (2.2-4.8); NEUTROPHILS % (AUTO) 72.8 % (42.0-75.0); PLATELET COUNT 266 X10^3/uL (150.0-450.0); RED BLOOD COUNT 2.86 X10^6/uL (4.7-6.0); RED CELL DISTRIBUTION WIDTH 19.1 % (11.6-16.5)
--- NOTE | 2024-02-28 10:29 | PCM.PROG ---
Progress Note Progress Note for Day of Date of Exam: 02/28/24 Subjective Subjective: Patient seen at bedside, no acute events overnight. He states he feels slightly better. He is currently admitted for generalized weakness, dehydration and UTI. He was recently admitted in [facility], awaiting to get medical records. He also had CAD s/p PCI a month ago in [place]. Patient is a poor historian, he is oriented to person and place. He did work with PT yesterday. Labs/imaging reviewed: -Hgb 8.4 BUN/Cr: 13/1.16 -Urine Cx pending Plan: continue hydration. Continue IV levaquin, follow final urine Cx. PT/OT as tolerated, will check PT recommendations. Continue home medications. Waiting to get records from [facility]. Replace electrolytes as per protocol. Monitor AM labs/imaging. Past Medical Family Social History Allergies: Allergies caffeine Allergy (Unknown, Verified 02/21/24 20:44) Reason: Drug allergy lisinopril Allergy (Unknown, Verified 02/21/24 20:44) Reason: Drug allergy Penicillins Allergy (Unknown, Verified 02/21/24 20:44) chocolate flavor Allergy (Verified 02/21/24 20:44) ibuprofen [From Motrin] Allergy (Verified 02/21/24 20:44) Iodinated Contrast Media [IVP DYE] Allergy (Verified 02/21/24 22:26) shrimp Allergy (Verified 02/21/24 22:26) Vital Signs and I&O's Vital Signs: Vital Signs Temperature 97.8 F Pulse Rate [Right Radial] 59 Respiratory Rate 18 Blood Pressure [Left Arm] 125/63 O2 Sat by Pulse Oximetry 100 Intake and Output: Intake & Output 02/25/24 02/26/24 02/27/24 02/28/24 23:59 23:59 23:59 23:59 Intake Total 1286 / 1286 0 / 0 Output Total 0 / 0 Balance 1286 / 1286 0 / 0 Physical Exam Oriented: Person and Place Eyes: Normal Throat: Normal Cardiovascular: Normal Auscultation: Bowel Sounds: Normal Palpation: Normal Tenderness: Normal Skin: Normal Musculoskeletal: Normal Psychiatric: Normal Mood Description: Calm Affect: Normal Speech Pattern: Clear Laboratory and Diagnostics 02/28/24 06:12 02/28/24 06:12 Labs: Laboratory WBC 7.0 X10^3/uL (3.6-10.0) 02/28/24 06:12 RBC 2.86 X10^6/uL (4.7-6.0) L 02/28/24 06:12 Hgb 8.4 g/dL (13.5-18.0) L 02/28/24 06:12 Hct 25.9 % (42.0-54.0) L 02/28/24 06:12 MCV 90.7 fL (80.0-100.0) 02/28/24 06:12 MCH 29.4 pg (27.0-34.0) 02/28/24 06:12 MCHC 32.4 g/dL (33.0-35.0) L 02/28/24 06:12 RDW 19.1 % (11.6-16.5) H 02/28/24 06:12 Plt Count 266 X10^3/uL (150.0-450.0) 02/28/24 06:12 MPV 8.6 fL (7.4-11.0) 02/28/24 06:12 Neut % (Auto) 72.8 % (42.0-75.0) 02/28/24 06:12 Lymph % (Auto) 14.9 % (21.0-51.0) L 02/28/24 06:12 [place] % (Auto) 9.9 % (0.0-13.0) 02/28/24 06:12 Eos % (Auto) 1.7 % (0.9-2.9) 02/28/24 06:12 Baso % (Auto) 0.7 % (0.2-1.0) 02/28/24 06:12 Neut # (Auto) 5.1 x10^3/uL (2.2-4.8) H 02/28/24 06:12 Lymph # (Auto) 1.1 X10^3/uL (1.3-2.9) L 02/28/24 06:12 [place] # (Auto) 0.7 x10^3/uL (0.3-0.8) 02/28/24 06:12 Eos # (Auto) 0.1 x10^3/uL (0.0-0.2) 02/28/24 06:12 Baso # (Auto) 0.1 X10^3/uL (0.0-0.1) 02/28/24 06:12 Absolute Nucleated RBC 0.1 /100WBC 02/28/24 06:12 Sodium 139 mmol/L (136-145) 02/28/24 06:12 Corrected Sodium TNP 02/28/24 06:12 Potassium 3.9 mmol/L (3.5-5.1) 02/28/24 06:12 Chloride 105 mmol/L (98-107) 02/28/24 06:12 Carbon Dioxide 26.3 mmol/L (21-32) 02/28/24 06:12 BUN 13 mg/dL (7-18) 02/28/24 06:12 Creatinine 1.16 mg/dL (0.70-1.30) 02/28/24 06:12 Est GFR (MDRD) Af Amer > 60 (>60) 02/28/24 06:12 Est GFR (MDRD) Non-Af > 60 (>60) 02/28/24 06:12 Glucose 103 mg/dL (65-99) H 02/28/24 06:12 POC Glucose (mg/dL) 100 mg/dL (65-99) H 02/28/24 05:11 Calcium 9.1 mg/dL (8.5-10.1) 02/28/24 06:12 Corrected Calcium 10.7 mg/dL (8.5-10.1) H 02/28/24 06:12 Magnesium 2.0 mg/dL (2.0-2.9) 02/27/24 04:46 Total Bilirubin 0.60 mg/dL (0.2-1.0) 02/28/24 06:12 AST 22 Units/L (15-37) 02/28/24 06:12 ALT 10 Units/L (12-78) L 02/28/24 06:12 Alkaline Phosphatase 72 Units/L (46-116) 02/28/24 06:12 Total Protein 7.0 g/dL (6.4-8.2) 02/28/24 06:12 Albumin 2.0 g/dL (3.4-5.0) L 02/28/24 06:12 Globulin 5.0 g/dL (2.5-4.5) H 02/28/24 06:12 Albumin/Globulin Ratio 0.4 Ratio (1.1-2.1) L 02/28/24 06:12 Specimen Type Catherized urine 02/27/24 16:05 Urine Color Yellow (YELLOW) 02/27/24 16:05 Urine Appearance Slightly hazy (CLEAR) 02/27/24 16:05 Urine pH 6.5 (5.0 - 8.0) 02/27/24 16:05 Ur Specific [place] 1.010 (1.000-1.030) 02/27/24 16:05 Urine Protein 1+ (NEGATIVE) 02/27/24 16:05 Urine Glucose (UA) Negative (NEGATIVE) 02/27/24 16:05 Urine Ketones Negative (NEGATIVE) 02/27/24 16:05 Urine Blood 1+ (NEGATIVE) 02/27/24 16:05 Urine Nitrite Negative (NEGATIVE) 02/27/24 16:05 Urine Bilirubin Negative (NEGATIVE) 02/27/24 16:05 Urine Urobilinogen 1+ (NORMAL) 02/27/24 16:05 Ur Leukocyte Esterase 1+ (NEGATIVE) 02/27/24 16:05 Urine RBC 0-2 /HPF (0-3) 02/27/24 16:05 Urine WBC 5-10 /HPF (0-5) A 02/27/24 16:05 Ur Squamous Epith Cells Many /HPF (NEGATIVE) 02/27/24 16:05 Amorphous Sediment 3+ /HPF (NEGATIVE) 02/26/24 11:44 Urine Bacteria 1+ /HPF (NEGATIVE) 02/27/24 16:05 Granular Casts Few /LPF (NEGATIVE) 02/26/24 11:44 Urine Mucus Few /HPF (NEGATIVE) 02/26/24 11:44 Ur Culture Indicated? No/not indicated 02/27/24 16:05 Urine Opiates Screen Negative (NEG=<300) 02/26/24 11:44 Urine Methadone Screen Negative (NEG=<300) 02/26/24 11:44 Ur Barbiturates Screen Negative (NEG=<200) 02/26/24 11:44 Ur Phencyclidine Scrn Negative (NEG=<25) 02/26/24 11:44 Ur Amphetamines Screen Positive (NEG=<1000) 02/26/24 11:44 U Benzodiazepines Scrn Negative (NEG=<200) 02/26/24 11:44 Urine Cocaine Screen Negative (NEG=<300) 02/26/24 11:44 U Marijuana (THC) Screen Negative (NEG=<50) 02/26/24 11:44 Plan (1) Hypokalemia: Status: Acute (2) General weakness: Status: Acute (3) Acute on chronic renal failure: Status: Acute Qualifiers: Acute renal failure type: unspecified Chronic kidney disease stage: unspecified stage Qualified Code(s): N17.9 - Acute kidney failure, unspecified; N18.9 - Chronic kidney disease, unspecified (4) UTI (urinary tract infection): Status: Acute Qualifiers: Hematuria presence: without hematuria Urinary tract infection type: acute cystitis Qualified Code(s): N30.00 - Acute cystitis without hematuria (5) COPD (chronic obstructive pulmonary disease): Status: Acute Qualifiers: COPD type: unspecified COPD Qualified Code(s): J44.9 - Chronic obstruc tive pulmonary disease, unspecified (6) CHF (congestive heart failure): Status: Acute Qualifiers: Heart failure chronicity: unspecified Heart failure type: unspecified Qualified Code(s): I50.9 - Heart failure, unspecified (7) Hypertension: Status: Acute Qualifiers: Hypertension type: primary hypertension Qualified Code(s): I10 - Essential (primary) hypertension (8) Coronary artery disease: Status: None Qualifiers: Associated angina: without angina Coronary Disease-Associated Artery/Lesion type: unspecified vessel or lesion type [place] vs. transplanted heart: [place] heart Qualified Code(s): I25.10 - Atherosclerotic heart disease of [place] coronary artery without angina pectoris
[2024-02-28] MEDS: NICOTINE PATCH TD SCH (16:47)
[2024-02-29 06:28] LABS: BASOPHILS % (AUTO) 0.5 % (0.2-1.0); EOSINOPHILS # (AUTO) 0.1 x10^3/uL (0.0-0.2); EOSINOPHILS % (AUTO) 1.6 % (0.9-2.9); HEMATOCRIT 29.2 % (42.0-54.0); HEMOGLOBIN 9.6 g/dL (13.5-18.0); LYMPHOCYTES # (AUTO) 1.1 X10^3/uL (1.3-2.9); LYMPHOCYTES % (AUTO) 14.4 % (21.0-51.0); MEAN CORPUSCULAR HEMOGLOBIN 29.3 pg (27.0-34.0); MEAN CORPUSCULAR HGB CONC 32.8 g/dL (33.0-35.0); MEAN CORPUSCULAR VOLUME 89.2 fL (80.0-100.0); MEAN PLATELET VOLUME 8.7 fL (7.4-11.0); MONOCYTES # (AUTO) 0.8 x10^3/uL (0.3-0.8); MONOCYTES % (AUTO) 9.8 % (0.0-13.0); NEUTROPHILS # (AUTO) 5.8 x10^3/uL (2.2-4.8); NEUTROPHILS % (AUTO) 73.7 % (42.0-75.0); PLATELET COUNT 295 X10^3/uL (150.0-450.0); RED BLOOD COUNT 3.27 X10^6/uL (4.7-6.0); RED CELL DISTRIBUTION WIDTH 19.7 % (11.6-16.5); WHITE BLOOD COUNT 7.9 X10^3/uL (3.6-10.0)
[2024-02-29 06:47] LABS: ALANINE AMINOTRANSFERASE 15 Units/L (12-78); ALBUMIN 2.2 g/dL (3.4-5.0); ALKALINE PHOSPHATASE 84 Units/L (46-116); ASPARTATE AMINO TRANSFERASE 27 Units/L (15-37); BLOOD UREA NITROGEN 11 mg/dL (7-18); CALCIUM 9.1 mg/dL (8.5-10.1); CARBON DIOXIDE 24.7 mmol/L (21-32); CHLORIDE 103 mmol/L (98-107); COR CA(FOR HYPOALB) 10.5 mg/dL (8.5-10.1); CREATININE 1.07 mg/dL (0.70-1.30); GLUCOSE 92 mg/dL (65-99); POTASSIUM 3.3 mmol/L (3.5-5.1); SODIUM 138 mmol/L (136-145); TOTAL PROTEIN 7.4 g/dL (6.4-8.2); eGFR NON BLACK RACES > 60 (>60)
[2024-02-29 07:56] VITALS: RESP 18
--- NOTE | 2024-02-29 08:02 | EKG ---
Test Reason : chest pain Blood Pressure : */* mmHG Vent. Rate : 69 BPM Atrial Rate : 69 BPM P-R Int : 150 ms QRS Dur : 96 ms QT Int : 424 ms P-R-T Axes : 47 -55 181 degrees QTc Int : 454 ms Normal sinus rhythm Possible Left atrial enlargement Incomplete right bundle branch block Left anterior fascicular block Left ventricular hypertrophy ( R in aVL , [place] product ) Non-specific change in ST segment in Lateral leads Abnormal ECG When compared with ECG of 22-FEB-2024 02:31, Incomplete right bundle branch block is now present Confirmed by Shivam Purvis ([id number]) on 02/29/2024 8:56:41 AM Referred By: Confirmed By: Shivam Purvis
--- NOTE | 2024-02-29 10:02 | W.DIS.FURT ---
Summary of Discharge Discharge Summary of Date Date of Exam: 02/29/24 Admission Date Date of Admission: 02/26/24 Admission Diagnosis Patient Problems (Updated 02/27/24 @ 10:47 by Joy Shaffer) General weakness (Acute) R53.1 UTI (urinary tract infection) (Acute) N39.0 Hospital Course: Patient admitted for generalized weakness, dehydration and UTI. His hospital/treatment course included: IVF. Antibiotics IV levaquin, PT/OT as tolerated. Pt responded well to treatment. Electrolytes repleted per protocol. Symptoms significantly improved. Rx keflex. Pt transferred for rehab at [facility]. Discharged in stable condition. Labs/imaging reviewed: -Wbc 7.9, Hgb 9.6, Plt 295, Na 138, K 3.3, Creatinine 1.07, Glucose 92 -Urine Cx positive for GBS. Vital Signs: Vital Signs (72 hours) 02/26/24 11:01 02/26/24 12:07 02/26/24 12:15 Temperature 98.2 F Pulse Rate 70 67 69 Pulse Rate [Right Radial] Respiratory Rate 20 Blood Pressure 134/64 Blood Pressure [Left Arm] O2 Sat by Pulse Oximetry 98 100 99 Oxygen Delivery Method Room Air 02/26/24 12:30 02/26/24 12:45 02/26/24 13:00 Temperature Pulse Rate 66 68 74 Pulse Rate [Right Radial] Respiratory Rate Blood Pressure Blood Pressure [Left Arm] O2 Sat by Pulse Oximetry 99 99 100 Oxygen Delivery Method 02/26/24 13:15 02/26/24 13:30 02/26/24 13:45 Temperature Pulse Rate 70 69 69 Pulse Rate [Right Radial] Respiratory Rate Blood Pressure Blood Pressure [Left Arm] O2 Sat by Pulse Oximetry 95 99 100 Oxygen Delivery Method 02/26/24 14:00 02/26/24 14:15 02/26/24 14:30 Temperature Pulse Rate 71 68 68 Pulse Rate [Right Radial] Respiratory Rate Blood Pressure Blood Pressure [Left Arm] O2 Sat by Pulse Oximetry 100 100 99 Oxygen Delivery Method 02/26/24 14:45 02/26/24 15:02 02/26/24 15:15 Temperature Pulse Rate 68 76 68 Pulse Rate [Right Radial] Respiratory Rate Blood Pressure Blood Pressure [Left Arm] O2 Sat by Pulse Oximetry 100 100 100 Oxygen Delivery Method 02/26/24 15:30 02/26/24 15:45 02/26/24 15:47 Temperature Pulse Rate 71 71 Pulse Rate [Right Radial] Respiratory Rate Blood Pressure 163/80 Blood Pressure [Left Arm] O2 Sat by Pulse Oximetry 100 100 Oxygen Delivery Method 02/26/24 15:47 02/26/24 16:00 02/26/24 16:03 Temperature Pulse Rate 71 76 Pulse Rate [Right Radial] Respiratory Rate Blood Pressure 136/77 Blood Pressure [Left Arm] O2 Sat by Pulse Oximetry 100 95 Oxygen Delivery Method 02/26/24 16:15 02/26/24 16:30 02/26/24 16:30 Temperature Pulse Rate 75 74 Pulse Rate [Right Radial] Respiratory Rate Blood Pressure 141/77 Blood Pressure [Left Arm] O2 Sat by Pulse Oximetry 97 98 Oxygen Delivery Method 02/26/24 16:45 02/26/24 17:05 02/26/24 16:32 Temperature Pulse Rate 75 Pulse Rate [Right Radial] Respiratory Rate Blood Pressure Blood Pressure [Left Arm] O2 Sat by Pulse Oximetry 99 Oxygen Delivery Method Room Air Room Air 02/26/24 20:00 02/26/24 19:00 02/27/24 00:00 Temperature 98.6 F 98.0 F Pulse Rate Pulse Rate [Right Radial] 76 69 Respiratory Rate 18 18 Blood Pressure Blood Pressure [Left Arm] 143/70 145/70 O2 Sat by Pulse Oximetry 99 98 Oxygen Delivery Method Room Air Room Air Room Air 02/27/24 04:00 02/26/24 22:00 02/27/24 08:25 Temperature 98.2 F Pulse Rate Pulse Rate [Right Radial] 65 Respiratory Rate 18 Blood Pressure Blood Pressure [Left Arm] 161/70 O2 Sat by Pulse Oximetry 98 Oxygen Delivery Method Room Air Room Air Room Air 02/27/24 08:43 02/27/24 08:00 02/27/24 12:00 Temperature 98.4 F 98.4 F Pulse Rate Pulse Rate [Right Radial] 67 66 Respiratory Rate 20 18 Blood Pressure Blood Pressure [Left Arm] 147/68 129/67 O2 Sat by Pulse Oximetry 98 99 Oxygen Delivery Method Room Air Room Air Room Air 02/27/24 16:00 02/27/24 19:00 02/27/24 20:00 Temperature 98.3 F 98.1 F Pulse Rate Pulse Rate [Right Radial] 70 133 H Respiratory Rate 20 18 Blood Pressure Blood Pressure [Left Arm] 144/67 173/77 O2 Sat by Pulse Oximetry 99 95 Oxygen Delivery Method Room Air Room Air Room Air 02/28/24 00:00 02/28/24 04:00 02/27/24 20:40 Temperature 98.1 F 97.8 F Pulse Rate Pulse Rate [Right Radial] 75 59 L Respiratory Rate 18 18 Blood Pressure Blood Pressure [Left Arm] 164/74 125/63 O2 Sat by Pulse Oximetry 99 100 Oxygen Delivery Method Room Air Room Air Room Air 02/28/24 08:00 02/28/24 07:00 02/28/24 12:00 Temperature 97.7 F 98.2 F Pulse Rate Pulse Rate [Right Radial] 67 64 Respiratory Rate 18 20 Blood Pressure Blood Pressure [Left Arm] 151/72 137/78 O2 Sat by Pulse Oximetry 98 97 Oxygen Delivery Method Room Air Room Air Room Air 02/28/24 09:55 02/28/24 16:00 02/28/24 19:50 Temperature 98.3 F Pulse Rate Pulse Rate [Right Radial] 71 Respiratory Rate 20 Blood Pressure Blood Pressure [Left Arm] 168/81 O2 Sat by Pulse Oximetry 100 Oxygen Delivery Method Room Air Room Air Room Air 02/28/24 19:00 02/28/24 20:00 02/29/24 00:00 Temperature 98.3 F 98.4 F Pulse Rate Pulse Rate [Right Radial] 74 72 Respiratory Rate 20 20 Blood Pressure Blood Pressure [Left Arm] 167/77 170/78 O2 Sat by Pulse Oximetry 98 96 Oxygen Delivery Method Room Air Room Air Room Air 02/29/24 04:00 02/29/24 07:56 Temperature 98.0 F 98.4 F Pulse Rate Pulse Rate [Right Radial] 77 70 Respiratory Rate 20 18 Blood Pressure Blood Pressure [Left Arm] 176/94 158/74 O2 Sat by Pulse Oximetry 97 96 Oxygen Delivery Method Room Air Room Air Labs: Laboratory Last Values WBC 7.9 X10^3/uL (3.6-10.0) 02/29/24 05:45 RBC 3.27 X10^6/uL (4.7-6.0) L 02/29/24 05:45 Hgb 9.6 g/dL (13.5-18.0) L 02/29/24 05:45 Hct 29.2 % (42.0-54.0) L 02/29/24 05:45 MCV 89.2 fL (80.0-100.0) 02/29/24 05:45 MCH 29.3 pg (27.0-34.0) 02/29/24 05:45 MCHC 32.8 g/dL (33.0-35.0) L 02/29/24 05:45 RDW 19.7 % (11.6-16.5) H 02/29/24 05:45 Plt Count 295 X10^3/uL (150.0-450.0) 02/29/24 05:45 MPV 8.7 fL (7.4-11.0) 02/29/24 05:45 Neut % (Auto) 73.7 % (42.0-75.0) 02/29/24 05:45 Lymph % (Auto) 14.4 % (21.0-51.0) L 02/29/24 05:45 [place] % (Auto) 9.8 % (0.0-13.0) 02/29/24 05:45 Eos % (Auto) 1.6 % (0.9-2.9) 02/29/24 05:45 Baso % (Auto) 0.5 % (0.2-1.0) 02/29/24 05:45 Neut # (Auto) 5.8 x10^3/uL (2.2-4.8) H 02/29/24 05:45 Lymph # (Auto) 1.1 X10^3/uL (1.3-2.9) L 02/29/24 05:45 [place] # (Auto) 0.8 x10^3/uL (0.3-0.8) 02/29/24 05:45 Eos # (Auto) 0.1 x10^3/uL (0.0-0.2) 02/29/24 05:45 Baso # (Auto) 0.0 X10^3/uL (0.0-0.1) 02/29/24 05:45 Absolute Nucleated RBC 0.1 /100WBC 02/29/24 05:45 Sodium 138 mmol/L (136-145) 02/29/24 05:45 Corrected Sodium TNP 02/29/24 05:45 Potassium 3.3 mmol/L (3.5-5.1) L 02/29/24 05:45 Chloride 103 mmol/L (98-107) 02/29/24 05:45 Carbon Dioxide 24.7 mmol/L (21-32) 02/29/24 05:45 BUN 11 mg/dL (7-18) 02/29/24 05:45 Creatinine 1.07 mg/dL (0.70-1.30) 02/29/24 05:45 Est GFR (MDRD) Af Amer > 60 (>60) 02/29/24 05:45 Est GFR (MDRD) Non-Af > 60 (>60) 02/29/24 05:45 Glucose 92 mg/dL (65-99) 02/29/24 05:45 POC Glucose (mg/dL) 93 mg/dL (65-99) 02/29/24 05:21 Calcium 9.1 mg/dL (8.5-10.1) 02/29/24 05:45 Corrected Calcium 10.5 mg/dL (8.5-10.1) H 02/29/24 05:45 Magnesium 1.6 mg/dL (2.0-2.9) L 02/29/24 05:45 Total Bilirubin 0.60 mg/dL (0.2-1.0) 02/29/24 05:45 AST 27 Units/L (15-37) 02/29/24 05:45 ALT 15 Units/L (12-78) 02/29/24 05:45 Alkaline Phosphatase 84 Units/L (46-116) 02/29/24 05:45 Troponin I High Sens 17.2 ng/L (4.0-60.0) 02/29/24 07:53 Total Protein 7.4 g/dL (6.4-8.2) 02/29/24 05:45 Albumin 2.2 g/dL (3.4-5.0) L 02/29/24 05:45 Globulin 5.2 g/dL (2.5-4.5) H 02/29/24 05:45 Albumin/Globulin Ratio 0.4 Ratio (1.1-2.1) L 02/29/24 05:45 Specimen Type Catherized urine 02/27/24 16:05 Urine Color Yellow (YELLOW) 02/27/24 16:05 Urine Appearance Slightly hazy (CLEAR) 02/27/24 16:05 Urine pH 6.5 (5.0 - 8.0) 02/27/24 16:05 Ur Specific [place] 1.010 (1.000-1.030) 02/27/24 16:05 Urine Protein 1+ (NEGATIVE) 02/27/24 16:05 Urine Glucose (UA) Negative (NEGATIVE) 02/27/24 16:05 Urine Ketones Negative (NEGATIVE) 02/27/24 16:05 Urine Blood 1+ (NEGATIVE) 02/27/24 16:05 Urine Nitrite Negative (NEGATIVE) 02/27/24 16:05 Urine Bilirubin Negative (NEGATIVE) 02/27/24 16:05 Urine Urobilinogen 1+ (NORMAL) 02/27/24 16:05 Ur Leukocyte Esterase 1+ (NEGATIVE) 02/27/24 16:05 Urine RBC 0-2 /HPF (0-3) 02/27/24 16:05 Urine WBC 5-10 /HPF (0-5) A 02/27/24 16:05 Ur Squamous Epith Cells Many /HPF (NEGATIVE) 02/27/24 16:05 Amorphous Sediment 3+ /HPF (NEGATIVE) 02/26/24 11:44 Urine Bacteria 1+ /HPF (NEGATIVE) 02/27/24 16:05 Granular Casts Few /LPF (NEGATIVE) 02/26/24 11:44 Urine Mucus Few /HPF (NEGATIVE) 02/26/24 11:44 Ur Culture Indicated? No/not indicated 02/27/24 16:05 Urine Opiates Screen Negative (NEG=<300) 02/26/24 11:44 Urine Methadone Screen Negative (NEG=<300) 02/26/24 11:44 Ur Barbiturates Screen Negative (NEG=<200) 02/26/24 11:44 Ur Phencyclidine Scrn Negative (NEG=<25) 02/26/24 11:44 Ur Amphetamines Screen Positive (NEG=<1000) 02/26/24 11:44 U Benzodiazepines Scrn Negative (NEG=<200) 02/26/24 11:44 Urine Cocaine Screen Negative (NEG=<300) 02/26/24 11:44 U Marijuana (THC) Screen Negative (NEG=<50) 02/26/24 11:44 Infect Dis PCR Plus See scanned report 02/27/24 16:05 Reason For Visit: ALTERED MENTAL STATE, GENERALIZED WEAKNESS, UTI Discharge Date Discharge Date: 02/29/24 Discharge Diagnosis All Active Problems (Updated 02/27/24 @ 10:47 by Joy Shaffer) COPD (chronic obstructive pulmonary disease) (Acute) Hypertension (Acute) General weakness (Acute) UTI (urinary tract infection) (Acute) Acute on chronic renal failure (Acute) Muscle weakness of lower extremity (Acute) Hypokalemia (Acute) Pericardial effusion (Acute) Pleural effusion (Acute) CHF (congestive heart failure) (Acute) Hypertension (Acute) Generalized OA (Acute) Chronic lower back pain (Acute) DJD (degenerative joint disease), lumbar (Acute) Seizure (Acute) History of prostate biopsy (Acute) Chronic kidney disease (CKD) (Chronic) Plan of Treatment: Continue with present treatment and follow up plan. Pt is to keep follow up appointment as instructed and take medications as ordered. Discharge Medications Discharge Medications: caffeine Allergy (Unknown, Verified 02/21/24 20:44) lisinopril Allergy (Unknown, Verified 02/21/24 20:44) Penicillins Allergy (Unknown, Verified 02/21/24 20:44) chocolate flavor Allergy (Verified 02/21/24 20:44) ibuprofen [From Motrin] Allergy (Verified 02/21/24 20:44) Iodinated Contrast Media [IVP DYE] Allergy (Verified 02/21/24 22:26) shrimp Allergy (Verified 02/21/24 22:26) CONTINUE taking the following medications atorvastatin 40 mg tablet 40 mg PO QDAY 02/26/24 [History] New Prescriptions cephalexin 500 mg tablet 500 mg PO BID #20 tabs 02/29/24 [Rx] Discharge Plan Discharge Plan Hospital Course: Patient admitted for generalized weakness, dehydration and UTI. His hospital/treatment course included: IVF. Antibiotics IV levaquin, PT/OT as tolerated. Pt responded well to treatment. Electrolytes repleted per protocol. Symptoms significantly improved. Rx keflex. Pt transferred for rehab at [facility]. Discharged in stable condition. Labs/imaging reviewed: -Wbc 7.9, Hgb 9.6, Plt 295, Na 138, K 3.3, Creatinine 1.07, Glucose 92 -Urine Cx positive for GBS. Patient Disposition: SNF Condition: Stable Health Concerns: Post Hospitalization: new medications and changes needed to prevent readmission or further decline. Pt educated and given instructions on all concerns. Care Plan Goals: Problem: Activity Intolerance Goal: Increased tolerance to activity Instructions: Follow provided instructions. Follow up with primary physician as directed. Contact primary care physician or report to the closest Emergency Room if condition worsens. Plan of Treatment: Continue with present treatment and follow up plan. Pt is to keep follow up appointment as instructed and take medications as ordered. Prescriptions: New cephalexin 500 mg Tablet 500 mg PO BID Qty: 20 0RF Continued losartan 50 mg Tablet 50 mg PO QDAY carvedilol 6.25 mg Tablet 12.5 mg PO BID Rx Instructions: must administer with a meal/food isosorbide mononitrate 30 mg Tablet Extended Release 24 Hr 30 mg PO QDAY amlodipine 5 mg Tablet 10 mg PO QDAY nitroglycerin 0.4 mg Tablet, Sublingual 0.4 mg SUBLINGUAL Q5M PRN Rx Instructions: do not exceed 3 doses per episode divalproex 250 mg Tablet Extended Release 24 Hr 250 mg PO QDAY furosemide 20 mg Tablet 20 mg PO DAILY tizanidine 4 mg tablet 4 mg PO BID PRN topiramate 25 mg tablet 25 mg PO QDAY tamsulosin 0.4 mg capsule 0.4 mg PO QDAY gabapentin 800 mg tablet 800 mg PO TID simvastatin 20 mg tablet 20 mg PO QPM finasteride 5 mg tablet 5 mg PO QDAY atorvastatin 40 mg tablet 40 mg PO QDAY Orders to Discharge Patient Discharge Orders: Discharge (Routine); Ordered 02/29/24 Ordered By: Scott Nagel Follow ups/Referrals Follow ups/Referrals: LAURITA POWELL [Primary Care Provider] - (Follow up following discharge from half-way.)
[2024-02-29] MEDS: KCL IV SCH (10:08)
[2024-02-29] MEDS: NS IV SCH (10:08)
[2024-02-29] MEDS: MAGNESIUM SULFATE IV SCH (10:08)
[2024-02-29 11:51] VITALS: BP 132/71; PULSE 69; TEMP 98; O2SAT 99
== END 2024-02-29 14:30 ==
LOC: SUPCPDRO → MED/SURG 11:01 → ER 11:01 → MED/SURG 17:05
PROVIDERS: ADMIT Family Medicine; ATTEND Family Medicine
DX: R07.89 Other chest pain; B95.1 Streptococcus, group B, as the cause of diseases classified elsewhere; I50.9 Heart failure, unspecified; J44.9 Chronic obstructive pulmonary disease, unspecified; I25.10 Atherosclerotic heart disease of native coronary artery without angina pectoris; N17.8 Other acute kidney failure; N18.9 Chronic kidney disease, unspecified; R26.89 Other abnormalities of gait and mobility; I13.0 Hypertensive heart and chronic kidney disease with heart failure and stage 1 through stage 4 chronic kidney disease, or unspecified chronic kidney disease; N39.0 Urinary tract infection, site not specified; E86.0 Dehydration; E87.6 Hypokalemia; R94.31 Abnormal electrocardiogram [ECG] [EKG]; R53.1 Weakness; R41.82 Altered mental status, unspecified